=== PATIENT | female | born 1955 | race Caucasian/White ===

== ENCOUNTER 2019-01-28 14:50 | Inpatient (IN) ==
[2019-01-28] MEDS ORDERED: VANCOMYCIN IV PER PHARMACY MISC SCH (15:30)
[2019-01-28] MEDS ORDERED: LEVAQUIN 500 MG/D5W 500 MG/100 ML IVPB IV SCH (16:00)
--- NOTE | 2019-01-28 16:08 | EKG Report ---
Test Performed on : 01/28/2019 3:47:53 PM Test Reason : CELLULITIS Blood Pressure : / mmHG Vent. Rate : 084 BPM Atrial Rate : 084 BPM P-R Int : 190 ms QRS Dur : 106 ms QT Int : 358 ms P-R-T Axes : 067 009 052 degrees QTc Int : 423 ms Normal sinus rhythm. Normal ECG When compared with ECG of 24-OCT-2016 08:33, No significant change was found Confirmed by Kenny Cole MD ([id number]) on 01/28/2019 8:56:42 PM
[2019-01-28 16:16] LABS: HEMATOCRIT 41.4 % (37.0-47.0); HEMOGLOBIN 13.6 g/dL (12.0-16.0); MCH 28.5 PG (27-31); MCHC 32.9 g/dL (33-37); MCV 86.8 FL (81-99); MPV 8.3 FL (7.4-10.4); RBC 4.77 XMIL (4.2-5.4); RDW 13.8 % (11.5-14.5); WBC 6.28 X1000 (4.8-10.8)
[2019-01-28 16:47] LABS: ALB/GLOB RATIO 0.7; ALBUMIN 3.1 g/dL (3.5-5.0); CALCIUM 9.1 mg/dL (8.8-10.2); CREATININE 1.6 mg/dL (0.5-0.9); POTASSIUM 4.9 mmol/L (3.5-5.1); TOTAL BILIRUBIN 0.24 mg/dL (0.20-1.00); TOTAL PROTEIN 7.3 g/dL (6.3-8.3)
[2019-01-28] MEDS: KEFZOL 2 GM/D5W 2 GM/50 ML IVPB IV SCH ×2 (16:59→23:31)
[2019-01-28] MEDS: D5 1/2 NS + KCL 20 MEQ 1,000 ML IV SCH (16:59)
--- NOTE | 2019-01-28 17:57 | INFECTIOUS DISEASE CONSULT REP ---
DATE: 01/28/2019 CONCLUSION: The patient has a 3 year history of a large sacral wound, which is infected. This occurred because the patient had an experimental radiation treatment of colon cancer. A culture taken from the sacral wound on January 22 of this year grew Klebsiella. RECOMMENDATIONS: I have taken a culture from the wound. I was able to insert the swab all the way to the handle that I was holding. Therefore, the wound is very deep and that is being sent for culture. DISCUSSION: The patient had experimental radiation therapy years ago to treat her colon cancer. She developed a sacral wound which has been present for the past 3 years. The drainage has increased recently and she has also had a fever with it in the range of 100 to 101. A culture taken from the wound grew Klebsiella as mentioned above. There is no other laboratory result back yet. PAST MEDICAL HISTORY/REVIEW OF SYSTEMS: Eyes and ears: Her hearing and vision is good. Neck: No stiffness. Respiratory: No cough or shortness of breath. Cardiac: No chest pain or palpitations. GI: No nausea or vomiting. The patient does have a colostomy. : The patient has a urostomy that both ureters empty into. Bones, joints, muscles: No swollen joints or muscle aches. Endocrine: Patient does not have diabetes or thyroid disease. Neurologic: The patient does not have seizures. She has weakness in both legs and can barely walk if at all. 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 She has had a tubal ligation and hysterectomy. PREVIOUS HOSPITALIZATIONS AND OPERATIONS: She has had labor and deliveries, tubal ligation, hysterectomy and surgery for a right hip fracture which included putting metal in. The patient also has had breast reduction. MEDICAL DISEASES: Positive for rectal cancer treated with radiation therapy. The patient also has chronic anemia. INFECTIOUS DISEASE HISTORY: Positive for urinary tract infection, pneumonia, and sacral wound infection. FAMILY HISTORY: Positive for diabetes mellitus, hypertension, stroke and cancer. SOCIAL HISTORY[place] . She has cats for pets. She is disabled. She is allergic to penicillin and Demerol. However, she has had Keflex in the past and has tolerated it well. She does not smoke cigarettes, drink alcoholic beverages or abuse drugs. HOME MEDICATIONS: Include Xanax, Keflex, hydrocodone and minerals and vitamins. PHYSICAL EXAMINATION: Vital Signs: Temperature is 98.1 degrees, pulse 90, respirations 18, blood pressure is 112/65. The patient is 5 feet 7 inches tall, weighs 190 pounds. General: This is an obese, middle-aged female. She is in no acute distress. Head/eyes/ears/nose/throat: She can hear my spoken words and see near objects. Neck: No meningismus. Lungs: Clear to auscultation. Cardiovascular: Regular heart rate. Abdomen: Soft and nontender. Colostomy and urostomy tubes are present. Pelvic: In the sacral area there is a large wound. It is very erythematous and it has got a seropurulent drainage coming out from it. As I mentioned earlier, when I stuck the swab in to get a culture it went all the way to the handle of the swab. Therefore, the wound is very deep. Neurologic: The patient has weak legs. She can move her arms okay. Her memory as regarding her medical history is intact. Integument: No rash is noted. Thank you for the consult. cc: MD Allan Jo MD
--- NOTE | 2019-01-28 18:02 | Diag Imaging Result Doc PS360 ---
EXAM: CHEST-PORTABLE INDICATION: CELLULITIS TECHNIQUE: One view COMPARISON: 12/23/2016 FINDINGS: The lungs are grossly clear. There is no discrete pleural fluid collection or pneumothorax. The cardiomediastinal silhouette and central vasculature are grossly unremarkable. IMPRESSION: No evidence of acute pathology by plain radiograph. Electronically signed by Aron Henderson 01/28/2019 5:59 PM
[2019-01-28] MEDS: MORPHINE IV PRN ×3 (18:49→23:30)
[2019-01-28 18:50] LABS: URINE SOURCE CLEAN CATCH
[2019-01-28 18:54] LABS: BILIRUBIN URINE NEGATIVE (NEGATIVE); BLOOD URINE TRACE (NEGATIVE); COLOR STRAW; GLUCOSE URINE NEGATIVE (NEGATIVE); KETONE URINE NEGATIVE (NEGATIVE); LEUKOCYTES URINE LARGE (NEGATIVE); NITRITE URINE NEGATIVE (NEGATIVE); PROTEIN URINE 30 mg/dL (NEGATIVE); SP GRAVITY URINE 1.011; TURBIDITY URINE HAZY (CLEAR); UR EPITHELIAL CELLS <10 /HPF (<10); URINE BACTERIA 1+ /HPF; URINE RBC <10 /HPF (<10); URINE WBC TNTC /HPF (<10); UROBILINOGEN URINE NORMAL (NORMAL)
[2019-01-29] MEDS: MORPHINE IV PRN ×9 (04:06→22:26)
[2019-01-29] MEDS: KEFZOL 2 GM/D5W 2 GM/50 ML IVPB IV SCH ×3 (04:24→17:24)
--- NOTE | 2019-01-29 09:32 | Diag Imaging Result Doc PS360 ---
CT ABDOMEN/PELVIS W/O CONTRAST - 01/29/2019 INDICATION: r/o abscess COMPARISON: 10/23/2017 FINDINGS: The patient's posterior sacral wound was catheterized previously and water-soluble contrast was infused. This demonstrates a sinus tract to the former location of the rectum and exiting out the inferior perineum at the location of the anus. At the posterior subcutaneous tissue at the region of the actual sacral wound, there is a small cavity measuring about 5 x 1.5 cm. This is mainly filled with air but also somewhat with the infused contrast. There is a left lower quadrant colostomy and a right lower quadrant urostomy. These appear to be patent and without complication. There is subcutaneous edema in both inferior buttocks and posterior upper thighs. No drainable fluid collections here. There is also some skin thickening suggesting cellulitis. The sacrum itself is diffusely abnormally sclerotic with erosion inferiorly. This is stable from prior. There is also a stable right femoral neck stabilization bernardino. IMPRESSION: 1. The posterior sacral wound connects with a posterior subcutaneous tissue pocket, and also a sinus tract emptying out of the perineum in the former location of the rectum and anus. 2. Cellulitis of the buttocks and posterior upper thighs. 3. Other findings are stable from prior. This exam was performed using automated exposure control, adjustment of mA or kV according to patient size, and/or use of iterative reconstruction technique Electronically signed by Scott Kingsley 01/29/2019 9:29 AM
--- NOTE | 2019-01-29 09:55 | Diag Imaging Result Doc PS360 ---
FLUROSCOPY ONLY IN DEPT. - 01/29/2019 INDICATION: cellulitis of the perineum TECHNIQUE: Fistulogram of posterior sacral wound. 40 cc of Omnipaque was administered. Total fluoroscopy time was 50 seconds. 13 images were obtained. COMPARISON: CT from 10/23/2017 and today FINDINGS: There was a small pocket in the posterior sacral subcutaneous tissue. There is extensive contrast flow down through the region of the former rectum and out from the peritoneum in the former region of the anus. IMPRESSION: Fistula from the posterior sacral tissue pocket through the pelvic tissue and out the peritoneum. Electronically signed by Scott Kingsley 01/29/2019 9:52 AM
--- NOTE | 2019-01-29 14:07 | INFECTIOUS DISEASE PROGRESS NO ---
DATE: 01/29/2019 PRESENT ILLNESS: The patient has cellulitis of the buttocks and thighs. She also has a sacral wound which connects with subcutaneous tissue pocket and a sinus tract to the perineum. A culture taken from the wound a few days ago grew Klebsiella. MEDICATIONS: Currently the patient is on Ancef. PHYSICAL EXAMINATION: Vital Signs: Temperature is 100.6 degrees, pulse 94, respirations 20, blood pressure 119/42. General: This is a somewhat ill-appearing, middle-aged female. She is in no acute distress. Head, eyes, ears, nose, and throat: She can hear my spoken words and see near objects. She does not have any white coating on her tongue. Neck: No meningismus. Lungs: Clear to auscultation. Cardiovascular: Heart rate is regular. Abdomen: The patient has a colostomy and urostomy present. Both are functional. Pelvic Exam: The patient has an erythematous, large wound in the sacral area and perineum. There is a brown and yellow discharge which is profuse. Neurologic: The patient is awake. She can move her arms but she is weak in her legs. LAB AND X-RAY: CT scan showed cellulitis of the buttocks and thighs, large sacral wound which connected with subcutaneous tissue pocket and a sinus tract to the perineum. The patient's creatinine is 1.6. GFR is 33. Liver function studies are normal. Urinalysis showed white cells and bacteria. A culture from the patient's wound is growing a gram negative bernardino. ASSESSMENT AND PLAN: The patient has a large sacral and perineal wound with cellulitis of the buttocks and thighs. This all occurred because the patient participated in a study of using radiation to treat colorectal cancer years ago. My plan is to continue cefazolin but to decrease the dose because of the patient's renal insufficiency. Patient's comorbidity was that she had a rectal cancer that was treated with radiation therapy years ago. The patient also has chronic anemia. cc: MD Allan Jo MD MTDD
[2019-01-29] MEDS: D5 1/2 NS + KCL 20 MEQ 1,000 ML IV SCH (15:21)
[2019-01-30] MEDS: KEFZOL 2 GM/D5W 2 GM/50 ML IVPB IV SCH ×2 (00:40→08:45)
[2019-01-30] MEDS: MORPHINE IV PRN ×9 (04:34→23:08)
[2019-01-30] MEDS: LMX 5 CREAM TOP PRN ×2 (07:30→16:36)
--- NOTE | 2019-01-30 11:15 | INFECTIOUS DISEASE PROGRESS NO ---
DATE: 01/30/2019 PRESENT ILLNESS: The patient has cellulitis of the buttocks and thighs. She also has a very large deep sacral wound. A culture from the wound is growing a gram-negative bernardino. Previously, the patient grew Klebsiella from the wound. MEDICATIONS: The patient is receiving Ancef. PHYSICAL EXAMINATION: Vital Signs: Temperature is 99 degrees, pulse 75, respirations 18, blood pressure 100/51. General: This is an ill-appearing, middle-aged female. She is in no acute distress. HEENT: She can hear my spoken words and see near objects. She does not have any white patches in her mouth. Neck: She does not have any pain in her neck when she moves her neck or moves her head. Lungs: Clear to auscultation. Cardiovascular: Regular heart rate. Abdomen: Soft and nontender. The patient has two ostomies in place, one is a colostomy and the other is a urostomy. Both are functioning well. Pelvic: The patient has a large sacral and perineal wound. A new type of topical treatment was started by the wound nurse, Annabelle Gutierrez, and amazingly, almost all of the erythema in the patient's wound is gone, and there is a dramatic decrease in any drainage coming from the wound as well. Neurologic: The patient is alert. She can move her extremities, although she is weak in her legs. There is no tremor. LABORATORY DATA: The wound is growing gram-negative bernardino as mentioned above. Urine culture is negative. There is no other new lab for today. ASSESSMENT AND PLAN: The patient has a large sacral and perineal wound with cellulitis of the buttock and thighs. As mentioned above, the wound looks much better today. I think a lot of that is due to the new topical therapy that the wound nurse, Annabelle Gutierrez, started on the patient. As regarding the patient's gram-negative bernardino culture from the wound, I plan on continuing Ancef pending the identification and susceptibility testing of the gram-negative bernardino. COMORBIDITY: The patient had a rectal cancer and she was years ago treated with an experimental radiation therapy. Unfortunately, the side effects from the radiation have caused this very large wound infection. The cancer, however, has not come back. The patient also has chronic anemia. cc: MD Allan Jo MD MTDD
--- NOTE | 2019-01-30 14:03 | INFECTIOUS DISEASE PROGRESS NO ---
DATE: 01/30/2019 SUBJECTIVE: The patient's culture from her wound came back today. It is growing Enterobacter. It is resistant to cefazolin which the patient is currently receiving. PLAN: I have stopped cefazolin and started the patient on cefepime, to which the organism is susceptible. cc: MD Allan Jo MD MTDD
[2019-01-30] MEDS: MAXIPIME 2 GM in NS 100 ML IV SCH (14:15)
[2019-01-30] MEDS: D5 1/2 NS + KCL 20 MEQ 1,000 ML IV SCH ×2 (16:44→16:48)
[2019-01-31] MEDS: MAXIPIME 2 GM in NS 100 ML IV SCH ×3 (01:15→19:43)
[2019-01-31] MEDS: MORPHINE IV PRN ×7 (01:16→21:55)
[2019-01-31] MEDS ORDERED: NORCO-10 PO ONE (10:10)
--- NOTE | 2019-01-31 11:49 | INFECTIOUS DISEASE PROGRESS NO ---
DATE: 01/31/2019 PRESENT ILLNESS: The patient has cellulitis of the buttocks and thighs. She also has a very large deep sacral wound from which Enterobacter was isolated. Finally, the patient has a Pseudomonas urinary tract infection. MEDICATIONS: The patient is on cefepime. PHYSICAL EXAMINATION: Vital Signs: Temperature is 98.7 degrees, pulse 78, respirations 16, blood pressure 96/60. Generally: This is an ill-appearing middle-age female. She is in no acute distress. Head, eyes, ears, nose, and throat: She can hear my spoken words and see near objects. She does not have any white coating of her tongue. Neck: She does not seem to have any pain in her neck when she moves her neck or her head. Lungs: Clear to auscultation. Cardiovascular: Heart rate is regular. Abdomen: The patient has a colostomy and a urostomy in place and they are both functioning well. Pelvic: The patient has a large sacral and perineal wound. The erythema has drastically been reduced and there is a decrease in the drainage coming from the wound also. Neurologic: The patient is alert. She can move her extremities although she is weak in her legs. LABORATORY AND X-RAY: There is no new radiographic study today. Urine analysis showed white cells and bacteria, and the urine culture grew Pseudomonas. ASSESSMENT AND PLAN: The patient has a large sacral and perineal wound and cellulitis of the buttock and thighs. She also has a urinary tract infection. My plan is to continue cefepime, but increase the dose to 2 g IV every 8 hours. I discussed with the patient about hyperbaric oxygen and she indicated to me that she would like to see if that could be arranged. When the patient is discharged from the hospital, I will set up an appointment for her with the hyperbaric oxygen office at [place] where the patient will be evaluated to see if hyperbaric oxygen would be of benefit to her. The patient agrees with having a PICC. COMORBIDITY: The patient, unfortunately, had rectal cancer and she was in an experimental study which used radiation therapy to treat the cancer. The patient has had a lot of side effects from the radiation which have occurred over many years. The cancer has not come back. The patient also has chronic anemia. cc: MD Allan Jo MD MTDD
[2019-01-31] MEDS: D5 1/2 NS + KCL 20 MEQ 1,000 ML IV SCH ×2 (13:36→18:00)
[2019-01-31] MEDS: NORCO-10 PO PRN ×2 (14:41→20:55)
[2019-01-31] MEDS: COLACE PO SCH ×2 (19:43→21:41)
[2019-02-01] MEDS: MORPHINE IV PRN ×5 (00:06→21:05)
[2019-02-01] MEDS: MAXIPIME 2 GM in NS 100 ML IV SCH ×3 (03:42→16:10)
[2019-02-01 06:45] LABS: BASO# 0.01 X1000 (0.0-0.2); BASO% 0.2 % (0.0-0.8); EOS# 0.07 X1000 (0.0-0.7); EOS% 1.1 % (0.0-10.0); HEMATOCRIT 36.6 % (37.0-47.0); HEMOGLOBIN 11.8 g/dL (12.0-16.0); LYMPH# 0.56 X1000 (1.2-3.4); LYMPH% 8.5 % (20.5-51.1); MCHC 32.2 g/dL (33-37); MCV 89.9 FL (81-99); MONO# 0.78 X1000 (0.11-0.59); MONO% 11.8 % (1.7-9.3); MPV 8.3 FL (7.4-10.4); NEUT# 5.18 X1000 (1.4-6.5); NEUT% 78.4 % (42.2-75.2); PLT 237 X1000 (130-400); RBC 4.07 XMIL (4.2-5.4); RDW 13.7 % (11.5-14.5)
[2019-02-01 06:58] LABS: INR 1.1; PROTIME 15.1 Seconds (11.0-16.0)
[2019-02-01 07:04] LABS: CALCIUM 8.6 mg/dL (8.8-10.2); CREATININE 1.4 mg/dL (0.5-0.9); POTASSIUM 4.7 mmol/L (3.5-5.1)
[2019-02-01] MEDS: NORCO-10 PO PRN ×4 (07:24→21:10)
--- NOTE | 2019-02-01 09:46 | Diag Imaging Result Doc PS360 ---
EXAM: SMALL BOWEL SERIES ONLY 02/01/2019 HISTORY: R/O fistula TECHNIQUE: Small bowel series, seven images COMMENT: There is contrast leaking from the fistula in the posterior pelvis almost immediately after ingesting contrast. This is seen on the sheet under the patient on the immediate and 15 minute image. This was removed and appears to contain contrast. The 30 minute image demonstrates some early leakage of contrast, presumably from the distal jejunum as it passes anterior to the sacral promontory. Additional imaging is to be performed with CT. IMPRESSION: Enterocutaneous fistula. Electronically signed by Tylor Agudelo 02/01/2019 9:44 AM
--- NOTE | 2019-02-01 10:42 | Diag Imaging Result Doc PS360 ---
EXAM: CT ABDOMEN/PELVIS W/O CONTRAST 02/01/2019 HISTORY: POST XRAY EXAM PER DR. ROJAS TECHNIQUE: This exam was performed using automated exposure control, adjustment of mA or kV according to patient size, and/or use of iterative reconstruction technique. COMMENT: There is clearly contrast passing from the distal jejunum and the posterior portion of the pelvis just below the level of the sacrum into the fistulous tract extending to the skin posteriorly. This was also demonstrated on fluoroscopy. This connection was not clearly demonstrated on the previous study of 01/29/2019. IMPRESSION: Enterocutaneous fistula as described. The findings were discussed with Allan Crocker MD at 02/01/2019 10:39 AM. Electronically signed by Tylor Agudelo 02/01/2019 10:39 AM
[2019-02-01] MEDS ORDERED: MAXIPIME 2 GM in NS 100 ML IV SCH (12:00)
[2019-02-01] MEDS ORDERED: FLEET ENEMA ONE (14:53)
[2019-02-01] MEDS: COLACE PO SCH ×3 (14:58→21:05)
[2019-02-01] MEDS: D5 1/2 NS + KCL 20 MEQ 1,000 ML IV SCH (16:09)
[2019-02-02] MEDS: NORCO-10 PO PRN ×4 (04:37→21:17)
[2019-02-02] MEDS: MAXIPIME 2 GM in NS 100 ML IV SCH ×2 (04:37→15:49)
[2019-02-02] MEDS ORDERED: ATIVAN PO ONE (06:42)
[2019-02-02 07:02] LABS: BASO# 0.01 X1000 (0.0-0.2); BASO% 0.1 % (0.0-0.8); EOS# 0.06 X1000 (0.0-0.7); EOS% 0.8 % (0.0-10.0); HEMATOCRIT 38.4 % (37.0-47.0); HEMOGLOBIN 12.5 g/dL (12.0-16.0); IMM GRAN# 0.02 X1000 (0.0-0.04); IMM GRAN% 0.3 % (0.0-0.5); LYMPH# 0.45 X1000 (1.2-3.4); LYMPH% 6.1 % (20.5-51.1); MCH 28.4 PG (27-31); MCHC 32.6 g/dL (33-37); MCV 87.3 FL (81-99); MONO# 0.63 X1000 (0.11-0.59); MONO% 8.6 % (1.7-9.3); MPV 8.3 FL (7.4-10.4); NEUT# 6.16 X1000 (1.4-6.5); NEUT% 84.1 % (42.2-75.2); PLT 257 X1000 (130-400); RDW 13.6 % (11.5-14.5); WBC 7.33 X1000 (4.8-10.8)
[2019-02-02 07:24] LABS: CALCIUM 8.6 mg/dL (8.8-10.2); CREATININE 1.5 mg/dL (0.5-0.9); POTASSIUM 4.5 mmol/L (3.5-5.1)
[2019-02-02] MEDS: MORPHINE IV PRN ×3 (07:36→12:18)
[2019-02-02] MEDS: COLACE PO SCH ×2 (09:01→20:03)
[2019-02-02] MEDS: LMX 5 CREAM TOP PRN ×2 (10:45→18:56)
[2019-02-02] MEDS: D5 1/2 NS + KCL 20 MEQ 1,000 ML IV SCH (15:46)
[2019-02-02] MEDS: ZOFRAN IV PRN (21:17)
[2019-02-03] MEDS: NORCO-10 PO PRN ×6 (01:28→21:34)
[2019-02-03] MEDS: MAXIPIME 2 GM in NS 100 ML IV SCH ×2 (03:07→15:48)
[2019-02-03] MEDS: ZOFRAN IV PRN (05:02)
[2019-02-03] MEDS: PHENERGAN IV PRN ×5 (05:06→21:34)
[2019-02-03] MEDS: SODIUM CHLORIDE 0.9% INJ PRN ×3 (09:09→17:14)
[2019-02-03] MEDS: COLACE PO SCH ×2 (09:12→21:38)
[2019-02-03] MEDS: D5 1/2 NS + KCL 20 MEQ 1,000 ML IV SCH (15:51)
[2019-02-04] MEDS: NORCO-10 PO PRN ×6 (02:29→20:48)
[2019-02-04] MEDS: PHENERGAN IV PRN ×2 (02:29→05:47)
[2019-02-04] MEDS: MAXIPIME 2 GM in NS 100 ML IV SCH ×2 (04:53→17:01)
[2019-02-04] MEDS: COLACE PO SCH ×2 (09:25→20:50)
--- NOTE | 2019-02-04 10:22 | DISCHARGE SUMMARY ---
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 PROCEDURES PERFORMED: Fistulogram as well as upper GI and fluoro studies revealing a jejunal enterocutaneous fistula. HISTORY/HOSPITAL COURSE: The patient is a now 64-year-old, white female with a long complicated history leading back to a rectal carcinoma diagnosis in the late and 1999 era. She had radiation and abdominoperineal resection. 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 The necrosis of the bladder led to a radical cystectomy and ileal conduit. She has a permanent colostomy on the left and an ileal conduit on the right. 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 I inherited her from the [employer] oncologist in 2002 and had been taking care of her ever since. She has had problems with nonhealing wounds in the perineum since that time. They would nearly heal and then [place] back in. In the interim she has gained a fair amount of weight. She is able to transfer herself from her wheelchair to bed but is not ambulatory and has gained weight since that time as well. Otherwise workups for recurrent tumor have been negative, mammography, colonoscopy, etc. have all been okay. She developed a draining sinus in the sacral area that appeared to be sort of a pilonidal cyst that was excised 2 years ago that has never healed and over the last 2 to 3 weeks prior to the admission on 01/28 the output from his draining sinus has increased many fold. She was subsequently admitted on 01/28. A fistulogram failed to reveal any evidence of enterocutaneous fistula but follow up upper GI and small-bowel follow-through with Gastrografin did reveal a jejunal enterocutaneous fistula with drainage out through the perineum. This segment of small bowel has likely been radiated as well. It did not improve during her hospitalization. With the enzymes in the small bowel drainage she has had some inflammation and excoriation in her perineum that is that is non healing at this point, as well. I have spoken with Dr. Elaine twice about the patient and he has agreed to take her in transfer to [facility]. He will take the patient in transfer today, probably initiate some TPN and consider an operation that is relatively high-risk secondary to the multiple previous operations and the radiation to the bowel. Operative risk is high. The patient is aware of this and she wishes to proceed with the transfer. In the last several days prior to transfer the patient's oral intake has decreased markedly. She has had nausea and some minimal bilious vomiting but no feculent vomiting. She will be transferred today by ambulance to the [facility] service. cc: Allan Crocker MD
[2019-02-04] MEDS: D5 1/2 NS + KCL 20 MEQ 1,000 ML IV SCH (17:02)
[2019-02-05] MEDS: NORCO-10 PO PRN ×4 (00:42→12:56)
[2019-02-05] MEDS: MAXIPIME 2 GM in NS 100 ML IV SCH (04:39)
[2019-02-05 11:46] VITALS: BP 109/55
[2019-02-05] MEDS: COLACE PO SCH (12:30)
== END 2019-02-05 13:00 | disposition short-term general hospital (02) | DRG 603 ==
LOC: DIRADM → OBSVTOIN 14:50 → 4N 15:01
PROVIDERS: ADMIT Surgery; ATTEND Surgery
CPT/HCPCS: 71010; 71045; 74176; 74250; 76000; 80048; 80053; 81001; 82948; 85025; 85027; 85610; 87070; 87077; 87088; 87186; 93005; 93010; A9270; J0690; J0692; J2270; J2405; J2550; J3480; Q9966; Q9967; XXXXX

== ENCOUNTER 2019-02-11 16:37 | Inpatient (IN) ==
[2019-02-11] MEDS ORDERED: NS 1,000 ML IV PRN (17:52)
--- NOTE | 2019-02-11 18:35 | EKG Report ---
Test Performed on : 02/11/2019 5:54:26 PM Test Reason : Stroke like symptoms Blood Pressure : / mmHG Vent. Rate : 073 BPM Atrial Rate : 073 BPM P-R Int : 176 ms QRS Dur : 094 ms QT Int : 392 ms P-R-T Axes : 070 013 057 degrees QTc Int : 431 ms Normal sinus rhythm. with sinus arrhythmia. Possible Left atrial enlargement Borderline ECG When compared with ECG of 28-JAN-2019 15:47, No significant change was found Unconfirmed Result
[2019-02-11] MEDS ORDERED: ATIVAN IV ONE (18:39)
--- NOTE | 2019-02-11 18:46 | Diag Imaging Result Doc PS360 ---
CT HEAD W/O CONTRAST - 02/11/2019 INDICATION: stroke like symptoms COMPARISON: None FINDINGS: The ventricles and sulci are normal in size and contour. No intracranial mass or hemorrhage. The skull is intact. The sinuses mastoids and middle ears are clear. IMPRESSION: Negative exam. This exam was performed using automated exposure control, adjustment of mA or kV according to patient size, and/or use of iterative reconstruction technique Electronically signed by Scott Kingsley 02/11/2019 6:43 PM
--- NOTE | 2019-02-11 18:55 | Diag Imaging Result Doc PS360 ---
CHEST-PORTABLE - 02/11/2019 INDICATION: stroke like symptoms COMPARISON: 01/28/2019 FINDINGS: There is a right central line in good position with the tip at the lower SVC. The lungs are clear. Heart size is normal. No pneumothorax or pleural effusion. IMPRESSION: Negative exam. Electronically signed by Scott Kingsley 02/11/2019 6:53 PM
[2019-02-11 19:03] LABS: URINE SOURCE CATH
[2019-02-11 19:06] LABS: BILIRUBIN URINE NEGATIVE (NEGATIVE); BLOOD URINE SMALL (NEGATIVE); COLOR ORANGE; GLUCOSE URINE NEGATIVE (NEGATIVE); KETONE URINE NEGATIVE (NEGATIVE); LEUKOCYTES URINE LARGE (NEGATIVE); NITRITE URINE NEGATIVE (NEGATIVE); PH URINE 6.5; PROTEIN URINE 70 mg/dL (NEGATIVE); SP GRAVITY URINE 1.014; TURBIDITY URINE TURBID (CLEAR); UROBILINOGEN URINE NORMAL (NORMAL)
[2019-02-11 19:10] LABS: UR EPITHELIAL CELLS <10 /HPF (<10); URINE BACTERIA 3+ /HPF; URINE RBC <10 /HPF (<10); URINE WBC TNTC /HPF (<10)
[2019-02-11 19:15] LABS: URINE CASTS NONE SEEN; URINE CRYSTALS NONE SEEN; URINE YEAST PRESENT
[2019-02-11 19:16] LABS: URINE SMALL ROUND CELLS NONE SEEN
[2019-02-11 19:34] LABS: UR AMPHETAMINES QUAL NONE DETECTED (NONE DETECT); UR BARBITUATES QUAL NONE DETECTED (NONE DETECT); UR BENZODIAZEPIN QUAL NONE DETECTED (NONE DETECT); UR CANNABINOIDS QUAL NONE DETECTED (NONE DETECT); UR COCAINE QUAL NONE DETECTED (NONE DETECT); UR METHADONE QUAL NONE DETECTED (NONE DETECT); UR OPIATES QUAL NONE DETECTED (NONE DETECT); UR OXYCODONE QUAL NONE DETECTED (NONE DETECT); UR PCP QUAL NONE DETECTED (NONE DETECT)
[2019-02-11 20:09] LABS: BASO# 0.01 X1000 (0.0-0.2); BASO% 0.1 % (0.0-0.8); EOS# 0.07 X1000 (0.0-0.7); HEMATOCRIT 37.4 % (37.0-47.0); HEMOGLOBIN 12.1 g/dL (12.0-16.0); LYMPH# 0.79 X1000 (1.2-3.4); LYMPH% 10.8 % (20.5-51.1); MCH 28.7 PG (27-31); MCHC 32.4 g/dL (33-37); MCV 88.6 FL (81-99); MONO% 8.2 % (1.7-9.3); MPV 9.7 FL (7.4-10.4); NEUT# 5.86 X1000 (1.4-6.5); NEUT% 79.9 % (42.2-75.2); PLT 198 X1000 (130-400); RBC 4.22 XMIL (4.2-5.4); RDW 14.5 % (11.5-14.5); WBC 7.33 X1000 (4.8-10.8)
[2019-02-11] MEDS ORDERED: NS 1,000 ML IV ONE (20:13)
[2019-02-11 20:22] LABS: INR 1.1; PROTIME 15.1 Seconds (11.0-16.0)
[2019-02-11 20:29] LABS: PTT 41.5 Seconds (22.3-41.8)
[2019-02-11 21:16] LABS: ALB/GLOB RATIO 1.2; ALBUMIN 3.3 g/dL (3.5-5.0); CALCIUM 8.5 mg/dL (8.8-10.2); CREATININE 1.4 mg/dL (0.5-0.9); POTASSIUM 4.4 mmol/L (3.5-5.1); TOTAL BILIRUBIN 0.34 mg/dL (0.20-1.00); TOTAL PROTEIN 6.1 g/dL (6.3-8.3)
[2019-02-11] MEDS ORDERED: POTASSIUM CHLORIDE 20 MEQ, MAGNESIUM SULFATE 2 GM, THIAMINE 100 MG, FOLIC ACID 1 MG, M.... IV SCH ×6 (22:56)
[2019-02-12] MEDS: MAXIPIME 0.5 GM in NS 50 ML IV SCH ×4 (00:30→23:30)
[2019-02-12] MEDS ORDERED: D5 1/2 NS 1,000 ML IV SCH ×3 (00:45→14:35)
--- NOTE | 2019-02-12 01:06 | PROVIDER DOCUMENTATION ---
This chart was entered by Rupal Jung Scribe, acting as scribe for Misty Schafer MD. HPI-Neurological Disorder - General Chief Complaint: Altered Mental Status Stated Complaint: ams Time Seen by Provider: 02/11/19 17:26 Source: EMS Allergies/Adverse Reactions: Patient Allergies Allergy/AdvReac Type Severity Reaction Status Date / Time meperidine HCl * Allergy RASH Verified 02/11/19 17:37 [From Demerol] Penicillins Allergy RASH Verified 02/11/19 17:37 adhesive tape AdvReac RASH Verified 02/11/19 17:37 Home Medications: Home Medication List Medication Instructions Recorded Confirmed Last Taken Type Alprazolam [Xanax] 0.5 mg PO BID PRN 01/28/19 01/28/19 Unknown History Aspirin [Aspirin EC] 81 mg PO DAILY 01/28/19 01/28/19 Unknown History Hydrocodone/Acetaminophen [[place] 1 ea PO Q4-6H PRN PRN 01/28/19 02/11/19 Unknown History 10-325 Tablet] Mv-Mn/Folic Acid/Vit K/[id number] 1 tab PO DAILY 01/28/19 02/11/19 Unknown History [Alive Once Daily Women 50 Plus] Cefepime HCl 2 g IV TID 02/11/19 02/11/19 Unknown History - History of Present Illness-Neuro Nature of Presenting Problem: 64 y/o female presents to ED with confusion and expressive aphasia onset this morning upon wake up @6 AM. Pt has hx jejunal enterocutaneous fistula and has been NPO/on tpn at home for the past week in preparation for surgery. Pt is alert and oriented x 2. Severity: reports: moderate Onset/Duration: reports: this morning Timing: reports: still present Context: reports: other (confused; expressive aphasia) Character of Altered Mental Status: reports: confused Any recent trauma/injury?: reports: none Character of Deficits: reports: impaired speech (expressive aphasia) New weakness or altered sensation location:: reports: none Cognitive Baseline: alert but confused Gait Baseline: walks without assistance Associated Symptoms: reports: confusion, other (expressive aphasia) Similar Symptoms Previously?: No Recently seen or treated by another doctor?: No Review of Systems - Adult - REVIEW OF SYSTEMS - ADULT Constitutional: reports: other (confusion). denies: chills, fever Eyes: reports: no symptoms reported Ears, Nose, Mouth & Throat: reports: no symptoms reported Cardiovascular: denies: chest pain, palpitations Respiratory: denies: cough, shortness of breath Gastrointestinal: denies: abdominal pain, diarrhea, nausea, vomiting Genitourinary: reports: no symptoms reported Musculoskeletal: denies: back pain, joint pain Integumentary: reports: no symptoms reported Neurological: reports: other (confusion; expressive aphasia). denies: dizziness/vertigo, seizure Psychiatric: reports: no symptoms reported Endocrine: reports: no symptoms reported Hematologic/Lymphatic: reports: no symptoms reported Allergic/Immunologic: reports: no symptoms reported All Other Systems: Reviewed and Negative Past History - Adult - PAST MEDICAL HISTORY-ADULT Review of Records: reports: Old Records Reviewed, Nursing Assessment Review, Medications Reviewed Major Childhood Illnesses: reports: denies history Gastrointestinal: reports: cancer (colon) Genitourinary: reports: other (bladder removed) - PRIOR SURGERIES/PROCEDURES Surgical/Procedure History: reports: bowel surgery (colon resection; colostomy), breast (reduction), other (cystectomy; urostomy) - IMMUNIZATION STATUS Childhood Immunizations: See Nurse Assessment Flu Vaccine: See Nurse Assessment - FAMILY HISTORY Family History: reviewed, not pertinent - SOCIAL HISTORY Smoking: non-smoker Substance Use: none/never Alcohol Use Frequency: never Living Situation: family Physical Exam- Neurological - Physical Exam-Neuro Initial Vital Signs Reviewed: Yes General Appearance: alert, mild distress Eye Exam: bilateral eye: normal inspection, PERRL, EOMI HENMT: normocephalic/atraumatic, moist mucous membranes, normal ENT inspection Head Injury: no evidence of injury Neck: non-tender, full range of motion Respiratory: chest non-tender, lungs clear, normal breath sounds Cardiovascular: normal peripheral pulses, regular rate, rhythm Abdominal Exam: normal bowel sounds, non tender, soft Extremity: normal range of motion, non-tender, normal gait truer pinion and wheel Exam: normal hearing, PERRL, abnormal speech (expressive aphasia) Motor/Sensory: no motor deficit, no sensory deficit, no pronator drift Neurologic: truer pinion and wheel II-XII nml as tested, no motor/sensory deficits, other (cannot count backwards from 20) Integumentary: normal color, warm/dry Psych/Mental Status: normal thought content, normal thought process, other (oriented x 2). negative: oriented x 3 - Glascow Coma Scale Best Eye Response: (4) open spontaneously Best Verbal Response: (5) oriented Best Motor Response: (6) obeys commands Progress - PLAN OF CARE/RESULTS Progress/Plan/Lab Results: Vital Signs - 8 hr 02/11/19 19:48 02/11/19 20:03 02/11/19 21:02 Temperature 98.9 F Pulse Rate 65 71 71 Respiratory Rate 17 17 16 Blood Pressure 121/54 136/86 150/67 O2 Sat by Pulse Oximetry 99 98 97 Laboratory Results - last 24 hr 02/11/19 02/11/19 02/11/19 18:34 18:51 18:59 WBC RBC Hgb Hct MCV MCH MCHC RDW Std Deviation Plt Count MPV Immature Gran % (Auto) Neut % (Auto) Lymph % (Auto) Stanley % (Auto) Eos % (Auto) Baso % (Auto) Immature Gran # (Auto) Neut # (Auto) Lymph # (Auto) Stanley # (Auto) Eos # (Auto) Baso # (Auto) PT INR PTT (Act[place] FS) Sodium Potassium Chloride Carbon Dioxide Anion Gap BUN Creatinine Estimated GFR/1.73 m2 BUN/Creatinine Ratio Glucose POC Glucose 102 Calculated Osmolality Calcium Total Bilirubin AST ALT Alkaline Phosphatase Troponin T Total Protein Albumin Globulin Albumin/Globulin Ratio Urine Source CATH Urine Color ORANGE Urine Turbidity TURBID Urine pH 6.5 Ur Specific [place] 1.014 Urine Protein 70 A Ur Glucose (Stick) NEGATIVE Ur Ketones (Stick) NEGATIVE Urine Blood SMALL A Urine Nitrite NEGATIVE Urine Bilirubin NEGATIVE Urobilinogen Dipstick NORMAL Urine Leukocytes LARGE A Urine WBC (Auto) TNTC A Urine RBC (Auto) <10 U Epithel Cells (Auto) <10 Urine Bacteria (Auto) 3+ Urine Crystals NONE SEEN Small Round Cells NONE SEEN Urine Casts NONE SEEN Urine Yeast-like Cells PRESENT Urine Opiates Screen NONE DETECTED Ur Oxycodone Screen NONE DETECTED Ur Methadone, Qual NONE DETECTED Ur Barbiturates Screen NONE DETECTED Ur Phencyclidine Scrn NONE DETECTED Ur Amphetamines Screen NONE DETECTED U Benzodiazepines Scrn NONE DETECTED Urine Cocaine Screen NONE DETECTED U Cannabinoids Screen NONE DETECTED 02/11/19 02/11/19 02/11/19 19:43 19:43 19:43 WBC 7.33 RBC 4.22 Hgb 12.1 Hct 37.4 MCV 88.6 MCH 28.7 MCHC 32.4 L RDW Std Deviation 14.5 Plt Count 198 MPV 9.7 Immature Gran % (Auto) 0.0 Neut % (Auto) 79.9 H Lymph % (Auto) 10.8 L Stanley % (Auto) 8.2 Eos % (Auto) 1.0 Baso % (Auto) 0.1 Immature Gran # (Auto) 0.00 Neut # (Auto) 5.86 Lymph # (Auto) 0.79 L Stanley # (Auto) 0.60 H Eos # (Auto) 0.07 Baso # (Auto) 0.01 PT 15.1 INR 1.10 PTT (Actin FS) 41.5 Sodium 148 H Potassium 4.4 Chloride 115 H Carbon Dioxide 20 L Anion Gap 13 BUN 41 H Creatinine 1.4 H Estimated GFR/1.73 m2 38 BUN/Creatinine Ratio 29 Glucose 107 H POC Glucose Calculated Osmolality 305 Calcium 8.5 L Total Bilirubin 0.34 AST 16 ALT 9 L Alkaline Phosphatase 95 Troponin T Total Protein 6.1 L Albumin 3.3 L Globulin 2.8 Albumin/Globulin Ratio 1.2 Urine Source Urine Color Urine Turbidity Urine pH Ur Specific [place] Urine Protein Ur Glucose (Stick) Ur Ketones (Stick) Urine Blood Urine Nitrite Urine Bilirubin Urobilinogen Dipstick Urine Leukocytes Urine WBC (Auto) Urine RBC (Auto) U Epithel Cells (Auto) Urine Bacteria (Auto) Urine Crystals Small Round Cells Urine Casts Urine Yeast-like Cells Urine Opiates Screen Ur Oxycodone Screen Ur Methadone, Qual Ur Barbiturates Screen Ur Phencyclidine Scrn Ur Amphetamines Screen U Benzodiazepines Scrn Urine Cocaine Screen U Cannabinoids Screen 02/11/19 20:17 WBC RBC Hgb Hct MCV MCH MCHC RDW Std Deviation Plt Count MPV Immature Gran % (Auto) Neut % (Auto) Lymph % (Auto) Stanley % (Auto) Eos % (Auto) Baso % (Auto) Immature Gran # (Auto) Neut # (Auto) Lymph # (Auto) Stanley # (Auto) Eos # (Auto) Baso # (Auto) PT INR PTT (Actin FS) Sodium Potassium Chloride Carbon Dioxide Anion Gap BUN Creatinine Estimated GFR/1.73 m2 BUN/Creatinine Ratio Glucose POC Glucose Calculated Osmolality Calcium Total Bilirubin AST ALT Alkaline Phosphatase Troponin T < 0.010 Total Protein Albumin Globulin Albumin/Globulin Ratio Urine Source Urine Color Urine Turbidity Urine pH Ur Specific [place] Urine Protein Ur Glucose (Stick) Ur Ketones (Stick) Urine Blood Urine Nitrite Urine Bilirubin Urobilinogen Dipstick Urine Leukocytes Urine WBC (Auto) Urine RBC (Auto) U Epithel Cells (Auto) Urine Bacteria (Auto) Urine Crystals Small Round Cells Urine Casts Urine Yeast-like Cells Urine Opiates Screen Ur Oxycodone Screen Ur Methadone, Qual Ur Barbiturates Screen Ur Phencyclidine Scrn Ur Amphetamines Screen U Benzodiazepines Scrn Urine Cocaine Screen U Cannabinoids Screen Orders Category Date [facility] Routine AdmDCTranf 02/11/19 22:56 Active Activity - Strict Bedrest Q1D Care 02/11/19 22:56 Active Apply Mechanical Device [QM] ORDERED Care 02/11/19 22:56 Active Aspiration Precautions DIRECTED Care 02/11/19 22:56 Active Cardiac Monitoring DIRECTED Care 02/11/19 17:52 Completed Elevate Head of Bed DIRECTED Care 02/11/19 22:56 Active Finger Stick Blood Sugar (ED) DIRECTED Care 02/11/19 17:52 Completed IV Insertion ORDERED Care 02/11/19 22:56 Completed Intake and Output-Strict ORDERED Care 02/11/19 22:56 Active Misc. NRSG Communication Order DIRECTED Care 02/11/19 17:52 Completed Neurological Check ORDERED Care 02/11/19 22:56 Active Nursing- MD Consult Request ROUTINE Care 02/11/19 22:56 Active Oxygen Therapy- ED Nursing DIRECTED Care 02/11/19 17:52 Completed Saline Loc NOW Care 02/11/19 17:52 Active Vital Signs Order Q 4-HR ASSESS Care 02/11/19 22:56 Active Z-Document. for Tele Applied ORDERED Care 02/11/19 22:56 Completed Physician/Provider Consults Routine Cons 02/11/19 22:56 Ordered Social Service Consult Routine Cons 02/11/19 22:56 Active NPO Diet 02/11/19 Lunch Active CHEST-PORTABLE [RAD] Stat Exams 02/11/19 17:[address] HEAD W/O CONTRAST [CT] Stat Exams 02/11/19 17:52 Completed MRI BRAIN W/WO CONTRAST [MRI] Routine Exams 02/11/19 22:56 Ordered CBC WITH ELECTRONIC DIFF [HEME] Stat Lab 02/11/19 19:43 Completed COMPREHENSIVE METABOLIC PANEL [CHEM] Stat Lab 02/11/19 19:43 Completed LIPID PROFILE W/DIR LDL [LIPIDS] Routine Lab 02/12/19 06:00 Ordered PROTIME WITH INR [COAG] Stat Lab 02/11/19 19:43 Completed PTT [COAG] Stat Lab 02/11/19 19:43 Completed TROPONIN T Stat Lab 02/11/19 20:17 Completed URINALYSIS W/POSS RFLX CULT [URINALYSIS] Stat Lab 02/11/19 18:51 Completed URINE CULTURE [RM] Routine Lab 02/11/19 19:58 Received URINE DRUG SCREEN Stat Lab 02/11/19 18:59 Completed URINE MANUAL MICROSCOPIC [URINALYSIS] Stat Lab 02/11/19 18:51 Completed 0.9% Sodium Chloride Inj [Ns] 1,000 ml Med 02/11/19 17:52 Discontinued IV 1,000 mls/hr 0.9% Sodium Chloride Inj [Ns] 1,000 ml Med 02/11/19 20:13 Discontinued IV 999 mls/hr Aspirin Med 02/12/19 09:00 Active 325 mg PO DAILY CefEPIME [Maxipime] 0.5 gm Med 02/11/19 22:56 Active 0.9% Sodium Chloride Inj [Ns] 50 ml IV Q12H Lorazepam [Ativan] Med 02/11/19 18:39 Discontinued 0.5 mg IV NOW ONE Telemetry [OM.EQ] Routine Oth 02/11/19 22:56 Active EKG [EKG] Stat Ther 02/11/19 17:52 Draft Physical Therapy Eval/Treatment [OM.PT] Routine Ther 02/11/19 22:56 Active Speech Evaluation [OM.SPT] Routine Ther 02/11/19 22:56 Active Transfer/Admit Order [TRANSFER] Routine Transfer 02/11/19 20:59 Completed expressive aphasia likely encephalopathy from UTI and dehydration vs. less likely stroke symptoms. will admit according to Neurology recommendations. Result Diagrams: 02/11/19 19:43 02/11/19 19:43 - REASSESSMENT Reassessment #1 Time Reassessed: 18:11 Status: unchanged Reassessment #2 Time Reassessed: 19:20 Status: improving (expressive aphasia resolved.) - EKG 1 Time of EKG reading by physician:: 17:55 EKG Read and Signed by:: Sarmed A. Al-Crespo EKG Interpretation (*Must complete 3 of following elements*): Normal (Borderline) Rate: 73 Rhythm: NSR with sinus arrhythmia [place]: normal QRS: other (possible L atrial enlargement) CA Interval: normal ST Wave: normal - XRAY 1 XRAY Study: Chest Impression: See EMR Report ([facility] - [address], [address], [place] [address] [place] [address] [facility], [place] [address] Department of Imaging Patient: YANCY ARCHULETA Date: 02/11/19#: [id number] : 1955DM Status: [employer]#: [id number] Age/Sex: 64/FRoom/Bed: Loc: ED Ordering Physician: Misty Minor MD Family Physician: Ayan Mooney MD Reason for Procedure: stroke like symptoms ___ Signed CHEST-PORTABLE - 02/11/2019 INDICATION: stroke like symptoms COMPARISON: 01/28/2019 FINDINGS: There is a right central line in good position with the tip at the lower SVC. The lungs are clear. Heart size is normal. No pneumothorax or pleural effusion. IMPRESSION: Negative exam. Electronically signed by Scott Kingsley 02/11/2019 6:53 PM 02/11/191852 Interpreting Physician: Scott Kingsley MD Dictated Date/Time: 02/11/191851 cc: Misty Schafer MD; Ayan Mooney MD) - CT/MRI 1 CT Study: Head Impression: See EMR Report ([facility] - [address], [address], [place] [address] [place] [address] [facility], [place] [address] Department of Imaging Patient: YANCY ARCHULETA Date: 02/11/19#: [id number] : 1955DM Status: REG [facility]#: [id number] Age/Sex: 64/FRoom/Bed: Loc: ED Ordering Physician: Sa serge Schafer MD Family Physician: Ayan Mooney MD Reason for Procedure: stroke like symptoms ___ Signed CT HEAD W/O CONTRAST - 02/11/2019 INDICATION: stroke like symptoms COMPARISON: None FINDINGS: The ventricles and sulci are normal in size and contour. No intracranial mass or hemorrhage. The skull is intact. The sinuses mastoids and middle ears are clear. IMPRESSION: Negative exam. This exam was performed using automated exposure control, adjustment of mA or kV according to patient size, and/or use of iterative reconstruction technique Electronically signed by Scott Kingsley 02/11/2019 6:43 PM 02/11/191842 Interpreting Physician: Scott Kingsley MD Dictated Date/Time: 02/11/191841 cc: Misty Schafer MD; Ayan Mooney MD) - CONSULTS/PCP/HOSPITALIST Notification #1 *Consult/PCP/Hospitalist*: Dr. Gunn, Time Discussed: 19:00 Reason/Comments: encephalopathy vs. CVA Consult Disposition: other (Recommends MRA of head and neck tomorrow. No acute intervention needed. Admit to hospitalist at [facility]) #2 Consult: Dr. Orr Time Discussed: 19:56 Reason/Comments: encephalopathy vs. CVA Consult Disposition: Admit Departure - Departure Date of Disposition Decision: 02/11/19 Time of Disposition Decision: 19:57 DIAGNOSIS: Expressive aphasia, TIA (transient ischemic attack) UTI (urinary tract infection) Qualifiers: Urinary tract infection type: acute cystitis Hematuria presence: without hematuria Qualified Code(s): N30.00 - Acute cystitis without hematuria Disposition: ADMITTED INPATIENT 09 Certified Medical Emergency: Emergent Condition: Stable - Critical Care Note This patient required my direct & personal management of CC.: No Attestation - Physician/ HANG Attestation Patient care was provided by Advanced Practice Provider:: No The physician spent face to face time with patient:: Yes Advanced Practice Provider documentation review:: Supervising physician onsite and consulted in the evaluation and care of this patient. The physician did have a face to face encounter with the patient. - NIH Stroke Scale Level of Consciousness: 0-Alert LOC Questions (ask month and age): 0-Answers Both Correctly LOC Commands (ask to open & close eyes;make a fist, let go): 0-Obeys Both Correctly Best Gaze (horizontal eye movement): 0-Normal Visual (use finger movement, counting or visual threat): 0-No Visual Loss Facial Palsy (show teeth or raise eyebrows & close eyes tght: 0-Symmetrical Movement Motor Function-left arm: 0-Normal Motor Function-right arm: 0-Normal Motor Function-left le-Normal Motor Function-right le-Normal Limb Ataxia(gpyuvu-[id number], or heel to whittaker): 0-No Ataxia Sensory(pin prick to face,arms,trunk,legs-compare side/side): 0-No Ataxia Best Language(name item/read sentence.Ex-Down to Earth): 1-Mild to Moderate Aphasia Dysarthria(Pt read words or say words Ex.Mama,Tip-Top,Thanks: 0-Normal Articulation Extinction and Inattention: 0-Normal NIH Total Score: 1 This chart was documented by the indicated scribe, (Rupal Jung, Scribe) and accurately reflects the services I performed and decisions made by me, Misty Schafer MD, as attested by the provider's signature.
--- NOTE | 2019-02-12 06:53 | HISTORY AND PHYSICAL ---
PRIMARY CARE PHYSICIAN: Dr. Mooney. CHIEF COMPLAINT: Difficulty getting her words out. HISTORY OF PRESENTING ILLNESS: A 64-year-old female with a history of rectal cancer with complications and chronic anemia who had presented to the emergency department with a 1-day history of having difficulty getting her words out. Family members thought that she was having a stroke and, subsequently, they brought her to the emergency department. In the ED, she was evaluated and her symptoms seemed to have resolved. However, due to her presenting symptoms, it was thought that she would require admission for further workup. At the time of my examination, she denied any headache, fever, chills, chest pain, shortness of breath, or any weight changes. States that she feels better. PAST MEDICAL HISTORY: Includes rectal cancer and chronic anemia. PAST SURGICAL HISTORY: Colon resection, colostomy, urostomy, hysterectomy. ALLERGIES: Penicillin and Demerol. CURRENT MEDICATIONS: Include Xanax 0.5 mg p.o. b.i.d., aspirin 81 mg p.o. daily, [place] 10/325 one p.o. q.6 hours, and is currently on TPN. SOCIAL HISTORY: No history of smoking. Admits to social alcohol use. Denies any illicit drug use. FAMILY HISTORY: No history of coronary artery disease. REVIEW OF SYSTEMS: Fourteen point review of systems listed as per the HPI. Other systems negative. PHYSICAL EXAMINATION: GENERAL: Cooperative, friendly female. She is resting comfortably now. VITAL SIGNS: Temperature 98.9 degrees, pulse 65, respirations 17, blood pressure 121/54. HEENT: Atraumatic, normocephalic. Extraocular movements intact. PERRLA. NECK: No masses. CHEST: Clear to auscultation. CARDIOVASCULAR: Regular rate and rhythm. ABDOMEN: Soft. Colostomy and urostomy bag noted. EXTREMITIES: There is +1 edema. NEUROLOGIC: She is awake, alert, oriented x3. Strength is 5/5, all extremities. Speech is intact. SKIN: Warm. LABORATORIES AND STUDIES: WBCs 7.33, hemoglobin 12.1, hematocrit 37.4, platelets 198,000. Sodium 148, potassium 4.4, chloride 115, CO2 is 20, BUN is 41, creatinine is 1.4, glucose 107. UA shows large leukocytes and +3 bacteria. ASSESSMENT: A 64-year-old female with a history of rectal cancer and chronic anemia who had presented to the emergency department with a 1-day history of having difficulty getting her words out. She was evaluated in the emergency department and due to suspicion of a possible transient ischemic attack, we will need to rule out cerebrovascular accident. Subsequently, she will require admission for further management. 1. Transient ischemic attack. We will need to rule out cerebrovascular accident. 2. Hypernatremia. 3. Acute kidney injury. 4. Suspected urinary tract infection. PLAN: 1. We will admit patient to the medical floor with telemetry. 2. We will continue with stroke workup. 3. We will consult a neurologist and order an MRI of the brain with and without. 4. We will check a carotid duplex. 5. We will continue with adequate fluids. 6. Monitor her renal function closely. 7. We will start the patient on empiric antibiotics for the UTI. 8. We will use SCDs for DVT prophylaxis. 9. We will continue to follow and reassess, and make further recommendation based on the patient's clinical course. cc: Yair Orr MD
--- NOTE | 2019-02-12 09:20 | Diag Imaging Result Doc PS360 ---
EXAM: MRI BRAIN W/WO CONTRAST 02/11/2019 HISTORY: TIA TECHNIQUE: T1 sagittal and axial, T2, FLAIR, DWI axial, coronal gradient echo, post gadolinium T1 axial and coronal reformation. COMMENT: There are no previous MRI studies. There is an empty sella. There are a few small punctate areas of increased T2-weighted signal intensity particularly in the left frontal white matter. There is no evidence of restricted diffusion. There is no evidence of mass effect, bleed, or abnormal extra-axial fluid collection. There is no evidence of abnormal gadolinium enhancement. IMPRESSION: Minimal microvascular white matter change. No evidence of acute disease. Electronically signed by Tylor Agudelo 02/12/2019 9:18 AM
[2019-02-12] MEDS: ASPIRIN PO SCH (11:26)
[2019-02-12] MEDS ORDERED: ZOFRAN IV PRN (14:31)
--- NOTE | 2019-02-12 15:56 | Diag Imaging Result Doc PS360 ---
EXAM: MRA BRAIN W/O CONTRAST 02/12/2019 HISTORY: TIA. Evaluate for intracranial vascular stenosis TECHNIQUE: 3-D [id number] COMMENT: The P1 segments are somewhat hypoplastic and the majority of the flow in both posterior cerebral arteries appears to come from the posterior communicating arteries. Otherwise there are no major branch occlusions and there is no evidence of aneurysm. IMPRESSION: No acute vascular abnormality. Electronically signed by Tylor Agudelo 02/12/2019 3:54 PM
--- NOTE | 2019-02-12 16:27 | PROGRESS NOTE ---
DATE: 02/12/2019 INTERVAL HISTORY: No acute events. The patient has been feeling alright since presentation. However, according to the patient and her , she often times feels as if she is not able to bring out her words as quickly as she used to before, which has been ongoing since at least yesterday, but she was feeling a little less verbal since Monday, which is 2 days prior to current presentation. The patient also feels that she has an abscess which has been draining on the back and she is no longer experiencing any pain. OBJECTIVE: Vital signs: Temperature 97.9 degrees, pulse 69, respiratory 17. blood pressure 130/59. Saturating 100% pacemaker room air. General: Does not appear in any acute distress. Oral is appears moist. Lungs: Air entry bilaterally equal. No wheeze, rhonchi, crackles. Cardiovascular: S1, S2 normal. Regular. No murmur, rub, or gallop. She has a right-sided chest central line. Abdomen: Soft. She has right lower and left lower quadrant ostomy right,-sided ileal conduit and left-sided what looks like a colostomy. Extremities: She has increased left lower extremity edema as compared to right. She states. She says previously it was imaged and there was no evidence of DVT at [facility] as well. Microbiology no data, though the urine culture had was collected. Neurological: She is alert oriented x3. Cranial nerve examination, her visual acuity is intact on gross examination. She is able to move eyeballs both sites of midlines and above and downward. Does not have facial asymmetry or ptosis. She has intact cough. She is able to raise her shoulders. Her speech appears normal to me. She has intact sensations bilateral face, upper extremity as well as lower extremity. Her strength is 5 in 5 on bilateral upper extremity. She does have slightly decreased power on the right lower extremity where her plantar flexion and dorsiflexion is weaker than on the left. LABORATORY DATA: Suggestive of hypernatremia, hyperchloremia, low bicarbonate, chronic kidney disease stage III. MICROBIOLOGY: No data. ASSESSMENT AND PLAN: 1. Suspected transient ischemic attack. She does not have dysdiadochokinesia or speech abnormality. Currently, though she does have slight weakness of her right dorsiflexion and plantar flexion as compared to left, which has been ongoing for at least a week. MRI of brain is unremarkable. I will get MR angiography of brain, carotid ultrasound and echocardiogram to rule out any transient ischemic attack. She has been taking [employer] for abdominal pain and has been recently started on cefepime, which could complicate the speech abnormality picture. Will appreciate Neurology recommendations. 2. Hypernatremia, hyperchloremia, and chronic kidney disease stage III. She is getting D5 half- normal saline. I am going to stop her intravenous fluids as I get a dietitian on board for TPN/ 3. 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 She has been on intravenous cefepime, which I will continue. She is supposed to go back to [facility] surgeon for consideration of further abdominal surgeries. I will continue her on total parenteral nutrition. Currently, she does not have fever or leukocytosis to suggest any sepsis. DISPOSITION: I am awaiting a TIA workup based. Base on that, I will consider discharging her in the next 24 to 48 hours. Plan of care discussed the patient and at bedside. All of their questions have been answered. Continue monitoring in telemetry unit cc: Trey Kwok MD
[2019-02-12] MEDS: NORCO-10 PO PRN (16:37)
[2019-02-12] MEDS: PEPCID PO SCH (16:37)
[2019-02-12] MEDS ORDERED: D10W 1,000 ML IV SCH (17:30)
[2019-02-12] MEDS ORDERED: HUMULIN R SUBQ SCH (17:30)
--- NOTE | 2019-02-12 18:51 | CONSULTATION ---
DATE OF CONSULTATION: 02/12/2019 Ms. Thompson had apparent difficulty with communication yesterday. History from the patient is a little bit inconsistent. History from attentive at the bedside helped clarify. I have also reviewed the admission notes. She apparently had trouble communicating with speech on waking yesterday. This was more prominent at some times than others. Specifically, noted she seemed better after rest. Speech was not slurred. She did not have trouble understanding what was said to her. She had trouble getting her words together for speech. She wrote a small grocery list and found herself needing to print. Not clear that she did any reading during this time. She does not take much PO but did not notice trouble swallowing pills. There was no facial asymmetry. She felt a little bit weaker in the legs on transfers but did not notice weakness in one leg more than the other. There was a little bit of headache but that was never prominent. She believes headache was mostly at the vertex and she cannot describe that more precisely now. There was no vision disturbance. reports no altered awareness or unconsciousness, but patient reports she was "going in and out" of consciousness at one point. She seems to be able to remember some of the events during the time she reports being unconscious. She presented to the hospital, was evaluated and admitted. She seems back to baseline now. She reports never having identical episode before. She has had occasional headaches, but never associated with language difficulty or other neurologic deficit. There is no history of stroke. She has never had diagnosed seizure. There is no history of recent head injury. Workup here includes initial noncontrast CT and later brain MRI done with and without contrast. There is nothing definitely remarkable. There is very subtle finding on the brain MRI of possible chronic ischemic change in the left hemisphere but no associated restricted diffusion. Lab work showed sodium 148, BUN in the 40s. Urine drug screen was all negative. Home medications included hydrocodone. She reports she believes that she might have been trying to reduce hydrocodone use too rapidly. I believe she may have been taking 10 mg hydrocodone dose every 4 hours and she reduced that to 5 mg every 4 hours and then she did take a 10 mg dose at one point yesterday. She reports taking alprazolam only during her recent [facility] hospitalization. She had been home from the hospital for 2 days and did not have benzodiazepine during those days. She has been afebrile. Past history is very complicated with history of rectal cancer, multiple complications, infectious disease issues. She had started cefepime a few days ago, by her report. There is reported to be chronic weakness in the legs, numbness in the feet and she reports these problems are chronic and attributed to "neuropathy." Chart shows possible prior cauda equina syndrome with paraparesis. This may have been complication of earlier radiation therapy. On exam, she is awake, alert, attentive and appropriate now. Speech is not dysarthric. Language function is intact on careful bedside testing of repeating, naming, comprehension, fluency. I did not test reading or handwriting. She did well with brief calculation. She did well with commands requiring right/left distinction and digit distinction. She named objects and parts of objects correctly. She is completely oriented. She discussed recent news with accurate detail. Head and neck are unremarkable. Visual dickens are full. Extraocular movements are full. Facial motility is symmetric. Facial sensation is intact to pinprick testing. Gag is intact. Tongue is midline. She can hear. Shoulder shrug is equal. Strength is normal in the arms. She did well on [id number] testing bilaterally. She reports good pinprick appreciation symmetrically over the hands. She demonstrated better power in the left leg than the right. Strength grades 2/5 at the right anterior tibialis, 3/5 at the right iliopsoas and 4/5 at the right gastrocnemius. Reflexes are absent at the ankles bilaterally. Plantar response is silent bilaterally. Her responses to pinprick testing over the legs are very inconsistent, generally more consistent with a stocking pattern of sensory loss than a dermatomal pattern. She reports very poor proprioception at the right great toe and proprioception appears intact at the left great toe MTP joint. I did not test her gait or ask her to stand. IMPRESSION: 1. Difficulty with communication yesterday. Superficially, this seems most consistent with expressive dysphasia but I am not certain the history is valid. Transient global amnesia would be another consideration. This might have been a more global encephalopathy with report of language problem beyond what really occurred. Migraine, cerebrovascular ischemic problems, seizure would be considerations. The MRI findings are minimal and may not correlate with her symptoms. 2. Numbness in the feet, more typical of peripheral neuropathy. I believe this is longstanding. 3. Weakness in the legs, currently worse on the right. This may also be longstanding but I am not certain there is not new weakness. Since she seems recovered mentally and language is intact on bedside testing now, I do not have any urgent suggestion. I encouraged her to try to stay well hydrated, to be careful with her medicines, to consider tapering opiate dose more slowly, to be careful with benzodiazepines. I believe she is to have some further imaging with MRA ordered and I will check on that report. We might consider EEG electively, sooner if she has fluctuating level of consciousness or new neurologic deficit. Thanks for asking Neurology to see Ms. Thompson. cc: Mario Martinez III, MD MTDD
[2019-02-12] MEDS: POTASSIUM PHOSPHATE IV SCH ×11 (18:53)
[2019-02-12] MEDS: MAGNESIUM SULFATE IV SCH ×11 (18:53)
[2019-02-12] MEDS: [UNRECOGNIZED DRUG - OTHER] IV SCH ×11 (18:53)
[2019-02-12] MEDS: LIPOSYN 20% 250 ML IV SCH (18:53)
[2019-02-12] MEDS: CALCIUM GLUCONATE IV SCH ×11 (18:53)
[2019-02-12 19:09] LABS: POTASSIUM 4.8 mmol/L (3.5-5.1)
[2019-02-12 19:10] LABS: CALCIUM 8.9 mg/dL (8.8-10.2); CREATININE 1.4 mg/dL (0.5-0.9); PHOSPHORUS 2.7 mg/dL (2.7-4.5)
[2019-02-13] MEDS: NORCO-10 PO PRN ×4 (01:10→23:20)
[2019-02-13 08:05] LABS: CALCIUM 8.7 mg/dL (8.8-10.2); CREATININE 1.2 mg/dL (0.5-0.9); MAGNESIUM 2.1 mg/dL (1.5-2.7); POTASSIUM 3.9 mmol/L (3.5-5.1)
[2019-02-13 08:30] LABS: PREALBUMIN 21.5 mg/dL (20-40)
[2019-02-13] MEDS: MAXIPIME 0.5 GM in NS 50 ML IV SCH ×3 (08:58→23:16)
[2019-02-13] MEDS: PEPCID PO SCH (08:59)
[2019-02-13] MEDS: ASPIRIN PO SCH (08:59)
--- NOTE | 2019-02-13 11:29 | PROGRESS NOTE ---
DATE: 02/13/2019 SUBJECTIVE: Ms. Thompson reports she feels better today. She does not notice any new problems. She believes her right leg is weaker than baseline now and she believes that may have been present for the last week or longer. Today, she reports a sense of need to urinate in recent weeks, a sense which she has not experienced in many years. Brain MRI and MRA were not remarkable. I believe that she may have had cervical scan and I do not have that report. OBJECTIVE: On exam, she is awake, alert, attentive, cheerful, oriented. She is definitely brighter than yesterday. There is no language deficit on brief bedside testing. I did not test her cognitive function further. She has good power symmetrically in the arms. She did well on [id number] testing bilaterally. She has good power grading 5/5 in the left leg at the iliopsoas, anterior tibialis, and gastrocnemius. There is good power in the left toe plantar flexors, foot everters and inverters. On the right, strength is 3/5 at the iliopsoas, 3/5 at the anterior tibialis and 4/5 at the gastrocnemius. She reports diminished pinprick appreciation over both feet in a stocking pattern and there is some inconsistent sensory loss over the right lower leg laterally. Proprioception is good at the left great toe MTP joint and poor at the right great toe MTP joint. Reflexes are absent at the ankles bilaterally. IMPRESSION: 1. Episode prompting admission sounds like transient dysphasia and that has resolved. Negative imaging is reassuring. The episode could be attributed to migraine. There are risk factors for cerebrovascular ischemic problems, but history is not typical of TIA. Nothing to suggest seizure. Still possible that she had a transient global encephalopathy without dysphasia or other specific focal deficit, and that she and only recognized and reported the communication difficulty. 2. Right leg weakness. I discussed with her the history of peripheral neuropathy, leg weakness, prior evaluation. I will check on the cervical spine imaging report. We might need to consider imaging her lower spine. EMG might be helpful later. 3. Reported recent sense of need to urinate. I don't have a definite explanation. I wonder if there might be a change in her baseline cauda equina symptoms. This would not be worrisome except as considered along with apparent new right leg weakness. 4. Clinical evidence of peripheral sensory neuropathy in the legs. Etiology is not certain. I don't know that she received chemotherapy. She does not have diabetes mellitus diagnosed but blood sugars have been consistently moderately elevated here. There is not reported thyroid disease, documented B12 deficiency, history of excessive ethanol use. Paraneoplastic syndrome seems unlikely. Thanks for asking neurology to see Ms. Thompson. cc: MD KARISSA Anthony III
--- NOTE | 2019-02-13 14:11 | PROGRESS NOTE ---
DATE: 02/13/2019 INTERVAL HISTORY: Her MRA of brain did not have any acute abnormality. Echocardiogram and ultrasound of carotids are pending. The patient is feeling fine. She is feeling more fluent today. Denies any new complaints. We discussed about neurology team recommending spinal imaging to evaluate her right lower extremity weakness. VITALS: Temperature 98.5 degrees, pulse 56, respiratory rate 18, blood pressure 120/47, saturating 100% on room air. PHYSICAL EXAMINATION: General: She does not appear in any acute distress. Oral cavity is moist. Lungs: Air entry bilaterally equal. No wheeze, rhonchi, or crackles. Cardiovascular: S1, S2 are normal. Regular. No murmur, rub, or gallop. She has a right-sided chest central line. Abdomen: Soft. She has right and left lower quadrant ostomy. Ileal conduit on the right and colostomy on the left with a brownish output. She has increased left lower extremity edema as compared to the right. She does have wounds over her back which is about 3 x 3 cm, round, clean- appearing fistula at the level of the sacrum. Neurologic: She is alert and oriented x3. Her speech appears fluent. She continues to have persistent mild weakness of right lower extremity as compared to left, affecting ankle and knee joint. LAB DATA: Suggestive of resolved hypernatremia, what appears to be chronic kidney disease stage 3. Urine had mixed natali. IMAGING: Brain MRA had suggested no acute vascular abnormality. ASSESSMENT AND PLAN: 1. Acute episode of dysphasia of uncertain etiology. Brain MRI and MRA did not detect any stenosis or pathology to suggest a transient ischemic attack or a cerebrovascular accident. Ultrasound of carotid and echocardiogram are pending. Continue aspirin. I discussed with her about spacing out Alpine and benzodiazepine frequency for anxiety as it could potentially contribute to it. I discussed with her that those cefepime could contribute to encephalopathy, it usually manifests as confusion. 2. Hypernatremia, hyperchloremia, chronic kidney disease stage 3, improving. Continue total parenteral nutrition. 3. History of cauda equina syndrome in early , status post peripheral neuropathy because of chemoradiation received at that time for her cancer and right lower extremity weakness. MRI imaging has been ordered by neurology team to evaluate if she has any worsening of her cauda equina syndrome considering her current weakness and episode of dysphasia. 4. History of rectal cancer diagnosed in 1989, status post abdominoperineal resection, radiation and chemotherapy complicated by scarring leading to cauda equina syndrome, now status post ileal conduit and colostomy and now development of enterocutaneous fistula in the sacral region. She has been on intravenous cefepime, which I will continue. She is supposed to go back to [facility] surgeon a few weeks later and discuss about further need for massive abdominal surgery. She does not have any leukocytosis to suggests ongoing sepsis. Continue total parenteral nutrition. 5. Disposition. I am awaiting echocardiogram, ultrasound of carotid results, as well as further imaging by neurology team. Based on that, I will consider discharging her in the next 24 hours. I discussed with her that her should check her blood pressure, volume status, and glucose as necessary, and get in touch with her regular doctor if there are signs of any dehydration. cc: Trey Kwok MD
--- NOTE | 2019-02-13 14:13 | Diag Imaging Result Doc PS360 ---
EXAM: MRI LUMBAR SPINE W/CONTRAST INDICATION: New Right Leg Weakness R/O ruptured disc TECHNIQUE: COMPARISON: No prior lumbar spine MRIs available for comparison. FINDINGS: There are extensive postsurgical and posttherapy changes associated with the sacrum. There is metallic susceptibility artifact related to surgical clips anterior to the left sacral ala. There are a few small typical for hemangiomas involving the lumbar spine and there is also a lesion in the L2 vertebral body with internal stippling but little fat saturation suggesting an atypical lipid poor hemangioma. The conus medullaris appears normal. Segmental analysis of the lumbar spine reveal mild disc desiccation at L3-4. There is very mild right neuroforaminal narrowing at L4-5-1 small disc bulge and facet hypertrophy. There is no evidence of foraminal nerve root impingement. There is no evidence of significant central canal or neuroforaminal stenosis at any of the other lumbar levels. IMPRESSION: 1.Extensive postsurgical and post treatment changes involving the sacrum. 2.Very mild degenerative change at the lower lumbar spine as described causing no high-grade stenosis. Electronically signed by Aron Henderson 02/13/2019 2:11 PM
[2019-02-13] MEDS: MAGNESIUM SULFATE IV SCH ×11 (19:21)
[2019-02-13] MEDS: [UNRECOGNIZED DRUG - OTHER] IV SCH ×11 (19:21)
[2019-02-13] MEDS: CALCIUM GLUCONATE IV SCH ×11 (19:21)
[2019-02-13] MEDS: LIPOSYN 20% 250 ML IV SCH (19:21)
[2019-02-13] MEDS: POTASSIUM PHOSPHATE IV SCH ×11 (19:21)
--- NOTE | 2019-02-13 22:43 | ECHO REPORT ---
ORDER DATE: 02/12/2019 MEASUREMENTS: Septal thickness 0.8, left ventricular internal diameter diastole 4.8, left ventricular post wall thickness 0.9, left ventricular internal diameter in systole 3.3, aortic root 3.8, left atrium 2.9. SUMMARY: 1. Technically difficult study due to limited acoustic window quality. 2. Mild sclerosis of trileaflet aortic valve, primarily involves non-coronary cusp. Aortic valve opening is normal. Peak gradient across aortic valve is less than 10 mmHg. There is trace aortic regurgitation. Mitral, tricuspid, and pulmonic valves are without evidence of structural abnormality with trace mitral regurgitation, mild tricuspid regurgitation, and mild pulmonic insufficiency. Estimated systolic PA pressure by Doppler is 25 mmHg. The aortic root is normal in size. 3. Normal left ventricular dimensions demonstrated. Estimated left ventricular ejection fraction appears to be approximately 60%. No regional wall motion abnormalities are evident. Left atrium, right atrium, right ventricle are normal in size with normal right ventricular systolic function. 4. No pericardial effusion. 5. Appearance of inferior vena cava suggests normal central venous pressure. CONCLUSIONS: 1. Technically difficult study. 2. Mild aortic valve sclerosis without stenosis with trace aortic regurgitation. 3. Mild tricuspid regurgitation with normal systolic PA pressure by Doppler. 4. Estimated left ejection fraction approximately 60% without wall motion abnormality evident. cc: MD Trey Garcia MD
[2019-02-14] MEDS: NORCO-10 PO PRN ×2 (06:34→14:43)
[2019-02-14 07:02] LABS: CREATININE 1.5 mg/dL (0.5-0.9); MAGNESIUM 2.2 mg/dL (1.5-2.7); PHOSPHORUS 2.7 mg/dL (2.7-4.5); POTASSIUM 4.2 mmol/L (3.5-5.1)
[2019-02-14] MEDS: PEPCID PO SCH (09:49)
[2019-02-14] MEDS: ASPIRIN PO SCH (09:49)
[2019-02-14] MEDS: MAXIPIME 0.5 GM in NS 50 ML IV SCH ×2 (09:49→16:04)
--- NOTE | 2019-02-14 12:03 | PROGRESS NOTE ---
DATE: 02/14/2019 Ms. Thompson reports significant improvement in right leg power today. Her lumbar MRI was remarkably unremarkable. She continues to have an urge to urinate which she reports is new. She has not had any further problems with communication or altered awareness. As discussed with patient and with Dr. Kwok, I do not have any urgent suggestion. I will be glad to see her as an outpatient. I encouraged her to stay well hydrated with her TPN, to be careful with activities, to try to stay well rested. If she has new leg weakness or other neuromuscular problem, I will be glad to see her for that. If she has further episodes of trouble with language function, communication or alertness, we can evaluate as an outpatient. Thanks for asking neurology to see Ms. Thompson. cc: Mario Martinez III, MD MTDD
--- NOTE | 2019-02-14 14:55 | DISCHARGE SUMMARY ---
ADMISSION DATE: 02/11/2019 DISCHARGE DATE: DISCHARGE DISPOSITION: Home. DISCHARGE CONDITION: She is alert, oriented x3. Her speech is normal. Social work team is setting up contacting the home agency through which she is receiving her TPN. DISCHARGE DIAGNOSIS: 1. Dysphasia acute episode of uncertain etiology possibly because of use of Dixon, though it was not detected on urinalysis. 2. Hypernatremia, hyperchloremia, likely because of volume depletion. 3. Chronic kidney disease stage 3. OTHER DIAGNOSIS: 1. History of rectal cancer diagnosed in 1989 requiring abdominoperineal resection, radiation, and chemotherapy with complications of former leading to need for colostomy, cystectomy, and ileal conduit formation. 2. History of infected cyst on the sacral region with nonhealing wound and eventual development of enterocutaneous fistula pending surgical evaluation at [facility]. 3. On total parenteral nutrition for more than 4 weeks now. 4. Cauda equina syndrome. CONSULTATION DURING HOSPITAL ADMISSION: Neurology, Mario Martinez III, MD. DISCHARGE MEDICATIONS: Multivitamin 1 tablet daily, aspirin 81 mg daily, cefepime 2 g IV t.i.d. which is her home medication which was started by surgeon doctor at [facility], Dixon 10 1 tablet every 6 hours as needed for pain, citalopram 20 mg at nighttime, 30 tablets have been prescribed for anxiety. VITALS AT THE TIME OF DISCHARGE: Temperature 98.5, pulse 81, respiratory rate 16, blood pressure 133/50, saturating 100% on room air. PHYSICAL EXAMINATION: General: She does not appear in any acute distress. No pallor, cyanosis, clubbing, or icterus. HEENT: Oral cavity is moist. Lungs: Air entry bilateral equal. No wheezing, rhonchi, or crackles. Heart: S1, S2 normal. No murmur, rub, or gallop. Abdomen: Soft. She has scars of previous abdominal surgeries. She has right lower quadrant ileal conduit and left lower quadrant colostomy. Extremities: She has bilateral lower extremity edema more pronounced on the left than on the right. She also has about 3 x 3 cm clean-appearing wound likely her enterocutaneous fistula, which was not draining on my examination. Neurologic: She is alert, oriented x3. Her speech appears fluent. Her power is 5/5 bilateral upper extremities, 4/5 on right lower extremity, knee flexion, extension, and ankle flexion, extension, power is 5/5 on left lower extremity. Her sensations are intact bilaterally. Her lower power in right lower extremity has been an ongoing problem since her peripheral neuropathy. LABS AT THE TIME OF DISCHARGE AND ADMISSION: Hemoglobin 12.1, WBC 7.3, platelet 198. Her sodium was 148 on admission, which has decreased to 145 at the time of discharge. Chloride was 115, which had decreased to 111. Her BUN is 31, creatinine 1.5, and GFR of 35. Her blood sugar is 112. MICROBIOLOGY: No data. IMAGING DURING HOSPITAL ADMISSION: Chest x-ray on admission did not have acute cardiopulmonary process. Head CT performed for stroke-like symptoms was negative. Brain MRI had minimal microvascular white matter changes without any evidence of acute disease. Echocardiogram had ejection fraction of 60% without wall motion abnormality or intracardiac thrombus. Brain MRA did not have any acute vascular pathology. Ultrasound carotid formal result is not back, however, on phone I was informed the bilateral carotid arteries have 0-39% stenosis. Lumbar spine MRI performed for her right leg weakness had extensive postsurgical and posttreatment changes involving the sacrum. There was very mild degenerative change at the lower lumbar spine causing no high-grade stenosis. EKG on admission had normal sinus rhythm with sinus arrhythmia. HOSPITAL COURSE SUMMARY: Ms. Thompson is a 64-year-old lady with past medical history of rectal cancer requiring abdominoperineal resection in and chemoradiation, which had eventually caused cauda equina syndrome which eventually required colostomy and ileostomy, and she also had a chronically nonhealing sacral ulcer since last few years, which had later on developed into enterocutaneous fistula, came in with symptoms of acute dysphasia. Apparently, the patient was in the hospital early January when she was admitted under Surgery service for draining enterocutaneous fistula. At that time, she was started on intravenous antibiotics and total parenteral nutrition was transferred to [facility] for surgical evaluation. [facility] had evaluated the patient and eventually discharged her on TPN and pain medication and they wanted her fistula to get better on antibiotics until deciding further Surgery recommendation. The patient was discharged 3 days prior to current admission to home from [facility]. However, on the day of admission, she had developed acute onset speech abnormality where she was not able to speak out words properly. Apparently, she was not feeling well a day prior as well. When her saw her, the patient was alert however she was not able to speak something and so she was immediately brought to the emergency room. In the emergency room, the patient was noticed to be normal. There was no stuttering or speech abnormality noted, however, the patient kept on complaining that she was not feeling normal so she was admitted for suspected stroke-like symptoms. Her stroke workup including MRI, MRA, ultrasound carotids, echocardiogram, was negative for any acute stroke, and her speech abnormality had resolved during hospital admission. MRI lumbar spine was also performed since the patient has weakness of the right lower extremity especially dorsiflexion and plantar flexion of ankle as compared to the left. The patient had conflicting history data where she had mentioned that she has had that problem since before, however, it could have gotten worse recently over the last few weeks, but the MRI did not detect any spinal cord stenosis, though previous history did have history of cauda equina syndrome. At the time of discharge, the patient was hemodynamically stable. Her speech was normal and she appeared to be at baseline. signal worker team is working on reestablishing her TPN care at home. She will be discharged on TPN. Plan of care was discussed with the patient. More than 30 minutes were spent discharging this patient. cc: Trey Kwok MD
[2019-02-14 16:02] VITALS: BP 123/58
--- NOTE | 2019-02-15 17:53 | Carotid Study ---
DATE: 02/12/2019 PROCEDURE: Bilateral carotid duplex. REFERRING PHYSICIAN: Dr. Kwok. INTERPRETING PHYSICIAN: Dr. Abernathy. TECH: [place]. INDICATIONS: TIA. OBSERVED DATA RIGHT LEFT Brachial Blood Pressure Carotid Pulse Bruits: Carotid/Sub DIAGRAM OF ULTRASOUND IMAGING R L RIGHT INT EXT INT EXT LEFT Sae (cm/s) Sae (cm/s) Subclavian Subclavian CCA Proximal CCA Proximal CCA Distal CCA Distal Bulb Bulb ICA Proximal ICA Proximal ICA Mid ICA Mid ICA Distal ICA Distal ECA ECA Vertebral Vertebral ICA/CCA Ratio ICA/CCA Ratio % Stenosis % Stenosis PHYSICIAN INTERPRETATION: The bilateral carotid systems were visualized. In the right carotid artery system there is elevation of peak systolic velocities at the mid and distal portions that would technically correlate to the 40% to 50% lesion here. However, I do not identify any significant plaque or atherosclerotic changes. In the left, there is no flow limiting lesion noted. Vertebrals arteries are antegrade bilaterally. SUMMARY: Mild degree of stenosis which technically falls into the more moderate 40% to 59% lesion range on the right but no evidence of hemodynamically significant lesion or mild degree of stenosis on the left. cc: MD Trey Mcintosh MD
== END 2019-02-14 17:06 | disposition home health service (06) | DRG 92 ==
LOC: SUPCPDRO → ED 16:37 → SUATTDRO 22:20 → 3N 22:20
PROVIDERS: ATTEND Internal Medicine
CPT/HCPCS: 70450; 70544; 70553; 71010; 71045; 72149; 80048; 80053; 80061; 80069; 80101; 80301; 80307; 80324; 80345; 80346; 80353; 80358; 80361; 80365; 81001; 82465; 82948; 83721; 83735; 83992; 84100; 84134; 84450; 84478; 84484; 85025; 85610; 85730; 87088; 93005; 93306; 93880; 97162; 97530; A9270; A9579; G0431; G0434; G0479; G0480; J0610; J0692; J2060; J2405; J3475; J7030; XXXXX

== ENCOUNTER 2019-02-17 10:46 | Inpatient (IN) ==
--- NOTE | 2019-02-17 11:12 | EKG Report ---
Test Performed on : 02/17/2019 10:55:29 AM Test Reason : AMS Blood Pressure : / mmHG Vent. Rate : 063 BPM Atrial Rate : 063 BPM P-R Int : 168 ms QRS Dur : 096 ms QT Int : 400 ms P-R-T Axes : 049 -03 051 degrees QTc Int : 409 ms Normal sinus rhythm. Normal ECG When compared with ECG of 11-FEB-2019 17:54, (Unconfirmed) No significant change was found Unconfirmed Result
[2019-02-17 11:26] LABS: ALLEN TEST YES; BLOOD TYPE ARTERIAL; HCO3-(ACT) 27.2 mmoll (20.0-26.0); METHB 1.3 % (0.0-1.5); O2(CT) 16.6 mL/dL (15.0-23.0); O2HB 96.2 % (95.0-99.0); PCO2(98.6) 30 mmHg (35-45); PO2(98.6) 97 mmHg (60-100); SAMPLE BLOOD; SAO2 99.7 % (95.0-100.0); THB 12.2 g/dL (11.5-17.4); pH(98.6) 7.53 (7.35-7.45)
[2019-02-17 11:27] LABS: MODALITY ROOM AIR
[2019-02-17 11:33] LABS: BASO# 0.01 X1000 (0.0-0.2); BASO% 0.1 % (0.0-0.8); EOS% 1.4 % (0.0-10.0); HEMATOCRIT 38.8 % (37.0-47.0); HEMOGLOBIN 12.5 g/dL (12.0-16.0); LYMPH# 0.75 X1000 (1.2-3.4); LYMPH% 10.3 % (20.5-51.1); MCH 28.8 PG (27-31); MCHC 32.2 g/dL (33-37); MCV 89.4 FL (81-99); MONO# 0.62 X1000 (0.11-0.59); MONO% 8.5 % (1.7-9.3); MPV 10.5 FL (7.4-10.4); NEUT% 79.7 % (42.2-75.2); PLT 171 X1000 (130-400); RBC 4.34 XMIL (4.2-5.4); RDW 14.2 % (11.5-14.5); WBC 7.28 X1000 (4.8-10.8)
[2019-02-17 11:36] LABS: URINE SOURCE CATH
[2019-02-17 11:38] LABS: INR 1.05; PROTIME 14.5 Seconds (11.0-16.0)
[2019-02-17 11:44] LABS: BILIRUBIN URINE NEGATIVE (NEGATIVE); BLOOD URINE TRACE (NEGATIVE); COLOR YELLOW; GLUCOSE URINE NEGATIVE (NEGATIVE); KETONE URINE NEGATIVE (NEGATIVE); LEUKOCYTES URINE MODERATE (NEGATIVE); NITRITE URINE NEGATIVE (NEGATIVE); PH URINE 8.5; PROTEIN URINE 50 mg/dL (NEGATIVE); SP GRAVITY URINE 1.012; TURBIDITY URINE CLEAR (CLEAR); UROBILINOGEN URINE NORMAL (NORMAL)
[2019-02-17 11:45] LABS: UR EPITHELIAL CELLS <10 /HPF (<10); URINE BACTERIA NEGATIVE /HPF; URINE RBC <10 /HPF (<10)
[2019-02-17 12:06] LABS: ALB/GLOB RATIO 1.3; ALBUMIN 3.5 g/dL (3.5-5.0); CALCIUM 8.9 mg/dL (8.8-10.2); CREATININE 1.3 mg/dL (0.5-0.9); MAGNESIUM 2.3 mg/dL (1.5-2.7); POTASSIUM 4.6 mmol/L (3.5-5.1); TOTAL BILIRUBIN 0.25 mg/dL (0.20-1.00); TOTAL PROTEIN 6.1 g/dL (6.3-8.3)
[2019-02-17] MEDS ORDERED: LEVAQUIN 750 MG/D5W 750 MG/150 ML IVPB IV ONE (12:11)
--- NOTE | 2019-02-17 12:32 | Diag Imaging Result Doc PS360 ---
CT HEAD W/O CONTRAST - 02/17/2019 INDICATION: AMS COMPARISON: 02/11/2019 FINDINGS: The ventricles and sulci are normal in size and contour. No intracranial mass or hemorrhage. The skull is intact. The sinuses mastoids and middle ears are clear. IMPRESSION: Negative exam. This exam was performed using automated exposure control, adjustment of mA or kV according to patient size, and/or use of iterative reconstruction technique Electronically signed by Scott Kingsley 02/17/2019 12:29 PM
--- NOTE | 2019-02-17 12:35 | Diag Imaging Result Doc PS360 ---
CHEST-PORTABLE - 02/17/2019 INDICATION: AMS COMPARISON: 02/11/2019 FINDINGS: Stable right central line. The lungs are clear. Heart size is normal. No pneumothorax or pleural effusion. IMPRESSION: Negative exam. Electronically signed by Scott Kingsley 02/17/2019 12:32 PM
[2019-02-17] MEDS ORDERED: NS 500 ML IV ONE (12:39)
[2019-02-17] MEDS ORDERED: NS 1,000 ML IV ONE (12:40)
--- NOTE | 2019-02-17 12:41 | PROVIDER DOCUMENTATION ---
This chart was entered by Rupal Jung Scribe, acting as scribe for Ace Waller MD. HPI-General Adult - General Stated Complaint: AMS Time Seen by Provider: 02/17/19 10:47 Source: patient, family, EMS, old records Allergies/Adverse Reactions: Patient Allergies Allergy/AdvReac Type Severity Reaction Status Date / Time meperidine HCl * Allergy RASH Verified 02/17/19 11:13 [From Demerol] Penicillins Allergy RASH Verified 02/17/19 11:13 adhesive tape AdvReac RASH Verified 02/17/19 11:13 Home Medications: Home Medication List Medication Instructions Recorded Confirmed Last Taken Type Hydrocodone/Acetaminophen [[place] 1 ea PO Q4-6H PRN PRN 01/28/19 02/17/19 02/16/19 20:00 History 10-325 Tablet] Cefepime HCl 2 g IV TID 02/11/19 02/17/19 02/17/19 06:00 History - History of Present Illness -Gen Adult Nature of Presenting Problems: 64 y/o female presents to ED with increased AMS onset 3 days ago. of pt is at bedside and reports she was discharged from [facility] 02/08/19 after being admitted for a "hole in her intestine," decubitus ulcers, and an abscess. Pt was admitted to [facility] on 02/11/19 for similar symptoms and just discharged home 3 days ago. Pt is currently receiving tpn in preparation for a surgery. Pt complains of dizziness. states she just wants to sleep all the time and is convinced this has something to do with the tpn and her antibiotics. Pt is alert and oriented x 1. Location of Pain/Injury: reports: none Pain Radiation: reports: no radiation Quality of Pain: reports: none Severity: reports: mild Onset/Duration: reports: 3 days ago Timing: reports: still present, getting worse Context/Activities at Onset: reports: none Modifying Factors: improves with: nothing Associated Symptoms: reports: dizziness, other (AMS; confusion) Similar Symptoms Previously?: Yes Recently seen or treated by another doctor?: Yes Review of Systems - Adult - REVIEW OF SYSTEMS - ADULT Constitutional: reports: other (AMS; confusion). denies: chills, fever Eyes: reports: no symptoms reported Ears, Nose, Mouth & Throat: reports: no symptoms reported Cardiovascular: denies: chest pain, palpitations Respiratory: denies: cough, shortness of breath Gastrointestinal: denies: abdominal pain, diarrhea, nausea, vomiting Genitourinary: reports: no symptoms reported Musculoskeletal: denies: back pain, joint pain Integumentary: reports: no symptoms reported Neurological: reports: dizziness/vertigo, other (AMS; confusion). denies: seizure Psychiatric: reports: no symptoms reported Endocrine: reports: no symptoms reported Hematologic/Lymphatic: reports: no symptoms reported Allergic/Immunologic: reports: no symptoms reported All Other Systems: Reviewed and Negative Past History - Adult - PAST MEDICAL HISTORY-ADULT Review of Records: reports: Old Records Reviewed, Nursing Assessment Review, Medications Reviewed Major Childhood Illnesses: reports: denies history Gastrointestinal: reports: cancer (colon) Genitourinary: reports: other (bladder removed) - PRIOR SURGERIES/PROCEDURES Surgical/Procedure History: reports: hysterectomy, breast (reduction), other (colostomy; urostomy) - IMMUNIZATION STATUS Childhood Immunizations: See Nurse Assessment Flu Vaccine: See Nurse Assessment - FAMILY HISTORY Family History: reviewed, not pertinent - SOCIAL HISTORY Smoking: non-smoker Substance Use: none/never Alcohol Use Frequency: never Living Situation: family Physical Exam-General - PHYSICAL EXAM-ADULT Initial Vital Signs Reviewed: Yes - CONSTITUTIONAL General Appearance: appears well, alert, no apparent distress, other (oriented x 1; confused; follows commands) - EYES Eyes: PERRL/EOMI, pink conjunctivae - HEAD, EARS, NOSE, MOUTH & THROAT HENMT: normocephalic/atraumatic, moist mucous membranes, normal ENT inspection - NECK Neck: non-tender, full range of motion - RESPIRATORY Respiratory: chest non-tender, lungs clear, normal breath sounds, other (central line placed in R upper anterior chest) - CARDIOVASCULAR Cardiovascular: normal peripheral pulses, regular rate, rhythm - GASTROINTESTINAL (ABDOMEN) Abdominal Exam: normal bowel sounds, non tender, soft, other (ostomy and urostomy bags in place) - MUSCULOSKELETAL Back Exam: normal inspection, no CVA tenderness, no vertebral tenderness Extremity: normal range of motion, non-tender - SKIN Integumentary: normal color, warm/dry, other (central line placed in R upper an terior chest; ostomy and urostomy bags placed; stage 1 decubitus ulcer to sacral region) - NEUROLOGIC Neurologic: motor weakness (pt states she cannot move LLE), other (oriented x 1; confused; follows commands) - PSYCHIATRIC Psych/Mental Status: normal mood/affect, other (oriented x 1; confused; follows commands). negative: oriented x 3 Progress - PLAN OF CARE/RESULTS Progress/Plan/Lab Results: Orders Category Date Time Status Cardiac Monitoring DIRECTED Care 02/17/19 10:59 Ordered Finger Stick Blood Sugar (ED) DIRECTED Care 02/17/19 10:59 Ordered Oxygen Therapy- ED Nursing DIRECTED Care 02/17/19 10:59 Ordered Saline Loc NOW Care 02/17/19 10:59 Ordered CHEST-PORTABLE [RAD] Stat Exams 02/17/19 10:[address] HEAD W/O CONTRAST [CT] Stat Exams 02/17/19 11:00 Ordered ABG [RESP] Stat Lab 02/17/19 10:59 Ordered CBC WITH ELECTRONIC DIFF [HEME] Stat Lab 02/17/19 10:59 Uncollected CK PROFILE [SP CHEM] Stat Lab 02/17/19 10:59 Uncollected COMPREHENSIVE METABOLIC PANEL [CHEM] Stat Lab 02/17/19 10:59 Uncollected LACTATE, PLASMA [CHEM] Stat Lab 02/17/19 10:59 Uncollected PROTIME WITH INR [COAG] Stat Lab 02/17/19 10:59 Uncollected PTT [COAG] Stat Lab 02/17/19 10:59 Uncollected TROPONIN T Stat Lab 02/17/19 10:59 Uncollected URINALYSIS [URINALYSIS] Stat Lab 02/17/19 10:59 Uncollected Altered Mental Status Stat Oth 02/17/19 10:58 Ordered EKG [EKG] Stat Ther 02/17/19 10:59 Ordered Vital Signs - 24 hr 02/17/19 11:01 Temperature 98.0 F Pulse Rate 61 Respiratory Rate 17 Blood Pressure 149/71 O2 Sat by Pulse Oximetry 100 Laboratory Tests 02/17/19 02/17/19 02/17/19 11:15 11:15 11:15 WBC 7.28 RBC 4.34 Hgb 12.5 Hct 38.8 MCV 89.4 MCH 28.8 MCHC 32.2 L RDW Std Deviation 14.2 Plt Count 171 MPV 10.5 H Immature Gran % (Auto) 0.0 Neut % (Auto) 79.7 H Lymph % (Auto) 10.3 L [place] % (Auto) 8.5 Eos % (Auto) 1.4 Baso % (Auto) 0.1 Immature Gran # (Auto) 0.00 Neut # (Auto) 5.80 Lymph # (Auto) 0.75 L [place] # (Auto) 0.62 H Eos # (Auto) 0.10 Baso # (Auto) 0.01 PT 14.5 INR 1.05 PTT (Actin FS) 38.0 Specimen Type Sample Site pH pCO2 pO2 HCO3 Base Excess Oxyhemoglobin ABG O2 Sat (Calculated) ABG O2 Saturation ABG Carboxyhemoglobin ABG Methemoglobin Kerwin Test A-a O2 Difference Total Hemoglobin Lactate Blood Gas Modality FiO2 % Sodium 143 Potassium 4.6 Chloride 106 Carbon Dioxide 26 Anion Gap 11 BUN 41 H Creatinine 1.3 H Estimated GFR/1.73 m2 41 BUN/Creatinine Ratio 32 Glucose 127 H POC Glucose Calculated Osmolality 297 Calcium 8.9 Magnesium 2.3 Total Bilirubin 0.25 AST 16 ALT 15 Alkaline Phosphatase 101 Creatine Kinase 10 L Troponin T Total Protein 6.1 L Albumin 3.5 Globulin 2.6 Albumin/Globulin Ratio 1.3 Plasma Lactate Urine Source Urine Color Urine Turbidity Urine pH Ur Specific [place] Urine Protein Ur Glucose (Stick) Ur Ketones (Stick) Urine Blood Urine Nitrite Urine Bilirubin Urobilinogen Dipstick Urine Leukocytes Urine WBC (Auto) Urine RBC (Auto) U Epithel Cells (Auto) Urine Bacteria (Auto) 02/17/19 02/17/19 02/17/19 11:15 11:17 11:25 WBC RBC Hgb Hct MCV MCH MCHC RDW Std Deviation Plt Count MPV Immature Gran % (Auto) Neut % (Auto) Lymph % (Auto) [place] % (Auto) Eos % (Auto) Baso % (Auto) Immature Gran # (Auto) Neut # (Auto) Lymph # (Auto) [place] # (Auto) Eos # (Auto) Baso # (Auto) PT INR PTT (Actin FS) Specimen Type ARTERIAL Sample Site L RADIAL pH 7.53 H pCO2 30 L pO2 97 HCO3 27.2 H Base Excess 3.0 Oxyhemoglobin 96.2 ABG O2 Sat (Calculated) 16.6 ABG O2 Saturation 99.7 ABG Carboxyhemoglobin 2.20 ABG Methemoglobin 1.3 [place] Test YES A-a O2 Difference 15.0 Total Hemoglobin 12.2 Lactate 1.30 Blood Gas Modality ROOM AIR FiO2 % 21.0 Sodium Potassium Chloride Carbon Dioxide Anion Gap BUN Creatinine Estimated GFR/1.73 m2 BUN/Creatinine Ratio Glucose POC Glucose Calculated Osmolality Calcium Magnesium Total Bilirubin AST ALT Alkaline Phosphatase Creatine Kinase Troponin T < 0.010 Total Protein Albumin Globulin Albumin/Globulin Ratio Plasma Lactate Urine Source CATH Urine Color YELLOW Urine Turbidity CLEAR Urine pH 8.5 Ur Specific [place] 1.012 Urine Protein 50 A Ur Glucose (Stick) NEGATIVE Ur Ketones (Stick) NEGATIVE Urine Blood TRACE A Urine Nitrite NEGATIVE Urine Bilirubin NEGATIVE Urobilinogen Dipstick NORMAL Urine Leukocytes MODERATE A Urine WBC (Auto) 10-20 A Urine RBC (Auto) <10 U Epithel Cells (Auto) <10 Urine Bacteria (Auto) NEGATIVE 02/17/19 02/17/19 11:25 11:26 WBC RBC Hgb Hct MCV MCH MCHC RDW Std Deviation Plt Count MPV Immature Gran % (Auto) Neut % (Auto) Lymph % (Auto) [place] % (Auto) Eos % (Auto) Baso % (Auto) Immature Gran # (Auto) Neut # (Auto) Lymph # (Auto) [place] # (Auto) Eos # (Auto) Baso # (Auto) PT INR PTT (Actin FS) Specimen Type Sample Site pH pCO2 pO2 HCO3 Base Excess Oxyhemoglobin ABG O2 Sat (Calculated) ABG O2 Saturation ABG Carboxyhemoglobin ABG Methemoglobin [place] Test A-a O2 Difference Total Hemoglobin Lactate Blood Gas Modality FiO2 % Sodium Potassium Chloride Carbon Dioxide Anion Gap BUN Creatinine Estimated GFR/1.73 m2 BUN/Creatinine Ratio Glucose POC Glucose 145 H Calculated Osmolality Calcium Magnesium Total Bilirubin AST ALT Alkaline Phosphatase Creatine Kinase Troponin T Total Protein Albumin Globulin Albumin/Globulin Ratio Plasma Lactate 1.4 Urine Source Urine Color Urine Turbidity Urine pH Ur Specific [place] Urine Protein Ur Glucose (Stick) Ur Ketones (Stick) Urine Blood Urine Nitrite Urine Bilirubin Urobilinogen Dipstick Urine Leukocytes Urine WBC (Auto) Urine RBC (Auto) U Epithel Cells (Auto) Urine Bacteria (Auto) Result Diagrams: 02/17/19 11:15 02/17/19 11:15 - EKG 1 Time of EKG reading by physician:: 10:55 EKG Read and Signed by:: Ace Waller EKG Interpretation (*Must complete 3 of following elements*): Normal Rate: 63 Rhythm: NSR [place]: normal QRS: normal VT Interval: normal ST Wave: normal - XRAY 1 XRAY Study: Chest Impression: See EMR Report ([facility] - [address], [address], [place] [address] [place] [id number] Department of Imaging Patient: YANCY ARCHULETA Date: 02/17/19MR#: [id number] : 1955DM Status: REG ERAcct#: [id number] Age/Sex: 64/FRoom/Bed: Loc: ED Ordering Physician: Ace Waller MD Family Physician: Ayan Mooney MD Reason for Procedure: AMS ____ Signed CHEST-PORTABLE - 02/17/2019 INDICATION: AMS COMPARISON: 02/11/2019 FINDINGS: Stable right central line. The lungs are clear. Heart size is normal. No pneumothorax or pleural effusion. IMPRESSION: Negative exam. Electronically signed by Scott Kingsley 02/17/2019 12:32 PM 02/17/19 1232 Interpreting Physician: Scott Kingsley MD Dictated Date/Time: 02/17/19 1232 cc: Ace Waller MD; Ayan Mooney MD) - CT/MRI 1 CT Study: Head Impression: See EMR Report ([facility] - [address], [address], [place] [address] [address] Department of Imaging Patient: YANCY ARCHULETA Date: 02/17/19MR#: [id number] : 1955DM Status: REG ERAcct#: [id number] Age/Sex: 64/FRoom/Bed: Loc: ED Ordering Physician: Ace Waller MD Family Physician: Ayan Mooney MD Reason for Procedure: AMS ____ Signed CT HEAD W/O CONTRAST - 02/17/2019 INDICATION: AMS COMPARISON: 02/11/2019 FINDINGS: The ventricles and sulci are normal in size and contour. No intracranial mass or hemorrhage. The skull is intact. The sinuses mastoids and middle ears are clear. IMPRESSION: Negative exam. This exam was performed using automated exposure control, adjustment of mA or kV according to patient size, and/or use of iterative reconstruction technique Electronically signed by Scott Kingsley 02/17/2019 12:29 PM 02/17/19 1229 Interpreting Physician: Scott Kingsley MD Dictated Date/Time: 02/17/19 1228 cc: Ace Waller MD; Ayan Mooney MD) - CONSULTS/PCP/HOSPITALIST Notification #1 *Consult/PCP/Hospitalist*: GEN De León for Dr. Fuller Time Discussed: 12:35 Reason/Comments: AMS; UTI Consult Disposition: Admit Departure - Departure Date of Disposition Decision: 02/17/19 Time of Disposition Decision: 12:36 DIAGNOSIS: Altered mental status Qualifiers: Altered mental status type: unspecified Qualified Code(s): R41.82 - Altered mental status, unspecified UTI (urinary tract infection) Qualifiers: Urinary tract infection type: site unspecified Hematuria presence: with hematuria Qualified Code(s): N39.0 - Urinary tract infection, site not specified; R31.9 - Hematuria, unspecified Disposition: ADMITTED INPATIENT 09 Certified Medical Emergency: Emergent Condition: Stable Referrals and Follow-Ups: Ayan Mooney MD [Primary Care Provider] - - Critical Care Note This patient required my direct & personal management of CC.: No Attestation - Physician/ HANG Attestation Patient care was provided by Advanced Practice Provider:: No The physician spent face to face time with patient:: Yes Advanced Practice Provider documentation review:: Supervising physician onsite and consulted in the evaluation and care of this patient. The physician did have a face to face encounter with the patient. This chart was documented by the indicated scribe, (Rupal Jung Scribe) and accurately reflects the services I performed and decisions made by me, Ace Waller MD, as attested by the provider's signature.
[2019-02-17] MEDS ORDERED: TYLENOL PO PRN (12:56)
--- NOTE | 2019-02-17 14:48 | HISTORY AND PHYSICAL ---
I am dictating this H and P for Dr. Fuller. PRIMARY CARE PHYSICIAN: Dr. Mooney. CHIEF COMPLAINT: Altered mental status. HISTORY OF PRESENT ILLNESS: Ms. Thompson is a 64-year-old female with a history of rectal cancer with complications and chronic anemia. She presents to the emergency department today with a 1- day history of having altered mental status. is at the bedside. He states that she was discharged from [facility] on 02/14/2019. This was on . The patient is on home TPN. Her TPN was started on by [facility] and [employer]. The patient then was given an order for cefepime to continue at home. On Monday morning, the states he woke up and gave her her first dose of cefepime IV. A little bit after she received her dose, the patient was very tired. She seemed to be a little fuzzy headed, he said. The patient, that afternoon, decided to go and take a nap. The patient continued to sleep. This morning, she woke up, she continued to be very lethargic. Patient had altered mental status. She did receive her dose this morning of cefepime, and she seemed to get worse after she got her dose. The patient also takes Groton at home. Her last dose of Groton 10 was at 8 p.m. last night. The patient is lying in the ER stretcher. She is able to answer some questions appropriately. However, she is not able to tell me her date of , she is not able to tell me what year it is, she does not know what day it is. The patient is able to give me some of her history; however, it is not all complete. The patient's speech is clear. The patient states she is cold at this time. She has a right chest wall cuevas CVL that was put in by [facility] 4 weeks back for her home TPN. This line has two ports on it. The patient has a dose of Levaquin infusing through one of the ports at this time. The patient does have a urostomy and a colostomy. Both bags are intact. states that she has had very adequate urine output, and the patient states that she has been having bowel movements that are adequate. No blood is noted in either one of these. There is a sacral wound noted. This is from an apparent infected cyst that became nonhealing, and eventually turned into an enterocutaneous fistula. She was seen by [facility] for this. They are pending surgery. In the ER, white blood cell count is unremarkable at 7.28. PH is 7.53, CO2 is 30, O2 is 97%, and bicarb is 27.2. This is on room air. Her BUN was 41 and creatinine was 1.3. Her plasma lactate was 1.4. Urinalysis does show positive protein, a trace amount of blood, a moderate amount of leukocytes, and positive for white blood cells. Head CT was negative in the ER, and chest x-ray was negative in the ER. The patient is not complaining of any pain at this time. She is not in any distress at this time, although she is quite altered mentally. PAST MEDICAL HISTORY: Rectal cancer, chronic anemia, cauda equina syndrome, infected cyst in the sacral region that was nonhealing and eventually developed an enterocutaneous fistula, chronic kidney disease stage 3. The patient is on home TPN for 4 weeks now. PAST SURGICAL HISTORY: Colon resection, colostomy and urostomy, and hysterectomy. ALLERGIES: Penicillin, Demerol, and adhesive tape. CURRENT MEDICATIONS: Cefepime 2 grams IV 3 times a day, Groton 10/325 one tablet p.o. every 4 to 6 hours p.r.n., home TPN per infusion company. SOCIAL HISTORY: The patient lives at home with her here in [place]. She is quite active at home. She is wheelchair bound, but she is able to completely take care of herself. Her states she does all the driving and the housework. She denies any smoking history. Admits to some social alcohol use. However, she has not been able to do this because she is not able to take in very much since she developed her fistula. Denies any illicit drug use. FAMILY HISTORY: No known history of coronary artery disease. LABORATORY AND DIAGNOSTIC DATA: White blood cell count 7.28, red blood cell count 4.34, hemoglobin 12.5, hematocrit 38.8, platelet count 171,000. PT is 14.5, INR is 1.05, PTT is 38. PH is 7.53, CO2 is 30, PO2 is 97, bicarb is 27.2, oxyhemoglobin is 96.2, lactate is 1.30. This is all on room air. Sodium is 143, potassium is 4.6, chloride is 106, carbon dioxide is 26, BUN is 41, creatinine is 1.3, estimated GFR is 41, glucose is 127, calcium is 8.9. AST is 16, ALT is 15, total bilirubin is 0.25, alkaline phosphatase is 101. Creatine kinase is 10. Troponin is less than 0.01. Albumin is 3.5. Urinalysis shows positive protein at 50. Urine blood shows trace. Urine leukocytes is a moderate amount. Urine white blood cell count is [address] is a negative exam. Chest x-ray is a negative exam. EKG shows normal sinus rhythm at a rate of 63 beats per minute. REVIEW OF SYSTEMS: A 14-point review of systems has been obtained, and are negative except what is stated above in the HPI. PHYSICAL EXAMINATION: VITAL SIGNS: Temperature 98.0, pulse rate is 61, respiratory rate is 17, blood pressure is 149/71, pulse oximetry is 100% on room air. Weight 184 pounds, height 5 feet 7 inches. GENERAL: This is a 64-year-old, female. She is lying in the ER stretcher. She appears to be in no acute distress at the present time. She is well nourished and well developed. HEENT: Atraumatic, normocephalic. Pupils are equal, round, reactive to light. Mucous membranes are dry. NECK: Supple with no lymphadenopathy. Trachea is midline. No JVD or thyromegaly. CARDIOVASCULAR: Regular rate and rhythm. No murmurs, gallops, or rubs appreciated. RESPIRATIONS: Lung sounds are clear. Equal chest excursion. Respirations are nonlabored, with no accessory muscle usage. GASTROINTESTINAL: Abdomen is soft, nontender, and nondistended. Bowel sounds are present in all 4 quadrants. There is a urostomy noted to the right lower quadrant, and a colostomy noted to the left quadrant. GENITOURINARY: There is a urostomy noted to the right lower quadrant. Urine output appears to be clear in the bag. Both urostomy and colostomy stomas appear to be pink and viable. NEUROLOGIC: The patient is awake and alert. She is able to follow commands. However, the patient does not seem oriented to place or time or situation. She does not know her birthday. She does not know the year. She could tell me she was at the hospital, but did not really know what for. She seemed a little hard to answer questions, but was able to answer a few questions. The patient was stating that she was cold, and did seem very lethargic and withdrawn. MUSCULOSKELETAL: Full distal strength noted. No abnormalities or deformities noted. EXTREMITIES: No clubbing or cyanosis. DP and PT pulses are present and palpable. There is a small amount of edema around the ankle region. Only trace amount. SKIN: Warm, dry. There is a wound noted to the sacral area. This is opened. Around the right wound, the skin is a little macerated. This appears to be a very deep wound. The patient was seen by [facility] for this wound. ASSESSMENT AND PLAN: 1. Urinary tract infection. We will admit this patient to the medical floor. The patient was started on Levaquin in the emergency room intravenously. We will continue this dose of Levaquin every 24 hours. 2. Dehydration. I have started this patient on intravenous fluids at 150 mL an hour. The patient was given a bolus of 500 of normal saline in the emergency room. 3. Altered mental status. This is likely due to dehydration and her urinary tract infection. We will continue hydration and antibiotics, and see if this improves. The patient was just here 3 days ago, and MRI was obtained, and Dr. Martinez was consulted. Everything came back negative, and the patient was ruled out for a cerebrovascular accident. 4. Chronic kidney disease stage 3. Creatinine is 1.3. When I look back all her other creatinine levels, this is about where she is most of the time, so this is a chronic condition for her. We will monitor her renal function closely. 5. History of rectal cancer in 1989. She had resection, radiation and chemotherapy, which led to her having to have a colostomy and cystectomy and ileal conduit formation. We have ordered wound nurse to come in and take care of her colostomy and her ileostomy. 6. History of infected cyst on the sacral region, which was nonhealing, and eventual development of enterocutaneous fistula. The patient is seeing [facility] for this for possible surgery. We will have the wound nurse see this and order wound care. 7. Nutritional deficits requiring total parenteral nutrition for more than 4 weeks. We will continue the patient's home total parenteral nutrition. I have consulted dietitian to start her on some total parenteral nutrition. 8. Deep venous thrombosis prophylaxis. I have started this patient on Lovenox 30 mg subcutaneously every 24 hours, and started her on sequential compression devices. This should prevent any deep venous thrombosis. 9. Gastrointestinal prophylaxis. I have started her on omeprazole 40 mg by mouth daily. This patient is going to be admitted to the medical floor. I have placed her on telemetry. I have consulted dietitian for her total parenteral nutrition management. I have started her on intravenous fluids, started her on intravenous antibiotics. The wound nurse is being consulted for her ostomy and for her sacral wound. We will repeat labs in the morning. Dictated by GEN Boo for Ester Fuller MD cc: MD Ayan Johnson MD I performed a face to face encounter on the patient. I reviewed all labs and imaging on the patient. I agree with the H&P as dictated. presented to the ER with a chief complaint of multiple draining wounds in the perineal and vaginal region. She also has a nonhealing sacral decubitus ulceration. On exam, she is alert but confused. Will admit the patient and culture all draining wounds and start broad antibiotics. Will consult Dr.Leroy Mitchell for assistance with antibiotic choice. Will also consult the neurologist and wound care. KARISSA
[2019-02-17] MEDS ORDERED: ROCEPHIN 1 GM in NS 50 ML IV SCH (15:15)
[2019-02-17] MEDS: NS 1,000 ML IV SCH (15:16)
[2019-02-17 15:37] LABS: ACETAMINOPHEN < 1.2 ug/mL (10-30); SALICYLATES < 3.00 mg/dL (3-10)
[2019-02-17] MEDS ORDERED: MERREM 500 MG in NS 50 ML IV SCH (15:45)
[2019-02-17] MEDS: LOVENOX SUBQ SCH (17:16)
[2019-02-17] MEDS: MERREM 500 MG in NS 50 ML IV SCH ×2 (17:18→23:08)
[2019-02-18] MEDS ORDERED: D50W SYRINGE IV ONE ×2 (01:19→06:37)
[2019-02-18] MEDS: NS 1,000 ML IV SCH (06:10)
[2019-02-18] MEDS: PRILOSEC PO SCH (06:11)
[2019-02-18 06:38] LABS: BASO# 0.01 X1000 (0.0-0.2); BASO% 0.2 % (0.0-0.8); EOS# 0.06 X1000 (0.0-0.7); HEMATOCRIT 35.9 % (37.0-47.0); HEMOGLOBIN 11.4 g/dL (12.0-16.0); LYMPH# 0.56 X1000 (1.2-3.4); LYMPH% 9.2 % (20.5-51.1); MCH 28.9 PG (27-31); MCHC 31.8 g/dL (33-37); MCV 90.9 FL (81-99); MONO# 0.62 X1000 (0.11-0.59); MONO% 10.2 % (1.7-9.3); MPV 10.4 FL (7.4-10.4); NEUT# 4.81 X1000 (1.4-6.5); NEUT% 79.4 % (42.2-75.2); PLT 162 X1000 (130-400); RBC 3.95 XMIL (4.2-5.4); RDW 14.1 % (11.5-14.5); WBC 6.06 X1000 (4.8-10.8)
[2019-02-18 07:03] LABS: ALB/GLOB RATIO 0.9; ALBUMIN 2.8 g/dL (3.5-5.0); CALCIUM 8.5 mg/dL (8.8-10.2); CREATININE 1.2 mg/dL (0.5-0.9); MAGNESIUM 1.7 mg/dL (1.5-2.7); POTASSIUM 3.9 mmol/L (3.5-5.1); TOTAL BILIRUBIN 0.36 mg/dL (0.20-1.00); TOTAL PROTEIN 5.8 g/dL (6.3-8.3)
[2019-02-18] MEDS: D5W 1,000 ML IV SCH (10:57)
[2019-02-18] MEDS ORDERED: MERREM 1 GM in NS 50 ML IV ONE (11:24)
[2019-02-18] MEDS ORDERED: NS 50 ML ONE (11:38)
[2019-02-18] MEDS ORDERED: LEVAQUIN 750 MG/D5W 750 MG/150 ML IVPB IV SCH (13:00)
[2019-02-18 13:22] LABS: CALCIUM 8.5 mg/dL (8.8-10.2); CREATININE 1.1 mg/dL (0.5-0.9); MAGNESIUM 1.6 mg/dL (1.5-2.7); PHOSPHORUS 1.9 mg/dL (2.7-4.5); POTASSIUM 4.3 mmol/L (3.5-5.1)
[2019-02-18] MEDS ORDERED: SODIUM PHOSPHATE 30 MMOL in NS 250 ML IV ONE (13:23)
[2019-02-18] MEDS ORDERED: MAGNESIUM SULFATE 2 GM/S.W.I. 2 GM/50 ML IVPB IV ONE (13:23)
[2019-02-18 13:59] LABS: PREALBUMIN 19.9 mg/dL (20-40)
[2019-02-18] MEDS: LOVENOX SUBQ SCH (14:14)
[2019-02-18] MEDS: MAGNESIUM SULFATE IV SCH ×11 (14:14)
[2019-02-18] MEDS: LIPOSYN 20% 250 ML IV SCH (14:14)
[2019-02-18] MEDS: POTASSIUM PHOSPHATE IV SCH ×11 (14:14)
[2019-02-18] MEDS: CALCIUM GLUCONATE IV SCH ×11 (14:14)
[2019-02-18] MEDS: [UNRECOGNIZED DRUG - OTHER] IV SCH ×11 (14:14)
--- NOTE | 2019-02-18 14:20 | Diag Imaging Result Doc PS360 ---
EXAM: CHEST-1 VIEW 02/18/2019 HISTORY: TPN PROTOCOL TECHNIQUE: AP upright portable at 1409 COMMENT: There is a right internal jugular central venous catheter with its tip just above the right atrium. The heart size and pulmonary vascularity are within normal limits. The lungs are clear. IMPRESSION: No evidence of acute disease. Electronically signed by Tylor Agudelo 02/18/2019 2:18 PM
--- NOTE | 2019-02-18 14:33 | Diag Imaging Result Doc PS360 ---
EXAM: CT ABD/PELVIS W/ORAL CONT ONLY INDICATION: pelvic infection TECHNIQUE: This exam was performed using automated exposure control, adjustment of mA or kV according to patient size, and/or use of iterative reconstruction technique. COMPARISON: 02/01/2019 FINDINGS: There is minimal subsegmental atelectasis at the lung bases. The liver, spleen, pancreas, gallbladder, and adrenal glands are essentially unremarkable. There is stable renal contour irregularity suggesting persistent lobulations or renal cortical scarring. The renal collecting systems and ureters are slightly more prominent than the previous study. This may be due to transient differences in renal output. There is a urostomy on the right that appears to be patent. There has been a prior cystectomy and hysterectomy. There is a patent colostomy on the left. The distal colon and rectum has been resected. There is no evidence of bowel obstruction. The fistulous tract that extends from the distal jejunum to the skin surface posteriorly inferior to the sacrum is again identified. The tract contains gas and, very near the skin surface. It is unclear if it actually breaches the skin surface on the current study. No new pelvic fluid collections are identified or abdominal fluid collections are appreciated. IMPRESSION: 1.The enterocutaneous fistula seen on the previous study is again identified. It is unclear if it extends completely to the skin surface on the current study, however. 2.Slightly prominent renal collecting systems and ureters bilaterally as compared to the previous study that may simply be due to differences in urine output. Please correlate clinically. 3.Essentially stable CT of the abdomen and pelvis, otherwise. Electronically signed by Aron Henderson 02/18/2019 2:31 PM
--- NOTE | 2019-02-18 14:55 | CONSULTATION ---
DATE OF CONSULTATION: 02/18/2019 CONCLUSION: The patient is admitted to the hospital with an altered mental status, the exact etiology of which is uncertain to me. She does have infection in her pelvic area which could be contributing to confusion. She is on meropenem which can affect the central nervous system. However, the patient's altered mental status started before she was started on meropenem. RECOMMENDATIONS: I agree with treating the patient with meropenem. I have increased the dose to 1 g IV every 8 hours. I have ordered a CT scan of the abdomen and pelvis with p.o. contrast but no IV contrast. DISCUSSION: The patient is unable to give me a history. She is confused. She was recently in the hospital here because of an infection in the pelvic area which has all been brought on by the fact, which is all been brought on by the fact that the patient years ago had radiation to the pelvis for rectal cancer and following that she has developed pelvic infections. She has a urostomy and a colostomy. She was recently in the hospital at [facility] and then sent to [facility]. I do not have any of the records there. It does say in the patient's history and physical admission to [facility] that [facility] is planning to do surgery on the patient. LABORATORY DATA: The patient's CBC shows a white count of 6060, hemoglobin 11.4, and platelet count 162,000. Creatinine is 1.2, GFR is 45. Liver function studies are normal. Urinalysis showed white cells but no bacteria. There are numerous cultures taken from the pelvic area. On the gram stain, gram-positive cocci and gram-negative rods were seen. Cultures are still pending. PHYSICAL EXAMINATION: Vital Signs: Temperature is 98.5 degrees, pulse 87 respirations 16 1, a blood pressure is 132/52. General: This is an ill-appearing, middle-aged female. She is in no acute distress. Head/eyes/ears/nose/throat: She can hear my spoken words and see near objects. There is no drainage from the nose or ears. She does not have any white patches on her tongue. Neck: No meningismus. Lungs: Clear to auscultation. Cardiovascular: Regular heart rate. Abdomen: The patient has a urostomy and a colostomy in place. They are both functional. PELVIC: In the perineum and in the area and in the sacral area is marked erythema and a wound which only seemed to be approximately the 2 to 3 cm in depth.Neurologic: The patient is awake. She did not know where she was. She did not know what the year was. The patient does not have any tremor. She can move her arms. She can move her legs, but she is much weaker moving her legs. INTEGUMENTARY: There was no rash. Extremities: On the posterior aspect of the left thigh, there was a superficial wound. It was erythematous. It was not draining and it did not have any odor. Thank you for the consult. cc: Pardeep Mitchell MD
--- NOTE | 2019-02-18 16:18 | PROGRESS NOTE ---
DATE: 02/18/2019 SUBJECTIVE: The patient is resting in bed. She appears to be confused. She is not able to answer any questions or give very much information. OBJECTIVE: Vital Signs: Temperature 98.7 degrees, blood pressure 131/56, heart rate 60, respirations 18, and O2 saturation 99% on room air. General: This is a chronically ill-appearing elderly female lying in bed in no acute distress. Heart: S1, S2 normal. Regular rate and rhythm. Lungs: Clear to auscultation bilaterally. Abdomen: Positive bowel sounds. Soft, nontender, and nondistended. Extremities: No edema. No cyanosis. Neurologic: The patient is oriented to self only. She is able to move all 4 extremities. LABORATORY: White blood cell count 6, hemoglobin 11, hematocrit 35, and platelets 162,000. Sodium 145, potassium 4.3, chloride 114, CO2 21, BUN 25, creatinine 1.1, glucose 98, and phosphorus 1.9. ASSESSMENT AND PLAN: 1. Global encephalopathy. The head CT was unremarkable. We will consult with the neurologist for assistance. 2. Hypernatremia. Improved. Continue on D5W. 3. Enterocutaneous fistula. Aware. The CT of the abdomen and pelvis does not show any changes. 4. Anal and vaginal wound infections. Dr. Mitchell has been consulted, and the patient is on meropenem at this time. We will follow up on the wound culture results. 5. Rectal cancer. Aware. 6. Nonhealing sacral decubitus ulceration with infection. Wound care has been consulted. and antibiotics are infusing. 7. Chronic kidney disease. Stable. 8. Severe protein calorie malnutrition. The patient will be restarted on TPN. 9. Deep vein thrombosis prophylaxis. Continue on Lovenox. cc: Ester Fuller MD [facility]
--- NOTE | 2019-02-18 16:52 | CONSULTATION ---
DATE OF CONSULTATION: 02/18/2019 Ms. Thompson was discharged from the hospital several days ago. She returned a few days ago. History from patient and attentive and from review of hospital records is that she first seemed very sleepy following cefepime dose. That persisted. Later, she seemed confused. She definitely had trouble finding her words. This became very frustrating to her. In retrospect, presentation was very similar to 7 days ago when she was admitted with word finding problems. She is more alert today but still having some trouble finding her words and communicating and still easily frustrated by that difficulty. There was never complete unresponsiveness or unconsciousness. She did not complain of headache. Other than cefepime, there has not been any recent medication change. She has been reducing hydrocodone use. She has not had recent benzodiazepine dose. She has been afebrile. WBC count 7000. Sodium was 143 and later 149. BUN was initially 41, later 29. Blood sugars have ranged 80s to 140s. Noncontrast CT of the head was unremarkable. She had extensive neurologic workup last week and I reviewed those findings today. PHYSICAL EXAMINATION: On exam now, Ms. Thompson is awake, alert, attentive. She answered questions appropriately. Speech is not dysarthric. Language function is intact on bedside testing. She had some trouble finding words including names for the president and governor, name of the county and state capital. She became more and more frustrated with this and eventually we could not continue with language or cognitive testing. IMPRESSION: Concern for cefepime related encephalopathy. I do not find evidence of increased intracranial pressure, focal [facility] [employer] [employer] lesion or new neurologic problem. There is no evidence of central nervous system infection. I do not have any urgent suggestion from Neurology standpoint. I hope she will continue to improve spontaneously. If she does not follow that course, we can consider further workup including EEG and repeat brain MRI. Thanks for asking Neurology to see Ms. Thompson again. cc: MD KARISSA Anthony III
[2019-02-18] MEDS: MERREM 1 GM in NS 50 ML IV SCH (20:44)
[2019-02-19] MEDS: MERREM 1 GM in NS 50 ML IV SCH ×3 (05:00→22:28)
[2019-02-19 05:44] LABS: BASO# 0.01 X1000 (0.0-0.2); BASO% 0.2 % (0.0-0.8); EOS# 0.09 X1000 (0.0-0.7); HEMATOCRIT 33.2 % (37.0-47.0); HEMOGLOBIN 10.7 g/dL (12.0-16.0); LYMPH# 0.91 X1000 (1.2-3.4); LYMPH% 20.3 % (20.5-51.1); MCH 28.8 PG (27-31); MCHC 32.2 g/dL (33-37); MCV 89.5 FL (81-99); MONO% 13.4 % (1.7-9.3); MPV 10.8 FL (7.4-10.4); NEUT# 2.88 X1000 (1.4-6.5); NEUT% 64.1 % (42.2-75.2); PLT 136 X1000 (130-400); RBC 3.71 XMIL (4.2-5.4); WBC 4.49 X1000 (4.8-10.8)
[2019-02-19] MEDS: PRILOSEC PO SCH (06:05)
[2019-02-19 06:13] LABS: MAGNESIUM 1.9 mg/dL (1.5-2.7); PHOSPHORUS 3.2 mg/dL (2.7-4.5)
[2019-02-19 06:15] LABS: CALCIUM 7.9 mg/dL (8.8-10.2); CREATININE 1.1 mg/dL (0.5-0.9)
[2019-02-19] MEDS: D5W 1,000 ML IV SCH (06:52)
[2019-02-19] MEDS ORDERED: BLISTEX MEDICATED BERRY LIP BALM TOP PRN (08:47)
[2019-02-19] MEDS: NORCO-7.5 PO PRN ×3 (09:51→22:28)
[2019-02-19] MEDS: LOVENOX SUBQ SCH (12:42)
--- NOTE | 2019-02-19 13:46 | PROGRESS NOTE ---
DATE: 02/19/2019 SUBJECTIVE: The patient is more awake and alert. She is able to form her words in some sentences clearly today. She is also in better spirits. OBJECTIVE: Vital Signs: Temperature 98.7 degrees, blood pressure 133/56, heart rate 65, respirations 18, O2 saturation is 100% on room air. General: This is a chronically ill-appearing elderly female lying in bed in no acute distress. Heart: S1, S2 normal. Lungs: Clear to auscultation bilaterally. Abdomen: Positive bowel sounds. Soft, nontender, nondistended. Extremities: No edema, no cyanosis. Neuro: The patient is alert and oriented x3. LABS: White blood cell count 4.4, hemoglobin 10, hematocrit 33, platelets 136,000. Sodium 143, potassium 4, chloride 111, CO2 23, BUN 25, creatinine 1.1, glucose 128, magnesium 1.9, phosphorus 3.2. ASSESSMENT AND PLAN: 1. Global encephalopathy. Resolved. This was likely medication induced. 2. Enterocutaneous fistula. Aware. 3. Sacral wound. Continue with wound care and antibiotic therapy. The cultures are currently pending. 4. Anal and vaginal wound infections. The cultures are growing multiple organisms. Continue on antibiotic therapy. 5. Chronic kidney disease. Stable. 6. Severe protein calorie malnutrition. Continue on TPN. The dietitian is following. 7. Deep vein thrombosis prophylaxis. Continue on Lovenox. cc: Ester Fuller MD MTDD
[2019-02-19] MEDS: LIPOSYN 20% 250 ML IV SCH (14:12)
[2019-02-19] MEDS: MAGNESIUM SULFATE IV SCH ×11 (14:12)
[2019-02-19] MEDS: CALCIUM GLUCONATE IV SCH ×11 (14:12)
[2019-02-19] MEDS: POTASSIUM PHOSPHATE IV SCH ×11 (14:12)
[2019-02-19] MEDS: [UNRECOGNIZED DRUG - OTHER] IV SCH ×11 (14:12)
--- NOTE | 2019-02-19 14:52 | INFECTIOUS DISEASE PROGRESS NO ---
DATE: 02/19/2019 PRESENT ILLNESS: Ms Thompson was admitted for an altered mental status which we believe was caused by cefepime administration at home. There is a noted pelvic infection as well as a sacral decubitus ulcer and enterocutaneous fistula. The drainage to her sacral ulcer has grown a gram- positive coccus. There is a vaginal culture that has shown yeast, gram-negative rods and gram- positive cocci, and other tissue drainage also with gram-positive cocci and yeast. At this point, her altered mental status seems to have resolved. MEDICATIONS: She is receiving meropenem 1 g IV every 8 hours. PHYSICAL EXAMINATION: Vital Signs: Temperature is 98.7 degrees, pulse rate 65, respiratory rate 18, blood pressure 133/56. O2 saturation is 100% on room air. General: This is a chronically ill-appearing, middle-aged female. She is lying in the bed, currently in no acute distress. HEENT: Atraumatic, normocephalic. Oral mucous membranes are pink and moist. Conjunctivae are pink. Neck: Supple. Trachea is midline. Cardiovascular: Heart rate and rhythm are regular. Normal sinus rhythm on the monitor. Respiratory: Lung sounds are clear to auscultation bilaterally. No work of breathing is noted. Abdomen: Soft with urostomy and colostomy bags in place. Bowel sounds are active. Back: Sacral wound has some depth with noted drainage on the pad below her, which is a yellow-green color. Neurologic: She is awake, alert, oriented, and appropriate. Able to move all her extremities independently in the bed. LABORATORY AND X-RAY: Today her white count is 4.49, hemoglobin 10.7, platelet count 136,000. Creatinine is 1.1. GFR 50. Cultures show a vaginal swab with gram-positive cocci, gram-negative rods and yeast. There is tissue drainage with no anaerobic culture activity on the preliminary report and yeast with gram-positive cocci on the preliminary report. Drainage noted from her sacral wound shows gram-positive cocci on the preliminary report. There is also an anal culture which is pending and a urine culture which is pending. Blood cultures have shown no growth after 48 hours. No imaging reports today. ASSESSMENT AND PLAN: Ms Thompson is being treated for a pelvic infection and a sacral decubitus infection as well as possible growth to the enterocutaneous fistula. At this point, she is receiving meropenem and doing well without any altered mental status. We have to assume that the cefepime which she was receiving at home was what was causing the altered mental status, and that has been put in the computer as an adverse reaction under her list of allergies. Among her organisms thus far, there is yeast as well as gram-negative rods and gram-positive cocci. We will leave the meropenem as ordered and add micafungin 100 mg IV daily for the yeast and await the results of the final cultures. Also, I have called the micro lab and asked if the yeast can be identified. These plans have been discussed with and recommended by Dr. Mitchell. COMORBIDITIES: Include rectal cancer with radiation damage, chronic anemia, cauda equina syndrome, chronic kidney disease and protein calorie malnutrition with TPN requirements. Dictated by GEN Bergeron for Pardeep Mitchell MD cc: Pardeep Mitchell MD MTD
[2019-02-19] MEDS: MYCAMINE 100 MG in NS 100 ML IV SCH (15:23)
--- NOTE | 2019-02-19 15:25 | PROGRESS NOTE ---
DATE: 02/19/2019 SUBJECTIVE: Ms. Thompson and agree today she is back to baseline mentally. OBJECTIVE: She is completely oriented. She recalled some of our discussion yesterday. There is no word-finding problem or other language disturbance on brief bedside testing. She has much improved power proximally in the right leg. Strength still rates 3+/5 at the right anterior tibialis. I do not have any further suggestion for management of her encephalopathy. That seems to be resolved. Regarding the right leg weakness which seemed new when evaluated in the hospital last week, if that continues to improve, I think we can follow clinically without further workup. If she has a persistent deficit in the right leg, we can consider workup with EMG, and she has appointment to see me to consider that as an outpatient. Thanks for asking Neurology to see Ms. Thompson. cc: MD DILSHAD Anthony IIID
[2019-02-19] MEDS ORDERED: XANAX PO PRN (17:19)
[2019-02-19] MEDS: CELEXA PO SCH (22:28)
[2019-02-20] MEDS: ZOFRAN IV PRN ×3 (03:44→22:06)
[2019-02-20] MEDS: NORCO-7.5 PO PRN ×4 (04:35→23:11)
[2019-02-20] MEDS: MERREM 1 GM in NS 50 ML IV SCH (04:39)
[2019-02-20] MEDS ORDERED: NS 0 ML ONE (04:42)
[2019-02-20 06:18] LABS: HEMATOCRIT 36.6 % (37.0-47.0); HEMOGLOBIN 11.6 g/dL (12.0-16.0); MCHC 31.7 g/dL (33-37); MCV 91.5 FL (81-99); MPV 10.6 FL (7.4-10.4); RDW 14.1 % (11.5-14.5); WBC 4.44 X1000 (4.8-10.8)
[2019-02-20 06:38] LABS: CALCIUM 8.7 mg/dL (8.8-10.2); CREATININE 1.1 mg/dL (0.5-0.9); POTASSIUM 4.1 mmol/L (3.5-5.1)
[2019-02-20] MEDS: PRILOSEC PO SCH (06:40)
[2019-02-20 07:07] LABS: MAGNESIUM 1.9 mg/dL (1.5-2.7); PHOSPHORUS 2.6 mg/dL (2.7-4.5)
[2019-02-20] MEDS: CUBICIN 500 MG in NS 100 ML IV SCH (11:26)
--- NOTE | 2019-02-20 12:37 | INFECTIOUS DISEASE PROGRESS NO ---
DATE: 02/20/2019 PRESENT ILLNESS: Ms. Thompson is being treated for multiple sites of varying organisms, most of which have yet to be identified. At this point, there are gram-positive cocci noted to the vagina, back drainage, tissue drainage, anus, and urine cultures. There is also yeast to the tissue drainage and vaginal drainage, as well as gram-negative rods to the vagina. After speaking with the micro lab, it appears that at least some of the gram-positive cocci are vancomycin- resistant enterococci. MEDICATIONS: She is receiving meropenem 1 g IV every 8 hours and micafungin 100 mg IV daily. PHYSICAL EXAMINATION: Vital Signs: Temperature is 98.5 degrees, pulse rate 64, respiratory rate 18, blood pressure 156/62, O2 saturation is 100% on room air. General: This is a chronically ill- appearing, middle-aged female. She is lying in the bed, currently mildly anxious. HEENT: Atraumatic, normocephalic. Oral mucous membranes are pink and moist. Conjunctivae are pink. Neck: Supple. Trachea is midline. Respiratory: Lung sounds are bilaterally clear to auscultation. No work of breathing is noted. Cardiovascular: Heart rate and rhythm are regular. Normal sinus rhythm on the monitor. Abdomen: Soft and round, with bowel sounds noted. There is a urostomy and colostomy, both with pink stomas. Integumentary: She has a sacral wound which has a fistula, with some depth and bloody drainage noted from the pad that was just recently changed. There is also one fistula around the anal area, and one near the reconstructed vagina. Neurologic: She is awake, alert, oriented, and able to move around in the bed independently. LABORATORY AND X-RAY: Today, her white count is 4.44, hemoglobin 11.6, platelet count 147,000. Creatinine is 1.1. GFR 50. As noted above, she has multiple cultures which have grown gram- positive cocci, gram-negative rods, and yeast. No imaging reports today. ASSESSMENT AND PLAN: Ms. Thompson is being treated for multiple infections in the pelvic region. She has a sacral decubitus with enterocutaneous fistula, and two other fistulas noted to be near the anus and reconstructed vagina. She also has a urinary tract infection. There are yeast as well as gram-positive cocci and gram-negative rods. We will continue the micafungin. The micro lab has given us new information today, indicating that at least one organism is a vancomycin-resistant enterococcus. We will discontinue meropenem and start Daptomycin 500mg IV daily, and also start Aztreonam 2gm IV every 8 hours for gram-negative bernardino coverage, while we await the final culture results. These plans have been discussed with and recommended by Dr. Mitchell. COMORBIDITIES: For Ms. Thompson include rectal cancer with radiation damage, chronic anemia, cauda equinus syndrome, chronic kidney disease, and protein calorie malnutrition requiring TPN. Dictated by GEN Bergeron for Pardeep Mitchell MD cc: Pardeep Mitchell MD [facility] SYSTEMStanley
[2019-02-20] MEDS: LIPOSYN 20% 250 ML IV SCH (13:28)
[2019-02-20] MEDS: MYCAMINE 100 MG in NS 100 ML IV SCH (13:28)
[2019-02-20] MEDS: LOVENOX SUBQ SCH (13:29)
[2019-02-20] MEDS: POTASSIUM PHOSPHATE IV SCH ×22 (14:08→17:22)
[2019-02-20] MEDS: [UNRECOGNIZED DRUG - OTHER] IV SCH ×22 (14:08→17:22)
[2019-02-20] MEDS: CALCIUM GLUCONATE IV SCH ×22 (14:08→17:22)
[2019-02-20] MEDS: MAGNESIUM SULFATE IV SCH ×22 (14:08→17:22)
[2019-02-20] MEDS: AZACTAM 2 GM in NS 100 ML IV SCH ×4 (14:13→20:38)
--- NOTE | 2019-02-20 18:06 | PROGRESS NOTE ---
DATE: 02/20/2019 SUBJECTIVE: The patient is resting comfortably in bed. She states that she feels a lot better today. OBJECTIVE: Vital Signs: Temperature 98.9 degrees, blood pressure 130/60, heart rate 54, respirations 16, O2 saturation is 99% on room air. General: This is a chronically ill-appearing, elderly female lying in bed, in no acute distress. Heart: S1, S2 normal. Bradycardic. Lungs: Clear to auscultation bilaterally. Abdomen: Positive bowel sounds. Soft. There is an ostomy in place. Extremities: No edema. No cyanosis. Neurologic: The patient is alert and oriented x4. LABS: White blood cell count 4, hemoglobin 11, hematocrit 36, platelets 147,000. Sodium 136, potassium 4.1, chloride 102, CO2 26, BUN 25, creatinine 1.1, glucose 108. ASSESSMENT AND PLAN: 1. Infected sacral decubitus ulceration. The wound culture is growing gram- positive cocci. Continue on meropenem. 2. Enterocutaneous fistula. Aware. 3. Anal and vaginal wound infections. The wound culture is growing gram- positive cocci and gram-negative rods. Continue with broad-spectrum antibiotics. 4. Anxiety disorder. Continue on Celexa. 5. Chronic kidney disease. Stable. 6. Rectal cancer. Aware. 7. Deep vein thrombosis prophylaxis. Continue on Lovenox. cc: Ester Fuller MD MTDD
[2019-02-20] MEDS: CELEXA PO SCH (20:39)
[2019-02-21] MEDS: PRILOSEC PO SCH ×2 (05:05→06:01)
[2019-02-21] MEDS: NORCO-7.5 PO PRN (05:05)
[2019-02-21] MEDS: AZACTAM 2 GM in NS 100 ML IV SCH ×3 (05:05→13:18)
[2019-02-21 06:21] LABS: BASO# 0.01 X1000 (0.0-0.2); BASO% 0.2 % (0.0-0.8); EOS# 0.23 X1000 (0.0-0.7); EOS% 4.9 % (0.0-10.0); HEMATOCRIT 35.2 % (37.0-47.0); HEMOGLOBIN 11.1 g/dL (12.0-16.0); LYMPH# 0.79 X1000 (1.2-3.4); LYMPH% 16.7 % (20.5-51.1); MCH 28.9 PG (27-31); MCHC 31.5 g/dL (33-37); MCV 91.7 FL (81-99); MONO# 0.59 X1000 (0.11-0.59); MONO% 12.4 % (1.7-9.3); MPV 10.8 FL (7.4-10.4); NEUT# 3.12 X1000 (1.4-6.5); NEUT% 65.8 % (42.2-75.2); PLT 153 X1000 (130-400); RBC 3.84 XMIL (4.2-5.4); RDW 14.2 % (11.5-14.5); WBC 4.74 X1000 (4.8-10.8)
[2019-02-21 06:31] LABS: MAGNESIUM 1.9 mg/dL (1.5-2.7); PHOSPHORUS 2.7 mg/dL (2.7-4.5)
[2019-02-21 06:38] LABS: CALCIUM 8.5 mg/dL (8.8-10.2); POTASSIUM 4.5 mmol/L (3.5-5.1)
[2019-02-21] MEDS: CUBICIN 500 MG in NS 100 ML IV SCH (09:51)
[2019-02-21] MEDS: NORCO-10 PO PRN ×3 (11:06→22:48)
[2019-02-21] MEDS: MYCAMINE 100 MG in NS 100 ML IV SCH (13:18)
[2019-02-21] MEDS: LOVENOX SUBQ SCH (13:18)
[2019-02-21] MEDS: LIPOSYN 20% 250 ML IV SCH (13:19)
--- NOTE | 2019-02-21 16:44 | INFECTIOUS DISEASE PROGRESS NO ---
DATE: 02/21/2019 PRESENT ILLNESS: Ms. Thompson is being treated for multiple sites of infection to vaginal, anal and sacral fistulas as well as a urinary tract infection. She has grown a vancomycin- resistant Enterococcus to all of these sites. There is also a Staphylococcus haemolyticus to the anal fistula and a Citrobacter freundii to the vaginal fistula as well as yeast. MEDICATIONS: She is receiving daptomycin 500 mg IV daily, Micafungin 100 mg IV daily, and aztreonam 2 g IV every 8 hours. PHYSICAL EXAMINATION: Vital signs: Temperature is 98.5, pulse rate 59, respiratory rate 18, blood pressure 139/65, O2 saturation is 100% on room air. General: This is a chronically ill-appearing middle-aged female. She is lying in bed currently in no acute distress. HEENT: Atraumatic, normocephalic. Oral mucous membranes are pink and moist. Conjunctivae are pink. Neck: Supple. Trachea is midline. Cardiovascular: Heart rate and rhythm are slow and regular. Sinus bradycardia on the monitor. Respiratory: Lung sounds are clear to auscultation bilaterally. No work of breathing is noted. Abdomen: Soft and round with bowel sounds active. She has a urostomy and a colostomy; both are viable with pink stomas. Integumentary: There are sacral, anal, and vaginal fistulas. She has a central line to the chest wall with the site free of edema, erythema, or drainage. Neurologic: She is awake, alert, oriented, and able to move around in the bed independently. LABORATORY AND X-RAY: Today, her white count is 4.74, hemoglobin 11.1, platelet count 153,000. Creatinine is 1, GFR 56. As mentioned previously, she has grown various organisms in her fistulas and urine, those include vancomycin-resistant Enterococcus, Citrobacter freundii, Staphylococcus haemolyticus, and a yeast which has yet to be identified. No imaging reports today. ASSESSMENT AND PLAN: Ms. Thompson has multiple sites of infection from fistulas as well as a urinary tract infection. She is receiving daptomycin for the vancomycin- resistant Enterococcus and Staphylococcus haemolyticus, which we will continue. I have talked to her about the possibility of aches and pains with daptomycin and that she should report any generalized aches and pains more than her usual amount. She is also receiving aztreonam for the Citrobacter, which will stop at this time. I have talked to her about starting Levaquin 500 mg by mouth once daily. She states that she does not need Celexa, which has just been started recently, and does not need the Zofran either, so those will be discontinued since they can interfere with Levaquin administration. I have talked to her about the possibility of seizures, confusion, and/or tendon rupture as well as rash and diarrhea with the administration of Levaquin and she agrees with use of that medication. We will also continue Micafungin for the yeast, which has yet to be identified. These plans have been discussed with and recommended by Dr. Mitchell. COMORBIDITIES: for Ms. Thompson include rectal cancer with radiation damage, cauda equina syndrome, chronic kidney disease, and protein-calorie malnutrition requiring TPN administration. Dictated by GEN Bergeron for Pardeep Mitchell MD cc: Pardeep Mitchell MD MTDD
[2019-02-21] MEDS ORDERED: MAGNESIUM SULFATE IV SCH ×11 (17:00)
[2019-02-21] MEDS ORDERED: POTASSIUM PHOSPHATE IV SCH ×11 (17:00)
[2019-02-21] MEDS ORDERED: CALCIUM GLUCONATE IV SCH ×11 (17:00)
[2019-02-21] MEDS ORDERED: [UNRECOGNIZED DRUG - OTHER] IV SCH ×11 (17:00)
--- NOTE | 2019-02-21 18:53 | PROGRESS NOTE ---
DATE: 02/21/2019 SUBJECTIVE: The patient is resting comfortably in bed. No acute events noted overnight. OBJECTIVE: Vital Signs: Temperature 98.3 degrees, blood pressure 123/52, heart rate 66, respirations 16, O2 saturation is 100% on room air. General: This is a chronically ill-appearing female, lying in bed in no acute distress. Heart: S1, S2 normal. Regular rate and rhythm. Lungs: Clear to auscultation bilaterally. Abdomen: Positive bowel sounds. Soft, nontender, nondistended. Extremities: No edema, no cyanosis. Neurologic: The patient is alert and oriented x4. LABORATORY: Hemoglobin 11, hematocrit 35, platelets 153,000. Sodium 141, potassium 4.5, chloride 108, CO2 of 26, BUN 27, creatinine 1, glucose 112. ASSESSMENT AND PLAN: 1. Sacral decubitus infection secondary to vancomycin-resistant enterococci. Continue with the current antibiotic regimen. 2. Anal and vaginal wound infection. Continue on the current antibiotic regimen. 3. Enterocutaneous fistula. Aware. 4. Anxiety disorder. The patient has decided to stop taking Celexa. We will monitor her closely. 5. Chronic kidney disease. Stable. 6. Rectal cancer. Aware. 7. Deep vein thrombosis prophylaxis. Continue on Lovenox. cc: Ester Fuller MD
[2019-02-21] MEDS: LEVAQUIN PO SCH (23:01)
[2019-02-22] MEDS: NORCO-10 PO PRN ×5 (03:03→22:47)
[2019-02-22] MEDS: PRILOSEC PO SCH (06:25)
[2019-02-22 07:08] LABS: AGAP 8; BUN 32 mg/dL (8-22); CHLORIDE 105 mmol/L (98-107); COSMO 290; CREATININE 0.9 mg/dL (0.5-0.9); ESTIMATED GFR > 60; GLUCOSE 97 mg/dL (70-104); PHOSPHORUS 2.8 mg/dL (2.7-4.5); POTASSIUM 5.1 mmol/L (3.5-5.1); SODIUM 142 mmol/L (136-145); TCO2 29 mmol/L (25-35)
--- NOTE | 2019-02-22 10:35 | INFECTIOUS DISEASE PROGRESS NO ---
DATE: 02/22/2019 PRESENT ILLNESS: The patient has 3 separate areas where she is infected. She has a sacral fistula and a perineal fistula and a site in the vagina where she has infection. The patient's organisms that have been isolated include Staph, Enterococcus, Citrobacter, and Elle. MEDICATIONS: The patient now is receiving daptomycin, Levaquin and micafungin. This is day 2 of treatment with the medications. I am not going to give the patient fluconazole instead of micafungin because the fluconazole can interact with the Levaquin the patient already is on, and cause an increase in the QT interval which could lead to arrhythmias. PHYSICAL EXAMINATION: Vital Signs: Temperature is 97.9 degrees, pulse 56, respirations 18, blood pressure 134/61. General: This is a chronically ill-appearing, middle-aged female. She is in no acute distress and she does look better today than she did in the past 2 days. Head/eyes/ears/nose/throat: She can hear my spoken words and see near objects. She does not have any white coating on her tongue. Neck: She does not have pain with movement of it. Lungs: Clear to auscultation. Cardiovascular: Heart rate is regular. Abdomen: Soft and nontender. Pelvic exam: The patient has a sacral wound and 1 lower on the perineum and 1 area in the vagina. Overall, there is less drainage and there is less erythema. LAB AND X-RAY: The patient's CBC shows a white count of 4740, hemoglobin 11.1, and platelet count 153,000. Creatinine is 0.9. GFR is greater than 60. There is no new radiographic study. From the patient's wounds the following organisms have been isolated: Staph, Enterococcus, Citrobacter, and Elle albicans. ASSESSMENT AND PLAN: The patient has the infections as mentioned above. My plan is to continue the daptomycin, Levaquin and micafungin. This is day 2 of treatment with those 3 antimicrobial agents. COMORBIDITIES: The patient's main one is that she had radiation to clear her rectal cancer, and unfortunately tissue has broken down and a lot of infections have occurred in the perineal area and vaginal area. cc: Pardeep Mitchell MD
[2019-02-22] MEDS: CUBICIN 500 MG in NS 100 ML IV SCH (10:39)
[2019-02-22] MEDS: MYCAMINE 100 MG in NS 100 ML IV SCH (14:24)
[2019-02-22] MEDS: LIPOSYN 20% 250 ML IV SCH (14:24)
[2019-02-22] MEDS: LOVENOX SUBQ SCH (14:25)
--- NOTE | 2019-02-22 15:50 | PROGRESS NOTE ---
DATE: 02/22/2019 SUBJECTIVE: The patient is resting comfortably in bed. She has no complaints at this time. OBJECTIVE: Vital Signs: Temperature 97.7 degrees, blood pressure 132/60, heart rate 57, respirations 20. O2 saturations 100% on room air. General: This is a chronically ill-appearing elderly female lying in bed in no acute distress. Heart: S1, S2 normal. Regular rate and rhythm. Lungs: Equal air entry bilaterally. Abdomen: Positive bowel sounds. Soft, nontender, nondistended. Extremities: No edema, no cyanosis. Neurologic: The patient is alert and oriented x4. ASSESSMENT AND PLAN: 1. Polymicrobial sacral decubitus fistula infection. Continue with the current antibiotic and antifungal regimen as directed by Dr. Mitchell. 2. Perineal fistula infection. Continue on the current treatment regimen as directed by Dr. Mitchell. 3. Vaginal infection. Continue on the current antibiotic regimen. 4. Chronic kidney disease. Stable. 5. Rectal cancer. Aware. 6. Nutrition. Continue on TPN. 7. Deep vein thrombosis prophylaxis. Continue on Lovenox. cc: Ester Fuller MD MTDD
[2019-02-22] MEDS: [UNRECOGNIZED DRUG - OTHER] IV SCH ×11 (20:04)
[2019-02-22] MEDS: MAGNESIUM SULFATE IV SCH ×11 (20:04)
[2019-02-22] MEDS: CALCIUM GLUCONATE IV SCH ×11 (20:04)
[2019-02-22] MEDS: POTASSIUM PHOSPHATE IV SCH ×11 (20:04)
[2019-02-22] MEDS: LEVAQUIN PO SCH (21:15)
[2019-02-23] MEDS: NORCO-10 PO PRN ×5 (03:20→22:16)
[2019-02-23] MEDS: PRILOSEC PO SCH (06:25)
[2019-02-23 06:28] LABS: CALCIUM 8.6 mg/dL (8.8-10.2); CREATININE 1.1 mg/dL (0.5-0.9); PHOSPHORUS 3.2 mg/dL (2.7-4.5); POTASSIUM 4.7 mmol/L (3.5-5.1); PREALBUMIN 24.9 mg/dL (20-40)
[2019-02-23] MEDS: CUBICIN 500 MG in NS 100 ML IV SCH (10:46)
--- NOTE | 2019-02-23 12:46 | PROGRESS NOTE ---
DATE: 02/23/2019 SUBJECTIVE: The patient is resting comfortably in bed. She has no complaints at this time. OBJECTIVE: Vital Signs: Temperature 98.3 degrees, blood pressure 142/52, heart rate 59, respirations 20, O2 saturation is 100% on room air. General: This is a chronically ill-appearing elderly female lying in bed in no acute distress. Heart: S1, S2. Normal. Regular rate and rhythm. Lungs: Clear to auscultation bilaterally. No wheezing. No rales. Abdomen: Positive bowel sounds. Soft, nontender, nondistended. Extremities: No edema, no cyanosis. Neurologic: The patient is alert and oriented x3. LABS: Reviewed. ASSESSMENT AND PLAN: 1. Polymicrobial sacral decubitus fistula infection. Continue with the current antibiotic regimen. 2. Perineal fistula and vaginal infection. Continue on the current antibiotic and antifungal regimen as directed by Dr. Mitchell. 3. History of rectal cancer with radiation therapy. Aware. 4. Chronic kidney disease. Stable. 5. Nutrition. Continue on TPN. 6. Deep vein thrombosis prophylaxis. Continue on Lovenox. cc: Ester Fuller MD
[2019-02-23 13:28] LABS: CALCIUM 8.9 mg/dL (8.8-10.2); CREATININE 1.1 mg/dL (0.5-0.9); MAGNESIUM 2.1 mg/dL (1.5-2.7); PHOSPHORUS 3.2 mg/dL (2.7-4.5); POTASSIUM 4.5 mmol/L (3.5-5.1); PREALBUMIN 26.3 mg/dL (20-40)
[2019-02-23] MEDS: LIPOSYN 20% 250 ML IV SCH (13:32)
[2019-02-23] MEDS: MYCAMINE 100 MG in NS 100 ML IV SCH (13:32)
[2019-02-23] MEDS: LOVENOX SUBQ SCH (13:33)
[2019-02-23] MEDS: [UNRECOGNIZED DRUG - OTHER] IV SCH ×11 (20:20)
[2019-02-23] MEDS: POTASSIUM PHOSPHATE IV SCH ×11 (20:20)
[2019-02-23] MEDS: CALCIUM GLUCONATE IV SCH ×11 (20:20)
[2019-02-23] MEDS: MAGNESIUM SULFATE IV SCH ×11 (20:20)
[2019-02-23] MEDS: LEVAQUIN PO SCH (20:21)
[2019-02-24] MEDS: NORCO-10 PO PRN ×5 (02:11→23:46)
[2019-02-24] MEDS: PRILOSEC PO SCH (06:26)
[2019-02-24] MEDS ORDERED: MYCOSTATIN POWDER TOP SCH (09:00)
--- NOTE | 2019-02-24 10:12 | INFECTIOUS DISEASE PROGRESS NO ---
DATE: 02/24/2019 PRESENT ILLNESS: The patient has 3 fistulous areas where she has been draining and infected. One is in the sacral area, and others in the perineal area, and the final ones in the vaginal area. There are GI fistulas in these areas. The patient's organisms that have been isolated from these wounds include Staph, Enterococcus, Citrobacter, and Elle. MEDICATIONS: The patient now is receiving daptomycin IV, Levaquin p.o., and micafungin IV. This is day 4 of treatment with these agents. PHYSICAL EXAMINATION: Vital Signs: Temperature is 98.8 degrees, pulse 60, respirations 16, blood pressure 120/60. General: This is a somewhat ill-appearing, middle-aged female. She is in no acute distress. HEENT: She can hear my spoken words and see near objects. She talks in a coherent fashion. She does not have any white coating of her tongue. Neck: No meningismus. Lungs: Clear to auscultation. Cardiovascular: Regular heart rate. Abdomen and Pelvic: The patient's sacral wound is now draining, and there is no surrounding erythema. A perineal wound is not draining either, and the erythema is much less. I did not see any vaginal drainage either. Neurologic: The patient is alert. She can move her extremities. There is no tremor. She talks in a coherent fashion. IMAGING AND LABORATORY DATA: There is no lab or x-ray for today. Tomorrow, I have ordered a CBC, a CMP, and a CK. ASSESSMENT AND PLAN: The patient has the above-mentioned infections. My plan is to continue the current antibiotics for approximately 22 days more. I have put in a consult for Social Work to consult Gino for the patient's daptomycin and micafungin. I have written a prescription for oral Levaquin, and I have requested the patient to come to my office in 22 days. On 03/14/2019, the patient has an appointment with Dr. Elaine, who is the surgeon at that will be operating on the patient. This is day 4 of treatment with the medications that I mentioned above. The patient also will be getting total parenteral nutrition for the next 3 weeks or so, and this was ordered by Dr. Elaine, who is going to be operating on the patient in order to put her gastrointestinal tract at rest, and hopefully some of the gastrointestinal fistulae might close on their own. COMORBIDITIES: The main one is that the patient had radiation to treat her rectal cancer, and unfortunately there has been tissue breakdown, and infections have occurred because of perineal, sacral, and vaginal fistulae have developed with the GI tract. The patient will be not taking any nutrition by mouth, and during the next 3 weeks, she will be on hyperalimentation. The patient's surgeon, Dr. Elaine, wants to put her GI tract at rest, and the patient will be getting her nutrition through TPN. cc: Pardeep Mitchell MD
[2019-02-24] MEDS: CUBICIN 500 MG in NS 100 ML IV SCH (10:55)
[2019-02-24 13:57] LABS: CALCIUM 8.9 mg/dL (8.8-10.2); CREATININE 1.1 mg/dL (0.5-0.9); PHOSPHORUS 3.1 mg/dL (2.7-4.5); POTASSIUM 4.5 mmol/L (3.5-5.1); PREALBUMIN 26.7 mg/dL (20-40)
[2019-02-24] MEDS: LIPOSYN 20% 250 ML IV SCH (14:43)
[2019-02-24] MEDS: MYCAMINE 100 MG in NS 100 ML IV SCH (14:44)
[2019-02-24] MEDS: LOVENOX SUBQ SCH (14:46)
--- NOTE | 2019-02-24 16:31 | PROGRESS NOTE ---
DATE: 02/24/2019 SUBJECTIVE: The patient is resting comfortably in bed. She has no complaints. OBJECTIVE: Vital Signs: Temperature 98.5 degrees, blood pressure 133/51, heart rate 54, respirations 15, O2 saturation is 100% on room air. General: The patient is resting in bed comfortably with no acute distress. Heart: S1, S2 normal. Regular rate and rhythm. Lungs: Clear to auscultation bilaterally. Abdomen: Positive bowel sounds. Soft, nontender, nondistended. Extremities: No edema, no cyanosis. Neurologic: The patient is alert and oriented x4. Labs: Reviewed. ASSESSMENT AND PLAN: 1. Polymicrobial sacral decubitus fistula infection. Dr. Mitchell has made arrangements for the patient to be discharged home with intravenous antibiotics. social services counselor has been consulted. 2. Perineal fistula and vaginal infection. Continue with the current antibiotic and antifungal regimen. 3. History of rectal cancer with radiation therapy. Aware. 4. Chronic kidney disease. Stable. 5. Nutrition. The patient will continue on total parenteral nutrition as outpatient. 6. Deep vein thrombosis prophylaxis. Continue on Lovenox. 7. Disposition. The patient will be discharged home tomorrow. cc: Ester Fuller MD
[2019-02-24] MEDS: LEVAQUIN PO SCH (22:13)
[2019-02-24] MEDS: POTASSIUM PHOSPHATE IV SCH ×11 (23:00)
[2019-02-24] MEDS: MAGNESIUM SULFATE IV SCH ×11 (23:00)
[2019-02-24] MEDS: [UNRECOGNIZED DRUG - OTHER] IV SCH ×11 (23:00)
[2019-02-24] MEDS: CALCIUM GLUCONATE IV SCH ×11 (23:00)
[2019-02-25] MEDS: NORCO-10 PO PRN ×3 (03:16→11:26)
[2019-02-25] MEDS: PRILOSEC PO SCH (06:20)
[2019-02-25 06:35] LABS: BASO# 0.01 X1000 (0.0-0.2); BASO% 0.2 % (0.0-0.8); EOS# 0.11 X1000 (0.0-0.7); EOS% 2.4 % (0.0-10.0); HEMATOCRIT 36.4 % (37.0-47.0); HEMOGLOBIN 11.7 g/dL (12.0-16.0); LYMPH# 0.83 X1000 (1.2-3.4); MCHC 32.1 g/dL (33-37); MCV 90.1 FL (81-99); MONO# 0.59 X1000 (0.11-0.59); MONO% 12.8 % (1.7-9.3); MPV 11.2 FL (7.4-10.4); NEUT# 3.07 X1000 (1.4-6.5); NEUT% 66.6 % (42.2-75.2); PLT 154 X1000 (130-400); RBC 4.04 XMIL (4.2-5.4); RDW 13.8 % (11.5-14.5); WBC 4.61 X1000 (4.8-10.8)
[2019-02-25 06:48] LABS: ALB/GLOB RATIO 0.9; ALBUMIN 2.8 g/dL (3.5-5.0); CALCIUM 8.7 mg/dL (8.8-10.2); POTASSIUM 4.8 mmol/L (3.5-5.1); TOTAL BILIRUBIN 0.23 mg/dL (0.20-1.00); TOTAL PROTEIN 5.8 g/dL (6.3-8.3)
[2019-02-25] MEDS: CUBICIN 500 MG in NS 100 ML IV SCH (11:22)
[2019-02-25 11:51] VITALS: BP 124/56
[2019-02-25] MEDS: MYCAMINE 100 MG in NS 100 ML IV SCH (13:12)
--- NOTE | 2019-02-25 21:05 | DISCHARGE SUMMARY ---
ADMISSION DATE: 02/17/2019 DISCHARGE DATE: 02/25/2019 The plan for Ms. Thompson is to be discharged today. We wanted her to have [facility] at home, but because of the cost, she opted for coming to [facility] infusion daily. She will have 3 more weeks of daptomycin 500 mg IV and micafungin 100 mg IV daily. She also has a prescription for Levaquin, which she will need to continue by mouth at home. We will follow up with her in the office in 3 weeks. I have written out orders for her IV medications as well as blood work to be drawn every Monday, which will include CBC with differential, creatinine and creatine kinase. She has a central line in place, and I have ordered for that to be cared for and flushed per protocol. These plans have been discussed with and recommended by Dr. Mitchell. Dictated by GEN Bergeron for Pardeep Mitchell MD cc: Pardeep Mitchell MD MTDStanely
== END 2019-02-25 14:54 | disposition home health service (06) | DRG 699 ==
LOC: SUPCPDRO → ED 10:46 → 4N 13:21
PROVIDERS: ATTEND Internal Medicine
CPT/HCPCS: 70450; 71010; 71045; 74176; 80048; 80053; 80196; 80307; 80324; 80329; 81001; 82003; 82140; 82465; 82550; 82805; 82948; 83605; 83735; 84100; 84134; 84450; 84478; 84484; 85025; 85027; 85610; 85730; 87040; 87070; 87075; 87077; 87088; 87186; 93005; 94761; 96365; 99285; A9270; G0480; G6038; G6039; J0610; J0878; J1650; J1956; J2185; J2248; J2405; J3475; J7030; J7040; J7050; J7070; S0073; XXXXX

== ENCOUNTER 2019-07-02 13:48 | Inpatient (IN) ==
[2019-07-02] MEDS ORDERED: D5 1/2 NS 1,000 ML IV SCH (16:00)
[2019-07-02] MEDS ORDERED: LEVAQUIN 500 MG/D5W 500 MG/100 ML IVPB IV SCH (16:15)
[2019-07-02 16:30] LABS: HEMATOCRIT 39.4 % (37.0-47.0); MCH 27.8 PG (27-31); MCV 84.4 FL (81-99); MPV 9.3 FL (7.4-10.4); RBC 4.67 XMIL (4.2-5.4); RDW 14.9 % (11.5-14.5); WBC 18.13 X1000 (4.8-10.8)
[2019-07-02] MEDS ORDERED: TYLENOL PO PRN (16:44)
[2019-07-02 16:55] LABS: ALB/GLOB RATIO 0.8; ALBUMIN 3.2 g/dL (3.5-5.0); CALCIUM 10.9 mg/dL (8.8-10.2); CREATININE 3.5 mg/dL (0.5-0.9); POTASSIUM 4.5 mmol/L (3.5-5.1); TOTAL BILIRUBIN 0.33 mg/dL (0.20-1.00); TOTAL PROTEIN 7.4 g/dL (6.3-8.3)
--- NOTE | 2019-07-02 17:04 | Diag Imaging Result Doc PS360 ---
EXAM: US RENAL 2 (RETROPER) COMPLETE 07/02/2019 HISTORY: renal ultrasound kidney TECHNIQUE: Renal ultrasound COMMENT: There is no evidence of hydronephrosis. The right kidney is 9.2 x 3.1 x 3.6 cm the left is 9.3 x 4.6 x 4.6 cm. Both kidneys are somewhat atrophic in appearance. The cortices are somewhat hyperechoic. There are no masses or stones demonstrated. IMPRESSION: No evidence of obstructive uropathy. Electronically signed by Tylor Agudelo 07/02/2019 5:02 PM
[2019-07-02] MEDS: NORCO-10 PO PRN (22:04)
[2019-07-03] MEDS: NS 1,000 ML IV SCH ×3 (00:42→08:08)
[2019-07-03 02:19] LABS: URINE SOURCE CATH
[2019-07-03 02:34] LABS: BILIRUBIN URINE NEGATIVE (NEGATIVE); BLOOD URINE SMALL (NEGATIVE); COLOR ORANGE; GLUCOSE URINE NEGATIVE (NEGATIVE); KETONE URINE NEGATIVE (NEGATIVE); LEUKOCYTES URINE LARGE (NEGATIVE); NITRITE URINE NEGATIVE (NEGATIVE); PH URINE 6.5; PROTEIN URINE 100 mg/dL (NEGATIVE); SP GRAVITY URINE 1.016; TURBIDITY URINE TURBID (CLEAR); UROBILINOGEN URINE NORMAL (NORMAL)
[2019-07-03] MEDS ORDERED: BLISTEX MEDICATED BERRY LIP BALM TOP ONE (02:38)
[2019-07-03 02:41] LABS: UR EPITHELIAL CELLS <10 /HPF (<10); URINE BACTERIA 4+ /HPF; URINE RBC <10 /HPF (<10); URINE WBC TNTC /HPF (<10)
[2019-07-03 02:44] LABS: URINE CASTS NONE SEEN; URINE YEAST NONE SEEN
[2019-07-03 02:45] LABS: URINE CRYSTALS NONE SEEN; URINE SMALL ROUND CELLS NONE SEEN
[2019-07-03 05:36] LABS: BASO# 0.02 X1000 (0.0-0.2); BASO% 0.1 % (0.0-0.8); EOS# 0.22 X1000 (0.0-0.7); EOS% 1.2 % (0.0-10.0); HEMATOCRIT 34.2 % (37.0-47.0); IMM GRAN# 0.17 X1000 (0.0-0.04); IMM GRAN% 0.9 % (0.0-0.5); LYMPH# 0.71 X1000 (1.2-3.4); LYMPH% 3.9 % (20.5-51.1); MCHC 32.2 g/dL (33-37); MCV 83.8 FL (81-99); MONO# 0.92 X1000 (0.11-0.59); MONO% 5.1 % (1.7-9.3); MPV 9.2 FL (7.4-10.4); NEUT# 16.05 X1000 (1.4-6.5); NEUT% 88.8 % (42.2-75.2); PLT 218 X1000 (130-400); RBC 4.08 XMIL (4.2-5.4); RDW 14.6 % (11.5-14.5); WBC 18.09 X1000 (4.8-10.8)
[2019-07-03 06:07] LABS: ALB/GLOB RATIO 0.7; ALBUMIN 2.6 g/dL (3.5-5.0); CALCIUM 9.8 mg/dL (8.8-10.2); CREATININE 3.3 mg/dL (0.5-0.9); MAGNESIUM 2.2 mg/dL (1.5-2.7); POTASSIUM 4.8 mmol/L (3.5-5.1); TOTAL BILIRUBIN 0.32 mg/dL (0.20-1.00); TOTAL PROTEIN 6.4 g/dL (6.3-8.3)
[2019-07-03 06:37] LABS: SEGS 94 % (42-75)
--- NOTE | 2019-07-03 06:43 | CONSULTATION ---
DATE OF CONSULTATION: 07/02/2019 PRIMARY CARE PHYSICIAN: Dr. Mooney. GENERAL SURGEON: Dr. Allan Crocker MD CHIEF COMPLAINT: Abnormal labs. HISTORY OF PRESENT ILLNESS: This is a 64-year-old female who presents to [facility] as a direct admit from her general surgeon's office. She had some labs drawn yesterday by her home health nurse that was sent to her doctor at [facility]. They came back abnormal so they recommended she see her general surgeon here to address those issues so she was admitted, and we were consulted for medical management of this patient. Her white blood cell count was 18.13. Sodium 125, BUN of 81 with a creatinine of 3.5. She states that she has been off her TPN for approximately a month, and since that time has had a decreased appetite with nausea and vomiting so she has been admitted for further evaluation and treatment. PAST MEDICAL HISTORY: Rectal cancer, partial paraplegia, and perineal nonhealing wound. PAST SURGICAL HISTORY: Cystectomy, hysterectomy, ileostomy, colostomy and a urostomy. FAMILY HISTORY: Reviewed and noncontributory. SOCIAL HISTORY: She currently lives with family. Denies any tobacco, alcohol or illicit drug use. ALLERGIES: To meperidine, penicillin, cefepime, and adhesive tape. HOME MEDICATIONS: We will need to obtain a current list, reconcile review, and restart as appropriate. We will place an order for nursing to update and confirm home medications. LABORATORY DATA: White blood cell count of 18.13, hemoglobin 13, hematocrit 39.4, and platelets 248,000. Sodium 125, potassium 4.5, chloride 91, CO2 of 15, BUN of 81, creatinine 3.5, and glucose 120. Carcinoembryonic ABG with 1.6. Renal ultrasound showed no evidence of obstructive uropathy. REVIEW OF SYSTEMS: She denied any fever, chills, blurred vision, dizziness, chest pain, coughing, and shortness of breath. She has had decreased appetite, nausea, vomiting, and excoriation to her nonhealing perineal wound. Denies any chest pain, coughing, or shortness of breath. PHYSICAL EXAMINATION: Vital Signs: On arrival, she had temperature of 97.5 degrees, pulse 134, and blood pressure was 87/51. She was saturating 100% on 2 L via nasal cannula. General: This is a 64-year-old female who is lying in the bed and answers questions appropriately. HEENT: Normocephalic, atraumatic. Normal ENT inspection. Oropharynx and nares are clear. Eyes: Pupils are equal, round, reactive to light and accommodation. Extraocular movements are intact. Neck: Normal on inspection. Normal range of motion. Lungs: Clear to auscultation bilaterally with equal lung expansion and chest wall movement. Heart: Regular rate and rhythm. No murmurs, rubs, or gallops. Abdomen: There is some extensive excoriation with some nonhealing perineal wound from her ileostomy, urostomy and colostomy. She has a bag in place for each one of those at this time, and are functioning properly at this time. Musculoskeletal: She has 5/5 strength to bilateral upper extremities. Neurological: The cranial nerves 2-12 appear grossly intact. ASSESSMENT: 1. Leukocytosis. 2. Hyponatremia. 3. Acute kidney injury. 4. Hypotension. 5. Sepsis. 6. Nonhealing perineum wound and abdominal wound. PLAN: She was admitted to the medical unit, and placed on telemetry. A GI soft diet. We have consulted Infectious Disease and Wound Care. We are obtaining a wound culture of her abdomen. Blood cultures x2 are pending. Place on Levaquin 500 mg IV every 24 and normal saline at 125 mL an hour, Zofran 4 mg IV q.4-6 hours p.r.n., Tylenol 650 p.o. q.6 hours p.r.n. Recheck a CBC, CMP, magnesium in the morning. We will check a urinalysis with possible culture. Further orders after seen by the attending and oracle consultant. We thank you for the opportunity to follow this patient during her hospitalization. Dictated by GEN Berry for Jamie Richey MD cc: GEN Berry MD I have seen and examined Ms Thompson today. She is a direct admit from Dr Crocker. she is hypotension due to combination of sepsis and dehydration complicated with SRINATH. She is s/p ileostomy/urostomy/colostomy. Midline lower abdomen wound looks slightly purulent erythema changes of the surrounding skin. I agree with the above HPI and the plan has been reviewed and discussed with the HYDROGENATION OPERATOR. KARISSA
[2019-07-03] MEDS: NORCO-10 PO PRN ×3 (07:14→18:47)
[2019-07-03] MEDS: ZOFRAN IV PRN ×3 (08:09→22:49)
--- NOTE | 2019-07-03 09:36 | Diag Imaging Result Doc PS360 ---
EXAM: CHEST-2 VIEWS HISTORY: sepsis TECHNIQUE: Two views COMPARISON: 02/18/2019 FINDINGS: The lungs are hyperexpanded with an increased AP diameter to the chest. The pulmonary vessels are small. No cardiomegaly. No infiltrates. No pleural effusions. No change in the right jugular portacatheter. No pneumothorax. IMPRESSION: 1.No pneumonia 2.Emphysema Electronically signed by Ace Carrion 07/03/2019 9:34 AM
[2019-07-03] MEDS: AZACTAM 1 GM in NS 50 ML IV SCH ×2 (12:42→22:49)
[2019-07-03] MEDS: ZYVOX 600 MG/D5W 600 MG/300 ML IVPB IV SCH ×2 (13:07→23:52)
[2019-07-03] MEDS: MORPHINE IV PRN ×2 (16:27→22:49)
[2019-07-03] MEDS: SODIUM BICARBONATE 8.4% 150 MEQ in D5W 1,000 ML IV SCH (18:16)
--- NOTE | 2019-07-03 21:12 | INFECTIOUS DISEASE CONSULT REP ---
DATE: 07/03/2019 CONCLUSION: The patient has recently been at [facility] and was operated on to have removal of her colon. She has an infection of the wound through which the colectomy was performed. The patient also has an infected sacral decubitus ulcer and she also has a urinary tract infection. RECOMMENDATIONS: I discontinued Levaquin and placed the patient on Zyvox and aztreonam. The patient has adverse reactions to penicillin and cefepime, manifested by an altered mental status, and in the past she has had infection with enterococcus quite a bit. PRESENT ILLNESS: The patient, approximately a month ago, had a colectomy at [facility]. Her wound has become progressively infected. She was sent home on TPN, but she stopped taking it. She developed leukocytosis and anorexia associated with vomiting. The patient's CBC shows a white count of 18,090, hemoglobin 11, platelet count 218,000. Creatinine is 3.3. GFR is 14. Liver function studies are normal. Urinalysis showed white cells and bacteria. A culture labeled peritoneal fluid is growing gram-negative rods. Blood and urine cultures are pending. Chest x- ray shows no infiltrates. Renal ultrasound shows no obstruction. PAST MEDICAL HISTORY/REVIEW OF SYSTEMS: Eyes and ears: Her vision and hearing are still good. Neck: No stiffness. Respiratory: She is not coughing or short of breath at rest. Cardiac: No chest pain or palpitations. GI: See Present Illness. : The patient has a urostomy and both ureters empty into it. Bones, joints, muscles: No swollen joints or muscle aching. Endocrine: Patient does not have diabetes or thyroid disease. Neurologic: The patient does not have seizures, but she did tell me that when she takes penicillin or cefepime, she has an altered mental status. SOLAR ENERGY TECHNICIAN HISTORY: She is a 2, para 2, AB 0. She has had a tubal ligation and hysterectomy. Patient has had a reconstructed vagina. PREVIOUS HOSPITALIZATION AND OPERATIONS: The patient has had labor and deliveries, tubal ligation, a hysterectomy, surgery for a right hip fracture which included putting metal in it, reconstructed vagina. The patient has had breast reduction. She had radiation therapy for colon cancer and unfortunately this led to a lot of abdominal problems. As mentioned above, she has had a colon resection. She has an ileostomy in place. She also has a urostomy and at [facility] she had a Kim catheter placed on the right side of the chest. The patient also has a colostomy as well as an ileostomy and a urostomy. She patient also has a deep sacral wound. MEDICAL DISEASES: Positive for rectal cancer, treated with radiation therapy. She also has chronic anemia. INFECTIOUS DISEASE HISTORY: Positive for urinary tract infections, pneumonias, sacral wound infection, and vaginal and abdominal wound infections. FAMILY HISTORY: Positive for diabetes mellitus, hypertension, stroke, and cancer. SOCIAL HISTORY[place] . She has cats for pets. She is disabled. ALLERGIES: She is allergic to penicillin, Demerol, and cefepime. With penicillin and cefepime, she has an altered mental status. I should mention the patient in the past has had Keflex and she has tolerated that well. SOCIAL HISTORY: She does not smoke cigarettes, drink alcoholic beverages, or abuse drugs. PHYSICAL EXAMINATION: Vital Signs: Temperature is 97.3 degrees, pulse 94, respirations 19, blood pressure is 122/56. Patient weighs 168 pounds. General: This is an ill-appearing, middle-aged female. She is in no acute distress. Head, eyes, ears, nose, throat: She can hear my spoken words and see near objects. She does not have any white patches on her tongue. Neck: No meningismus. Thorax: The patient has a right-sided Kim catheter in place. The site is not erythematous or purulent. Lungs: Clear to auscultation. Cardiovascular: Regular heart rate. Abdomen: The patient has, in the right lower abdomen, a colostomy, and in the lower part of the abdomen and pelvis, there is a wound where she had her colectomy. The wound is erythematous and purulent. The patient has an ileostomy. She also has a urostomy in place. Back: The patient has a deep sacral wound. No purulence is present. There is no odor to it. It has beefy red tissue in it, but I did not see any pus in it. Neurologic: Patient is alert. She can move her arms. She can barely move her legs. She is very weak with her legs. Thank you for the consult. cc: MD Jamie Jo MD
--- NOTE | 2019-07-04 00:05 | PROGRESS NOTE ---
DATE: 07/03/2019 SUBJECTIVE: Today Ms. Thompson refers to be doing a lot better. She has already been seen earlier on by Infectious Disease and Wound Care. OBJECTIVE: Vital Signs: Blood pressure is 98/47, pulse of 90, respirations 18, temperature is 97.6 degrees. General: Ms. Thompson is a 64-year-old female. She is in bed no distress . HEENT: Mucosa is pink and moist. Anicteric. Acyanotic. Neck: Supple. Chest: Good air entry bilateral, there was no crepitations, no rhonchi. Cardiovascular: Regular rate and rhythm. There is no murmurs, no rubs, no gallops. There is a Kim catheter on the right anterior chest wall. Abdomen: Soft, nontender. There is an ileostomy on the right upper abdomen. There is a urostomy on the right lower abdomen. There is a colostomy on the left lower abdomen. There is a midline open wound in the lower abdomen, the base looks clean with adequate epithelial tissue and granulation tissue, minimum purulence. Spinal: There is a coccyx wound with possible sulcus and brown drainage. The periwound is intact. This was documented by Wound Care. At the time of my evaluation this was covered. Neurologic: The patient is awake, alert and oriented. LABORATORY DATA: WBC is 18.08, hemoglobin is 11.0, platelet count of 218,000. Chemistry is also reviewed, sodium is 123, potassium is 4.8, chloride is 92, bicarbonate is 16, BUN is 79, creatinine is 3.3. The peritoneal fluid shows gram-negative rods. One of the blood cultures is gram-positive cocci, we are still waiting on the ID and sensitivity. CURRENT MEDICATIONS: Have all been reviewed. He is on he is on aztreonam and Zyvox. ASSESSMENT AND PLAN: 1. Hypotension secondary to hypovolemia with possible superimposed sepsis. The patient is currently on IV broad-spectrum antibiotics and on fluid resuscitation. 2. Acute kidney injury presumably due to volume depletion. Creatinine seems to be improving. BUN is improving. 3. Nongap metabolic acidosis. We will switch the fluids to contain bicarbonate. 4. Gram-negative bernardino abdominal wound infection. The patient is on aztreonam. She is very allergic to penicillins and to cephalosporins. She is on aztreonam, will be pending the ID and sensitivity. 5. Gram-positive cocci in blood, 1/2, presumably a contaminant. We will however wait on the ID and sensitivity. 6. Clinical volume depletion. We will continue with the IV fluid resuscitation. 7. Multiple abdominal and gynecological surgeries. 8. Status post ileostomy/urostomy/colostomy. Wound care is on board. 9. Decubitus pressure ulcers. We will continue with wound care recommendations. 10. Failure to thrive. Dietitian has been consulted. Supplements have been started. 11. Previous history of colorectal cancer status post radiation, which led to multiple adverse complications in the colon and the tract. cc: Jamie Richey MD
[2019-07-04] MEDS: NORCO-10 PO PRN ×3 (01:46→16:50)
[2019-07-04 05:22] LABS: BASO# 0.01 X1000 (0.0-0.2); BASO% 0.1 % (0.0-0.8); EOS# 0.17 X1000 (0.0-0.7); EOS% 1.5 % (0.0-10.0); HEMATOCRIT 28.6 % (37.0-47.0); HEMOGLOBIN 9.3 g/dL (12.0-16.0); IMM GRAN% 0.9 % (0.0-0.5); LYMPH# 0.51 X1000 (1.2-3.4); LYMPH% 4.5 % (20.5-51.1); MCH 27.1 PG (27-31); MCHC 32.5 g/dL (33-37); MCV 83.4 FL (81-99); MONO# 0.92 X1000 (0.11-0.59); MPV 8.3 FL (7.4-10.4); NEUT# 9.75 X1000 (1.4-6.5); PLT 164 X1000 (130-400); RBC 3.43 XMIL (4.2-5.4); RDW 14.5 % (11.5-14.5); WBC 11.46 X1000 (4.8-10.8)
[2019-07-04 05:45] LABS: ALB/GLOB RATIO 0.7; ALBUMIN 2.3 g/dL (3.5-5.0); CALCIUM 8.8 mg/dL (8.8-10.2); CREATININE 2.4 mg/dL (0.5-0.9); MAGNESIUM 1.9 mg/dL (1.5-2.7); POTASSIUM 3.6 mmol/L (3.5-5.1); TOTAL BILIRUBIN 0.2 mg/dL (0.20-1.00); TOTAL PROTEIN 5.5 g/dL (6.3-8.3)
[2019-07-04] MEDS: MORPHINE IV PRN ×2 (05:47→13:37)
[2019-07-04] MEDS: SODIUM BICARBONATE 8.4% 150 MEQ in D5W 1,000 ML IV SCH ×2 (05:47→17:21)
[2019-07-04] MEDS: ZOFRAN IV PRN ×2 (05:47→23:25)
[2019-07-04] MEDS ORDERED: CUBICIN 500 MG in NS 100 ML IV SCH (08:00)
[2019-07-04] MEDS: MYCOSTATIN SUSP PO SCH ×4 (08:07→22:05)
[2019-07-04] MEDS: AZACTAM 1 GM in NS 50 ML IV SCH ×2 (10:53→22:01)
--- NOTE | 2019-07-04 14:22 | INFECTIOUS DISEASE PROGRESS NO ---
DATE: 07/04/2019 PRESENT ILLNESS: The patient is being treated for the following infections: Bacteremia due to gram-positive cocci, an infected abdominal wound with gram-negative rods, a decubitus ulcer in the back area; a gram-positive coccus is growing from this wound. The urine culture is pending. The patient is complaining of pain on her tongue and it is erythematous with some white patches on it. I think this could be due to oral candidiasis. MEDICATIONS: The patient currently is receiving Zyvox and aztreonam. PHYSICAL EXAMINATION: Vital Signs: Temperature is 97.4 degrees, pulse is 75, respirations 14, blood pressure 99/42. The patient weighs 168 pounds. General: This is an ill- appearing, middle- aged female. She is in no acute distress. Head/eyes/ears/nose/throat: She can hear my spoken words and see near objects. She does have some erythema of the tongue and also a few white patches on her tongue. Neck: No stiffness or pain with movement. Lungs: Clear to auscultation. Cardiovascular: Heart rate is regular. Thorax: Patient has a Kim catheter on the right side. The site is not erythematous or swollen. Abdomen: The patient has a midline lower abdominal incision which looks less erythematous and is having less purulent drainage than it did yesterday. She has a urostomy in the lower right part of the abdomen, an ileal ostomy on the upper right side of the abdomen, and she has a colostomy on the left side of the abdomen. Neurologic: The patient is alert. She can move her arms. She can move her legs somewhat, but they are very weak. Neurologic: The patient is alert. As mentioned above, she can move her arms, but she is very weak when it comes to moving her legs. She is coherent. LAB AND X-RAY: The patient's CBC shows a white count of 11,460, hemoglobin 9.3, platelet count 164,000. Creatinine is 2.4. GFR is 20. Liver function studies are normal. The sacral culture is growing gram-positive coccus. One out of two blood cultures is growing a gram-positive coccus. Urine cultures pending. Peritoneal fluid which I think is referring to the patient's abdominal wound infection is growing a gram-negative bernardino. ASSESSMENT AND PLAN: As regarding the patient's bacteremia I have switched the patient from Zyvox to daptomycin. The dose of daptomycin has been modified because of the patient's end-stage renal disease. As regarding the patient's wound infection which is listed as peritoneal fluid, the patient is on aztreonam. As regarding the patient's presumed oral candidiasis, we are going to order nystatin swish and swallow. COMORBIDITIES: The patient years ago unfortunately underwent radiation therapy for her colon cancer. The patient also has chronic anemia and malnutrition. cc: MD Jamie Jo MD [email or web address]
[2019-07-04] MEDS ORDERED: NS 1,000 ML IV ONE ×2 (15:46→15:48)
[2019-07-04] MEDS: DAKIN'S 0.25% SOLN TOP SCH ×2 (17:21→17:23)
--- NOTE | 2019-07-04 20:14 | PROGRESS NOTE ---
DATE: 07/04/2019 SUBJECTIVE: This morning Ms. Thompson refers to be feeling a whole lot better. Feels stronger. Denies any new complaints. OBJECTIVE: Vital signs: Blood pressure is 103/49, pulse of 85, respiration is 18, temperature 97.4 degrees. General: Ms. Thompson is a 64-year-old female. She is in bed, not in any distress. HEENT: Mucosa is pink, slightly dry. Anicteric. Acyanotic. Neck: Supple. Chest: Good air entry bilateral. There are no crepitations, no rhonchi. There is a Kim catheter in the right anterior chest wall. Abdomen: Soft. There is an ileostomy on the right upper abdomen. There is an urostomy on the right lower abdomen. There is a colostomy on the left side of the abdomen. There is a midline abdominal wound in the lower abdomen with clean base. There is a lot of erythematous changes around the lower abdomen. There is a wound at the coccygeal level at the back, which is draining some purulent discharge. The base looks, for the most part, clean. BASEBALL INSPECTOR: The patient is awake, alert, and oriented. LABORATORY DATA: WBC is down to 11.46, hemoglobin is 9.3, platelet count of 164,000. Chemistry is also reviewed. Sodium is 138 to 128. Potassium is 3.6. Bicarb is down to 2.4. So far, the peritoneal fluid from the abdomen is showing an E coli. The blood is 48 hours negative. Only 1 was coag-negative Staph which we think is a contaminant. The urine from the urostomy showing a gram-negative bernardino. The wound culture from the back is also showing gram-negative bernardino. ASSESSMENT: 1. Hypotension on presentation secondary to hypovolemia with sepsis. The patient is doing a lot better. Blood pressure has normalized with adequate fluid resuscitation and antibiotic therapy. 2. Acute kidney injury secondary to volume depletion. Creatinine is improving. 3. Non-gap metabolic acidosis. Improved with fluids. 4. Escherichia coli abdominal wound infection. Antimicrobial has been switched to aztreonam. 5. Gram-negative bernardino in urine and on the back wound. We will continue with the aztreonam until we have the ID and sensitivity. 6. Clinical volume depletion. Continued to be improving clinically. 7. Multiple abdominal and gynecological surgeries noted. 8. Status post ileostomy/urostomy/colostomy. Wound care is on board. 9. Decubitus pressure ulcer at the coccygeal level. Noted. 10. Failure to thrive. A dietitian is on board. The patient is on supplemental supplements. 11. History of colorectal cancer status post radiation. This led to multiple adverse complication to the colon and the genitourinary tract. PLAN: In general, I think Ms. Thompson is doing a lot better. Today is day 2 of hospitalization. Blood pressures have normalized. We think she was septic and extremely dehydrated on admission. Her hydration status is improving and she is on ideal antimicrobial coverage. She is being followed up by Infectious Disease as well as surgery. Ms. Thompson was a consult to the hospitalist services. Wound Care is also on board. Thank you for the opportunity to help take care of Ms. Thompson. cc: Jamie Richey MD
[2019-07-04] MEDS ORDERED: NS 500 ML IV ONE (23:07)
[2019-07-05] MEDS: NORCO-10 PO PRN ×4 (00:38→21:20)
[2019-07-05] MEDS: DAKIN'S 0.25% SOLN TOP SCH ×5 (01:00→21:56)
[2019-07-05] MEDS: SODIUM BICARBONATE 8.4% 150 MEQ in D5W 1,000 ML IV SCH ×2 (04:02→11:13)
[2019-07-05 06:16] LABS: BASO# 0.01 X1000 (0.0-0.2); BASO% 0.2 % (0.0-0.8); EOS# 0.08 X1000 (0.0-0.7); EOS% 1.3 % (0.0-10.0); HEMATOCRIT 25.4 % (37.0-47.0); HEMOGLOBIN 8.2 g/dL (12.0-16.0); IMM GRAN# 0.07 X1000 (0.0-0.04); IMM GRAN% 1.2 % (0.0-0.5); LYMPH# 0.66 X1000 (1.2-3.4); MCH 27.2 PG (27-31); MCHC 32.3 g/dL (33-37); MCV 84.4 FL (81-99); MONO# 0.48 X1000 (0.11-0.59); MPV 8.9 FL (7.4-10.4); NEUT# 4.69 X1000 (1.4-6.5); NEUT% 78.3 % (42.2-75.2); PLT 151 X1000 (130-400); RBC 3.01 XMIL (4.2-5.4); RDW 14.4 % (11.5-14.5); WBC 5.99 X1000 (4.8-10.8)
[2019-07-05 06:45] LABS: ALB/GLOB RATIO 0.8; ALBUMIN 1.9 g/dL (3.5-5.0); CREATININE 1.8 mg/dL (0.5-0.9); MAGNESIUM 1.5 mg/dL (1.5-2.7); POTASSIUM 2.6 mmol/L (3.5-5.1); TOTAL BILIRUBIN 0.24 mg/dL (0.20-1.00); TOTAL PROTEIN 4.4 g/dL (6.3-8.3)
[2019-07-05] MEDS: MYCOSTATIN SUSP PO SCH ×4 (10:03→21:21)
[2019-07-05] MEDS ORDERED: POTASSIUM CHLORIDE 60 MEQ in NS 500 ML IV ONE (10:41)
[2019-07-05] MEDS: AZACTAM 1 GM in NS 50 ML IV SCH (11:13)
[2019-07-05] MEDS ORDERED: NS 500 ML IV ONE (15:37)
--- NOTE | 2019-07-05 16:16 | INFECTIOUS DISEASE PROGRESS NO ---
DATE: 07/05/2019 PRESENT ILLNESS: The patient is being treated for the following infections. She has an infected abdominal incision where she had her colon removed and it is growing a gram-negative bernardino. The patient has a decubitus ulcer in the back area and it is growing a gram-negative bernardino also. The urine culture is also growing a gram-negative bernardino. The patient has 1 of 2 blood cultures growing out a coagulase-negative Staph. This is a contaminant and does not require treatment. The patient also has oral candidiasis. MEDICATIONS: I plan to continue aztreonam for the gram-negative infections and I have discontinued daptomycin because the 1/2 positive blood cultures for a coag-negative staph is a contaminant and does not require treatment. PHYSICAL EXAMINATION: Vital Signs: Temperature is 98 degrees, pulse 86, respirations 18, blood pressure 87/38. General: This is an ill-appearing middle-aged female. She is in no acute distress. Head/eyes/ears/nose/throat: She can hear my spoken words and see near objects. The white patches on her tongue have almost completely cleared. Neck: No pain with movement. Lungs: Clear to auscultation. Cardiovascular: Heart rate is regular. Thorax: The patient has a Kim catheter in the right upper chest. The site is not swollen or purulent. Abdomen and pelvis: The patient's midline incision where she had her colectomy looks less erythematous and also it does not have any purulence or necrotic tissue. The patient has also on the abdomen a urostomy in the right lower part of the abdomen, an ileal ostomy on the upper right part of the abdominal wall and a colostomy on the left side of the abdomen. Neurologic: The patient is alert. She can move her arms well. She has weakness in both legs. There is no tremor. Back: The patient's sacral decubitus ulcer is still large and deep but there is no purulent fluid coming from the wound and there is no gangrenous tissue either that I could see. LAB AND X-RAY STUDIES: There is no x-ray for today. The patient's CBC was ordered but is not back yet. There is no BMP present. The urinalysis showed white cells and bacteria. The sacral buttock wound and the urine are both growing gram-negative rods. One out of two blood cultures is growing a coagulase-negative Staph which as mentioned above is a contaminant. ASSESSMENT AND PLAN: The patient has peritoneal fluid which I think is the fluid coming from the patient's incision where she had surgery to remove her colon. It is growing a gram-negative bernardino and the sacral wound and urine are also growing gram-negative rods. I am going to continue the patient's nystatin swish and swallow for the patient's oral candidiasis. As mentioned above, the coagulase-negative staph in 1/2 blood cultures is a contaminant and does not require treatment. COMORBIDITIES: The patient unfortunately years ago underwent intense radiation therapy for colon cancer. The patient also has chronic anemia and malnutrition. cc: MD Christopher Jo MD
--- NOTE | 2019-07-05 19:41 | PROGRESS NOTE ---
DATE: 07/05/2019 SUBJECTIVE: The patient reports feeling better, much more stronger. Denies any fever or chills. OBJECTIVE: Vital signs: Temperature 98.1 degrees, heart rate 95, respiratory rate 15, blood pressure 113/47, O2 saturation 100% on 2 L nasal cannula. On examination, this is a chronically ill-appearing 64-year-old female, lying in bed in no acute distress.Cardiovascular: S1, S2 heard. No murmurs, gallops or rubs. Regular rate and rhythm. Respiratory: Clear bilaterally to auscultation. No work of breathing or using accessory muscles. There is a Kim catheter in the right anterior chest wall. Abdomen: Soft. There is an ileostomy in the right upper abdomen. There is also urostomy in the right lower abdomen, colostomy in the left side of the abdomen as well. There is a midline abdominal wound in the lower abdomen with clean base. Neurological: The patient is alert and oriented x3. Moves all 4 extremities. LABORATORY DATA: White cell count 5.99, hemoglobin 8.2, hematocrit 25.4, platelets 151,000. Potassium 2.6, creatinine 1.8. ASSESSMENT AND PLAN: 1. Hypotension on presentation secondary to hypovolemia and sepsis. Clinically this patient is doing fine. Blood pressure is above 100 all the time. We will continue with current antibiotic management in this case, aztreonam and daptomycin. Dr. Mitchell from Infectious Disease is following this patient as well. We will follow recommendations. 2. Acute kidney injury secondary to volume depletion. Creatinine continues to improve. Yesterday it was 2.4, today is 1.8. We will continue to monitor BMP. 3. Escherichia coli abdominal wound infection. We will continue with aztreonam. Infectious Disease following this patient. 4. Gram-negative rods in the urine and on the back wound. I will continue with aztreonam as we mentioned before. 5. Multiple abdominal and gynecological surgeries noted. 6. Status post ileostomy, urostomy, colostomy. Wound Care is following this patient. 7. Decubitus pressure ulcers on the coccygeal level noted. 8. Failure to thrive. Nutrition is following this patient. We will follow recommendations. 9. History of colorectal cancer, status post radiation. Aware. 10. Disposition: We will continue to monitor this patient closely. We will continue with current management. cc: Christopher Basilio MD
[2019-07-06] MEDS: AZACTAM 1 GM in NS 50 ML IV SCH ×3 (00:22→23:18)
[2019-07-06] MEDS: SODIUM BICARBONATE 8.4% 150 MEQ in D5W 1,000 ML IV SCH ×2 (01:09→10:36)
[2019-07-06] MEDS: NORCO-10 PO PRN (06:05)
[2019-07-06 07:37] LABS: BASO# 0.01 X1000 (0.0-0.2); BASO% 0.2 % (0.0-0.8); EOS# 0.08 X1000 (0.0-0.7); EOS% 1.4 % (0.0-10.0); HEMOGLOBIN 10.7 g/dL (12.0-16.0); IMM GRAN# 0.04 X1000 (0.0-0.04); IMM GRAN% 0.7 % (0.0-0.5); LYMPH# 0.74 X1000 (1.2-3.4); LYMPH% 13.1 % (20.5-51.1); MCH 27.1 PG (27-31); MCHC 31.5 g/dL (33-37); MCV 86.1 FL (81-99); MONO# 0.56 X1000 (0.11-0.59); MONO% 9.9 % (1.7-9.3); MPV 8.9 FL (7.4-10.4); NEUT# 4.21 X1000 (1.4-6.5); NEUT% 74.7 % (42.2-75.2); PLT 148 X1000 (130-400); RBC 3.95 XMIL (4.2-5.4); RDW 15.2 % (11.5-14.5); WBC 5.64 X1000 (4.8-10.8)
[2019-07-06 08:00] LABS: ALB/GLOB RATIO 0.6; ALBUMIN 1.8 g/dL (3.5-5.0); CALCIUM 7.9 mg/dL (8.8-10.2); CREATININE 1.4 mg/dL (0.5-0.9); MAGNESIUM 1.4 mg/dL (1.5-2.7); POTASSIUM 3.3 mmol/L (3.5-5.1); TOTAL BILIRUBIN 0.42 mg/dL (0.20-1.00); TOTAL PROTEIN 4.7 g/dL (6.3-8.3)
[2019-07-06] MEDS: MYCOSTATIN SUSP PO SCH ×4 (09:40→22:01)
[2019-07-06] MEDS: DAKIN'S 0.25% SOLN TOP SCH ×4 (10:36→22:02)
[2019-07-06] MEDS ORDERED: POTASSIUM CHLORIDE 60 MEQ in NS 500 ML IV ONE (11:20)
[2019-07-06] MEDS ORDERED: MAGNESIUM SULFATE 2 GM/S.W.I. 2 GM/50 ML IVPB IV ONE (11:23)
[2019-07-06] MEDS ORDERED: DILAUDID IV ONE (11:34)
[2019-07-06] MEDS: ZOFRAN IV PRN (16:16)
[2019-07-06] MEDS: MORPHINE IV PRN ×2 (16:16→23:19)
--- NOTE | 2019-07-06 23:27 | PROGRESS NOTE ---
DATE: 07/06/2019 SUBJECTIVE: Patient reports severe back pain this morning. Other than that, she is feeling okay. OBJECTIVE: Vital Signs: Temperature 98.2 degrees, heart rate 75, respiratory rate 16, blood pressure 109/47, O2 saturation 100% on 2 L nasal cannula. General: This is a chronically ill- appearing, 64-year-old female lying in bed, in no acute distress. Cardiovascular: S1, S2 heard. No murmurs, gallops, or rubs. Regular rate and rhythm. Respiratory: Clear bilaterally to auscultation. No work of breathing or using accessory muscles. There is a Kim catheter in the right anterior chest wall. Abdomen: Soft. There is an ileostomy in the right upper abdomen. There is a urostomy in the right lower abdomen. Colostomy in the left side of the abdomen as well. There is a midline abdominal wound in the lower abdomen with clean base. Neurological: Patient is alert and oriented x3. Moves 4 extremities. LABORATORY DATA: Creatinine is 1.4. Today the potassium is 3.3. ASSESSMENT AND PLAN: 1. Hypotension on presentation secondary to hypovolemia and sepsis. Clinically, patient is maintaining her blood pressure between 90 and 100. At this point, we will continue with daptomycin and aztreonam. Dr. Mitchell, infectious disease, following this patient. We will follow recommendations. 2. Acute kidney injury. Creatinine continues to improve. Yesterday, it was 1.8, today it is 1.4. We will continue to check BMP daily. 3. Escherichia coli abdominal wound infection. We will continue with aztreonam Dr. Mitchell with infectious disease is following this patient. 4. Negative rods in the urine and in the back wound. We will continue with aztreonam until the final sensitivity is back. 5. Multiple abdominal and gynecological surgeries, noted. 6. Status post ileostomy, urostomy, colostomy. Wound care is following this patient. 7. Decubitus pressure ulcer in the coccygeal area, noted. 8. Failure to thrive. Dietitian is following this patient. We will follow recommendation. 9. History of colorectal cancer status post radiation, aware. 10. Disposition: We will continue to monitor this patient closely. cc: Christopher Basilio MD
[2019-07-07] MEDS: SODIUM BICARBONATE 8.4% 150 MEQ in D5W 1,000 ML IV SCH ×3 (00:44→09:39)
[2019-07-07] MEDS: MORPHINE IV PRN (05:46)
[2019-07-07 05:57] LABS: BASO# 0.01 X1000 (0.0-0.2); BASO% 0.2 % (0.0-0.8); EOS# 0.08 X1000 (0.0-0.7); EOS% 1.3 % (0.0-10.0); HEMATOCRIT 35.3 % (37.0-47.0); HEMOGLOBIN 10.9 g/dL (12.0-16.0); IMM GRAN# 0.02 X1000 (0.0-0.04); IMM GRAN% 0.3 % (0.0-0.5); LYMPH# 1.05 X1000 (1.2-3.4); MCH 26.8 PG (27-31); MCHC 30.9 g/dL (33-37); MCV 86.7 FL (81-99); MONO# 0.57 X1000 (0.11-0.59); MONO% 9.3 % (1.7-9.3); NEUT# 4.43 X1000 (1.4-6.5); NEUT% 71.9 % (42.2-75.2); PLT 155 X1000 (130-400); RBC 4.07 XMIL (4.2-5.4); RDW 15.4 % (11.5-14.5); WBC 6.16 X1000 (4.8-10.8)
[2019-07-07 07:04] LABS: ALB/GLOB RATIO 0.7; CREATININE 1.3 mg/dL (0.5-0.9); MAGNESIUM 1.7 mg/dL (1.5-2.7); POTASSIUM 3.6 mmol/L (3.5-5.1); TOTAL BILIRUBIN 0.28 mg/dL (0.20-1.00); TOTAL PROTEIN 4.8 g/dL (6.3-8.3)
[2019-07-07] MEDS: MYCOSTATIN SUSP PO SCH ×4 (08:56→21:16)
[2019-07-07] MEDS: NORCO-10 PO PRN ×3 (09:07→21:36)
[2019-07-07] MEDS: AZACTAM 1 GM in NS 50 ML IV SCH ×2 (10:57→18:51)
[2019-07-07] MEDS: DAKIN'S 0.25% SOLN TOP SCH ×4 (10:58→21:17)
--- NOTE | 2019-07-07 13:31 | INFECTIOUS DISEASE PROGRESS NO ---
DATE: 07/07/2019 PRESENT ILLNESS: The patient has the following infections: Infected abdominal incision, infected decubitus ulcer in the sacral area, and urinary tract infection. All of the infections are growing the same organism, namely Escherichia coli. The patient has 1 of 2 blood cultures growing a coagulase-negative Staph. This is a contaminant. The patient also has oral candidiasis. MEDICATIONS: I am going to continue aztreonam for the patient's infections as mentioned above, and also as mentioned above, the coagulase-negative Staph in 1 of 2 blood cultures is a contaminant and does not require treatment. The patient is on nystatin swish and swallow for her oral candidiasis. PHYSICAL EXAMINATION: Vital Signs: Temperature is 97.3 degrees, pulse 80, respirations 14, blood pressure 122/87. General: This is an ill-appearing, middle-aged female. She is in no acute distress. HEENT: She can hear my spoken words and see near objects. The patient does not have any white coating on her tongue. Neck: No stiffness. Lungs: Clear to auscultation. Cardiovascular: Regular heart rate. Thorax: The patient has a Kim catheter in the right upper chest. The site is not erythematous or purulent. Abdomen and Pelvis: The patient has a midline incision where she had her colectomy. It looks less erythematous than it did when she came in, and there is not any purulence or necrotic tissue that I saw today. The patient does have a urostomy in the lower part of the abdomen, an ileostomy in the upper right part of the abdomen, and a colostomy on the left side of the abdomen. Neurologic: The patient is alert. She moves her arms well, but she is very weak in her legs. Back: The patient has a sacral decubitus ulcer. There is no purulence or necrotic tissue seen. LABORATORY DATA: The patient's CBC shows a white count of 6160, hemoglobin 10.9, platelet count 155,000. Creatinine is 1.3. GFR is 41. ASSESSMENT AND PLAN: As mentioned above, the buttock culture, the urine culture, and the abdominal incision, which is labeled peritoneal fluid culture, are all growing Escherichia coli. The patient also does have oral candidiasis. I plan to continue aztreonam for the gram-negative bernardino infections mentioned above. I have increased the dose of aztreonam because the patient's kidney function has gotten better. Also, I plan to continue nystatin for the patient's oral candidiasis. COMORBIDITIES: The patient unfortunately had intense radiation therapy for colon cancer, and this has caused her to have a lot of problems and requiring multiple surgeries also. The patient also has chronic anemia and malnutrition. cc: MD Christopher Jo MD
[2019-07-07] MEDS ORDERED: SODIUM PHOSPHATE 35 MMOL in NS 250 ML IV ONE (14:37)
--- NOTE | 2019-07-07 15:38 | PROGRESS NOTE ---
DATE: 07/07/2019 SUBJECTIVE: Patient reports feeling better. No back pain. No fever or chills. OBJECTIVE: Vital Signs: Temperature 97.3 degrees, heart rate 80, respiratory 14, blood pressure 122/87, O2 saturation 100% on 2 L nasal cannula. General examination: This is a chronically ill- appearing, 64-year-old female lying in bed, in no acute distress. Cardiovascular: S1, S2 heard. No murmurs, gallops, or rubs. Regular rate and rhythm. Respiratory: Clear bilaterally to auscultation. No work of breathing or using accessory muscles. Abdomen: Soft. There is an ileostomy in the right upper abdomen. There is a urostomy in the right lower abdomen. Colostomy in the left side of the abdomen as well. There is a midline abdominal wound in the lower abdomen with a clean base. Neurological: Patient is alert and oriented x3. Moves 4 extremities. LABORATORY DATA: Reviewed. ASSESSMENT AND PLAN: 1. Hypotension on presentation secondary to hypovolemia and sepsis. Clinically this patient continues to improve. Her blood pressure is above 100. Patient is currently receiving antibiotics as per Dr. Mitchell's recommendation. We will continue to monitor. 2. Acute kidney injury. Almost resolved. Creatinine is 1.3 today. 3. Escherichia coli abdominal wound infection. We will continue with aztreonam as per Dr. Mitchell's recommendation. 4. Urinary tract infection. We will continue with aztreonam. 5. Multiple abdominal and gynecological surgeries, noted. 6. Status post ileostomy, urostomy, and colostomy. Wound Care following this patient. 7. Decubitus pressure ulcer in the coccygeal area, noted. 8. Failure to thrive. Dietitian continues to follow this patient. 9. History of colorectal cancer, status post radiation. Aware. 10. Disposition. I think this patient is getting better. I think we may need to do aztreonam for the period time that Dr. Mitchell recommends. We will see what we can do for this patient tomorrow. cc: Christopher Basilio MD
[2019-07-07] MEDS: NEUTRA-PHOS PO SCH ×2 (18:47→21:16)
[2019-07-08] MEDS: AZACTAM 1 GM in NS 50 ML IV SCH ×3 (02:26→17:06)
[2019-07-08] MEDS: SODIUM BICARBONATE 8.4% 150 MEQ in D5W 1,000 ML IV SCH ×4 (04:30→14:49)
[2019-07-08 06:15] LABS: BASO# 0.01 X1000 (0.0-0.2); BASO% 0.2 % (0.0-0.8); EOS% 1.6 % (0.0-10.0); HEMATOCRIT 34.7 % (37.0-47.0); HEMOGLOBIN 10.8 g/dL (12.0-16.0); IMM GRAN# 0.03 X1000 (0.0-0.04); IMM GRAN% 0.5 % (0.0-0.5); LYMPH# 0.94 X1000 (1.2-3.4); LYMPH% 14.9 % (20.5-51.1); MCH 27.2 PG (27-31); MCHC 31.1 g/dL (33-37); MCV 87.4 FL (81-99); MONO# 0.61 X1000 (0.11-0.59); MONO% 9.7 % (1.7-9.3); MPV 8.9 FL (7.4-10.4); NEUT# 4.61 X1000 (1.4-6.5); NEUT% 73.1 % (42.2-75.2); PLT 149 X1000 (130-400); RBC 3.97 XMIL (4.2-5.4); RDW 15.2 % (11.5-14.5)
[2019-07-08] MEDS: NORCO-10 PO PRN ×3 (06:34→18:51)
--- NOTE | 2019-07-08 06:43 | INFECTIOUS DISEASE PROGRESS NO ---
DATE: 07/08/2019 PRESENT ILLNESS: The patient is being treated for the following infections: 1. Infected abdominal incision. 2. Infected sacral decubitus ulcer. 3. Urinary tract infection. All of the infections are caused by E. Coli. 4. The patient also has oral candidiasis. MEDICATIONS: The patient is on aztreonam which I plan to continue. Patient also has nystatin swish and swallow for her candidiasis. PHYSICAL EXAMINATION: Vital Signs: Temperature is 98.3 degrees, pulse 85, respirations 17, and blood pressure is 113/55. General: This is an ill-appearing middle-aged female. She is in no acute distress. Head/eyes/ears/nose/throat: She can hear my spoken words, and see near objects. I did not see any white coating of her tongue. Neck: No pain with movement. Lungs: Clear to auscultation. Thorax: The patient has a Kim catheter on the right side. The site is not erythematous or swollen. Cardiovascular: Heart rate is regular. Abdomen and Pelvis: The patient's lower midline incision where she had a colectomy is about the same. It has got a pink color of the tissue with some areas a little bit red. There is a seropurulent drainage coming from the wound. The patient has a urostomy in the lower part of the right abdomen, an ileostomy from the right upper part of the abdomen, and a colostomy on the left side of the abdomen. Neurologic: Patient is alert. She can move her arms well but she is weak in her legs. Skin: The patient's sacral decubitus ulcer has a lot of sanguinopurulent drainage this morning, but no necrotic tissue and no odor to the wound. LABORATORY AND DIAGNOSTIC: There is no new lab or x-ray at this time. ASSESSMENT AND PLAN: I plan to continue aztreonam for the patient's abdominal incision, decubitus ulcer and her urinary tract infection. Also, I plan to continue the nystatin swish and swallow for the oral candidiasis. COMORBIDITIES: The patient had intense radiation years ago for colon cancer, and this has been the cause of a lot of her pelvic problems. The patient also has chronic anemia and malnutrition. The patient also is extremely weak in her legs. cc: MD Christopher Jo MD
[2019-07-08 07:09] LABS: ALB/GLOB RATIO 0.5; ALBUMIN 1.6 g/dL (3.5-5.0); CALCIUM 7.2 mg/dL (8.8-10.2); CREATININE 1.1 mg/dL (0.5-0.9); MAGNESIUM 1.3 mg/dL (1.5-2.7); POTASSIUM 3.4 mmol/L (3.5-5.1); TOTAL BILIRUBIN 0.25 mg/dL (0.20-1.00); TOTAL PROTEIN 4.9 g/dL (6.3-8.3)
[2019-07-08] MEDS: ZOFRAN IV PRN (10:44)
[2019-07-08] MEDS: MYCOSTATIN SUSP PO SCH ×4 (10:45→20:15)
[2019-07-08] MEDS: NEUTRA-PHOS PO SCH ×4 (10:51→20:15)
[2019-07-08] MEDS ORDERED: SODIUM CHLORIDE 0.9% INJ PRN (11:58)
[2019-07-08] MEDS: DAKIN'S 0.25% SOLN TOP SCH ×4 (12:05→20:15)
[2019-07-08] MEDS: PHENERGAN IV PRN (12:07)
[2019-07-08] MEDS ORDERED: MAGNESIUM SULFATE 2 GM/S.W.I. 2 GM/50 ML IVPB IV ONE (14:52)
--- NOTE | 2019-07-08 15:18 | PROGRESS NOTE ---
DATE: 07/08/2019 SUBJECTIVE: The patient reports feeling fine. Denies nausea and vomiting, abdominal pain, or back pain. OBJECTIVE: Vital Signs: Temperature 98.1 degrees, heart rate 100, respiratory rate 16, blood pressure 115/70, O2 saturation 100% on room air. General Examination: This is a chronically ill- appearing, 64-year-old, female lying in bed, in no acute distress. Cardiovascular Examination: S1 and S2 heard. No murmurs, gallops, or rubs. Regular rate and rhythm. Respiratory Examination: Clear bilaterally to auscultation. No work of breathing or using accessory muscles. There is a Kim catheter in the right anterior chest wall with no erythema around it. Abdomen: Soft. There is an ileostomy in the right upper abdomen. There is a urostomy in the right lower abdomen. There is a colostomy on the left side of the abdomen. There is a midline abdominal wound in the lower abdomen with a clean base. There are a lot of erythematous changes around the lower abdomen. Neurological Examination: The patient is alert and oriented x3. Moves 4 extremities. Laboratory Data: White cell count 6.3, hemoglobin 10.8, hematocrit 34.7, platelets 159,000. Normal BMP with creatinine 1.1, potassium 3.4. ASSESSMENT AND PLAN: 1. Hypotension on presentation secondary to hypovolemia with sepsis. Now, this patient is doing much better after a few days. The blood pressure continues to be within normal limits. We will continue with intravenous fluids and antibiotics. 2. Acute kidney injury, almost resolved. Creatinine is 1.0 today. 3. Escherichia coli abdominal wall infection and urinary tract infection. We will continue with aztreonam. Doses have been adjusted. He is almost normal renal function. 4. Clinical volume depletion. We will continue to provide intravenous fluids. 5. Multiple abdominal and gynecological surgeries noted. 6. Status post ileostomy, urostomy, and colostomy. Wound care is on board. 7. Decubitus pressure ulcer in the coccygeal area noted. 8. Failure to thrive. Nutrition is following this patient. 9. History of colorectal cancer, status post radiation. His primary doctor, Dr. Crocker, has ordered one CT of the abdomen with contrast but because the patient has already ate, that exam has been arranged for tomorrow. cc: Christopher Basilio MD
[2019-07-09] MEDS: NORCO-10 PO PRN ×3 (00:52→15:13)
[2019-07-09] MEDS: SODIUM BICARBONATE 8.4% 150 MEQ in D5W 1,000 ML IV SCH ×3 (00:55→20:22)
[2019-07-09] MEDS: AZACTAM 1 GM in NS 50 ML IV SCH ×3 (02:12→18:45)
[2019-07-09 05:33] LABS: EOS% 1.7 % (0.0-10.0); HEMOGLOBIN 10.7 g/dL (12.0-16.0); IMM GRAN# 0.02 X1000 (0.0-0.04); IMM GRAN% 0.3 % (0.0-0.5); LYMPH# 1.27 X1000 (1.2-3.4); LYMPH% 21.3 % (20.5-51.1); MCH 26.9 PG (27-31); MCHC 30.6 g/dL (33-37); MCV 87.9 FL (81-99); MONO# 0.58 X1000 (0.11-0.59); MONO% 9.7 % (1.7-9.3); MPV 8.4 FL (7.4-10.4); PLT 148 X1000 (130-400); RBC 3.98 XMIL (4.2-5.4); RDW 15.1 % (11.5-14.5); WBC 5.97 X1000 (4.8-10.8)
[2019-07-09 06:02] LABS: ALB/GLOB RATIO 0.6; ALBUMIN 1.7 g/dL (3.5-5.0); CALCIUM 7.4 mg/dL (8.8-10.2); CREATININE 1.3 mg/dL (0.5-0.9); MAGNESIUM 1.5 mg/dL (1.5-2.7); PHOSPHORUS 3.2 mg/dL (2.7-4.5); POTASSIUM 3.7 mmol/L (3.5-5.1); TOTAL BILIRUBIN 0.27 mg/dL (0.20-1.00); TOTAL PROTEIN 4.7 g/dL (6.3-8.3)
[2019-07-09] MEDS: ZOFRAN IV PRN (06:59)
[2019-07-09] MEDS: MYCOSTATIN SUSP PO SCH ×4 (09:13→21:31)
[2019-07-09] MEDS: NEUTRA-PHOS PO SCH ×4 (09:13→21:31)
--- NOTE | 2019-07-09 09:46 | Diag Imaging Result Doc PS360 ---
EXAM: CT ABD/PELVIS W/ORAL CONT ONLY INDICATION: Pelvic abscess TECHNIQUE: This exam was performed using automated exposure control, adjustment of mA or kV according to patient size, and/or use of iterative reconstruction technique. COMPARISON: 02/18/2019 FINDINGS: There is trace pleural fluid at the left lung base and there is bibasilar mild atelectasis. There are a few basilar calcifications posteriorly on the right and left that may be pleural-based that appear to have developed during the interval. The gallbladder, liver, spleen, pancreas, and adrenal glands are grossly unremarkable. Both kidneys exhibit a lobulated contour that is stable suggesting persistent lobulations. There has been a prior cystectomy with ileal conduit. There is slight prominence of the renal collecting systems and ureters that is probably chronic. It is actually not as prominent as the previous study. The neobladder is nondistended. There has been a prior colectomy and there is now an ileostomy at the right lower quadrant. There is also an ostomy in the left lower quadrant. The ileostomy appears to be patent. There are a few mildly prominent loops of small bowel in the left abdomen containing air likely representing mild ileus. There is nothing that would necessarily indicate obstruction. 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 Underlying the skin surface in the region of the fistula, there is a collection of fluid and gas measuring 2.4 x 10.2 cm axially on image 139 of series 3. This is also seen on the previous study and appears to be contiguous with the fistulous tract. There is subcutaneous gas abdomen just superior to the umbilicus. This may be the port site it There has been recent laparoscopy. Please correlate clinically. There is stable sacral and pelvic sclerosis related to prior radiotherapy. IMPRESSION: 1.Extensive postsurgical changes as described with subcutaneous gas in the umbilical region that could be the site of a Port-A-Cath there has been recent laparoscopy. Please correlate clinically. 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 3.Trace left pleural effusion and basilar atelectasis. 4.Other incidental/nonacute findings detailed above. Electronically signed by Aron Henderson 07/09/2019 9:44 AM
--- NOTE | 2019-07-09 13:20 | INFECTIOUS DISEASE PROGRESS NO ---
DATE: 07/09/2019 PRESENT ILLNESS: The patient has the following infections, 1) infected abdominal incision where she had a colectomy, 2) infected sacral decubitus ulcer, 3) urinary tract infection. All 3 of the above-mentioned infections are caused by E. Coli. The patient also has oral candidiasis. MEDICATIONS: The patient is on aztreonam; this is the 7th day of treatment with that antibiotic. The patient also is on nystatin swish and swallow for her candidiasis. PHYSICAL EXAMINATION: Vital Signs: Temperature 98.1 degrees, pulse 78, respirations 15, and blood pressure is 167/48. General: This is an ill-appearing middle-aged female. She says she is feeling better. HEENT: She can hear my spoken words and see near objects. I do not see any white coating on her tongue now. Neck: No meningismus. Lungs: Clear to auscultation. Thorax: Patient has a Kim catheter on the right side. The site is not erythematous or tender. Cardiovascular: Heart rate is regular. Abdomen and Pelvis: The patient's lower abdominal incision through which she had a colon resection. It is not as erythematous as it was when she came in, and it does not have as much drainage as when she came in. The patient has a urostomy in the lower part of the right abdomen, an ileostomy in the right upper part of the abdomen, and colostomy on the left side of the abdomen. Neurologic: The patient is alert. She can move her arms, but her legs are weak. Back: The patient's sacral decubitus ulcer still has quite a bit of sanguinous purulent drainage. However, there was no necrotic tissue present, and the wound did not have an odor. LABORATORY AND X-RAY: The patient's CBC shows a white count of 5970, hemoglobin 10.7, and platelet count 148,000. The patient's creatinine is 1.3. The GFR is 41. The liver function studies are normal. The patient is scheduled for a CT scan of the abdomen today. ASSESSMENT AND PLAN: The patient has infected abdominal wound as well as a urinary tract infection and infected sacral wound. I plan to continue with aztreonam for this. The patient's E. coli is susceptible to Septra but because of her renal insufficiency Septra cannot be used. Also, I plan to continue with nystatin for the patient's oral candidiasis. As mentioned above, the patient is scheduled to have a CT scan today. I think the patient can go home. I have put in a consult for [facility] to supply the patient's aztreonam at home. I plan to treat for 2 weeks at home, and then the patient will have an appointment in my office in 2 weeks, and we will have to see if the patient requires more antibiotic or we can stop. COMORBIDITIES: The patient had intense radiation therapy years ago for colon cancer. Since that time, she has had multiple complications. She also has chronic anemia and malnutrition, and also she has weakness in both legs. cc: MD Willis Jo MD MTDD
[2019-07-09] MEDS: PHENERGAN IV PRN (13:27)
--- NOTE | 2019-07-09 13:32 | PROGRESS NOTE ---
DATE: 07/09/2019 SUBJECTIVE: This patient stated that she is feeling better. No nausea, no vomiting. Some abdominal discomfort. OBJECTIVE: Vital Signs: Temperature 98.2 degrees, pulse 78, respiratory rate 14, blood pressure 110/64, oxygen saturation 99% on room air. HEENT: Head normocephalic. No trauma. PERRLA. Neck: Supple. No JVD. No masses. Central trachea. Chest: Clear to auscultation. No wheezing. No rales. Abdomen: Soft. She does have multiple abdominal wounds. She has a right ileostomy and also a right urostomy. She has a left colostomy in the left lower abdominal area. All of them are working. There is a midline abdominal wound with a clean base. She has a lot of erythematous changes around the lower abdomen. Neurological Examination: This patient is awake. She is alert. She is oriented x3. She has chronic problems moving her lower extremities and actually, she is able to move her lower extremity a little bit, maybe 1/5 but the right lower extremity, she cannot move it too much. Lower extremity edema around 1 to 2+. Laboratory: WBC 5.9, hemoglobin 10.7, hematocrit 35, platelets 148,000. Sodium 138, potassium 3.7, chloride 97, bicarbonate 31, BUN 13, creatinine 1.3, glucose 92, calcium 7.4, phosphorus 3.2, magnesium 1.5. AST 13, ALT 7, alkaline phosphatase 87, albumin 1.7. ASSESSMENT AND PLAN: 1. Hypotension on presentation secondary to hypovolemia with sepsis. She is doing much better. Blood pressure has been stable. Continue with intravenous fluids and antibiotics. 2. Acute kidney injury, resolved. This is her baseline. 3. Escherichia coli abdominal wall infection and urinary tract infection. Continue with aspirin and per infectious disease department. 4. Dehydration upon admission, resolved. 5. Multiple abdominal and gynecological surgeries, noted. She has an ileostomy, urostomy, and colostomy in place. Wound care on board. 6. Decubitus pressure ulcer in the coccygeal area, noted. It is currently covered. I did not remove the dressing. 7. Failure to thrive. Nutrition is following this patient. 8. History of colorectal cancer, status post radiation. Primary doctor is Dr. Crocker. Pending CT scan of the abdomen results at this moment. cc: Willis Ledezma MD
[2019-07-09] MEDS: DAKIN'S 0.25% SOLN TOP SCH ×4 (18:05→21:33)
[2019-07-10] MEDS: AZACTAM 1 GM in NS 50 ML IV SCH ×2 (02:58→10:38)
[2019-07-10] MEDS: NORCO-10 PO PRN ×2 (03:15→11:54)
[2019-07-10] MEDS: SODIUM BICARBONATE 8.4% 150 MEQ in D5W 1,000 ML IV SCH (05:31)
[2019-07-10 05:37] LABS: HEMATOCRIT 34.3 % (37.0-47.0); HEMOGLOBIN 10.8 g/dL (12.0-16.0); MCH 27.7 PG (27-31); MCHC 31.5 g/dL (33-37); MCV 87.9 FL (81-99); MPV 9.1 FL (7.4-10.4); RBC 3.9 XMIL (4.2-5.4); RDW 14.9 % (11.5-14.5); WBC 5.7 X1000 (4.8-10.8)
[2019-07-10 06:17] LABS: ALB/GLOB RATIO 0.6; ALBUMIN 1.9 g/dL (3.5-5.0); CALCIUM 7.6 mg/dL (8.8-10.2); CREATININE 1.1 mg/dL (0.5-0.9); MAGNESIUM 1.3 mg/dL (1.5-2.7); PHOSPHORUS 3.2 mg/dL (2.7-4.5); POTASSIUM 3.6 mmol/L (3.5-5.1); TOTAL BILIRUBIN 0.34 mg/dL (0.20-1.00)
[2019-07-10] MEDS: MYCOSTATIN SUSP PO SCH ×3 (10:38→14:16)
[2019-07-10] MEDS: NEUTRA-PHOS PO SCH ×2 (10:41→14:16)
[2019-07-10] MEDS: ZOFRAN IV PRN (11:08)
[2019-07-10] MEDS: DAKIN'S 0.25% SOLN TOP SCH ×2 (11:32→14:17)
[2019-07-10 11:50] VITALS: BP 127/61
--- NOTE | 2019-07-10 13:14 | INFECTIOUS DISEASE PROGRESS NO ---
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 The patient also has oral candidiasis. MEDICATIONS: This is the eighth day of treatment with aztreonam, and the patient also is on nystatin swish and swallow for candidiasis. PHYSICAL EXAMINATION: Vital Signs: Temperature is 98.1 degrees, pulse 79, respirations 16, blood pressure 110/59. General: This is an ill-appearing, middle-aged female. She is in no acute distress. HEENT: She does not have any white coating on her tongue. She can hear my spoken words and see near objects. Neck: No pain with movement. Lungs: Clear to auscultation. Thorax: The patient has a Kim catheter on the right side. The site is not swollen or tender. Cardiovascular: Heart rate is regular. Abdomen and Pelvis: The patient's lower part of the abdomen and involving part of the pelvis has an incision where the patient's colectomy was performed. The incision still is somewhat erythematous and still drains some, but it is a lot better than when she came in. The patient has a urostomy in the lower part of the right abdomen, and an ileostomy in the right upper part of the abdomen, and a colostomy on the left side of the abdomen. Neurologic: The patient is alert. She can she can move her arms well, but her legs are weak. Back: The patient's sacral decubitus ulcer still is draining, and it probably will continue because there is an enterocutaneous fistula. IMAGING: CT scan of the abdomen and pelvis showed an enterocutaneous fistula, which is causing the sacral, what we called decubitus ulcer, but actually it is an enterocutaneous fistula. IMPRESSION AND PLAN: The patient also has oral candidiasis. My plan is to continue aztreonam for another 2 weeks to complete a 3-week treatment course. Hopefully, this will be enough to close off the fistula. COMORBIDITIES: The patient had intense radiation years ago for colon cancer, and since that time, she has had multiple complications and multiple surgical procedures. She also has chronic anemia, and she is malnourished. Finally, she has weakness in her legs, which occurred because of radiation damage to the spine. cc: MD Willis Jo MD
--- NOTE | 2019-07-10 16:04 | PROGRESS NOTE ---
DATE: 07/10/2019 SUBJECTIVE: The patient is feeling better. No nausea, no vomiting. 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 Surgery Department on board. OBJECTIVE: Vital Signs: Temperature 98.5 degrees, pulse 96, respiratory rate 16, blood pressure 127/61, oxygen saturation 97% on room air. HEENT: Head normocephalic, no trauma. PERRLA. Neck: Supple. No JVD. No masses. Central trachea. Chest: Clear to auscultation. Abdomen: Soft. Multiple abdominal wounds. Right ileostomy and also right urostomy, left colostomy in the left lower area; all of them working properly. There is a midline abdominal wound that is with a clean base. Just a lot of erythematous changes around the lower abdomen. Neurological examination: The patient is awake. She is oriented x3. She has chronic problem moving her lower extremities, and actually she is able to move her left lower extremity a little bit better compared with the right lower extremity. She does have some edema as well. LABORATORY: WBC 5.7, hemoglobin 10.8, hematocrit 34.3, platelets 155. Sodium 137, potassium 3.6, chloride 97 bicarbonate 31. BUN 13, creatinine 1.1, glucose 96, calcium 7.6, magnesium 1.3, albumin 1.9. ASSESSMENT AND PLAN: 1. Hypotension on presentation secondary to hypovolemia with sepsis, resolved. 2. Acute kidney injury on chronic kidney disease. This is her baseline. 3. Escherichia coli abdominal wall infection and urinary tract infection. Continue with aztreonam per Infectious Disease Department. 4. Dehydration upon admission, resolved. 5. Multiple abdominal and gynecological surgeries, noted. 6. Decubitus pressure ulcer in the coccygeal area. Aware. It is currently covered. 7. Failure to thrive. Nutrition is following this patient. 8. History of colorectal cancer status post radiation. 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 cc: Willis Ledezma MD
--- NOTE | 2019-07-16 10:05 | DISCHARGE SUMMARY ---
ADMISSION DATE: 07/02/2019 DISCHARGE DATE: 07/10/2019 DIAGNOSES: 1. Possible sepsis. 2. Dehydration. 3. Malnutrition. PROCEDURE PERFORMED: CT scans. CONSULTATIONS: To hospitalist, as well as Dr. Pardeep Mitchell. HISTORY AND HOSPITAL COURSE: The patient is a 64-year-old white female, known to me for many years, with a history of rectal carcinoma in the , treated with radiation, chemotherapy, and an abdominoperineal resection. Subsequent to the radiation therapy, she developed a partial cauda equina syndrome, as well as necrosis of the bladder requiring cystectomy with ileal conduits on the right side with a colostomy on the left. 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 She was referred the [facility]. TPN was initiated without resolution of the fistula, and she subsequently was at [facility] for nearly 2 months, requiring surgery with a reoperation secondary to anastomotic breakdown. She has an ileostomy now in the right upper quadrant. The ureterostomy in the right lower quadrant and the colostomy in the left lower quadrant. She continues to drain from her sacrum, has a nonhealing sacral wound, as well as an open abdominal incision that has been treated with a wound VAC. She had been referred, was allowed home a month ago. TPN was stopped and she was eating. However, the patient has stopped eating recently and is not taking much fluid. Her creatinine on admission was 3.5. Her white count was elevated. Her blood count was low, and her albumin and prealbumin were low. IV fluids were initiated with resolution of the azotemia with her creatinine going from 3.5 down to 1. She did require some blood transfusions, I believe 2 were given. Multiple rounds of antibiotics were given by Dr. Mitchell. She has an indwelling [place] catheter that only 1 blood culture was positive for Staphylococcus epidermidis which was felt to be contaminant. Her temperature resolved, white count resolved with IV antibiotics, and she was able to eat better prior to discharge with more output from her ileostomy and colostomy. She is subsequently allowed home on 07/10/2019 on IV antibiotics for another 2 to [address] Mitchell as ordered. She will be seen in the office on a p.r.n. basis. cc: Allan C. MD Willis Crocker MD
== END 2019-07-10 16:14 | disposition home health service (06) | DRG 862 ==
LOC: DIRADM 13:48 → EDIPHOLD 15:24 → 1N 15:31
PROVIDERS: ADMIT Internal Medicine; ATTEND Surgery

== ENCOUNTER 2019-08-18 19:49 | Inpatient (IN) ==
--- NOTE | 2019-08-18 20:29 | EKG Report ---
Test Performed on : 08/18/2019 8:12:49 PM Test Reason : weakness Blood Pressure : / mmHG Vent. Rate : 122 BPM Atrial Rate : 122 BPM P-R Int : 170 ms QRS Dur : 094 ms QT Int : 308 ms P-R-T Axes : 083 117 078 degrees QTc Int : 438 ms Sinus tachycardia. Possible Left atrial enlargement Right axis deviation Pulmonary disease pattern Abnormal ECG When compared with ECG of 17-FEB-2019 10:55, Vent. rate has increased BY 59 BPM QRS axis shifted right Unconfirmed Result
--- NOTE | 2019-08-18 20:41 | Diag Imaging Result Doc PS360 ---
EXAM: CHEST-PORTABLE 08/18/2019 HISTORY: weakness TECHNIQUE: Erect AP portable at 2030 COMMENT: There is no evidence of acute cardiac or pulmonary disease. Compared to 07/03/2019, there has been no significant change. IMPRESSION: Stable chest. Electronically signed by Tylor Agudelo 08/18/2019 8:39 PM
[2019-08-18] MEDS ORDERED: 1/2 NS + KCL 20 MEQ 1,000 ML IV ONE (20:42)
[2019-08-18 21:12] LABS: BASO# 0.02 X1000 (0.0-0.2); BASO% 0.1 % (0.0-0.8); EOS# 0.44 X1000 (0.0-0.7); EOS% 2.8 % (0.0-10.0); HEMATOCRIT 46.2 % (37.0-47.0); HEMOGLOBIN 14.9 g/dL (12.0-16.0); IMM GRAN# 0.04 X1000 (0.0-0.04); IMM GRAN% 0.3 % (0.0-0.5); LYMPH# 0.68 X1000 (1.2-3.4); LYMPH% 4.4 % (20.5-51.1); MCH 26.6 PG (27-31); MCHC 32.3 g/dL (33-37); MCV 82.4 FL (81-99); MONO# 0.52 X1000 (0.11-0.59); MONO% 3.3 % (1.7-9.3); NEUT# 13.93 X1000 (1.4-6.5); NEUT% 89.1 % (42.2-75.2); PLT 157 X1000 (130-400); RBC 5.61 XMIL (4.2-5.4); RDW 14.6 % (11.5-14.5); WBC 15.63 X1000 (4.8-10.8)
[2019-08-18 21:27] LABS: URINE SOURCE CLEAN CATCH
[2019-08-18] MEDS ORDERED: SODIUM CHLORIDE 0.9% INJ ONE (21:31)
[2019-08-18 21:32] LABS: BILIRUBIN URINE NEGATIVE (NEGATIVE); GLUCOSE URINE NEGATIVE (NEGATIVE); KETONE URINE NEGATIVE (NEGATIVE); NITRITE URINE NEGATIVE (NEGATIVE); TURBIDITY URINE TURBID (CLEAR); UROBILINOGEN URINE NORMAL (NORMAL)
[2019-08-18 21:34] LABS: ALB/GLOB RATIO 0.8; ALBUMIN 3.1 g/dL (3.5-5.0); CALCIUM 10.1 mg/dL (8.8-10.2); CREATININE 1.8 mg/dL (0.5-0.9); POTASSIUM 3.8 mmol/L (3.5-5.1); TOTAL BILIRUBIN 0.43 mg/dL (0.20-1.00); TOTAL PROTEIN 7.1 g/dL (6.3-8.3)
[2019-08-18 21:38] LABS: BLOOD URINE TRACE (NEGATIVE); COLOR ORANGE; LEUKOCYTES URINE LARGE (NEGATIVE); PH URINE 5.5; PROTEIN URINE 30 mg/dL (NEGATIVE); SP GRAVITY URINE 1.011
[2019-08-18 21:46] LABS: UR EPITHELIAL CELLS >10 /HPF (<10); URINE BACTERIA 3+ /HPF; URINE RBC TNTC /HPF (<10); URINE WBC TNTC /HPF (<10)
[2019-08-18 21:49] LABS: URINE CASTS GRANULAR PRESENT
[2019-08-18] MEDS: DILAUDID IV SCH (21:49)
[2019-08-18] MEDS: PHENERGAN IV PRN (21:49)
[2019-08-19 00:41] LABS: INR 1.08; PROTIME 14.2 Seconds (11.0-16.0)
[2019-08-19 00:42] LABS: PTT 40.9 Seconds (22.3-41.8)
[2019-08-19] MEDS: SODIUM CHLORIDE 0.9% INJ SCH ×6 (02:22→22:01)
[2019-08-19] MEDS: PHENERGAN IV PRN ×5 (02:22→22:01)
[2019-08-19] MEDS: DILAUDID IV SCH ×3 (02:24→11:15)
[2019-08-19] MEDS: 1/2 NS + KCL 20 MEQ 1,000 ML IV SCH ×2 (11:15→22:17)
[2019-08-19] MEDS ORDERED: TRANSDERM-SCOP TD ONE (12:07)
[2019-08-19] MEDS ORDERED: MERREM 1 GM in NS 50 ML IV SCH (13:00)
[2019-08-19] MEDS ORDERED: LOPRESSOR IV ONE (14:05)
[2019-08-19 14:14] LABS: BASO# 0.02 X1000 (0.0-0.2); BASO% 0.1 % (0.0-0.8); EOS# 0.01 X1000 (0.0-0.7); EOS% 0.1 % (0.0-10.0); HEMATOCRIT 45.3 % (37.0-47.0); HEMOGLOBIN 14.3 g/dL (12.0-16.0); IMM GRAN# 0.04 X1000 (0.0-0.04); IMM GRAN% 0.2 % (0.0-0.5); LYMPH# 1.53 X1000 (1.2-3.4); LYMPH% 8.2 % (20.5-51.1); MCH 26.6 PG (27-31); MCHC 31.6 g/dL (33-37); MCV 84.4 FL (81-99); MONO# 0.98 X1000 (0.11-0.59); MONO% 5.3 % (1.7-9.3); MPV 11.1 FL (7.4-10.4); NEUT# 16.03 X1000 (1.4-6.5); NEUT% 86.1 % (42.2-75.2); PLT 208 X1000 (130-400); RBC 5.37 XMIL (4.2-5.4); RDW 14.5 % (11.5-14.5); WBC 18.61 X1000 (4.8-10.8)
--- NOTE | 2019-08-19 14:14 | CONSULTATION ---
DATE OF CONSULTATION: 08/19/2019 CONSULTING PHYSICIAN: Dr. Allan Crocker. REASON FOR CONSULTATION: Nausea, vomiting, dehydration. HISTORY OF PRESENT ILLNESS: This is a 64-year-old female who presented to [facility] from her general surgeon's office for persistent nausea and vomiting. The patient states that she feels this is from minocycline. She has taken this in the past and had severe nausea and vomiting. When she started this prescription, she states that she forgot about how it affected her but after taking this, she did state that once symptoms started, she remembered what it did in the past and called and checked in with Dr. Crocker. Of note, she had a prescription for 10 days. She started it on the 07 of August and completed it on the 17 of August. She denies any black or bloody vomitus, any chest pain, palpitations, any fevers or chills. She does complain of persistent thirst. At the time of my exam, she is constantly drinking fluids. PAST MEDICAL HISTORY: 1. Rectal cancer. 2. 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 3. 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 4. Recent Escherichia coli UTI. PAST SURGICAL HISTORY: 1. Cholecystectomy with neobladder. 2. Hysterectomy. 3. Colostomy. 4. Colon resection with colostomy. 5. Ileostomy. FAMILY HISTORY: Positive for diabetes mellitus, hypertension, stroke, and cancer. SOCIAL HISTORY: She is . She is disabled. She denies alcohol, tobacco, or illicit drug use. ALLERGIES: Meperidine which causes a rash, penicillin causes a rash, cefepime causes altered mental status, and minocycline causes nausea and vomiting. HOME MEDICATIONS: 1. [place] 10 q.4-6 hours p.r.n. 2. Minocycline 100 mg p.o. b.i.d. This was completed on 08/17/2019. 3. Zofran 4 mg ODT q.4 hours p.r.n.. REVIEW OF SYSTEMS: Review of systems is discussed with patient with pertinent positives stated in the HPI. She denied any syncope or dizziness, any chest pain or palpitations, any shortness of breath, cough, fever, chills, any black or bloody vomitus or stools, any hematuria. PHYSICAL EXAMINATION: General: This is a 64-year-old female who is lying on the bed, in no distress. Vital Signs: Blood pressure is 139/72, with a heart rate of 80, respirations are 20, temperature is 98.7 degrees, with O2 saturations 98-100% on 2 L nasal cannula. Eyes: Pupils equal, round, react to light. EOMs are intact. Sclerae are anicteric. HEENT: Head is normocephalic, atraumatic. Mucous membranes are moist. Neck: Supple, with trachea midline. Cardiovascular: Regular rate and rhythm. S1 and S2 are appreciated. Pulmonary: Breath sounds are clear with no increased work of breathing noted. Chest rises and falls symmetric with respiration. Gastrointestinal: Abdomen is soft, nontender, nondistended, with bowel sounds in all 4 quadrants. Ileostomy is noted with stoma pink. Urostomy, neobladder is noted. Neurologic: She is alert and oriented x3. LABORATORY DATA: WBC is 15.6, with hemoglobin 14.9, hematocrit 46.2, and platelets of 157,000. Sodium 137, potassium 3.8, BUN 51, creatinine 1.8, glucose of 163. Lactate is 2. Urinalysis reveals large amount of leukocytes with cey-[id number]-pb-count white blood cells and red blood cells, greater than 10 epithelial cells, and 3+ bacteria. Blood cultures and urine cultures are pending. Chest x-ray reveals a stable chest. No evidence of acute cardiac or pulmonary disease. ASSESSMENT AND PLAN: 1. Nausea and vomiting. The patient states this is from taking minocycline. This has happened in the past. She did complete the prescription 2 days on the . We will, of course, give no further minocycline. We will continue with intravenous hydration, giving Phenergan as needed for nausea. We will add a scopolamine patch. During the time that I was examining the patient, she was constantly drinking fluids. I did encourage her strongly to stop drinking and eating while she is so nauseated, just go to ice chips. 2. Leukocytosis. Blood cultures and urine culture are pending. Merrem and Zyvox, and further antibiotics will be culture driven. 3. Acute kidney injury in the setting of chronic kidney disease. renal dose medications. Continue hydration and trend her labs. 4. Urine culture with gram-negative rods. 5. Urinary tract infection. The patient has a neobladder. She does have gram negative rods in her urine culture at present, which is consistent with a neobladder. Antibiotics as stated above. 6. History of rectal cancer. Aware. 7. 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 Aware. 8. 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 Wound care. 9. We will repeat a CBC, CMP, and a magnesium stat. BMP and CBC have been ordered for in the morning. Thank you for allowing us to participate in this patient's care. I have discussed plan with Dr. Brown. Further treatments pending hospital course. Dictated by GEN Avalos for Willis Ledezma MD cc: GEN Avalos MD Hugh C. Nabers, MD [facility]
[2019-08-19] MEDS ORDERED: NS 500 ML IV ONE ×2 (14:16→15:20)
[2019-08-19 14:18] LABS: ALB/GLOB RATIO 0.8; ALBUMIN 3.1 g/dL (3.5-5.0); CALCIUM 9.8 mg/dL (8.8-10.2); CREATININE 1.8 mg/dL (0.5-0.9); MAGNESIUM 2.3 mg/dL (1.5-2.7); POTASSIUM 4.6 mmol/L (3.5-5.1); TOTAL BILIRUBIN 0.4 mg/dL (0.20-1.00); TOTAL PROTEIN 6.9 g/dL (6.3-8.3)
--- NOTE | 2019-08-19 14:24 | EKG Report ---
Test Performed on : 08/19/2019 2:13:05 PM Test Reason : tachycardia Blood Pressure : / mmHG Vent. Rate : 176 BPM Atrial Rate : 178 BPM P-R Int : 000 ms QRS Dur : 148 ms QT Int : 272 ms P-R-T Axes : 000 073 067 degrees QTc Int : 465 ms Critical Test Result: High HR , Arrhythmia Wide QRS tachycardia. Nonspecific intraventricular block Abnormal ECG When compared with ECG of 18-AUG-2019 20:12, (Unconfirmed) Wide QRS tachycardia. has replaced Sinus rhythm. Confirmed by Geoff SALEH, Barry Oro ([id number]) on 08/22/2019 2:32:05 PM
[2019-08-19 14:43] LABS: LARGE PLATELETS OCCASIONAL; LYMPHS 6 % (21-51); MONO 1 % (1-9); SEGS 90 % (42-75)
--- NOTE | 2019-08-19 15:45 | INFECTIOUS DISEASE PROGRESS NO ---
DATE: 08/19/2019 PRESENT ILLNESS: Ms. Thompson has had an infected abdominal incision from a previous colectomy, as well as an infected sacral decubitus ulcer with an enterocutaneous fistula. We have previously been treating her for E coli in her urine and buttock wound. At this time she has been readmitted for nausea and vomiting, and currently has an elevated heart rate, at a rate of 170 on the monitor. She has a gram-negative bernardino growing in her urine culture. MEDICATIONS: She has been started on Zyvox 600 mg IV every 12 hours and meropenem 1 g IV every 8 hours. PHYSICAL EXAMINATION: Vital Signs: Temperature is 98.2 degrees, pulse rate 173, respiratory rate 20, blood pressure 107/60, O2 saturation is 100% on 2 L nasal cannula. General: This is a chronically ill-appearing, middle-aged female. She is lying in bed, with nausea, and is dry heaving at this time. HEENT: Atraumatic, normocephalic. Oral mucous membranes are pink and dry. Conjunctivae are pink. Neck: Supple. Trachea is midline. Cardiovascular: Heart rate is fast and appears to be SVT on the monitor. Respiratory: Lung sounds are clear to auscultation, somewhat diminished in the bases. Abdomen: The patient is nauseated and dry heaving with some brown fluid noted in the bedside container from previous emesis. She has a colostomy, ileostomy, and urostomy. Neurologic: She is awake, alert, oriented, and able to move around in the bed with assistance due to lower extremity weakness. Integumentary: There is a moist, erythematous wound to her mid-abdomen with bloody drainage on the dressing, and a nonhealing sacral ulcer as well as enterocutaneous fistulae which were not visualized at this time due to the patient's current distress. The central line to her right chest site is without edema, erythema or drainage. LABORATORY AND X-RAY: No blood work today, but last night on admission her white count is 15.63, hemoglobin 14.9, platelet count 157,000. Creatinine 1.8, GFR 28. Total bilirubin 0.43, AST 47, ALT 36, alkaline phosphatase 207, creatine kinase 9. Her urinalysis showed urine bacteria of 3+ with too numerous to count WBCs. So far, there is a gram-negative bernardino that is growing in her urine. Blood, sacral wound and abdominal wounds have been cultured and are pending. Chest x-ray done yesterday shows no evidence of acute cardiac or pulmonary disease, and EKG shows sinus tach on the unconfirmed report. ASSESSMENT AND PLAN: Ms. Thompson is being treated with broad-spectrum coverage for wounds to her sacrum and abdomen and the gram-negative bernardino in the urine. Blood and other cultures are pending. We agree with the use of Zyvox as ordered, as well as meropenem, but will change the dosage of meropenem to 2 g IV every 12 hours. These plans have been discussed with and recommended by Dr. Mitchell. COMORBIDITIES: Comorbidities for Ms. Thompson include radiation for rectal cancer with multiple, subsequent complications and surgical procedures, chronic anemia, and chronic difficulties with malnutrition and dehydration. Dictated by GEN Bergeron for Pardeep Mitchell MD cc: MD Allan Jo MD MTDD
[2019-08-19] MEDS: MERREM 2 GM in NS 100 ML IV SCH (16:20)
[2019-08-19] MEDS: PROTONIX IV SCH (17:00)
[2019-08-19] MEDS: LOPRESSOR IV PRN (17:01)
[2019-08-19] MEDS: ZYVOX 600 MG/D5W 600 MG/300 ML IVPB IV SCH (17:01)
[2019-08-19] MEDS: DILAUDID IV PRN ×2 (17:32→20:20)
--- NOTE | 2019-08-19 18:45 | CONSULTATION ---
DATE OF CONSULTATION: 08/19/2019 IMPRESSION: 1. Narrow complex tachycardia probably sinus tachycardia given previous ECG and clinical situation with patient appearing to manifest severe intravascular volume depletion. 2. Prerenal azotemia likely due to severe intravascular volume depletion. 3. Persistent nausea and vomiting for about 5 days now with resultant intravascular volume depletion. 4. Rectal cancer treated with radiation therapy in the past. 5. 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 6. 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 7. Recent Escherichia coli urinary tract infection. RECOMMENDATIONS: 1. Bolus IV fluids and monitor clinical response. 2. Metoprolol IV as needed for excessive tachycardia. 3. Once heart rate improved, repeat echocardiography. 4. If persistent narrow complex tachycardia persists may consider IV adenosine on trial basis in the event this might possibly be supraventricular tachycardia that developed in setting of intravascular volume depletion sinus tachycardia. HISTORY: This 64-year-old, unfortunate female with past history of rectal cancer, partial paraplegia secondary to spinal radiation damage, enterocutaneous fistula, inferior to the sacrum and recent urinary tract infection was admitted with persistent nausea and vomiting for the past 5 days. She was recently started on minocycline. Five days ago, she started having nausea and vomiting that has persisted since then. She has colostomy and relates that she always has loose stools, if not diarrhea. She has had some difficulty keeping fluids down. When she came in, she was in sinus tachycardia with stable blood pressure. However despite maintenance IV fluids initiated on admission, she has had progressive tachycardia to the 170 beat per minute range. She is aware of her tachycardia, given her palpitations. There has been no chest pain or shortness of breath. PAST MEDICAL HISTORY: 1. Rectal cancer. 2. 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 3. 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 4. Recent E coli urinary tract infection. PAST SURGICAL HISTORY: Cholecystectomy, hysterectomy, colon resection with colostomy and ileostomy. ALLERGIES: She is allergic or intolerant to Demerol, penicillin, cefepime, adhesive tape and minocycline. MEDICATIONS PRIOR TO ADMISSION: As listed. SOCIAL HISTORY: She is and is disabled. She does not use alcohol nor smoke cigarettes. FAMILY HISTORY: Positive for diabetes and hypertension as well as stroke and cancer. REVIEW OF SYSTEMS: Pulmonary: Negative. Gastrointestinal: Noteworthy for nausea and vomiting as well as loose stools if not vasile diarrhea. There has been no melena or bright red blood per rectum. Constitutional: Negative. Remainder of review of systems negative/noncontributory with 14 total systems reviewed. PHYSICAL EXAMINATION: General: This is an older, middle-aged female and in no distress. Vital signs: Blood pressure 107/60, heart rate 170 and regular. Oxygen saturation 100% on nasal cannula oxygen at 2 L/minute. HEENT: Extraocular movements intact. Mucous membranes are dry. Neck: Supple without jugular venous distention. Neck veins appear flat. There are no carotid bruits. Chest: Clear to auscultation. Cardiac Exam: Reveals a regular tachycardia without appreciable murmur or gallop. Abdomen: Soft bowel sounds audible. Extremities: Without edema. LABORATORY DATA: Includes a white blood cell count 18.61 hematocrit 45.3, hemoglobin 14.3, platelet count 208,000. Sodium 131, potassium 4.6, chloride 97, carbon dioxide 23, BUN 60, creatinine 1.8, glucose 116. EKG demonstrates sinus tachycardia, possible left atrial enlargement. Right axis right axis deviation, and possible pulmonary disease pattern. Repeat ECG demonstrates narrow complex tachycardia with nonspecific interventricular conduction delay. cc: MD Allan Garcia MD
--- NOTE | 2019-08-19 19:30 | CONSULTATION ---
ADDENDUM: SUBJECTIVE: This patient is lying comfortably in bed. She has been having nausea and vomiting, but it looks like it has been better after getting some nausea medication and pain medication. It looks like she had an episode of supraventricular tachycardia that already resolved with treatment as well. Cardiology Department on board. At this moment, her heart rate is in the 80s. The patient was actually admitted due to nausea and vomiting, which apparently has been going on for a couple days, Dr. Crocker sent this patient to the hospital because of that, and apparently she has been taking minocycline which is causing these kind of problems, but we will continue with IV fluids. We will continue with antibiotics. PAST MEDICAL AND SURGICAL HISTORY: She has a large medical history related to sepsis, acute kidney injury on chronic kidney disease on previous admission, E coli, abdominal wall infection and urinary tract infection, multiple abdominal and gynecological surgeries, decubitus pressure ulcers in the coccygeal area, failure to thrive and history of colorectal cancer status post radiation. So, it looks like she is a complex patient with multiple comorbidities. She is not able to ambulate, I believe. PLAN: At this moment, she has been admitted not only for nausea, vomiting, but leukocytosis, acute kidney injury on chronic kidney disease. Her urine culture showed gram-negative rods, but this patient has a neobladder. She is basically having some paraplegia. The Infectious Disease Department has evaluated this patient and adjusted her medications. We will continue to monitor on the medical floor. Her vital signs are stable at this moment. I agree with the rest of the nurse practitioner's assessment and plan. cc: MD Allan Ceja MD
[2019-08-20] MEDS: 1/2 NS + KCL 20 MEQ 1,000 ML IV SCH ×4 (00:06→20:35)
[2019-08-20] MEDS: DILAUDID IV PRN ×3 (03:27→20:34)
[2019-08-20] MEDS: PHENERGAN IV PRN ×4 (03:27→14:36)
[2019-08-20] MEDS: MERREM 2 GM in NS 100 ML IV SCH ×2 (03:31→15:11)
[2019-08-20] MEDS: SODIUM CHLORIDE 0.9% INJ SCH ×2 (06:15→14:36)
[2019-08-20] MEDS: ZYVOX 600 MG/D5W 600 MG/300 ML IVPB IV SCH (06:15)
[2019-08-20 07:00] LABS: HEMATOCRIT 39.4 % (37.0-47.0); HEMOGLOBIN 12.4 g/dL (12.0-16.0); MCH 27.1 PG (27-31); MCHC 31.5 g/dL (33-37); MCV 86.2 FL (81-99); MPV 12.4 FL (7.4-10.4); RBC 4.57 XMIL (4.2-5.4); RDW 14.5 % (11.5-14.5); WBC 17.02 X1000 (4.8-10.8)
[2019-08-20 07:45] LABS: CREATININE 1.4 mg/dL (0.5-0.9); PHOSPHORUS 2.7 mg/dL (2.7-4.5); POTASSIUM 4.5 mmol/L (3.5-5.1)
--- NOTE | 2019-08-20 07:49 | EKG Report ---
Test Performed on : 08/20/2019 07:32:34 AM Test Reason : tachycardia Blood Pressure : / mmHG Vent. Rate : 092 BPM Atrial Rate : 092 BPM P-R Int : 176 ms QRS Dur : 102 ms QT Int : 380 ms P-R-T Axes : 067 -02 074 degrees QTc Int : 469 ms Normal sinus rhythm. Normal ECG When compared with ECG of 19-AUG-2019 14:13, (Unconfirmed) Sinus rhythm. has replaced Wide QRS tachycardia. Vent. rate has decreased BY 84 BPM Confirmed by Geoff SALEH, Barry Oro ([id number]) on 08/22/2019 2:32:45 PM
--- NOTE | 2019-08-20 13:02 | PROGRESS NOTE ---
DATE: 08/20/2019 SUBJECTIVE: When I evaluated this patient, this patient was having nausea and vomiting. I instructed the nurse to give her continuously every 4 hours, the Phenergan to see if she does better. Probably this patient will need nutrition with TPN. Surgery on board. OBJECTIVE: Vital Signs: Temperature 97.7 degrees, pulse 95, respiratory rate 14, blood pressure 124/54, oxygen saturation 100% on 2 L of nasal cannula. HEENT: Head normocephalic. No trauma. PERRLA. Neck: Supple. No JVD. No masses. Central trachea. Chest: Clear to auscultation. No wheezing. No rales. Abdomen: Soft. Generalized discomfort to palpation. She has multiple abdominal wounds, right ileostomy and also right urostomy, left colostomy in the left lower area, midline abdominal wound that is clean. Neurological: Awake, alert. She is oriented. LABORATORY DATA: WBC 17, hemoglobin 12.4, hematocrit 39.4, platelets 138,000. Sodium 134, potassium 4.5, chloride 104, bicarbonate 20, BUN 51, creatinine 1.4, glucose 76, calcium 8. Phosphorus 2.7, magnesium 2. ASSESSMENT AND PLAN: 1. Intractable nausea and vomiting for about 5 to 6 days, resulting in dehydration. Continue with intravenous fluids. She is still having nausea and vomiting. We will be more aggressive with the treatment, including scheduled Phenergan. This has been instructed to the nurse. 2. Narrow complex tachycardia, probably sinus tachycardia given previous electrocardiogram and clinical situation. Cardiology Department already evaluated this patient. She is back to her normal state. 3. Acute on chronic kidney disease. This is getting better. 4. Rectal cancer, treated with radiation therapy in the past. Aware. 5. 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 6. 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 Aware. 7. Recent Escherichia coli urinary tract infection. 8. Abdominal wall infection. 9. Urinary tract infection. We will continue with broad-spectrum antibiotics per Infectious Disease Department. We will continue to monitor this patient closely. cc: MD Allan Ceja MD
[2019-08-20] MEDS ORDERED: NS 500 ML IV ONE (18:16)
--- NOTE | 2019-08-20 18:51 | CARDIOLOGY PROGRESS NOTE ---
DATE: 08/20/2019 SUBJECTIVE: Patient continues today with nausea and vomiting. She is feeling perhaps a little bit better. Her tachycardia resolved yesterday afternoon after a dose of IV metoprolol. She had also been hydrated, but her tendency for tachycardia persisted. Review of telemetry strips shows abrupt termination of tachycardia consistent with supraventricular tachyarrhythmia, either SVT or atrial flutter. She continues in sinus rhythm since then. OBJECTIVE: Blood pressure 122/73, heart rate 96 and regular, with ECG monitor showing sinus rhythm. Oxygen saturation 100% on nasal cannula oxygen. There is no significant jugular venous distention.Chest: Clear to auscultation. Cardiac: Regular rate and rhythm without appreciable murmur or gallop. There is no evidence of edema. LABORATORY DATA: Includes a white blood cell count of [*, hematocrit 39.4, hemoglobin 12.4, platelet count 138,000. Sodium 134, potassium 4.5, chloride 104, carbon dioxide 20, BUN 51, creatinine 1.4, glucose 76. IMPRESSION: 1. Episode of supraventricular tachycardia likely provoked by severe intravascular volume depletion. Patient continues in sinus rhythm. 2. Prerenal azotemia likely due to severe intravascular volume depletion. This appears to be improving. 3. Persistent nausea and vomiting for the last six days. 4. Rectal cancer treated with radiation therapy in the past. 5. 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 6. 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 7. Recent Escherichia coli urinary tract infection. RECOMMENDATIONS: 1. Give bolus of IV fluids and continue maintenance IV fluids. 2. Continue metoprolol on as-needed basis. cc: MD Allan Garcia MD MTDD
--- NOTE | 2019-08-20 19:14 | INFECTIOUS DISEASE PROGRESS NO ---
DATE: 08/20/2019 PRESENT ILLNESS: The patient is admitted to the hospital with an infected abdominal wound. The patient also has a urinary tract infection. Both sites are growing gram-negative rods. MEDICATIONS: The patient is on a combination of Zyvox and meropenem. This is day number 1 of both agents. PHYSICAL EXAMINATION: Vital Signs: Temperature is 97.7 degrees, pulse 95, respirations 14, blood pressure is 124/54. General: This is an ill-appearing, middle-aged female. She looks ill and tired and she is also nauseated. Head/eyes/ears/nose/throat: She can hear my spoken words and see near objects. She does not have any white coating on her tongue. Neck: No pain with movement of the neck. Lungs: Clear to auscultation. Cardiovascular: Heart rate is regular and rapid. Abdomen: Soft, but it is tender. On the right side of the abdomen, there is an ileostomy which is leaking a black fluid. Also, there is a urostomy. On the left side of the abdomen, there is a colostomy, and in the surgical site there is a yellow fluid that is draining. Neurologic: The patient is awake, but she is nauseated and is vomiting. She can move her arms easily. LAB AND X-RAY: There is no new radiographic study. As mentioned above, the cultures from her abdomen and urine are growing gram-negative rods. The creatinine is 1.4. GFR is 38. Blood cultures are pending. CBC shows a white count of 17,020, hemoglobin 12.4, and platelet count 138,000. ASSESSMENT AND PLAN: Patient has gram-negative bernardino infection of her abdominal wound and also urinary tract. My plan is to continue with meropenem and discontinue Zyvox. COMORBIDITIES: The patient unfortunately years ago had radiation for rectal cancer, and has developed many subsequent complications and surgical procedures. She also has chronic anemia and malnutrition and dehydration. cc: MD Allan Jo MD
[2019-08-20] MEDS: PROTONIX IV SCH (19:55)
[2019-08-21] MEDS: DILAUDID IV PRN ×3 (00:51→17:34)
[2019-08-21] MEDS: PHENERGAN IV PRN ×4 (00:51→23:56)
[2019-08-21] MEDS: MERREM 2 GM in NS 100 ML IV SCH ×2 (03:31→15:51)
[2019-08-21] MEDS: 1/2 NS + KCL 20 MEQ 1,000 ML IV SCH ×2 (03:32→07:55)
[2019-08-21] MEDS: LOPRESSOR IV PRN (07:23)
[2019-08-21 08:52] LABS: ALB/GLOB RATIO 0.8; ALBUMIN 2.3 g/dL (3.5-5.0); CALCIUM 8.1 mg/dL (8.8-10.2); CREATININE 1.2 mg/dL (0.5-0.9); POTASSIUM 4.6 mmol/L (3.5-5.1); TOTAL BILIRUBIN 0.22 mg/dL (0.20-1.00); TOTAL PROTEIN 5.1 g/dL (6.3-8.3)
[2019-08-21 08:53] LABS: BASO# 0.01 X1000 (0.0-0.2); BASO% 0.1 % (0.0-0.8); EOS# 0.04 X1000 (0.0-0.7); EOS% 0.6 % (0.0-10.0); HEMATOCRIT 36.5 % (37.0-47.0); HEMOGLOBIN 11.3 g/dL (12.0-16.0); IMM GRAN# 0.03 X1000 (0.0-0.04); IMM GRAN% 0.4 % (0.0-0.5); LYMPH% 5.9 % (20.5-51.1); MCV 87.3 FL (81-99); MONO# 0.35 X1000 (0.11-0.59); MONO% 5.1 % (1.7-9.3); MPV 10.7 FL (7.4-10.4); NEUT# 5.97 X1000 (1.4-6.5); NEUT% 87.9 % (42.2-75.2); PLT 99 X1000 (130-400); RBC 4.18 XMIL (4.2-5.4); RDW 14.3 % (11.5-14.5)
[2019-08-21 09:05] LABS: BANDS 4 % (0-1); LYMPHS 6 % (21-51); SEGS 88 % (42-75)
[2019-08-21] MEDS ORDERED: D50W SYRINGE IV ONE (09:50)
[2019-08-21] MEDS: D5 1/2 NS + KCL 20 MEQ 1,000 ML IV SCH ×2 (10:35→18:08)
--- NOTE | 2019-08-21 12:44 | PROGRESS NOTE ---
DATE: 08/21/2019 SUBJECTIVE: The patient seems to be more stable today compared with yesterday. She is not having too much nausea today, but she has been having hypoglycemia. I will switch the half NS to D-5 half NS so she can have some glucose. She is having asymptomatic hypoglycemia, though. OBJECTIVE: Vital Signs: Temperature 98.2 degrees, pulse 69, respiratory rate 18, blood pressure 95/60, oxygen saturation 100% on room air. HEENT: Head normocephalic, no trauma. PERRLA. Neck: Supple. No JVD. No masses. Central trachea. Chest: Clear to auscultation. No wheezing. No rales. Abdomen: Soft. Generalized tenderness to palpation. She has multiple abdominal wounds, right ileostomy, and also right urostomy, left colostomy, midline scar wound that looks clean. Neurological: Awake, she is alert. She is oriented. LABORATORY: WBC 6, hemoglobin 11.3, hematocrit 36.5, platelets 99,000. Sodium 133, potassium 4.6, chloride 105, bicarbonate 18, BUN 30, creatinine 1.2, glucose 40, calcium 8.1. AST 31, ALT 20, alkaline phosphatase 133, albumin 2.3. ASSESSMENT AND PLAN: 1. Intractable nausea and vomiting for about 5 to 6 day days, resulting in dehydration. She seems to be more hydrated. Today she is feeling better. We will continue with same management. 2. Narrow complex tachycardia, probably sinus tachycardia given her clinical situation and electrocardiogram, Cardiology on board. 3. Acute on chronic kidney disease, this is getting better. 4. Rectal cancer treated with radiation therapy in the past, aware. 5. 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 6. 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 7. Recent Escherichia coli urinary tract infection. We will continue to monitor. 8. Abdominal wall infection, aware. 9. Urinary tract infection, aware. 10. Hypoglycemia. I will switch the half normal saline to D-5 half normal saline and continue to monitor. cc: MD Allan Ceja MD
[2019-08-21] MEDS: SODIUM CHLORIDE 0.9% INJ SCH ×2 (13:06→23:32)
--- NOTE | 2019-08-21 13:41 | ECHO REPORT ---
ORDER DATE: 08/20/2019 MEASUREMENTS: 1. Septal thickness 1.0. 2. Left ventricular internal diameter in diastole 3.3. 3. Posterior wall thickness 1.0. 4. Left ventricular internal diameter in systole 2.3. 5. Aortic root 3.4. 6. Left atrium 2.8. SUMMARY: 1. Technically difficult study due to limited acoustic window quality. 2. Aortic valve was without evidence of structural abnormality and opens adequately on 2- dimensional images. Peak gradient across the aortic valve is less than 10 mmHg. There is trace aortic regurgitation. Mitral and tricuspid valves are without evidence of structural abnormality while pulmonic valve is not well demonstrated. There is trace tricuspid regurgitation. Aortic root is normal in size. 3. Normal left ventricular dimensions demonstrated. Estimated left ejection fraction appears to be at least 60%. No regional wall motion abnormality is evident. Doppler suggests grade 1 left ventricular diastolic dysfunction. Left atrium, right atrium, and right ventricle are normal in size with normal right ventricular systolic function. 4. No pericardial effusion. 5. Appearance of inferior vena cava suggests normal central venous pressure. cc: MD Cammy Garcia PA Hugh C. Nabers, MD
--- NOTE | 2019-08-21 15:49 | INFECTIOUS DISEASE PROGRESS NO ---
DATE: 08/21/2019 The patient has an infected abdominal wound and a urinary tract infection. MEDICATIONS: The patient was on Zyvox and meropenem and now she is only on meropenem as a single agent. PHYSICAL EXAMINATION: Vital Signs: Temperature is 98.5 degrees, pulse 79, respirations 18, blood pressure 109/52. General: This is an ill-appearing, middle-aged female. She is in no acute distress, however. HEENT: She does not have any drainage from her nose or ears. She does not have any white patches on her tongue. Her oral mucosa is moist. Neck: No meningismus. Thorax: The patient has a right-sided Kim catheter. The site is not erythematous or tender. Lungs: Clear to auscultation. Cardiovascular: Regular heart rate. Abdomen: Soft and not tender. On the right side, she has an ileostomy and a urostomy. On the left side, she has a colostomy and in the middle and lower part of her incision, there is a draining fistula. Pelvic Exam: In the patient's back in the sacral area, there is a large deep wound present. There was not any pus or odor coming from the wound. ASSESSMENT AND PLAN: Patient has wound infection as well as urinary tract infection. LAB AND X-RAY: The patient's CBC shows a white blood cell count of 6.8, a hemoglobin of 11.3, and a platelet count of 99,000. Creatinine is 1.2, GFR is 45. Alkaline phosphatase is 133. The patient's wound is growing a gram-positive coccus and gram-negative bernardino. The abdominal incision is growing Acinetobacter and a gram-positive coccus. Urine is growing Acinetobacter. ASSESSMENT AND PLAN: The patient has an abdominal wound infection and urinary tract infection. I am going to continue with meropenem and start the patient on Septra. Some side effects of Septra including rash, diarrhea, renal toxicity, and avoiding sunlight explained to the patient, who agrees with treatment. COMORBIDITIES: The patient years ago had radiation for her rectal cancer and this has been complicated by multiple surgical procedures and infections in the pelvic area. cc: MD Allan Jo MD
[2019-08-21] MEDS: MYCELEX TROCHE PO SCH ×2 (18:08→23:36)
[2019-08-21] MEDS: PROTONIX IV SCH (23:32)
[2019-08-21] MEDS: SEPTRA DS PO SCH (23:33)
[2019-08-22] MEDS: D5 1/2 NS + KCL 20 MEQ 1,000 ML IV SCH ×3 (02:05→19:25)
[2019-08-22] MEDS: MERREM 2 GM in NS 100 ML IV SCH ×2 (03:19→14:07)
[2019-08-22 07:06] LABS: BASO# 0.01 X1000 (0.0-0.2); BASO% 0.2 % (0.0-0.8); EOS# 0.18 X1000 (0.0-0.7); EOS% 3.2 % (0.0-10.0); HEMATOCRIT 35.4 % (37.0-47.0); HEMOGLOBIN 11.1 g/dL (12.0-16.0); IMM GRAN# 0.02 X1000 (0.0-0.04); IMM GRAN% 0.4 % (0.0-0.5); LYMPH# 0.66 X1000 (1.2-3.4); LYMPH% 11.8 % (20.5-51.1); MCH 26.9 PG (27-31); MCHC 31.4 g/dL (33-37); MCV 85.7 FL (81-99); MONO# 0.64 X1000 (0.11-0.59); MONO% 11.5 % (1.7-9.3); MPV 10.9 FL (7.4-10.4); NEUT# 4.06 X1000 (1.4-6.5); NEUT% 72.9 % (42.2-75.2); PLT 99 X1000 (130-400); RBC 4.13 XMIL (4.2-5.4); RDW 14.2 % (11.5-14.5); WBC 5.57 X1000 (4.8-10.8)
[2019-08-22] MEDS: PHENERGAN IV PRN (07:26)
[2019-08-22 08:18] LABS: ALB/GLOB RATIO 0.9; ALBUMIN 2.2 g/dL (3.5-5.0); CALCIUM 7.9 mg/dL (8.8-10.2); MAGNESIUM 1.7 mg/dL (1.5-2.7); POTASSIUM 4.5 mmol/L (3.5-5.1); TOTAL BILIRUBIN 0.2 mg/dL (0.20-1.00); TOTAL PROTEIN 4.7 g/dL (6.3-8.3)
[2019-08-22 08:37] LABS: PHOSPHORUS 0.9 mg/dL (2.7-4.5)
[2019-08-22] MEDS: SEPTRA DS PO SCH ×2 (08:53→21:54)
[2019-08-22] MEDS: MYCELEX TROCHE PO SCH ×5 (08:53→21:54)
[2019-08-22] MEDS ORDERED: SODIUM PHOSPHATE 30 MMOL in NS 250 ML IV ONE (09:59)
--- NOTE | 2019-08-22 12:02 | Diag Imaging Result Doc PS360 ---
EXAM: CT ABDOMEN/PELVIS W/O CONTRAST HISTORY: nausea and vomiting TECHNIQUE: CT abdomen and pelvis without oral or intravenous contrast COMPARISON: 07/09/2019 FINDINGS: Trace pleural fluid versus pleural thickening. This is less prominent on the left. No calcified gallstones or adjacent inflammation. No focal hepatic normality identified on this noncontrasted exam. No splenomegaly. No inflammation about the pancreas. Normal adrenal glands. There is scarring to the kidneys. No renal stones. No hydronephrosis. Moderate atherosclerosis. No aortic aneurysm. Minimal air in the subcutaneous fat above the umbilicus. This has decreased. No the bowel loops are not dilated. Partial colectomy. Extensive postsurgical changes lower mid pelvis/perineum. Interval decrease in the fluid and air posterior and inferior to the right sacrum. Anterior lower abdominal/upper pelvic ostomies. The urinary bladder is not distended. Severe atherosclerosis. Areas of sclerosis and lucency in the sacrum and iliac bone similar to the prior exam. IMPRESSION: Overall interval improvement. This exam was performed using automated exposure control, adjustment of mA or kV according to patient size, and/or use of iterative reconstruction technique. Electronically signed by Ace Carrion 08/22/2019 12:00 PM
[2019-08-22] MEDS: DILAUDID IV PRN ×2 (12:12→21:55)
--- NOTE | 2019-08-22 18:51 | PROGRESS NOTE ---
DATE: 08/22/2019 SUBJECTIVE: Patient is resting comfortably in bed. She is not having nausea or vomiting today. She is tolerating her liquid diet. CT scan looks better compared with the previous 1. OBJECTIVE: Vital Signs: Temperature 98.6 degrees, pulse 81, respiratory rate 17, blood pressure 113/54, oxygen saturation 99 on room air. HEENT: Head normocephalic. No trauma. PERRLA. Neck: Supple. No JVD. No masses. Central trachea. Chest: Clear to auscultation. No wheezing. No rales. Abdomen: Soft. Generalized tenderness to palpation. She has multiple abdominal wounds. She has a right ileostomy, also right urostomy and left colostomy. Midline scar wound that is covered with a new dressing. Neurologic: She is awake, alert, and oriented. LABORATORY: WBC 5.5, hemoglobin 11.1, hematocrit 35.4, platelet 99,000. Sodium 133, potassium 4.5, chloride 106, bicarbonate 23, BUN 16, creatinine 1, glucose 81, calcium 7.9, phosphorus 0.9, magnesium 1.7. AST 30, ALT 15, alkaline phosphatase 128, albumin 2.2. ASSESSMENT AND PLAN: 1. Intractable nausea and vomiting for about 5 to 7 days, resulting in dehydration. She seems to be more hydrated. She is feeling better. No nausea or vomiting today. 2. Narrow complex tachycardia, probably sinus tachycardia given her clinical situation. Cardiology on board. 3. Acute on chronic kidney disease. This is much better. 4. Rectal cancer, treated with radiation therapy in the past. Aware. 5. 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 Aware. 6. 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 Aware. 7. Recent Escherichia coli urinary tract infection. Continue with the same management. It looks like she has a new urinary tract infection. 8. Abdominal wall infection. Aware. 9. Hypoglycemia, resolved. 10. Hypophosphatemia. I will replace it. cc: MD Allan Ceja MD
[2019-08-22] MEDS: PROTONIX IV SCH (21:54)
[2019-08-23] MEDS: D5 1/2 NS + KCL 20 MEQ 1,000 ML IV SCH ×3 (02:42→20:36)
[2019-08-23] MEDS: MERREM 2 GM in NS 100 ML IV SCH ×3 (02:42→20:36)
[2019-08-23 07:04] LABS: AGAP 6; ALB/GLOB RATIO 0.8; ALBUMIN 2.1 g/dL (3.5-5.0); ALKALINE PHOSPHATASE 125 U/L (32-104); BUN 10 mg/dL (8-22); CALCIUM 7.7 mg/dL (8.8-10.2); CHLORIDE 109 mmol/L (98-107); COSMO 271; ESTIMATED GFR 56; GLUCOSE 91 mg/dL (70-104); GOT 30 U/L (10-30); GPT 12 U/L (10-36); MAGNESIUM 1.5 mg/dL (1.5-2.7); POTASSIUM 4.3 mmol/L (3.5-5.1); SODIUM 136 mmol/L (136-145); TCO2 21 mmol/L (25-35); TOTAL BILIRUBIN < 0.15 mg/dL (0.20-1.00); TOTAL PROTEIN 4.9 g/dL (6.3-8.3)
[2019-08-23] MEDS: PHENERGAN IV PRN ×2 (08:54→17:16)
[2019-08-23] MEDS: SODIUM CHLORIDE 0.9% INJ SCH ×4 (08:54→20:37)
[2019-08-23] MEDS: SEPTRA DS PO SCH (08:56)
[2019-08-23] MEDS: MYCELEX TROCHE PO SCH ×5 (08:56→20:36)
[2019-08-23] MEDS: DILAUDID IV PRN (11:11)
[2019-08-23] MEDS: SEPTRA IV SCH (13:23)
[2019-08-23] MEDS: D5W IV SCH (13:23)
--- NOTE | 2019-08-23 17:41 | PROGRESS NOTE ---
DATE: 08/23/2019 SUBJECTIVE: The patient is resting comfortably in bed. She has been having nausea today again, I will continue to monitor. CT scan looks better compared with the previous one. Vital signs are stable. OBJECTIVE: Vital Signs: Temperature 98.2 degrees, pulse 82, respiratory rate 16, blood pressure 121/65. Oxygen saturation 100% on room air. HEENT: Head normocephalic. No trauma. PERRLA. Neck: Supple. No JVD. No masses. Central trachea. Chest: Clear to auscultation. No wheezing. No rales. Abdomen: Soft, generalized tenderness to palpation. He has multiple abdominal wounds. She has a right ileostomy, also right urostomy and left colostomy, midline scar wound that is covered, but it looks fine. Neurological: She is awake. She is oriented. LABORATORY: Sodium 136, potassium 4.3, chloride 109, bicarbonate 21, BUN 10, creatinine 1, glucose 91, calcium 7.7, magnesium 1.5, albumin 2.1. ASSESSMENT AND PLAN: 1. Intractable nausea and vomiting that has been happening for more than 1 week, resulting in dehydration, acute kidney injury. The dehydration and acute kidney injury are better. She is still complaining of some nausea and vomiting. Continue with the same management. I will continue following the recommendations of Surgery department. 2. Narrow complex tachycardia, probably sinus tachycardia given her clinical situation. Cardiology on board. 3. Acute on chronic kidney disease, this is much better. 4. Rectal cancer, treated with radiation therapy in the past. Aware. 5. Lower extremity weakness, probably partial paraplegia secondary to spinal radiation. Aware. 6. 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 7. Recent Escherichia coli urinary tract infection and she has been treated for a new urinary tract infection at this moment as well. 8. Abdominal wall infection. Aware. 9. Hypoglycemia resolved. 10. Hypophosphatemia. Today the phosphorus is still low but better compared with yesterday. I will monitor for now, her magnesium level is more than 9 low so I will replace both the phosphorus and magnesium. cc: MD Allan Ceja MD
--- NOTE | 2019-08-23 19:51 | INFECTIOUS DISEASE PROGRESS NO ---
DATE: 08/23/2019 PRESENT ILLNESS: Ms. Thompson is being treated for an infected abdominal wound, sacral wound, and a urinary tract infection. She has grown Acinetobacter baumannii in all 3 of these sites as well as a Micrococcus species to the sacral wound and a Staphylococcus hemolyticus to the abdomen. MEDICATIONS: She has been receiving meropenem 2 grams IV every 12 hours as well as Septra DS 1 pill every 12 hours by mouth. PHYSICAL EXAMINATION: Vital Signs: Temperature is 98.2, pulse rate 82, respiratory rate 16, blood pressure 121/65, O2 saturation 100% on room air. General: This is a chronically-ill- appearing, middle-aged female. She is lying in bed, currently in no acute distress. HEENT: Atraumatic, normocephalic. Oral mucous membranes are pink and moist. Conjunctivae are pink. Neck: Supple. Trachea is midline. Cardiovascular: Heart rate is regular. S1, S2 noted. Respiratory: Lung sounds are bilaterally clear to auscultation. No work of breathing is noted. Abdomen: Soft and tender with ileostomy, urostomy and colostomy noted. There was also an area of mid-abdominal erythema with a draining wound that has some mild bloody/green drainage. The erythema seems to have decreased mildly. Integumentary: Skin is warm and dry. There is a sacral wound with an enterocutaneous fistula. The wound has a beefy red bed with a small amount of bloody drainage noted. The edges are clean. She has a central line in place to the right chest. The site is without edema, erythema, or drainage. Neurologic: She is awake, alert, oriented, and able to move around in the bed, with significant weakness to the lower extremities. LABORATORY AND X-RAY: No CBC today; however, yesterday her white blood cell count was 5.57, hemoglobin 11.1, platelet count 99,000. Today her creatinine is 1 with a GFR of 56. Total bilirubin is less than 0.15. AST 30, ALT 12, alkaline phosphatase 125. Her sacral and abdominal wounds as well as her urine culture have all grown Acinetobacter with a Micrococcus species to the sacral wound and Staphylococcus hemolyticus to the abdominal wound as well. No imaging reports today; however, yesterday her CT of the abdomen and pelvis did show overall improvement. ASSESSMENT AND PLAN: Ms. Thompson is being treated for abdominal and sacral wound infections as well as a urinary tract infection. The main bacteria for all of these is Acinetobacter which shows susceptibility to Septra; however, the patient is unable to take much by mouth, and is having trouble swallowing the pill. She is still complaining of nausea and vomiting. We will go ahead and discontinue the oral Septra and start her on Septra IV every 12 hours. We will also continue the meropenem; however her renal function has improved, so we will increase that to 2 grams every 8 hours. These plans have been discussed with and recommended by Dr. Mitchell. COMORBIDITIES: Include radiation for rectal cancer with subsequent, multiple procedures and infections. She also has issues with chronic anemia, malnutrition and dehydration. Dictated by GEN Bergeron for Pardeep Mitchell MD cc: MD Allan Jo MD MTDD
[2019-08-23] MEDS: PROTONIX IV SCH (20:36)
[2019-08-24] MEDS: DILAUDID IV PRN ×3 (00:16→15:14)
[2019-08-24] MEDS: D5W IV SCH ×2 (00:33→13:05)
[2019-08-24] MEDS: SEPTRA IV SCH ×2 (00:33→13:05)
[2019-08-24] MEDS: D5 1/2 NS + KCL 20 MEQ 1,000 ML IV SCH ×3 (07:30→20:05)
[2019-08-24] MEDS: SODIUM CHLORIDE 0.9% INJ SCH ×3 (07:34→20:06)
[2019-08-24] MEDS: PHENERGAN IV PRN ×3 (07:34→20:18)
[2019-08-24 07:35] LABS: BASO# 0.01 X1000 (0.0-0.2); BASO% 0.2 % (0.0-0.8); EOS% 3.2 % (0.0-10.0); HEMATOCRIT 36.4 % (37.0-47.0); HEMOGLOBIN 11.5 g/dL (12.0-16.0); IMM GRAN# 0.04 X1000 (0.0-0.04); IMM GRAN% 0.6 % (0.0-0.5); LYMPH# 0.67 X1000 (1.2-3.4); LYMPH% 10.7 % (20.5-51.1); MCH 26.9 PG (27-31); MCHC 31.6 g/dL (33-37); MONO# 0.62 X1000 (0.11-0.59); MONO% 9.9 % (1.7-9.3); NEUT% 75.4 % (42.2-75.2); PLT 132 X1000 (130-400); RBC 4.28 XMIL (4.2-5.4); RDW 14.6 % (11.5-14.5); WBC 6.24 X1000 (4.8-10.8)
[2019-08-24 08:15] LABS: ALB/GLOB RATIO 0.9; ALBUMIN 2.3 g/dL (3.5-5.0); MAGNESIUM 1.5 mg/dL (1.5-2.7); PHOSPHORUS 1.4 mg/dL (2.7-4.5); POTASSIUM 4.3 mmol/L (3.5-5.1); TOTAL BILIRUBIN 0.18 mg/dL (0.20-1.00)
[2019-08-24] MEDS ORDERED: SODIUM PHOSPHATE 21 MMOL in NS 250 ML IV ONE (09:30)
[2019-08-24] MEDS: MYCELEX TROCHE PO SCH ×5 (10:21→20:06)
--- NOTE | 2019-08-24 11:39 | PROGRESS NOTE ---
DATE: 08/24/2019 SUBJECTIVE: Patient is resting comfortably in bed. She is still complaining of nausea, some mild vomiting. CT scan looks better compared with the previous one. Vital signs are stable. Continue with same management. OBJECTIVE: Vital Signs: Temperature 98 degrees, pulse 97, respiratory rate 20, blood pressure 116/64, oxygen saturation 99 on room air. HEENT: Head normocephalic, no trauma. PERRLA. Neck: Supple. No JVD. No masses. Central trachea. Chest: Clear to auscultation. No wheezing. No rales. Abdomen: Soft. Generalized tenderness to palpation. She has multiple abdominal wounds. She has a right ileostomy and also right urostomy and left colostomy. Midline scar wound that is covered, but looks fine. Neurological: This patient is awake, she is oriented. Back: She has a back ulcer. LABORATORY DATA: WBC 6.2, hemoglobin 11.5, hematocrit 36.4. Pending CMP and electrolytes. ASSESSMENT AND PLAN: 1. Intractable nausea and vomiting that has been happening for more than 1 week resulting in dehydration and acute kidney injury. This seems to be better. She is still continues with nausea though. Continue with same management. 2. Narrow complex tachycardia, resolved. 3. Acute kidney injury. This is better. 4. Rectal cancer treated with radiation in the past. Aware. 5. Lower extremity weakness, probably some paraplegia secondary to spinal radiation. Aware. 6. Recent Escherichia coli urinary tract infection and she is being treated for a new urinary tract infection at this moment as well. 7. Abdominal wall infection. Aware. 8. Hypoglycemia, resolved. 9. Hypophosphatemia. Pending lab work today. cc: MD Allan Ceja MD MTDD
[2019-08-24] MEDS: MERREM 2 GM in NS 100 ML IV SCH ×2 (12:24→20:05)
[2019-08-24] MEDS: PROTONIX IV SCH (20:06)
--- NOTE | 2019-08-24 20:45 | PROGRESS NOTE ---
DATE: 08/24/2019 SUBJECTIVE: Patient continues with nausea and some difficulty tolerating oral intake. She is asymptomatic from a cardiovascular standpoint. OBJECTIVE: Vital Signs: Blood pressure 125/56, heart rate 88, oxygen saturation 100% on room air. There is no significant jugular venous distention. Chest is clear to auscultation. Cardiac: Reveals a regular rate and rhythm without appreciable murmur or gallop. There is no evidence of edema. LABORATORY DATA: Includes a white blood cell count of 6.24, hematocrit 36.4, hemoglobin 11.5, platelet count 132,000, sodium 133, potassium 4.3, chloride 103, carbon dioxide 22, BUN 6, creatinine 1.0. Glucose 80, albumin 2.3. IMPRESSION: 1. Episode of supraventricular tachycardia likely provoked by severe intravascular volume depletion. She relates that this has happened in the past during acute illnesses of similar nature but has not happened spontaneously. She continues in sinus rhythm. 2. Recent significant intravascular volume depletion. He improved with intravenous hydration. 3. Persistent nausea and vomiting. 4. Rectal cancer treated with radiation therapy in the past. 5. Partial paraplegia related to spinal radiation damage. 6. 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 7. Recent E. coli urinary tract infection. RECOMMENDATIONS: 1. Given that her SVT episodes seemed to have only occurred during significant acute noncardiac illness, diuretic therapy with metoprolol or verapamil does not appear to be warranted. 2. Suggest utilizing IV metoprolol on an as-needed basis should this be an issue in the future. 3. I will see her again on an as-needed basis. cc: MD Allan Garcia MD
[2019-08-25] MEDS: D5W IV SCH ×2 (00:08→15:24)
[2019-08-25] MEDS: SEPTRA IV SCH ×2 (00:08→15:24)
[2019-08-25] MEDS: PHENERGAN IV PRN ×5 (00:33→16:54)
[2019-08-25] MEDS: MERREM 2 GM in NS 100 ML IV SCH ×3 (03:52→22:19)
[2019-08-25 07:19] LABS: ALB/GLOB RATIO 0.8; ALBUMIN 2.1 g/dL (3.5-5.0); CALCIUM 7.9 mg/dL (8.8-10.2); MAGNESIUM 1.4 mg/dL (1.5-2.7); POTASSIUM 4.3 mmol/L (3.5-5.1); TOTAL BILIRUBIN 0.15 mg/dL (0.20-1.00); TOTAL PROTEIN 4.8 g/dL (6.3-8.3)
[2019-08-25] MEDS: DILAUDID IV PRN ×2 (08:22→16:53)
[2019-08-25] MEDS: SODIUM CHLORIDE 0.9% INJ SCH ×3 (08:22→22:20)
[2019-08-25] MEDS: MYCELEX TROCHE PO SCH ×3 (08:28→15:24)
[2019-08-25] MEDS ORDERED: MAGNESIUM SULFATE 2 GM/S.W.I. 2 GM/50 ML IVPB IV ONE (10:30)
[2019-08-25] MEDS ORDERED: SODIUM PHOSPHATE 21 MMOL in NS 250 ML IV ONE (11:00)
[2019-08-25] MEDS: D5 1/2 NS + KCL 20 MEQ 1,000 ML IV SCH (12:46)
[2019-08-25] MEDS: LOTRIMIN 1% CREAM TOP SCH ×2 (12:54→22:20)
--- NOTE | 2019-08-25 14:15 | PROGRESS NOTE ---
DATE: 08/25/2019 SUBJECTIVE: The patient is resting comfortably in bed. She is still complaining of some nausea, but better compared with yesterday. She will go for an upper endoscopy tomorrow, n.p.o. after midnight. OBJECTIVE: Vital Signs: Temperature 98.6 degrees, pulse 93, respiratory rate 16, blood pressure 98/72, oxygen saturation 100% on room air. HEENT: Head normocephalic. No trauma. PERRLA. Neck: Supple. No JVD. No masses. Central trachea. Chest: Clear to auscultation. No wheezing. No rales. Abdomen: Soft. Generalized tenderness to palpation. She has multiple abdominal wounds. She has a right ileostomy and also a right urostomy and left colostomy. Midline scar wound that is covered, but looks fine. Neurological: The patient is awake. She is oriented. Skin: She has a VAC in the ulcer, which is chronic. LABORATORY DATA: Sodium 134, potassium 4.3, chloride 105, bicarbonate 20, BUN 5, creatinine 1, glucose 88, calcium 7.9. Phosphorus 2, magnesium 1.4. ASSESSMENT AND PLAN: 1. Intractable nausea and vomiting. This patient is still complaining of some nausea. She came in dehydrated and with acute on chronic kidney disease, which are better. We still continue with the same management. Hopefully tomorrow, she will have an endoscopic exam done. 2. Narrow complex tachycardia, resolved. 3. Acute kidney injury, better. 4. Rectal cancer, treated with radiation in the past. Aware. 5. Lower extremity weakness, probably some paraplegia secondary to spinal radiation. Aware. 6. Recent Escherichia coli urinary tract infection, and she is being treated for a new urinary tract infection at this moment as well. 7. Abdominal wall infection. Aware. 8. Hypoglycemia, resolved. 9. Hypophosphatemia. I will replace it. 10. Hypomagnesemia. I will replace it. cc: MD Allan Ceja MD
[2019-08-25] MEDS: MYCOSTATIN SUSP PO SCH ×2 (16:52→22:25)
[2019-08-25] MEDS: PROTONIX IV SCH (22:20)
[2019-08-26] MEDS: SEPTRA IV SCH ×3 (00:46→16:26)
[2019-08-26] MEDS: D5W IV SCH ×3 (00:46→16:26)
[2019-08-26] MEDS: MERREM 2 GM in NS 100 ML IV SCH ×3 (04:28→13:27)
[2019-08-26] MEDS: D5 1/2 NS + KCL 20 MEQ 1,000 ML IV SCH ×4 (04:28→16:15)
[2019-08-26] MEDS: PHENERGAN IV PRN ×3 (04:32→20:46)
[2019-08-26] MEDS: DILAUDID IV PRN ×2 (04:43→20:46)
[2019-08-26 07:25] LABS: CALCIUM 7.9 mg/dL (8.8-10.2); MAGNESIUM 1.8 mg/dL (1.5-2.7); PHOSPHORUS 2.1 mg/dL (2.7-4.5)
[2019-08-26] MEDS ORDERED: XYLOCAINE-MPF 2% ONE (07:51)
[2019-08-26] MEDS ORDERED: DIPRIVAN 1% ONE (07:51)
[2019-08-26] MEDS ORDERED: ZOFRAN ONE (08:23)
--- NOTE | 2019-08-26 09:16 | OPERATIVE NOTE ---
PROCEDURE DATE: 08/26/2019 PREOPERATIVE DIAGNOSES: 1. Intractable nausea, vomiting. 2. History of multiple operations, resulting from a rectal carcinoma. PROCEDURE: Esophagogastroduodenoscopy. POSTOPERATIVE DIAGNOSES: 1. Moderate to severe gastritis. 2. A large amount of residual bile in the stomach. 3. Helicobacter pylori biopsy was obtained. PROCEDURE IN DETAIL: The patient was brought to the GI lab after satisfactory IV sedation with propofol and anesthesia standby. Flexible gastroscope was introduced transorally without difficulty. Esophagus was somewhat patulous with bile in the esophagus. The stomach revealed several 100 mL of bile with moderate to severe gastritis. The pylorus was widely patent. Duodenum appeared normal with no ulcerations. An H pylori biopsy was obtained in the distal antrum. Retroflexion revealed no ulceration at the lesser curve and a moderate-sized hiatal hernia. The scope was removed. Patient tolerated the procedure well. Will continue with her present regimen of medication. cc: Allan Crocker MD
[2019-08-26] MEDS: MYCOSTATIN SUSP PO SCH ×3 (09:17→19:59)
[2019-08-26] MEDS: LOTRIMIN 1% CREAM TOP SCH (09:18)
[2019-08-26] MEDS: SODIUM CHLORIDE 0.9% INJ SCH ×3 (13:14→20:47)
--- NOTE | 2019-08-26 14:20 | PROGRESS NOTE ---
DATE: 08/26/2019 SUBJECTIVE: The patient is resting comfortably in bed. She had an EGD done today that showed moderate to severe gastritis, a large amount of residual bile in the stomach, and some biopsies were obtained. OBJECTIVE: Vital Signs: Temperature 98.5 degrees, pulse 91, respiratory rate 19, blood pressure 119/57, oxygen saturation 99 on room air. HEENT: Head normocephalic. No trauma. PERRLA. Neck: Supple. No JVD. No masses. Central trachea. Chest: Clear to auscultation. No wheezing. No rales. Abdomen: Soft. Generalized tenderness to palpation. She has multiple abdominal wounds. She has a right ileostomy and also a right urostomy and left colostomy. Midline scar that is covered but looks fine. Neurological Examination: The patient is awake. She is oriented. Skin: She has a wound/ulcer on her back, which is chronic. Laboratory: Sodium 134, potassium 4, chloride 106, bicarbonate 19, BUN 5, creatinine 1, glucose 77, calcium 7.9, phosphorus 2.1, magnesium 1.8. ASSESSMENT AND PLAN: 1. Intractable nausea and vomiting. The patient seems to be feeling a little bit better today. I do believe, because of the severe gastritis and bile in her stomach, probably this patient will benefit from total parenteral nutrition for a little bit until the stomach is better, but I will wait for the recommendations of surgery department. 2. Narrow complex tachycardia, resolved. 3. Acute kidney injury, better. 4. Rectal cancer, treated with radiation in the past. Aware. 5. 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 Aware. 6. Recent Escherichia coli urinary tract infection and she has been treated for a new urinary tract infection at this moment by infectious disease department. 7. Abdominal wall infection. Aware. 8. Hypoglycemia, resolved. 9. Electrolyte imbalance. We will continue to replace. cc: Willis Ledezma MD
[2019-08-26] MEDS ORDERED: TPN ELECTROLYTES IV SCH ×7 (14:30)
[2019-08-26] MEDS ORDERED: POTASSIUM PHOSPHATE IV SCH ×7 (14:30)
[2019-08-26] MEDS ORDERED: MAGNESIUM SULFATE IV SCH ×7 (14:30)
[2019-08-26] MEDS ORDERED: [UNRECOGNIZED DRUG - OTHER] IV SCH ×7 (14:30)
[2019-08-26] MEDS: LIPOSYN 20% 250 ML IV SCH (16:07)
--- NOTE | 2019-08-26 18:41 | INFECTIOUS DISEASE PROGRESS NO ---
DATE: 08/26/2019 PRESENT ILLNESS: Ms. Thompson has an infected abdominal wound, sacral wound, and a urinary tract infection. She is being treated for an Acinetobacter that has grown in all 3 of these sites as well as a micrococcus species to her sacral wound and a Staphylococcus hemolyticus to the abdomen. The patient also as an oral Candidiasis. MEDICATIONS: She is on day 7 of meropenem 2 g IV every 8 hours and day 3 of IV Septra every 12 hours. PHYSICAL EXAMINATION: Vital Signs: Temperature is 98.5 degrees, pulse rate 91, respiratory rate 19, blood pressure 118/57, O2 saturation is 99% on room air. General: This is a chronically ill- appearing, middle-aged female. She is lying in bed, currently in no acute distress. HEENT: Atraumatic, normocephalic. Oral mucous membranes are erythematous and sore. Conjunctivae are pink. Neck: Supple. Trachea is midline. Cardiovascular: Heart rate and rhythm are regular. Normal sinus rhythm with occasional PVCs on the monitor. Respiratory: Lung sounds are bilaterally clear to auscultation. No work of breathing is noted. Abdomen: Soft and tender with an ileostomy, urostomy and colostomy in place. There is a dressing over the abdominal wound which was not removed at this time. It is clean and dry. There is a sacral wound which has a beefy, red wound bed and clean edges. There is no foul odor or purulent drainage. Integumentary: Skin is warm and dry. There is a central line to the right chest with an occlusive dressing. No obvious edema. Some mild erythema noted to the sutures. Neurologic: She is awake, alert, oriented, and able to move around in the bed with significant lower extremity weakness. LABORATORY AND X-RAY: No CBC today. However, on the her white count was 6.24, hemoglobin 11.5, platelet count 132,000. Today her creatinine is 1 with a GFR of 56. No imaging reports today. However, she did have an EGD which showed moderate to severe gastritis, and a large amount of residual bile in the stomach. ASSESSMENT AND PLAN: Ms. Thompson is being treated for bacteria in her urine as well as the abdominal and sacral wounds. In general, she is not feeling well and plans are to start her on TPN, which she is looking forward to. She is being treated for oral Candidiasis with a nystatin swish and swallow which we will continue. She is also receiving Septra IV as well as meropenem, which we will also continue. These plans have been discussed with and recommended by Dr. Mitchell. COMORBIDITIES: Rectal cancer with radiation and subsequent infections and multiple surgeries. There are also chronic issues with anemia, malnutrition and dehydration. Dictated by GEN Bergeron for Pardeep Mitchell MD cc: MD Willis Jo MD [facility]ENTERStanley
[2019-08-26] MEDS: PROTONIX IV SCH (20:46)
[2019-08-27] MEDS: DILAUDID IV PRN ×2 (00:54→08:36)
[2019-08-27] MEDS: PHENERGAN IV PRN ×2 (00:54→08:37)
[2019-08-27] MEDS: LOTRIMIN 1% CREAM TOP SCH ×3 (00:55→20:49)
[2019-08-27] MEDS: MYCOSTATIN SUSP PO SCH ×5 (00:55→20:48)
[2019-08-27] MEDS: MERREM 2 GM in NS 100 ML IV SCH ×2 (00:59→08:38)
[2019-08-27] MEDS: SODIUM CHLORIDE 0.9% INJ SCH ×3 (01:00→20:48)
[2019-08-27] MEDS: SEPTRA IV SCH ×3 (03:00→16:19)
[2019-08-27] MEDS: D5W IV SCH ×3 (03:00→16:19)
[2019-08-27 06:21] LABS: BASO# 0.01 X1000 (0.0-0.2); BASO% 0.1 % (0.0-0.8); EOS# 0.23 X1000 (0.0-0.7); EOS% 3.1 % (0.0-10.0); HEMATOCRIT 36.1 % (37.0-47.0); HEMOGLOBIN 11.3 g/dL (12.0-16.0); LYMPH# 1.12 X1000 (1.2-3.4); LYMPH% 15.1 % (20.5-51.1); MCH 26.5 PG (27-31); MCHC 31.3 g/dL (33-37); MCV 84.7 FL (81-99); MONO# 0.76 X1000 (0.11-0.59); MONO% 10.2 % (1.7-9.3); MPV 9.7 FL (7.4-10.4); NEUT# 5.32 X1000 (1.4-6.5); NEUT% 71.5 % (42.2-75.2); PLT 183 X1000 (130-400); RBC 4.26 XMIL (4.2-5.4); RDW 14.7 % (11.5-14.5); WBC 7.44 X1000 (4.8-10.8)
[2019-08-27 06:54] LABS: CALCIUM 8.1 mg/dL (8.8-10.2); CREATININE 1.1 mg/dL (0.5-0.9); MAGNESIUM 1.9 mg/dL (1.5-2.7); PHOSPHORUS 2.6 mg/dL (2.7-4.5); POTASSIUM 4.8 mmol/L (3.5-5.1); PREALBUMIN 10.6 mg/dL (20-40)
[2019-08-27] MEDS: D5 1/2 NS + KCL 20 MEQ 1,000 ML IV SCH ×2 (08:35→14:56)
[2019-08-27] MEDS ORDERED: D10W 1,000 ML IV SCH (11:30)
--- NOTE | 2019-08-27 13:03 | PROGRESS NOTE ---
DATE: 08/27/2019 SUBJECTIVE: The patient reports feeling fine. She is not feeling nauseated. TPN has been started on her today. OBJECTIVE: Vital Signs: Temperature 98.5 degrees, heart rate 117, respiratory rate 20, blood pressure 108/60, O2 saturation 100% on room air. General: This is a chronically ill-appearing, 64-year-old female lying in bed, in no acute distress. Cardiovascular: S1, S2 heard. No murmurs, gallops, or rubs. Regular rate and rhythm. Respiratory: Clear bilaterally to auscultation. No work of breathing or using accessory muscles. Abdomen: Soft. Diffuse tenderness to palpation. The patient has multiple abdominal wounds with a right ileostomy, also right urostomy, left colostomy as well. There is a midline scar that is covered by dressing. There are no signs of peritoneal irritation. Bowel sounds present. Neurological: Patient is patient is alert, oriented x3. Moves 4 extremities. LABORATORY DATA: White cell count 7.44, with hemoglobin 11.3, hematocrit 36.1. Platelets 183,000. Sodium 135, creatinine 1.1. Phosphorus 2.6. Prealbumin 10.6. ASSESSMENT AND PLAN: 1. Intractable nausea and vomiting. Patient underwent EGD yesterday by Dr. Crocker on they removed 100 mL of bile. She has been started on TPN. We found gastritis. At this point, we will continue with TPN. Patient clinically feeling better. 2. Abdominal and sacral wounds. Wound culture and urine culture isolated Acinetobacter. Patient is on Septra and meropenem IV as per Dr. Mitchell' recommendation. We will continue with the same management. 3. Acute kidney injury. Resolved. 4. Rectal cancer. Treated with radiation therapy in the past. Aware. 5. 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 Aware. 6. Electrolyte imbalance. Phosphorus is low today but potassium is back to normal. We will replenish those. 7. Disposition. We will continue to monitor this patient closely. We will follow recommendations from Dr. Crocker. cc: Christopher Basilio MD
[2019-08-27] MEDS: LIPOSYN 20% 250 ML IV SCH (15:25)
[2019-08-27] MEDS: [UNRECOGNIZED DRUG - OTHER] IV SCH ×8 (16:03)
[2019-08-27] MEDS: POTASSIUM PHOSPHATE IV SCH ×8 (16:03)
[2019-08-27] MEDS: TPN ELECTROLYTES IV SCH ×8 (16:03)
[2019-08-27] MEDS: MAGNESIUM SULFATE IV SCH ×8 (16:03)
--- NOTE | 2019-08-27 16:37 | INFECTIOUS DISEASE PROGRESS NO ---
DATE: 08/27/2019 PRESENT ILLNESS: The patient has an infected abdominal wound and sacral wound and a urinary tract infection. All of these infections are growing Acinetobacter and the patient in addition has a micrococcus species in her sacral wound and a Staph hemolyticus in her abdomen. The patient also has oral candidiasis. MEDICATIONS: This is day 8 of meropenem and day 4 of IV Septra. PHYSICAL EXAMINATION: Vital Signs: Temperature is 99.7 degrees, pulse 122, respirations 23, blood pressure 116/52. General: This is a chronically ill-appearing middle-aged female. She is lying in bed and is in no acute distress. Head/eyes/ears/nose/throat: She can hear my spoken words and see near objects. She does not have any white patches in her mouth. Neck: No pain with movement. Chest: The patient has a tunneled Kim catheter in place on the right side. The site is not erythematous or tender. Lungs: Clear to auscultation. Cardiovascular: Heart rate is regular. Abdomen: Soft and not tender to light palpation. She has an ileostomy, a urostomy and a colostomy. The colostomy is draining little if anything, whereas the ileostomy and urostomy are. The patient does have an abdominal incision which is partially open and draining but gradually getting better. Neurologic: The patient is awake. She is not nauseated anymore. She is she can move her extremities although she is very weak in her legs. LAB AND X-RAY: CBC shows a white count of 7440, hemoglobin 11.3 platelet count 183,000 creatinine is 1.1 GFR is 50. Alkaline phosphatase is 137. ASSESSMENT AND PLAN: The patient is being treated for abdominal wound infections and urinary tract infection. All of the organisms are susceptible to Septra. For the micrococcus there is no susceptibility testing. The patient also has oral candidiasis for which she takes nystatin swish and swallow. As for the patient's abdominal wound and urinary tract infection, I plan to continue IV Septra and discontinue meropenem. COMORBIDITIES: Rectal cancer which was treated with radiation and resulted in multiple surgeries and infections and wounds. The patient also has anemia, malnutrition, and when she came in, she had dehydration. cc: MD Christopher Jo MD
[2019-08-27] MEDS: PROTONIX IV SCH (20:48)
[2019-08-28] MEDS: SEPTRA IV SCH ×2 (03:30→16:58)
[2019-08-28] MEDS: D5W IV SCH ×2 (03:30→16:58)
[2019-08-28 07:15] LABS: ALB/GLOB RATIO 0.6; ALBUMIN 1.8 g/dL (3.5-5.0); CALCIUM 7.5 mg/dL (8.8-10.2); CREATININE 1.2 mg/dL (0.5-0.9); DIRECT BILIRUBIN 0.1 mg/dL (0.00-0.20); MAGNESIUM 2.2 mg/dL (1.5-2.7); PHOSPHORUS 2.3 mg/dL (2.7-4.5); POTASSIUM 4.2 mmol/L (3.5-5.1); TOTAL BILIRUBIN 0.16 mg/dL (0.20-1.00); TOTAL PROTEIN 4.6 g/dL (6.3-8.3)
[2019-08-28] MEDS ORDERED: SODIUM PHOSPHATE 35 MMOL in NS 250 ML IV ONE (08:17)
[2019-08-28] MEDS: DILAUDID IV PRN ×3 (09:57→22:23)
[2019-08-28] MEDS: LOTRIMIN 1% CREAM TOP SCH ×2 (09:58→22:24)
[2019-08-28] MEDS: MYCOSTATIN SUSP PO SCH ×4 (09:58→22:24)
--- NOTE | 2019-08-28 10:08 | PROGRESS NOTE ---
DATE: 08/28/2019 SUBJECTIVE: Patient reports feeling fine. Not nauseated. No fever or chills. OBJECTIVE: Vital Signs: Temperature 98.1 degrees, heart rate 101, respiratory rate 16, blood pressure 103/48, O2 saturation 100% on room air. General Examination: This is a chronically ill- appearing, 64-year-old, female lying in bed, in no acute distress. Cardiovascular Examination: S1 and S2 heard. No murmurs, gallops, or rubs. Regular rate and rhythm. Respiratory Examination: Clear bilaterally to auscultation. No work of breathing or using accessory muscles. Abdomen: Soft, with diffuse tenderness to palpation. The patient has multiple abdominal wounds with right ileostomy and also a right urostomy and left colostomy as well. Midline scar noted that is covered by a dressing. There are no signs of peritoneal irritation. Bowel sounds present. Neurological Examination: The patient is alert and oriented x3. Moves 4 extremities. Laboratory Data: BMP shows creatinine 1.2, with sodium 131, phosphorus 2.3, magnesium 2.2. ASSESSMENT AND PLAN: 1. Intractable nausea and vomiting. The patient reports feeling fine. Day before yesterday, by esophagogastroduodenoscopy, we removed approximately 100 mL of bile. She currently is on total parenteral nutrition. She was found to have gastritis. She is on Protonix and also we will Carafate to her current treatment. 2. Abdominal and sacral wounds. Wound culture and urine culture isolated Acinetobacter. As per Dr. Mitchell from infectious disease, we will continue with Septra. Meropenem has been stopped. We will continue following recommendations from him. 3. Acute kidney injury. Creatinine is mildly elevated. We will continue to monitor. 4. 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 Aware. 5. Electrolyte imbalance. Phosphorus continues to be low. We will replenish that today. Potassium continues to be normal. 6. Disposition. We will continue to monitor this patient closely. Follow recommendations from Dr. Crocker. Currently, this patient is on total parenteral nutrition. We will see for how long he prefers to keep this patient on this. cc: Christopher Basilio MD
[2019-08-28] MEDS: CARAFATE LIQUID PO SCH ×2 (14:12→20:19)
--- NOTE | 2019-08-28 14:35 | INFECTIOUS DISEASE PROGRESS NO ---
DATE: 08/28/2019 PRESENT ILLNESS: Ms Thompson has infected sacral and abdominal wounds as well as a urinary tract infection. These sites are all growing Acinetobacter, and there is an micrococcus species to the sacral wound and a Staphylococcus hemolyticus to the abdominal wound. She also has an oral candidiasis as well as a fungal rash to the groin. MEDICATIONS: Today is day 5 of treatment with IV Septra every 12 hours. She is also receiving nystatin swish and swallow. There is also an order for clotrimazole cream twice daily. PHYSICAL EXAMINATION: Vital Signs: Temperature is 97.6 degrees, pulse rate 93, respiratory rate 16, blood pressure 100/55, O2 saturation 100% on room air. General: This is a chronically ill- appearing, middle-aged female. She is lying in the bed, tearful and frustrated due to slow improvement of her disease process and multiple difficulties with her ostomy bags. HEENT: Atraumatic, normocephalic. Oral mucous membranes are erythematous and moist. Conjunctivae are pink. Neck: Supple. Trachea is midline. Cardiovascular: Heart rate and rhythm are regular. Normal sinus rhythm on the monitor. Respiratory: Lung sounds are bilaterally clear to auscultation. No work of breathing is noted. Abdomen: Soft and mildly tender to palpation. Bowel sounds are active. There is an ileostomy, urostomy and colostomy. She also has an abdominal incision with a dressing in place which is not removed at this time. There are several areas of erythema to the abdomen, and her groin areas are also erythematous. Integumentary: There is a Kim catheter to the right chest. That site is without edema, erythema, or drainage. Neurologic: She is awake, alert, and oriented. Her lower extremities are extremely weak. LABORATORY AND X-RAY: No CBC today, however, her creatinine is 1.2., GFR 45. Total bilirubin is 0.16, direct bilirubin 0.10, AST 31, ALT 10, alkaline phosphatase 148. No imaging reports today. ASSESSMENT AND PLAN: Ms. Thompson is being treated for abdominal and sacral wounds, and a urinary tract infection. She is receiving IV Septra which we will continue. She continues to have erythema and soreness to her tongue as well as erythema to the groin areas bilaterally despite her use of nystatin and clotrimazole cream. We will order micafungin 100 mg IV daily to help with the oral candidiasis and fungal dermatitis. Today she is very frustrated because she is unable to eat, and at this point, the wound care nurse is trying to work out a system where her ostomy bags will not continue to leak and cause contamination to her abdominal wound. I talked to her about the possibility of going home in a couple of days and she feels that she is not ready due to the fact that she has not had any physical therapy and has gotten weaker since she has been admitted this time. Also, she is concerned that she will not have assistance with her ostomy care. After she left the hospital last time, her IV antibiotics were expensive when given at home. We will go ahead and ask [employer], which is her current infusion company, to restrepo out the IV Septra and micafungin to see if these might be cheaper than her previous medications. If these are too expensive, it may be that she can tolerate the Bactrim suspension and take oral fluconazole, if she is able to eat, and the nausea and vomiting are not an issue. These plans have been discussed with and recommended by Dr. Mitchell. COMORBIDITIES: Include rectal cancer treated with radiation with subsequent multiple infections, wounds and surgeries, and protein-calorie malnutrition. Dictated by GEN Bergeron for Pardeep Mitchell MD cc: MD Christopher Jo MD MTDD
[2019-08-28] MEDS: MYCAMINE 100 MG in NS 100 ML IV SCH (16:40)
[2019-08-28] MEDS: POTASSIUM PHOSPHATE IV SCH ×8 (16:41)
[2019-08-28] MEDS: TPN ELECTROLYTES IV SCH ×8 (16:41)
[2019-08-28] MEDS: MAGNESIUM SULFATE IV SCH ×8 (16:41)
[2019-08-28] MEDS: LIPOSYN 20% 250 ML IV SCH (16:41)
[2019-08-28] MEDS: [UNRECOGNIZED DRUG - OTHER] IV SCH ×8 (16:41)
[2019-08-28] MEDS: D5 1/2 NS + KCL 20 MEQ 1,000 ML IV SCH (19:01)
[2019-08-28] MEDS: PROTONIX IV SCH (20:19)
[2019-08-28] MEDS: SODIUM CHLORIDE 0.9% INJ SCH (20:19)
[2019-08-29] MEDS: CARAFATE LIQUID PO SCH ×4 (03:07→19:48)
[2019-08-29] MEDS: D5W IV SCH ×2 (03:07→16:17)
[2019-08-29] MEDS: SEPTRA IV SCH ×2 (03:07→16:17)
--- NOTE | 2019-08-29 07:07 | PROGRESS NOTE ---
DATE: 08/29/2019 SUBJECTIVE: Patient reports feeling fine. She reports still having problems with the colostomy bag this morning, that was completely soaked. OBJECTIVE: Vital Signs: Temperature 97.7 degrees, heart rate 90, respiratory rate 16, blood pressure 115/47, O2 saturation 100% on room air. General Examination: This is a chronically ill- looking, 64-year-old, female lying in bed, in no acute distress. Cardiovascular Examination: S1 and S2 heard. No murmurs, gallops, or rubs. Regular rate and rhythm. Respiratory Examination: Clear bilaterally to auscultation. No work of breathing or using accessory muscles. Abdomen: Soft. Mild tenderness to palpation. Patient has multiple abdominal wounds with right ileostomy, right urostomy, and left colostomy as well. Midline scar noted, that is covered by a dressing. No signs of peritoneal irritation. Bowel sounds present. Neurological Examination: The patient is alert and oriented x3. Moves 4 extremities. Laboratory Data: Pending at the time of my dictation. ASSESSMENT AND PLAN: 1. Intractable nausea and vomiting. The patient reports feeling fine. Because of high output by colostomy bag, the patient has been placed nothing per oral for a couple of days. We will continue to monitor. Dr. Crocker is also following this patient. 2. Abdominal and sacral wounds. Dr. Mitchell from infectious disease is managing antibiotics. She is currently on Septra for Acinetobacter. Because of oral candidiasis and fungal dermatitis, the patient has been started on micafungin. Infectious disease team is working on trying to set up intravenous antibiotics and antifungals for her. We will continue to monitor. 3. Acute kidney injury. Creatinine continues to be mildly elevated. We will continue to monitor. 4. 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 Aware. Patient reports feeling very weak. We will consult physical therapy and occupational therapy. 5. Electrolyte imbalance. We do not have the results of phosphorus but if that is still low, we will replenish today. 6. Disposition. We will continue to monitor this patient closely. The patient is feeling weak so we may need to keep her over the weekend and on Monday, we can discharge her. cc: Christopher Basilio MD
[2019-08-29 07:49] LABS: AGAP 7; ALB/GLOB RATIO 0.7; ALBUMIN 1.7 g/dL (3.5-5.0); ALKALINE PHOSPHATASE 131 U/L (32-104); BUN 16 mg/dL (8-22); CALCIUM 7.6 mg/dL (8.8-10.2); CHLORIDE 105 mmol/L (98-107); COSMO 266; CREATININE 1.1 mg/dL (0.5-0.9); ESTIMATED GFR 50; GLUCOSE 105 mg/dL (70-104); GOT 37 U/L (10-30); GPT 13 U/L (10-36); MAGNESIUM 2.2 mg/dL (1.5-2.7); PHOSPHORUS 3.6 mg/dL (2.7-4.5); POTASSIUM 3.9 mmol/L (3.5-5.1); SODIUM 132 mmol/L (136-145); TCO2 20 mmol/L (25-35); TOTAL BILIRUBIN < 0.15 mg/dL (0.20-1.00); TOTAL PROTEIN 4.3 g/dL (6.3-8.3)
[2019-08-29] MEDS: MYCOSTATIN SUSP PO SCH ×5 (09:54→22:23)
[2019-08-29] MEDS: LOTRIMIN 1% CREAM TOP SCH ×2 (11:59→22:23)
[2019-08-29] MEDS: MYCAMINE 100 MG in NS 100 ML IV SCH (14:36)
[2019-08-29] MEDS ORDERED: TPN ELECTROLYTES 20 ML, MAGNESIUM SULFATE 5 MEQ, POTASSIUM CHLORIDE 20 MEQ, M.V.I.-12 1... IV SCH ×8 (16:00)
--- NOTE | 2019-08-29 16:06 | INFECTIOUS DISEASE PROGRESS NO ---
DATE: 08/29/2019 PRESENT ILLNESS: The patient has infected sacral and abdominal wounds as well as urinary tract infection. She also appears to have oral candidiasis and a fungal groin rash. MEDICATIONS: Today is day 6 of treatment with IV Septra. The patient also is on micafungin. PHYSICAL EXAMINATION: Vital Signs: Temperature is 98.1 degrees, pulse 95, respirations 16, blood pressure 111/49. General: This is a chronically ill-appearing middle-aged female. She is lying in bed. She said she feels frustrated and depressed. Head/eyes/ears/nose/throat: She can hear my spoken words and see near objects. She does not have any white patches on her tongue. Neck: No pain with movement. Lungs: Clear to auscultation. Cardiovascular: Heart rate is regular. Abdomen: Soft and mildly tender. The patient has an ileostomy, a urostomy and colostomy. She also has an abdominal incision in place. Neurologic: The patient is alert. She can move her extremities. There is no tremor. She is weak. Back: I turned the patient on her side and she has a large sacral decubitus ulcer that is deep and has some devitalized tissue and some purulence. LAB AND X-RAY: There is no CBC for today. The creatinine is 1.1. GFR is 50. Alkaline phosphatase is 131. ASSESSMENT AND PLAN: The plan now is to continue the patient on hyperalimentation and have her not eat anything and hopefully the GI fistula will close off. I also plan on continuing the micafungin for the patient's skin candidiasis. COMORBIDITIES: The patient years ago had radiation to clear her rectal cancer and it resulted in multiple infections and surgical procedures, and the patient also now has protein calorie malnutrition. cc: MD Christopher Jo MD
[2019-08-29] MEDS: DILAUDID IV PRN ×2 (16:17→21:46)
[2019-08-29] MEDS: D5 1/2 NS + KCL 20 MEQ 1,000 ML IV SCH (17:51)
[2019-08-29] MEDS: LIPOSYN 20% 250 ML IV SCH (17:52)
[2019-08-29] MEDS: PROTONIX IV SCH (19:48)
[2019-08-29] MEDS: SODIUM CHLORIDE 0.9% INJ SCH (19:48)
[2019-08-30] MEDS: D5W IV SCH (02:53)
[2019-08-30] MEDS: SEPTRA IV SCH (02:53)
[2019-08-30] MEDS: CARAFATE LIQUID PO SCH ×4 (02:53→20:13)
[2019-08-30 07:11] LABS: BASO# 0.01 X1000 (0.0-0.2); BASO% 0.1 % (0.0-0.8); EOS# 0.57 X1000 (0.0-0.7); HEMATOCRIT 31.9 % (37.0-47.0); IMM GRAN# 0.03 X1000 (0.0-0.04); IMM GRAN% 0.4 % (0.0-0.5); LYMPH# 1.44 X1000 (1.2-3.4); LYMPH% 20.1 % (20.5-51.1); MCH 26.5 PG (27-31); MCHC 31.3 g/dL (33-37); MCV 84.6 FL (81-99); MONO# 0.72 X1000 (0.11-0.59); MONO% 10.1 % (1.7-9.3); NEUT# 4.38 X1000 (1.4-6.5); NEUT% 61.3 % (42.2-75.2); PLT 219 X1000 (130-400); RBC 3.77 XMIL (4.2-5.4); RDW 14.7 % (11.5-14.5); WBC 7.15 X1000 (4.8-10.8)
--- NOTE | 2019-08-30 07:27 | PROGRESS NOTE ---
DATE: 08/30/2019 SUBJECTIVE: Patient reports feeling okay, not feeling any more nausea. No problems with his colostomy bag today. OBJECTIVE: Vital Signs: Temperature 98.0 degrees, heart rate 91, respiratory rate 19, blood pressure 118/46, O2 saturation 100% on room air. General: This is a chronically ill-looking, 64- year-old female lying in bed, in no acute distress. Cardiovascular: S1, S2 heard. No murmurs, gallops, or rubs. Regular rate and rhythm. Respiratory: Clear bilaterally to auscultation. No work of breathing or using accessory muscles. Abdomen: Soft. Mildly tender to palpation. The patient has multiple abdominal wounds with right ileostomy, right urostomy, and left colostomy as well. Mild scar noted covered with dressing. No signs of peritoneal irritation. Bowel sounds present. Neurological: Patient is an alert and oriented x3. Moves 4 extremities. LABORATORY DATA: Pending at time of dictation. ASSESSMENT AND PLAN: 1. Intractable nausea and vomiting. That condition is much better, so because of high output in the colostomy bag, the patient has been placed on NPO. But I think after 2 days, she is feeling much better, so we will start GI soft diet today. Dr. Crocker is also following this patient. 2. Abdominal wound, sacral wound. The patient is currently on Septra for Acinetobacter baumannii. We will see for how long Dr. Mitchell plans to keep this patient on those medications. We will continue to follow recommendations from them. 3. Acute kidney injury. Creatinine from yesterday was 1.1. I think today should be completely back to normal. We will continue to monitor. 4. Paraplegia secondary to spinal rotation, aware. 5. Electrolyte imbalance. We will replenish phosphorus and magnesium as needed. 6. Disposition. We will continue to monitor this patient closely. Most likely will need to keep this patient over the weekend, and on Monday, will see what antibiotics he is going to have at discharge. We will continue with physical therapy and occupational therapy while she is here. cc: Christopher Basilio MD
[2019-08-30 07:48] LABS: AGAP 7; ALB/GLOB RATIO 0.7; ALKALINE PHOSPHATASE 138 U/L (32-104); BUN 17 mg/dL (8-22); CALCIUM 7.9 mg/dL (8.8-10.2); CHLORIDE 106 mmol/L (98-107); COSMO 269; CREATININE 1.2 mg/dL (0.5-0.9); ESTIMATED GFR 45; GLUCOSE 115 mg/dL (70-104); GOT 34 U/L (10-30); GPT 16 U/L (10-36); MAGNESIUM 2.3 mg/dL (1.5-2.7); PHOSPHORUS 2.7 mg/dL (2.7-4.5); POTASSIUM 4.7 mmol/L (3.5-5.1); SODIUM 133 mmol/L (136-145); TCO2 20 mmol/L (25-35); TOTAL BILIRUBIN < 0.15 mg/dL (0.20-1.00)
[2019-08-30] MEDS: DILAUDID IV PRN ×2 (09:34→18:09)
[2019-08-30] MEDS: SODIUM CHLORIDE 0.9% INJ SCH ×2 (09:35→20:13)
[2019-08-30] MEDS: PHENERGAN IV PRN (09:35)
[2019-08-30] MEDS: MYCOSTATIN SUSP PO SCH ×4 (09:35→20:14)
[2019-08-30] MEDS: LOTRIMIN 1% CREAM TOP SCH ×2 (09:42→20:14)
[2019-08-30] MEDS ORDERED: BENZOIN TINCTURE TOP ONE ×2 (10:15→10:30)
[2019-08-30] MEDS ORDERED: SEPTRA LIQUID PO ONE (11:00)
[2019-08-30] MEDS: D5 1/2 NS + KCL 20 MEQ 1,000 ML IV SCH ×2 (13:31→20:13)
[2019-08-30] MEDS: MYCAMINE 100 MG in NS 100 ML IV SCH (14:14)
--- NOTE | 2019-08-30 15:30 | INFECTIOUS DISEASE PROGRESS NO ---
DATE: 08/30/2019 PRESENT ILLNESS: Ms Thompson has infected sacral and abdominal wounds as well as a urinary tract infection. There is also a fungal rash to the groin and under her breasts, as well as an oral candidiasis. MEDICATIONS: Today is day 7 of Septra IV every 12 hours. She is also on day 2 of micafungin 100 mg IV every 24 hours. PHYSICAL EXAM: Vital Signs: Temperature is 98 degrees, pulse rate 96, respiratory rate 16, blood pressure 95/56, O2 saturation is 100% on room air. General: This is a chronically ill-appearing middle-aged female. She is lying in bed currently in no acute distress. HEENT: Atraumatic, normocephalic. Oral mucous membranes are erythematous but less tender. Conjunctivae are pink. Neck: Supple. Trachea is midline. Cardiovascular: Heart rate and rhythm are regular. Normal sinus rhythm on the monitor. Respiratory: Lung sounds are clear to auscultation bilaterally. No work of breathing is noted. Abdomen: Soft and mildly tender. Bowel sounds are active. There is an ileostomy and urostomy in place with some surrounding erythema as well as a midline abdominal incision with a dressing in place. The colostomy has a dressing over it and is nonfunctioning. She also has a sacral wound not visualized at this time. Neurologic: She is awake, alert, oriented and in better spirits today. She is able to move around in the bed independently with weakness noted to her lower extremities. LABORATORY AND X-RAY: Today her white count is 7.15, hemoglobin 10, platelet count 219,000. Creatinine is 1.2. GFR 45. Total bilirubin is less than 0.15, direct bilirubin 0.10, AST 34, ALT 16, alkaline phosphatase 138. No imaging reports today. ASSESSMENT AND PLAN: Ms. Thompson is feeling much better today. She is being treated for infected sacral and abdominal wounds as well as urinary tract infection, oral candidiasis and fungal dermatitis. She has been on intravenous Septra due to her nausea and vomiting and subsequent NPO orders. Today she is eating so we will start her on Septra oral suspension 20 mL twice a day. She had some trouble swallowing the Septra tablets. The erythema to her breasts and groin and abdominal areas has diminished somewhat so we will continue her currently on the IV micafungin while she is in the hospital. Hopefully when she is discharged she will be able to go home on oral Septra for the Acinetobacter that has grown to her wounds and we can send her home on oral fluconazole for the candidiasis and fungal dermatitis. These plans have been discussed with and recommended by Dr. Mitchell. COMORBIDITIES: Include history of radiation for rectal cancer with multiple infections and surgical procedures. She is now requiring total parenteral nutrition. Dictated by GEN Bergeron for Pardeep Mitchell MD cc: MD Christopher Jo MD MTDD
[2019-08-30] MEDS: TPN ELECTROLYTES IV SCH ×8 (16:15)
[2019-08-30] MEDS: LIPOSYN 20% 250 ML IV SCH (16:15)
[2019-08-30] MEDS: MAGNESIUM SULFATE IV SCH ×8 (16:15)
[2019-08-30] MEDS: POTASSIUM CHLORIDE IV SCH ×8 (16:15)
[2019-08-30] MEDS: [UNRECOGNIZED DRUG - OTHER] IV SCH ×8 (16:15)
[2019-08-30] MEDS: PROTONIX IV SCH (20:13)
[2019-08-30] MEDS: SEPTRA LIQUID PO SCH (20:14)
[2019-08-31] MEDS: CARAFATE LIQUID PO SCH ×4 (02:29→20:10)
--- NOTE | 2019-08-31 08:18 | PROGRESS NOTE ---
DATE: 08/31/2019 SUBJECTIVE: Patient reports feeling fine. Eating okay GI soft diet. OBJECTIVE: Vital Signs: Temperature 97.6 degrees, heart rate 106, respiratory 15, blood pressure 132/50, O2 saturation 100% on room air. General Examination: This is a 64-year-old female lying in bed, in no acute distress. Cardiovascular: S1, S2 heard. No murmurs, gallops, or rubs. Regular rate and rhythm. Respiratory: Clear bilaterally to auscultation. No work of breathing or using accessory muscles. Abdomen: Soft, mildly tender to palpation. Patient has multiple abdominal wounds with right ileostomy, right urostomy and left colostomy as well. Mild scar noted covered by dressing. No signs of peritoneal irritation. Bowel sounds present. Neurological: Patient is alert and oriented x3. Moves 4 extremities. LABORATORY DATA: Pending at time of dictation. ASSESSMENT AND PLAN: 1. Intractable nausea and vomiting, that condition is resolved. Patient is eating okay GI soft diet. We will continue with the same management. 2. Abdominal wound, sacral wound. Patient is on Septra solution and micafungin IV. At this point, we will keep this patient over the weekend, and on Monday, will discharge her on oral medications. 3. Acute kidney injury. Creatinine is mildly elevated. We will continue to monitor. 4. 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 Aware. 5. Electrolyte imbalance. We will continue to monitor phosphorus, magnesium and BMP. 6. Disposition. We will continue to monitor this patient closely. cc: Christopher Basilio MD
[2019-08-31 08:21] LABS: AGAP 9; ALB/GLOB RATIO 0.6; ALKALINE PHOSPHATASE 143 U/L (32-104); BUN 21 mg/dL (8-22); CALCIUM 8.1 mg/dL (8.8-10.2); CHLORIDE 108 mmol/L (98-107); COSMO 270; CREATININE 1.2 mg/dL (0.5-0.9); ESTIMATED GFR 45; GLUCOSE 109 mg/dL (70-104); GOT 29 U/L (10-30); GPT 16 U/L (10-36); MAGNESIUM 2.2 mg/dL (1.5-2.7); PHOSPHORUS 1.8 mg/dL (2.7-4.5); POTASSIUM 4.2 mmol/L (3.5-5.1); SODIUM 133 mmol/L (136-145); TCO2 16 mmol/L (25-35); TOTAL BILIRUBIN < 0.15 mg/dL (0.20-1.00); TOTAL PROTEIN 5.1 g/dL (6.3-8.3)
[2019-08-31] MEDS: DILAUDID IV PRN ×2 (09:35→18:56)
[2019-08-31] MEDS: MYCOSTATIN SUSP PO SCH ×4 (09:38→20:10)
[2019-08-31] MEDS: SEPTRA LIQUID PO SCH ×2 (09:38→20:11)
[2019-08-31] MEDS: LOTRIMIN 1% CREAM TOP SCH ×2 (09:39→20:11)
[2019-08-31] MEDS: MYCAMINE 100 MG in NS 100 ML IV SCH (14:47)
[2019-08-31] MEDS: LIPOSYN 20% 500 ML IV SCH (18:54)
[2019-08-31] MEDS: D5 1/2 NS + KCL 20 MEQ 1,000 ML IV SCH (18:54)
[2019-08-31] MEDS: [UNRECOGNIZED DRUG - OTHER] IV SCH ×8 (18:55)
[2019-08-31] MEDS: POTASSIUM CHLORIDE IV SCH ×8 (18:55)
[2019-08-31] MEDS: MAGNESIUM SULFATE IV SCH ×8 (18:55)
[2019-08-31] MEDS: TPN ELECTROLYTES IV SCH ×8 (18:55)
[2019-08-31] MEDS: LIPOSYN 20% 250 ML IV SCH (19:58)
[2019-08-31] MEDS: PROTONIX IV SCH (20:11)
[2019-08-31] MEDS: SODIUM CHLORIDE 0.9% INJ SCH (20:11)
[2019-09-01] MEDS: CARAFATE LIQUID PO SCH ×4 (01:15→20:51)
[2019-09-01 08:23] LABS: AGAP 9; ALB/GLOB RATIO 0.7; ALBUMIN 2.2 g/dL (3.5-5.0); ALKALINE PHOSPHATASE 147 U/L (32-104); BUN 24 mg/dL (8-22); CALCIUM 8.4 mg/dL (8.8-10.2); CHLORIDE 109 mmol/L (98-107); CHOLESTEROL 118 mg/dL (0-200); COSMO 275; CREATININE 1.3 mg/dL (0.5-0.9); ESTIMATED GFR 41; GLUCOSE 110 mg/dL (70-104); GOT 31 U/L (10-30); GPT 19 U/L (10-36); PHOSPHORUS 1.9 mg/dL (2.7-4.5); POTASSIUM 4.5 mmol/L (3.5-5.1); PREALBUMIN 19.4 mg/dL (20-40); SODIUM 135 mmol/L (136-145); TCO2 17 mmol/L (25-35); TOTAL BILIRUBIN < 0.15 mg/dL (0.20-1.00); TOTAL PROTEIN 5.2 g/dL (6.3-8.3); TRIGLYCERIDES 149 mg/dL (35-135)
--- NOTE | 2019-09-01 08:33 | PROGRESS NOTE ---
DATE: 09/01/2019 SUBJECTIVE: Patient reports feeling okay. Patient is eating okay. No nausea or vomiting. She is on a GI soft diet. No other issues noted. OBJECTIVE: Vital Signs: Temperature 98.0 degrees, heart rate 104, respiratory rate 20, blood pressure 114/48, O2 saturation 100% on room air. General Examination: This is a chronically ill- appearing, 64-year-old, female lying in bed, in no acute distress. Cardiovascular Examination: S1 and S2 heard. No murmurs, gallops, or rubs. Regular rate and rhythm. Respiratory Examination; Clear bilaterally to auscultation. No work of breathing or using accessory muscles. Abdomen: Soft. Mildly tender to palpation. The patient has multiple abdominal wounds with right ileostomy, right urostomy, and left colostomy as well. Mild scar noted, covered by dressing. No signs of peritoneal irritation. Bowel sounds present. No organomegaly. Extremities: No clubbing, cyanosis, or edema. Peripheral pulses present in both legs. Neurological Examination: The patient is alert and oriented x3. Moves 4 extremities. Laboratory Data: Pending at the time of my dictation. ASSESSMENT AND PLAN: 1. Intractable nausea and vomiting. That condition is completely resolved. The patient is eating okay, a gastrointestinal soft diet. 2. Abdominal wound/sacral wound. Patient is on Septra solution and micafungin intravenously. Dr. Mitchell from infectious disease is following this patient. We will keep this patient over the weekend here. On Monday, patient will be discharged on oral antibiotics. 3. Acute kidney injury, almost resolved. We will continue to monitor. 4. 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 Aware. 5. Electrolyte imbalance. We will continue to monitor magnesium, phosphorus, and complete BMP. 6. Disposition. We will continue to monitor the patient closely. Physical therapy and occupational therapy following this patient. Most likely, we will discharge this patient tomorrow on oral antibiotics. cc: Christopher Basilio MD
[2019-09-01] MEDS: D5 1/2 NS + KCL 20 MEQ 1,000 ML IV SCH ×2 (09:44→19:09)
[2019-09-01] MEDS: MYCOSTATIN SUSP PO SCH ×4 (09:45→20:52)
[2019-09-01] MEDS: SEPTRA LIQUID PO SCH ×2 (09:47→20:52)
[2019-09-01] MEDS: LOTRIMIN 1% CREAM TOP SCH ×2 (09:48→20:52)
[2019-09-01] MEDS: MYCAMINE 100 MG in NS 100 ML IV SCH (13:31)
--- NOTE | 2019-09-01 15:35 | INFECTIOUS DISEASE PROGRESS NO ---
DATE: 09/01/2019 PRESENT ILLNESS: The patient has infected sacral and abdominal wounds as well as urinary tract infection. She also has a fungal rash in the groin area and under her breasts. She also has oral candidiasis. MEDICATION: The patient currently now is on Septra by mouth as a liquid and micafungin being given intravenously every 24 hours. PHYSICAL EXAMINATION: Vital Signs: Temperature is 98.1 degrees, pulse 102, respirations 20, blood pressure is 117/52. General: This is a clinically ill-appearing, middle-aged female. She is in no acute distress. She told me that she is able to keep food down. Head/eyes/ears/nose/throat: She can hear my spoken words and see near objects. She does not have any white coating of her tongue. Neck: No stiffness. Lungs: Clear to auscultation. Cardiovascular: Regular heart rate. Abdomen: Soft and nontender. The patient has 3 ostomies and an incision. There is some drainage from the incision site, but much less than it was a week ago. Neurologic: The patient is awake. She can move her extremities. She is weak in her legs. LAB AND X-RAY: There is no new radiographic study. The creatinine is 1.3, GFR is 41. CBC shows a white count of 7150, hemoglobin 10, platelet count 219,000. There is no new radiographic study today. ASSESSMENT AND PLAN: Patient has abdominal and sacral wound infections. The plan is to send her home on Septra DS every 12 hours p.o. The patient will cut the Septra tablets in half, they are scored, and also fluconazole 400 mg p.o. daily both, for 2 weeks. A week from her discharge, she will need a CBC and a creatinine drawn. I have requested the patient have an appointment to come to my office in 2 weeks at which time she will be examined and also another CBC and creatinine will be obtained. I have sent the patient's prescriptions for Septra and fluconazole to the patient's choice, namely [facility] in [place], electronically. Some of the side effects of the medications were given the patient including rash, diarrhea, photosensitivity, hepatotoxicity, and renal toxicity. These have been explained to the patient who agrees with treatment COMORBIDITIES: Patient had radiation to the pelvic area for rectal cancer and it has resulted in multiple surgical procedures and infections. The patient will be taking food by mouth at home and also she will be taking total parenteral nutrition at home also. cc: MD Christopher Jo MD
[2019-09-01] MEDS: MAGNESIUM SULFATE IV SCH ×8 (19:10)
[2019-09-01] MEDS: POTASSIUM CHLORIDE IV SCH ×8 (19:10)
[2019-09-01] MEDS: LIPOSYN 20% 500 ML IV SCH (19:10)
[2019-09-01] MEDS: TPN ELECTROLYTES IV SCH ×8 (19:10)
[2019-09-01] MEDS: [UNRECOGNIZED DRUG - OTHER] IV SCH ×8 (19:10)
[2019-09-01] MEDS: PROTONIX IV SCH (20:51)
[2019-09-01] MEDS: SODIUM CHLORIDE 0.9% INJ SCH (20:51)
[2019-09-02] MEDS: DILAUDID IV PRN ×2 (00:51→20:47)
[2019-09-02] MEDS: CARAFATE LIQUID PO SCH ×5 (00:51→20:46)
[2019-09-02] MEDS: D5 1/2 NS + KCL 20 MEQ 1,000 ML IV SCH ×2 (06:56→16:40)
[2019-09-02 07:21] LABS: BASO# 0.03 X1000 (0.0-0.2); BASO% 0.3 % (0.0-0.8); EOS# 0.85 X1000 (0.0-0.7); EOS% 8.8 % (0.0-10.0); HEMATOCRIT 27.9 % (37.0-47.0); HEMOGLOBIN 8.6 g/dL (12.0-16.0); IMM GRAN# 0.08 X1000 (0.0-0.04); IMM GRAN% 0.8 % (0.0-0.5); LYMPH# 1.42 X1000 (1.2-3.4); LYMPH% 14.7 % (20.5-51.1); MCH 26.2 PG (27-31); MCHC 30.8 g/dL (33-37); MCV 85.1 FL (81-99); MONO# 0.74 X1000 (0.11-0.59); MONO% 7.7 % (1.7-9.3); MPV 10.2 FL (7.4-10.4); NEUT# 6.54 X1000 (1.4-6.5); NEUT% 67.7 % (42.2-75.2); PLT 244 X1000 (130-400); RBC 3.28 XMIL (4.2-5.4); WBC 9.66 X1000 (4.8-10.8)
--- NOTE | 2019-09-02 10:10 | PROGRESS NOTE ---
DATE: 09/02/2019 SUBJECTIVE: Patient reports feeling okay, eating okay. No nausea or vomiting. OBJECTIVE: Vital Signs: Temperature 97.8 degrees, heart rate 101, respiratory rate 18, blood pressure 110/41, O2 saturation 95% on room air. General Examination: This is a chronically ill- appearing, 64-year-old, female, lying in bed, in no acute distress. Cardiovascular Examination: S1 and S2 heard. No murmurs, gallops, or rubs. Regular rate and rhythm. Respiratory Examination: Clear bilaterally to auscultation. No work of breathing or using accessory muscles. Abdomen: Soft, nontender to palpation. The patient has multiple abdominal wounds with right ileostomy, right urostomy, and left colostomy as well. Mild scar noted, covered by dressing. No signs of peritoneal irritation. Bowel sounds present. No organomegaly. Extremities: No clubbing, cyanosis, or edema. Peripheral pulses present in both legs. Neurological Examination: The patient is alert and oriented x3. Moves 4 extremities. Laboratory Data: Reviewed. ASSESSMENT AND PLAN: 1. Intractable nausea and vomiting. That condition is completely resolved. Patient is eating okay, a regular diet. 2. Abdominal wound and sacral wound. The patient has been on Septra solution and micafungin intravenously. Dr. Mitchell has seen this patient yesterday and sent antibiotics to her pharmacy for today with fluconazole by mouth and also Septra tablets. 3. Acute kidney injury, resolved. 4. 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 Aware. The patient is definitely moving much better. 5. Electrolyte imbalance. Resolved. 6. Disposition. At this point, patient is going to be discharged by primary team, Dr. Crocker. We appreciate the opportunity to participate in the care of this patient. cc: Christopher Basilio MD
[2019-09-02] MEDS: MYCOSTATIN SUSP PO SCH ×4 (11:27→20:46)
[2019-09-02] MEDS: SEPTRA LIQUID PO SCH ×2 (11:28→20:47)
[2019-09-02] MEDS: POTASSIUM CHLORIDE IV SCH ×8 (16:30)
[2019-09-02] MEDS: MAGNESIUM SULFATE IV SCH ×8 (16:30)
[2019-09-02] MEDS: [UNRECOGNIZED DRUG - OTHER] IV SCH ×8 (16:30)
[2019-09-02] MEDS: TPN ELECTROLYTES IV SCH ×8 (16:30)
[2019-09-02] MEDS: MYCAMINE 100 MG in NS 100 ML IV SCH (16:31)
[2019-09-02] MEDS: LIPOSYN 20% 500 ML IV SCH (16:31)
[2019-09-02 17:08] LABS: AGAP 8; ALB/GLOB RATIO 1.1; ALBUMIN 2.6 g/dL (3.5-5.0); ALKALINE PHOSPHATASE 158 U/L (32-104); BUN 25 mg/dL (8-22); CALCIUM 8.5 mg/dL (8.8-10.2); CHLORIDE 108 mmol/L (98-107); COSMO 273; CREATININE 1.2 mg/dL (0.5-0.9); ESTIMATED GFR 45; GLUCOSE 100 mg/dL (70-104); GOT 37 U/L (10-30); GPT 27 U/L (10-36); MAGNESIUM 2.1 mg/dL (1.5-2.7); PHOSPHORUS 2.5 mg/dL (2.7-4.5); POTASSIUM 4.7 mmol/L (3.5-5.1); SODIUM 134 mmol/L (136-145); TCO2 18 mmol/L (25-35); TOTAL PROTEIN 4.9 g/dL (6.3-8.3)
[2019-09-02 17:15] LABS: TOTAL BILIRUBIN < 0.15 mg/dL (0.20-1.00)
--- NOTE | 2019-09-02 17:22 | DISCHARGE SUMMARY ---
ADMISSION DATE: 08/18/2019 DISCHARGE DATE: 09/02/2019 Fax the Discharge Summary to [phone]. This is the agency that will be handling the TPN, trying to get Medicare approval. cc: MD Christopher Delgado MD Fax To: [phone]
[2019-09-02] MEDS: PROTONIX IV SCH (20:46)
[2019-09-02] MEDS: SODIUM CHLORIDE 0.9% INJ SCH (20:46)
[2019-09-03] MEDS: CARAFATE LIQUID PO SCH ×2 (02:30→08:26)
[2019-09-03] MEDS: D5 1/2 NS + KCL 20 MEQ 1,000 ML IV SCH (05:17)
[2019-09-03 07:16] LABS: ESTIMATED GFR 45
[2019-09-03 07:23] LABS: AGAP 10; ALB/GLOB RATIO 0.8; ALBUMIN 2.4 g/dL (3.5-5.0); ALKALINE PHOSPHATASE 155 U/L (32-104); BUN 29 mg/dL (8-22); CALCIUM 8.7 mg/dL (8.8-10.2); CHLORIDE 108 mmol/L (98-107); COSMO 271; CREATININE 1.2 mg/dL (0.5-0.9); GLUCOSE 115 mg/dL (70-104); GOT 36 U/L (10-30); GPT 28 U/L (10-36); PHOSPHORUS 2.9 mg/dL (2.7-4.5); POTASSIUM 4.3 mmol/L (3.5-5.1); SODIUM 132 mmol/L (136-145); TCO2 14 mmol/L (25-35); TOTAL BILIRUBIN < 0.15 mg/dL (0.20-1.00); TOTAL PROTEIN 5.5 g/dL (6.3-8.3)
[2019-09-03] MEDS: LOTRIMIN 1% CREAM TOP SCH (08:25)
[2019-09-03] MEDS: MYCOSTATIN SUSP PO SCH (08:26)
[2019-09-03] MEDS: SEPTRA LIQUID PO SCH (08:27)
--- NOTE | 2019-09-03 09:07 | DISCHARGE SUMMARY ---
ADMISSION DATE: 08/18/2019 DISCHARGE DATE: DIAGNOSES: 1. Intractable nausea and vomiting. 2. Dehydration. HISTORY OF PRESENT ILLNESS/HOSPITAL COURSE: History of multiple operations dating back to the when she was diagnosed with carcinoma of the rectum. She underwent chemotherapy and radiation and an abdominoperineal resection. 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 She was referred the [facility] and was in the hospital there for approximately 2 months. She required at 1 major operation with resection of the leaking small bowel with subsequent anastomotic breakdown from the enteroenterostomy and a reoperation, with development of an ileostomy. She was seen in the hospital here from 07/02/2019 through 07/10/2019 with an open wound in the in the upper abdomen from her incision, the ileostomy in the right upper quadrant, the ureterostomy in the right lower quadrant, and the colostomy in the left lower quadrant. She was having intractable nausea, as well as a significant dehydration. Her creatinine on that admission was 3.5. She did improve with hydration and IV antibiotics. Dr. Mitchell of the infectious disease service was consulted. Subsequent to improvement in her sepsis, dietary advancements were well tolerated, and she was subsequently allowed home on 07/10/2019. No total parenteral nutrition was required during that hospitalization; however, she did have 2 units of blood and multiple rounds of antibiotics. HOSPITAL COURSE: She was subsequently readmitted here on 08/18/2019, again with intractable nausea and vomiting and dehydration. Her creatinine was less than 2 at that time, and she did not let herself get as far gone as she had been on the previous admission in June. She was admitted, and IV fluids were started. Hospitalist as well as Infectious Disease consults were obtained. Dr. Mitchell once again initiated IV antibiotics that she responded to and is presently on oral antibiotics. However, she has intermittent and intractable abdominal pain, nausea and vomiting. There still appears to be some enterocutaneous fistula with bowel contents in the open midline incision that are cleaned away. There has been some difficulty with her ileostomy and excoriation of her skin between the ileostomy and the ureterostomy that has been followed by the wound nurse. Initially we stopped her oral diet after she was eating some and initiated TPN with the thought that this would help with the fistula. However, this has not really changed much and her diet was resumed. She was occasionally able to tolerate solid food, but not to any substantial degree, and intermittently, once or twice or 3 times a day, she will have projectile vomiting. TPN was subsequently started. The plan is for discharge. She is on oral antibiotics with sips of liquid and with a recommendation for TPN for 4 to 6 weeks in anticipation of hopefully healing this smaller enterocutaneous fistula. It is not likely that she would survive another large operation. She remains debilitated and essentially bed-bound secondary to her paraplegia. Ideally, the TPN will help, and if the fistula resolved, once again we could resume an alimentary diet and stop the TPN in the near future. Discharge is late on 09/02/2019 or early 09/03/2019. cc: MD Jamie Delgado MD
[2019-09-03 11:47] VITALS: BP 112/58
== END 2019-09-03 14:24 | disposition home health service (06) | DRG 872 ==
LOC: SUPCPDRO → EDUNIT# 19:49 → EDBD 19:49 → EDSTATUS 19:49 → ED 19:49 → 4N 21:44 → SUATTDRO 21:44
PROVIDERS: ADMIT Internal Medicine; ATTEND Surgery

== ENCOUNTER 2019-09-16 15:46 | Inpatient (IN) ==
[2019-09-16] MEDS ORDERED: NS 1,000 ML IV ONE (16:50)
[2019-09-16] MEDS ORDERED: ZOFRAN ODT PO ONE (16:50)
--- NOTE | 2019-09-16 17:13 | Diag Imaging Result Doc PS360 ---
EXAM: CHEST-1 VIEW INDICATION: poss sepsis TECHNIQUE: One view COMPARISON: 08/18/2019 FINDINGS: There is a stable right central line. The lungs are grossly clear. There is no discrete pleural fluid collection or pneumothorax. The cardiomediastinal silhouette and central vasculature are grossly unremarkable. IMPRESSION: No evidence of acute pathology by plain radiograph. Electronically signed by Aron Henderson 09/16/2019 5:11 PM
[2019-09-16 18:05] LABS: BASO# 0.01 X1000 (0.0-0.2); BASO% 0.1 % (0.0-0.8); EOS# 0.03 X1000 (0.0-0.7); EOS% 0.3 % (0.0-10.0); HEMATOCRIT 38.2 % (37.0-47.0); HEMOGLOBIN 12.1 g/dL (12.0-16.0); IMM GRAN# 0.03 X1000 (0.0-0.04); IMM GRAN% 0.3 % (0.0-0.5); LYMPH# 0.76 X1000 (1.2-3.4); LYMPH% 7.5 % (20.5-51.1); MCH 27.4 PG (27-31); MCHC 31.7 g/dL (33-37); MCV 86.6 FL (81-99); MONO# 0.66 X1000 (0.11-0.59); MONO% 6.5 % (1.7-9.3); MPV 9.9 FL (7.4-10.4); NEUT% 85.3 % (42.2-75.2); PLT 384 X1000 (130-400); RBC 4.41 XMIL (4.2-5.4); RDW 17.2 % (11.5-14.5); WBC 10.19 X1000 (4.8-10.8)
[2019-09-16 18:10] LABS: INR 0.95; PROTIME 12.8 Seconds (11.0-16.0)
[2019-09-16 18:11] LABS: PTT 40.1 Seconds (22.3-41.8)
[2019-09-16 18:33] LABS: MAGNESIUM 2.3 mg/dL (1.5-2.7)
--- NOTE | 2019-09-16 18:42 | PROVIDER DOCUMENTATION ---
This chart was entered by Shoshana Prather Scribe, acting as scribe for Trever Higgins MD. HPI-General Adult - General Source: patient - History of Present Illness -Gen Adult Nature of Presenting Problems: Patient is a 64 year old female who presents to the ED via EMS with nausea, vomiting, loss of appetite and weakness. Anorexic x 3 days. States symptoms have been present for 3 days. Reports having blood work done today and was informed her potassium was 7. Denies fever. States having multiple abdominal surgeries. Reports she has an ileostomy and urostomy. States last abdominal surgery was April 19, [address] Elaine at [facility]. 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 Location of Pain/Injury: reports: none Quality of Pain: reports: none Severity: reports: mild Onset/Duration: reports: 3 days ago Timing: reports: still present Context/Activities at Onset: reports: light activity Associated Symptoms: reports: loss of appetite, nausea, vomiting, weakness Similar Symptoms Previously?: Yes Recently seen or treated by another doctor?: No <Trever Higgins - Last Filed: 09/16/19 18:39> <Bibi Thompson - Last Filed: 09/16/19 22:30> - General Chief Complaint: Post Op Complaint Stated Complaint: post op complaint Time Seen by Provider: 09/16/19 16:35 Allergies/Adverse Reactions: Patient Allergies Allergy/AdvReac Type Severity Reaction Status Date / Time meperidine HCl * Allergy RASH Verified 09/16/19 20:58 [From Demerol] Penicillins Allergy RASH Verified 09/16/19 20:58 cefepime AdvReac Severe Altered Verified 09/16/19 20:58 mental status adhesive tape AdvReac RASH Verified 09/16/19 20:58 minocycline AdvReac NAUSEA/VOMI Verified 09/16/19 20:58 TING Home Medications: Home Medication List Medication Instructions Recorded Confirmed Last Taken Type Ondansetron Odt [Zofran Odt] 4 mg PO Q4H PRN PRN 07/02/19 09/16/19 Unknown History Sulfamethoxazole/Tmp D.s. [Septra 1 ea PO Q12H #30 tab 09/01/19 09/16/19 Unknown Rx Ds] Hydrocodone/Acetaminophen 1 tab PO Q6H PRN #30 tab 09/02/19 09/16/19 Unknown Rx [Hydrocodone-Acetamin 10-325 mg] Fluconazole 200 mg PO DAILY 09/16/19 09/16/19 Unknown History Review of Systems - Adult - REVIEW OF SYSTEMS - ADULT Constitutional: reports: no symptoms reported. denies: chills, fever Eyes: reports: no symptoms reported Ears, Nose, Mouth & Throat: reports: no symptoms reported Cardiovascular: reports: no symptoms reported Respiratory: reports: no symptoms reported Gastrointestinal: reports: see HPI, nausea, poor appetite, vomiting. denies: abdominal pain Genitourinary: reports: no symptoms reported Musculoskeletal: reports: see HPI, muscle weakness Integumentary: reports: no symptoms reported Neurological: reports: no symptoms reported Psychiatric: reports: no symptoms reported Endocrine: reports: no symptoms reported Hematologic/Lymphatic: reports: no symptoms reported Allergic/Immunologic: reports: no symptoms reported All Other Systems: Reviewed and Negative <Trever Higgins - Last Filed: 09/16/19 18:39> Past History - Adult - PAST MEDICAL HISTORY-ADULT Review of Records: reports: Nursing Assessment Review, Medications Reviewed, Social history reviewed & non-contributory. Major Childhood Illnesses: reports: denies history Cardiovascular: reports: denies history Respiratory: reports: denies history Gastrointestinal: reports: cancer (colon) Obstetrical/Gynecological: reports: denies history Genitourinary: reports: kidney disease, other (bladder removed) Musculoskeletal: reports: denies history Neurological: reports: denies history Psychiatric: reports: denies history Endocrine/Immune: reports: denies history Other Conditions: reports: denies history - PRIOR SURGERIES/PROCEDURES Surgical/Procedure History: reports: hysterectomy, breast (reduction), other (colostomy; urostomy) - IMMUNIZATION STATUS Childhood Immunizations: See Nurse Assessment Flu Vaccine: See Nurse Assessment - FAMILY HISTORY Family History: reviewed, not pertinent - SOCIAL HISTORY Smoking: denies Substance Use: denies Living Situation: family <Trever Higgins - Last Filed: 09/16/19 18:39> Physical Exam-General - PHYSICAL EXAM-ADULT Initial Vital Signs Reviewed: Yes - CONSTITUTIONAL General Appearance: alert, no apparent distress. negative: lethargic - EYES Eyes: PERRL/EOMI - HEAD, EARS, NOSE, MOUTH & THROAT HENMT: normocephalic/atraumatic, moist mucous membranes, other (dry mucous membranes) - NECK Neck: full range of motion, supple - RESPIRATORY Respiratory: chest non-tender, lungs clear, normal breath sounds. negative: wheezing - CARDIOVASCULAR Cardiovascular: regular rate, rhythm. negative: tachycardia, systolic murmur - GASTROINTESTINAL (ABDOMEN) Abdominal Exam: non tender, soft, tenderness, other (lower midline surgical site with erythema and drainage. ileostomy and urostomy present. BS decreased). negative: rigid - MUSCULOSKELETAL Extremity: non-tender, normal inspection. negative: pedal edema - SKIN Integumentary: normal turgor, erythema (midline abdominal surgical site.). 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 negative: aphasia, facial droop - PSYCHIATRIC Psych/Mental Status: normal mood/affect, normal thought content, normal thought process, oriented x 3. negative: paranoid <Trever Higgins - Last Filed: 09/16/19 18:39> Progress - PLAN OF CARE/RESULTS Result Diagrams: 09/16/19 17:20 - XRAY 1 XRAY Study: Chest Impression: See EMR Report ( EXAM: CHEST-1 VIEW INDICATION: poss sepsis TECHNIQUE: One view COMPARISON: 08/18/2019 FINDINGS: There is a stable right central line. The lungs are grossly clear. There is no discrete pleural fluid collection or pneumothorax. The cardiomediastinal silhouette and central vasculature are grossly unremarkable. IMPRESSION: No evidence of acute pathology by plain radiograph. Electronically signed by Aron Henderson 09/16/2019 5:11 PM 09/16/19 1711 Interpreting Physician: Aron Henderson MD Dictated Date/Time: 09/16/19 1709 cc: Trever Higgins MD;) - CHANGE OF SHIFT REPORT (ED Provider) 1 Report Given and Care Transferred to:: Dr Thompson Time of Transfer: 19:00 <Trever Higgins - Last Filed: 09/16/19 18:39> - PLAN OF CARE/RESULTS Progress/Plan/Lab Results: Vital Signs - 8 hr 09/16/19 16:35 09/16/19 20:57 Temperature 98.6 F Pulse Rate 120 H Respiratory Rate 20 Blood Pressure 83/54 O2 Sat by Pulse Oximetry 99 99 Laboratory Results - last 24 hr 09/16/19 09/16/1909/16/20 17:20 17:20 17:20 WBC 10.19 RBC 4.41 Hgb 12.1 Hct 38.2 MCV 86.6 MCH 27.4 MCHC 31.7 L RDW Std Deviation 17.2 H Plt Count 384 MPV 9.9 Immature Gran % (Auto) 0.3 Neut % (Auto) 85.3 H Lymph % (Auto) 7.5 L [place] % (Auto) 6.5 Eos % (Auto) 0.3 Baso % (Auto) 0.1 Immature Gran # (Auto) 0.03 Neut # (Auto) 8.70 H Lymph # (Auto) 0.76 L Austin # (Auto) 0.66 H Eos # (Auto) 0.03 Baso # (Auto) 0.01 PT INR PTT (Actin FS) Sodium 128 L Potassium 6.7 H* Chloride 100 Carbon Dioxide 11 L Anion Gap 17 BUN 54 H Creatinine 3.3 H Estimated GFR/1.73 m2 14 BUN/Creatinine Ratio 16 Glucose 89 Calculated Osmolality 271 Calcium 13.7 H* Magnesium 2.3 Total Bilirubin 0.25 AST 29 ALT 41 H Alkaline Phosphatase 262 H Creatine Kinase 18 L Troponin T High Sens Total Protein 7.4 Albumin 4.0 Globulin 3.4 Albumin/Globulin Ratio 1.2 Plasma Lactate Urine Source Urine Color Urine Turbidity Urine pH Ur Specific [place] Urine Protein Ur Glucose (Stick) Ur Ketones (Stick) Urine Blood Urine Nitrite Urine Bilirubin Urobilinogen Dipstick Urine Leukocytes Urine WBC (Auto) Urine RBC (Auto) U Epithel Cells (Auto) Urine Bacteria (Auto) Urine Crystals Small Round Cells Urine Casts Urine Yeast-like Cells Acetone Level NEGATIVE 09/16/19 09/16/19 09/16/19 17:20 17:20 17:20 WBC RBC Hgb Hct MCV MCH MCHC RDW Std Deviation Plt Count MPV Immature Gran % (Auto) Neut % (Auto) Lymph % (Auto) [place] % (Auto) Eos % (Auto) Baso % (Auto) Immature Gran # (Auto) Neut # (Auto) Lymph # (Auto) [place] # (Auto) Eos # (Auto) Baso # (Auto) PT 12.8 INR 0.95 PTT (Actin FS) 40.1 Sodium Potassium Chloride Carbon Dioxide Anion Gap BUN Creatinine Estimated GFR/1.73 m2 BUN/Creatinine Ratio Glucose Calculated Osmolality Calcium Magnesium Total Bilirubin AST ALT Alkaline Phosphatase Creatine Kinase Troponin T High Sens 26 H Total Protein Albumin Globulin Albumin/Globulin Ratio Plasma Lactate 1.6 Urine Source Urine Color Urine Turbidity Urine pH Ur Specific [place] Urine Protein Ur Glucose (Stick) Ur Ketones (Stick) Urine Blood Urine Nitrite Urine Bilirubin Urobilinogen Dipstick Urine Leukocytes Urine WBC (Auto) Urine RBC (Auto) U Epithel Cells (Auto) Urine Bacteria (Auto) Urine Crystals Small Round Cells Urine Casts Urine Yeast-like Cells Acetone Level 09/16/19 09/16/19 20:08 20:45 WBC RBC Hgb Hct MCV MCH MCHC RDW Std Deviation Plt Count MPV Immature Gran % (Auto) Neut % (Auto) Lymph % (Auto) [place] % (Auto) Eos % (Auto) Baso % (Auto) Immature Gran # (Auto) Neut # (Auto) Lymph # (Auto) [place] # (Auto) Eos # (Auto) Baso # (Auto) PT INR PTT (Actin FS) Sodium Potassium Chloride Carbon Dioxide Anion Gap BUN Creatinine Estimated GFR/1.73 m2 BUN/Creatinine Ratio Glucose Calculated Osmolality Calcium Magnesium Total Bilirubin AST ALT Alkaline Phosphatase Creatine Kinase Troponin T High Sens Total Protein Albumin Globulin Albumin/Globulin Ratio Plasma Lactate 1.2 Urine Source CATH Urine Color ORANGE Urine Turbidity TURBID Urine pH 5.5 Ur Specific [place] 1.014 Urine Protein 50 A Ur Glucose (Stick) NEGATIVE Ur Ketones (Stick) NEGATIVE Urine Blood NEGATIVE Urine Nitrite NEGATIVE Urine Bilirubin NEGATIVE Urobilinogen Dipstick NORMAL Urine Leukocytes MODERATE A Urine WBC (Auto) TNTC A Urine RBC (Auto) TNTC A U Epithel Cells (Auto) >10 A Urine Bacteria (Auto) 2+ Urine Crystals CA OXALATE PRESENT Small Round Cells NONE SEEN Urine Casts NONE SEEN Urine Yeast-like Cells NONE SEEN Acetone Level Orders Category Date Time Status Cardiac Monitoring DIRECTED Care 09/16/19 16:56 Active IV Insertion ORDERED Care 09/16/19 16:56 Completed Notify MD of + Sepsis Screen NOW Care 09/16/19 16:56 Active Notify Physician As Ordered Care 09/16/19 16:56 Active Saline Loc NOW Care 09/16/19 16:48 Active CHEST-1 VIEW [RAD] Stat Exams 09/16/19 16:56 Completed ACETONE SERUM [CHEM] Stat Lab 09/16/19 17:20 Completed BLOOD CULTURE [BLDCUL] Stat Lab 02/17/20 17:20 Ordered CBC WITH DIFF [HEME] Stat Lab 09/16/19 17:20 Completed CK PROFILE [SP CHEM] Stat Lab 09/16/19 17:20 Completed COMPREHENSIVE METABOLIC PANEL [CHEM] Stat Lab 09/16/19 17:20 Completed LACTATE, PLASMA [CHEM] Lab 09/16/19 17:20 Completed LACTATE, PLASMA [CHEM] Lab 09/16/19 20:45 Completed LACTATE, PLASMA [CHEM] Lab 09/16/19 23:00 Uncollected MAGNESIUM [CHEM] Stat Lab 09/16/19 17:20 Completed PROTIME WITH INR [COAG] Stat Lab 09/16/19 17:20 Completed PTT [COAG] Stat Lab 09/16/19 17:20 Completed ROUTINE CULTURE [RM] Routine Lab 09/16/19 20:05 Received TROPONIN T HIGH SENSITIVITY Stat Lab 09/16/19 17:20 Completed URINALYSIS W/POSS RFLX CULT [URINALYSIS] Stat Lab 09/16/19 20:08 Completed URINE CULTURE [RM] Routine Lab 09/16/19 20:08 Received URINE MANUAL MICROSCOPIC [URINALYSIS] Stat Lab 09/16/19 20:08 Completed 0.9% Sodium Chloride Inj [Ns] 1,000 ml Med 09/16/19 16:50 Discontinued IV 999 mls/hr Calcium Gluconate 1 gm Med 09/16/19 22:08 Ordered 0.9% Sodium Chloride Inj [Ns] 50 ml IV NOW Hydromorphone [Dilaudid] Med 09/16/19 22:07 Once 1 mg IV NOW ONE Ondansetron Odt [Zofran Odt] Med 09/16/19 16:50 Discontinued 4 mg PO NOW ONE Promethazine [Phenergan] Med 09/16/19 22:07 Once 12.5 mg IV NOW ONE Sodium Chloride 0.9% Med 09/16/19 22:07 Once 10 ml INJ NOW ONE Sodium Polystyrene [Kayexalate] Med 09/16/19 22:07 Once 30 gm PO NOW ONE Oxygen Device Stat Oth 09/16/19 16:56 Completed EKG [EKG] Stat Ther 09/16/19 16:49 Ordered Result Diagrams: 09/16/19 17:20 09/16/19 17:20 - REASSESSMENT Reassessment #1 Time Reassessed: 22:10 Status: unchanged (Patient continues to have nausea and vomiting.) - CONSULTS/PCP/HOSPITALIST Notification #1 *Consult/PCP/Hospitalist*: Dr. Cespedes Time Discussed: 22:29 Consult Disposition: Admit - CHANGE OF SHIFT REPORT (ED Provider) 2 Report Given and Care Transferred to:: Assumed care of this patient at shift aaron nge from Dr. Higgins. Items Pending: Labs, Other (dispo) <Bibi Thompson - Last Filed: 09/16/19 22:30> Departure <Trever Higgins - Last Filed: 09/16/19 18:39> - Departure Date of Disposition Decision: 09/16/19 Time of Disposition Decision: 22:29 Certified Medical Emergency: Emergent - Critical Care Note This patient required my direct & personal management of CC.: No <Bibi Thompson - Last Filed: 09/16/19 22:30> - Departure DIAGNOSIS: Hyperkalemia, Nausea & vomiting Disposition: ADMITTED INPATIENT 09 Condition: Stable Referrals and Follow-Ups: None,PCP [Primary Care Provider] - Attestation - Physician/ HANG Attestation The physician spent face to face time with patient:: Yes Advanced Practice Provider documentation review:: Supervising physician onsite and consulted in the evaluation and care of this patient. The physician did have a face to face encounter with the patient. <Trever Higgins - Last Filed: 09/16/19 18:39> - Physician/ HANG Attestation Patient care was provided by Advanced Practice Provider:: No The physician spent face to face time with patient:: Yes Advanced Practice Provider documentation review:: Supervising physician onsite and consulted in the evaluation and care of this patient. The physician did have a face to face encounter with the patient. <Bibi Thompson - Last Filed: 09/16/19 22:30> This chart was documented by the indicated scribe, (Shoshana Prather Scribe) and accurately reflects the services I performed and decisions made by me, Natalie Higgins MD, as attested by the provider's signature.
[2019-09-16 19:47] LABS: AGAP 17; ALB/GLOB RATIO 1.2; ALKALINE PHOSPHATASE 262 U/L (32-104); BUN 54 mg/dL (8-22); CALCIUM 13.7 mg/dL (8.8-10.2); CHLORIDE 100 mmol/L (98-107); COSMO 271; CREATININE 3.3 mg/dL (0.5-0.9); ESTIMATED GFR 14; GLUCOSE 89 mg/dL (70-104); GOT 29 U/L (10-30); GPT 41 U/L (10-36); POTASSIUM 6.7 mmol/L (3.5-5.1); SODIUM 128 mmol/L (136-145); TCO2 11 mmol/L (25-35); TOTAL BILIRUBIN 0.25 mg/dL (0.20-1.00); TOTAL PROTEIN 7.4 g/dL (6.3-8.3)
[2019-09-16 19:48] LABS: ACETONE SERUM NEGATIVE (NEGATIVE)
[2019-09-16 20:31] LABS: URINE SOURCE CATH
[2019-09-16 20:35] LABS: BILIRUBIN URINE NEGATIVE (NEGATIVE); BLOOD URINE NEGATIVE (NEGATIVE); COLOR ORANGE; GLUCOSE URINE NEGATIVE (NEGATIVE); KETONE URINE NEGATIVE (NEGATIVE); LEUKOCYTES URINE MODERATE (NEGATIVE); NITRITE URINE NEGATIVE (NEGATIVE); PH URINE 5.5; PROTEIN URINE 50 mg/dL (NEGATIVE); SP GRAVITY URINE 1.014; TURBIDITY URINE TURBID (CLEAR); UROBILINOGEN URINE NORMAL (NORMAL)
[2019-09-16 20:47] LABS: UR EPITHELIAL CELLS >10 /HPF (<10); URINE BACTERIA 2+ /HPF; URINE RBC TNTC /HPF (<10); URINE WBC TNTC /HPF (<10)
[2019-09-16 20:58] LABS: URINE CASTS NONE SEEN; URINE CRYSTALS CA OXALATE PRESENT; URINE YEAST NONE SEEN
[2019-09-16 20:59] LABS: URINE SMALL ROUND CELLS NONE SEEN
[2019-09-16] MEDS ORDERED: PHENERGAN IV ONE (22:07)
[2019-09-16] MEDS ORDERED: SODIUM CHLORIDE 0.9% INJ ONE (22:07)
[2019-09-16] MEDS ORDERED: DILAUDID IV ONE (22:07)
[2019-09-16] MEDS ORDERED: KAYEXALATE PO ONE (22:07)
[2019-09-16] MEDS ORDERED: CALCIUM GLUCONATE 1 GM in NS 50 ML IV ONE (22:08)
[2019-09-16] MEDS ORDERED: HUMULIN R IV ONE ×2 (22:28→23:18)
[2019-09-16] MEDS ORDERED: D50W 500 ML IV SCH (22:30)
[2019-09-16] MEDS ORDERED: LASIX IV ONE (23:18)
[2019-09-16] MEDS ORDERED: D50W SYRINGE IV ONE (23:18)
[2019-09-17 00:58] LABS: RETIC% 0.69 % (0.8-2.1); RETIC-HE 28.4 PG (28.2-36.6)
[2019-09-17] MEDS ORDERED: SODIUM CHLORIDE 0.9% INJ PRN (01:06)
[2019-09-17] MEDS ORDERED: TYLENOL PO PRN (01:06)
[2019-09-17] MEDS ORDERED: PHENERGAN IV PRN (01:06)
[2019-09-17] MEDS: SODIUM BICARBONATE 8.4% 100 MEQ in D5W 1,000 ML IV SCH ×4 (02:27→21:35)
[2019-09-17] MEDS: HEPARIN SUBQ SCH ×2 (02:27→14:44)
[2019-09-17 02:52] LABS: CREATININE 3.2 mg/dL (0.5-0.9); POTASSIUM 5.7 mmol/L (3.5-5.1)
[2019-09-17 05:27] LABS: ALLEN TEST YES; BLOOD TYPE ARTERIAL; HCO3-(ACT) 15.6 mmoll (20.0-26.0); PCO2(98.6) 27 mmHg (35-45); PO2(98.6) 105 mmHg (60-100); SAMPLE BLOOD; pH(98.6) 7.29 (7.35-7.45)
[2019-09-17 05:29] LABS: MODALITY ROOM AIR
--- NOTE | 2019-09-17 05:57 | HISTORY AND PHYSICAL ---
REASON FOR ADMISSION: Intractable nausea and vomiting for the last 3 days. HISTORY OF PRESENT ILLNESS: Ms. Thao Thompson is an unfortunate 64-year-old white female with a history of colon cancer who underwent a bowel resection secondary to a fistula in March of last year. She was then continued on TPN which has been since discontinued in mid July of this year. She states that her oral intake has unmet the target levels of 1500 calories a day. She only eats just below 1000 calories a day. She states she has been getting weak for the last couple of weeks, but things have compounded with her having intractable nausea and vomiting for the last 3 days. Oddly enough, she denies any abdominal pain, fever or chills or genitourinary complaints. She does currently have an ileostomy and a urostomy. She says that she is not having to frequently empty her ileostomy bag or urostomy bag. No change in the color of her urine. She admits to having chronic dyspnea and weakness for several months. No PND or orthopnea. No cough. No chest pain per se. No focal neurological complaints. REVIEW OF SYSTEMS: Somewhat limited due to the fact that the patient was partially drowsy from recently receiving Phenergan and Dilaudid. ALLERGIES: Penicillin, Demerol, and adhesives. She is also allergic to Maxipime and minocycline. HOME MEDICATIONS: 1. Fluconazole 20 mg daily. 2. Jerome 10 q.6 p.r.n. 3. Zofran q.4h p.r.n. 4. Septra 1 b.i.d. PAST SURGICAL HISTORY: Colon resection, ileostomy, colostomy, urostomy, and hysterectomy. PAST MEDICAL HISTORY: Cauda equina syndrome. Infected cyst of the sacral area. Enterocutaneous fistula. Stage 3 kidney disease. SOCIAL HISTORY: Does not smoke, drink, or use illicit drugs. She is actually wheelchair bound for now. LABORATORY: White count 76024, hemoglobin and hematocrit 12 and 38, and platelets 384,000, and 85% neutrophils. PTT is normal. Sodium 128, potassium 6.7, BUN 54, and creatinine 3.3. Last creatinine was 1.9. Last BUN was 38. This was on 09/12. Calcium 13.7 up from 8.7 two weeks ago. Magnesium 2.3. AST 29, ALT 41, alkaline phosphatase 262, and albumin is 4. Urine protein 50 epithelial cells, greater than 10 and 2+ bacteria. Too numerous to count WBCs and RBCs. All oxalate crystals present. Chest film with no acute pathology noted. PHYSICAL EXAMINATION: VITAL SIGNS: Blood pressure is 83/54, heart rate 120, respiratory rate 20, and temperature 98.6 degrees. She is 99% on room air. GENERAL: She is a middle-aged woman who is chronically ill. She is alert and oriented to person, place, and time, but a little drowsy. HEENT: Head is normocephalic, atraumatic. Eyes: BRITTANY. EOMI. She is anicteric. Not pale. ENT exam shows moderate xerostomia. Two shallow ulcers on the right lateral border of tongue. No cyanosis. NECK: Supple. No JVD or carotid bruit. No thyromegaly. The patient has decreased skin turgor. CHEST: Clear to auscultation with good air entry both lung dickens. Patient has a PermCath right pectoral area. No surrounding erythema or exudation noted. CARDIOVASCULAR: First and second heart sounds heard. No gallops or rubs. Regular. ABDOMEN: The patient has midline scar in the abdomen. Keep dressing on the left lower quadrant area where her colostomy needs to be. The patient has a functional ileostomy which is oozing around the site of the bag dark greenish stool, and just inferior to that urostomy with clear jose urine. Bowel sounds surprisingly slightly hyperactive, but no tenderness elicited. Abdomen is soft. RECTAL: Exam deferred. EXTREMITIES: Patient has decreased distal pulse volumes, symmetrical, and regular. No edema, clubbing, or peripheral cyanosis. NEUROLOGIC: No gross focal deficits appreciated. SKIN: I did not examine the sacral area because the patient was very uncomfortable, but overall there is no overt breakdown elsewhere. MUSCULOSKELETAL: Patient has mild to moderate sarcopenia noted. ASSESSMENT: 1. Acute kidney injury. 2. Hypercalcemia, etiology yet to be determined. Could be related to immobilization or metastatic disease. 3. Hyperkalemia secondary to SRINATH. 4. Hypotension secondary to dehydration from decreased intravascular volume. PLAN: The patient is not meeting her nutritional needs. We will consult dietitian for further input. In the interim, our primary goal now is to correct all electrolyte derangements. We will involve IV fluids to restore intravascular volume. However, potassium will be corrected. Potassium which I believe is due to acute on chronic kidney injury from poor intravascular volume, will be corrected with the usual regimen of Kayexalate, insulin, glucose, and bicarb drip. Hypercalcemia also occurred with fluids, and will be given a small dose of Lasix to encourage further loss. Vitamin D levels intact. PTH and phosphorus have been ordered. Because of concern of the patient's nutritional status, I have ordered a bunch of vitamin and trace elements to be followed. CT abdomen and pelvis was also ordered to ensure patient does not have any evidence of partial small-bowel obstruction. If need be, general surgery could be consulted. Otherwise, patient to be treated symptomatically for nausea and pain. cc: MD Ayan Linares MD MTDD
[2019-09-17 06:42] LABS: CALCIUM 14.1 mg/dL (8.8-10.2)
--- NOTE | 2019-09-17 07:44 | EKG Report ---
Test Performed on : 09/17/2019 00:14:30 AM Test Reason : hyperkalemia Blood Pressure : / mmHG Vent. Rate : 099 BPM Atrial Rate : 099 BPM P-R Int : 184 ms QRS Dur : 114 ms QT Int : 330 ms P-R-T Axes : 077 025 061 degrees QTc Int : 423 ms Normal sinus rhythm. Low voltage QRS Borderline ECG When compared with ECG of 20-AUG-2019 07:32, No significant change was found Confirmed by Enedina Perrin MD ([id number]) on 09/18/2019 12:59:55 PM
[2019-09-17] MEDS: DILAUDID IV PRN (07:53)
[2019-09-17] MEDS ORDERED: BLISTEX MEDICATED BERRY LIP BALM TOP PRN (07:55)
[2019-09-17] MEDS: NORCO-10 PO PRN ×2 (08:13→21:36)
[2019-09-17 08:38] LABS: BASO# 0.01 X1000 (0.0-0.2); BASO% 0.1 % (0.0-0.8); EOS# 0.09 X1000 (0.0-0.7); EOS% 1.2 % (0.0-10.0); HEMATOCRIT 31.6 % (37.0-47.0); HEMOGLOBIN 9.9 g/dL (12.0-16.0); LYMPH% 17.4 % (20.5-51.1); MCHC 31.3 g/dL (33-37); MCV 86.3 FL (81-99); MONO# 0.76 X1000 (0.11-0.59); MONO% 10.2 % (1.7-9.3); MPV 9.9 FL (7.4-10.4); NEUT# 5.32 X1000 (1.4-6.5); NEUT% 71.1 % (42.2-75.2); PLT 310 X1000 (130-400); RBC 3.66 XMIL (4.2-5.4); RDW 16.9 % (11.5-14.5); WBC 7.48 X1000 (4.8-10.8)
--- NOTE | 2019-09-17 08:49 | PROGRESS NOTE ---
DATE: 09/17/2019 SUBJECTIVE: The patient is complaining of pain. She has not been eating or drinking properly at home. She came in dehydrated and also acidotic. Her bicarbonate level was 11 upon admission, it is a little bit better at 15. She is hypercalcemic. She has an acute on chronic kidney disease. Her blood pressure is borderline low. As per the patient, the wound on her abdomen has been having some secretions and does not smell good. Also, the wound on her sacral area was doing fine and suddenly started to have some discharge. I checked both, probably the wound at the level of the abdomen is infected, but I see some erythematosus changes around it. I think this is chronic also. I will ask Infectious Disease Department and Surgery Department to evaluate this patient. Also, I will get the russian history professor to evaluate this patient due to her acute on chronic kidney disease, acidosis, hypercalcemia, and hyperkalemia. PHYSICAL EXAMINATION: Vital Signs: Temperature 97.6 degrees, pulse 90, respiratory rate 20, blood pressure 90/54, and oxygen saturation 100% on room air. HEENT: Head normocephalic. No trauma. PERRLA. Neck: Supple. No JVD. No masses. Central trachea. Chest: Clear to auscultation. No wheezing. No rales. Abdomen: Soft. Generalized tenderness to palpation. She has multiple abdominal wounds especially in the middle of the abdomen with some secretion. She has a right ileostomy and also right urostomy and left colostomy. Neurological: The patient is awake and alert. She is oriented x3. She has chronic lower extremity weakness. LABORATORY: Pending CBC. Sodium 134, potassium 5.7, chloride 106, bicarbonate 15, BUN 51, creatinine 3.2, glucose 54, and calcium 14.1. ASSESSMENT AND PLAN: 1. Acute kidney injury on chronic kidney disease. This patient has been getting fluids. Kidney function is about the same with low urine output. I will get the russian history professor to evaluate this patient. Continue with same management for now. 2. Hypercalcemia. Actually, she has lab work from 09/12/2019 that showed an increased calcium level at 12.2. I am not quite sure if this is nutritional disease due to severe dehydration, immobilization or metastatic disease, etiology yet to be determined. 3. Hypercalcemia secondary to acute kidney injury. This is getting better. She received already some calcium and treatment for this. 4. Hypotension secondary to dehydration. She is still intravascularly depleted. She is getting some fluid. She is acidotic. 5. Metabolic acidosis, probably due to acute kidney injury. Continue with IV fluids. She is getting bicarbonate. I will continue with that. 6. Rectal cancer, treated with radiation in the past. 7. Lower extremity weakness, probably due to spinal radiation. This is chronic. 8. Recent Escherichia coli urinary tract infection during previous hospitalization. 9. Possible abdominal wall infection and sacral wound infection. cc: Willis Ledezma MD
[2019-09-17 08:59] LABS: MAGNESIUM 1.9 mg/dL (1.5-2.7)
[2019-09-17] MEDS ORDERED: DIFLUCAN PO SCH (09:00)
[2019-09-17 09:12] LABS: ALBUMIN 3.3 g/dL (3.5-5.0); POTASSIUM 5.1 mmol/L (3.5-5.1); TOTAL BILIRUBIN 0.2 mg/dL (0.20-1.00); TOTAL PROTEIN 6.7 g/dL (6.3-8.3)
[2019-09-17 09:56] LABS: FERRITIN 1840 ng/mL (13-150)
--- NOTE | 2019-09-17 11:08 | Diag Imaging Result Doc PS360 ---
EXAM: CT ABD/PELVIS W/ORAL CONT ONLY 09/17/2019 HISTORY: persistent vomiting TECHNIQUE: This exam was performed using automated exposure control, adjustment of mA or kV according to patient size, and/or use of iterative reconstruction technique. COMMENT: There are dependent changes in both lower lobes posterior costophrenic sulci which were also present at the time the previous study of 08/22/2019. The pleural fluid collections which were present previously are no longer present. There is oral contrast in the stomach and small bowel. There is no evidence of cholelithiasis. Both renal collecting systems are slightly distended. There is an ileal loop conduit in the right lower quadrant. There is an apparent small umbilical hernia. There is no evidence of bowel obstruction. There is an ileostomy just above the ileal loop conduit. There has been hysterectomy. There has been internal fixation of the right hip. There is gas adjacent to the medial gluteal muscle group on the right. There is an apparent fistula extending from this location to the midline posterior and inferior to the sacrum. This was also apparent at the time the previous study. This may communicate with what appears to be a rectal and possibly vaginal stump. There is soft tissue density material anterior to the sacrum similar in appearance to the previous study. There is marked sclerosis of the sacrum which may be due to postirradiation change and/or metastatic disease. The regional skeleton is stable in appearance compared to the previous study. IMPRESSION: No evidence of bowel obstruction. Electronically signed by Tylor Agudelo 09/17/2019 11:05 AM
--- NOTE | 2019-09-17 12:28 | CONSULTATION ---
DATE OF CONSULTATION: 09/17/2019 HISTORY OF PRESENT ILLNESS: I am seeing the patient for Dr. Crocker. Ms. Thao Thompson is a 64- year-old, white female, who has a history of rectal cancer and radiation. This has been complicated by injury to her bladder and also multiple bowel fistulas, requiring difficult surgery. She now has an end ileostomy on the right, a urostomy also on the right. She has a mucous fistula on the left, a midline incision which is draining some fluid. She was readmitted yesterday with dehydration. She has had history of home TPN, which has been stopped recently, and she has not been able to a maintain her calories or her hydration by mouth. She was only hospitalized 2 weeks ago, and is readmitted. We were asked to evaluate her because of her midline incision and also a sacral wound which recently reopened. MEDICATIONS: Fluconazole, [place], Zofran, Septra. ALLERGIES: Penicillin, Demerol, adhesives. PAST SURGICAL HISTORY: As described above. She has also had a hysterectomy. PAST MEDICAL HISTORY: She has cauda equina syndrome, she has an open wound sacral area, history of enterocutaneous fistula, stage 3 kidney disease. SOCIAL HISTORY: She does not smoke. She is wheelchair bound. FAMILY HISTORY: Reviewed, but noncontributory. PHYSICAL EXAMINATION: General: Ms. Thompson is awake and cooperative. HEENT: She has no jaundice. No oral lesions. No cervical or supraclavicular lymphadenopathy. Heart: Regular rate. Lungs: Clear to auscultation and percussion bilaterally. Abdomen: She has a midline incision. There is an opening of this incision that is draining some thin, brown fluid, but there is no anterior abdominal wall cellulitis. She has an end colostomy and urostomy on the right, mucous fistula on the left which is dressed. Skin: She has a wound involving her lower back midline that appears to be clean, but it is open. There is some granulation tissue involving it. She also has a protection pad near her anus as she has a history of vaginal reconstruction. Extremities: She has palpable femoral pulses. No significant peripheral edema. Neurological: She is wheelchair-bound because of weakness involving her legs. LABORATORY DATA: Her white blood cell count is normal, hematocrit is 32%. BUN and creatinine are improved at 52 and 3.0. She might have a urinary tract infection. PLAN: Enterostomal therapist will be consulted, and also our wound care nurse for local wound care of her wounds. She is being rehydrated. There has been a problem maintaining home TPN. She does not seem to eat enough calories, and vomits when she tries to eat too much. I think all of her wound care should be local, and there are no plans for any surgery. cc: Helena Gregg MD
[2019-09-17 15:55] LABS: UR CREAT RANDOM 76.6 mg/dL (11-20); UR PROT RANDOM 46.4 mg/dL
[2019-09-17] MEDS: MERREM 1 GM in NS 50 ML IV SCH (16:13)
[2019-09-17] MEDS: ZYVOX 600 MG/D5W 600 MG/300 ML IVPB IV SCH (16:35)
[2019-09-17] MEDS ORDERED: CALMOSEPTINE OINTMENT TOP PRN (16:41)
--- NOTE | 2019-09-17 17:54 | PROVIDER PROGRESS NOTE ---
Progress Note Chief complaint: I have been vomiting for 3 days. HPI: Mrs. Thompson is a 64-year-old white female with a past medical history of colon cancer 25 years ago that she received high dose radiation therapy for. She has had multiple complications with fistulas and most recently underwent a bowel resection secondary to an iliac fistula in March 2019. She was discharged with TPN at that time and did well with it. Medicare no longer covered TPN and she has not been able to receive it for financial reasons. In July this year she was hospitalized for dehydration and N/V with a stable Creatinine of 1.0. She had labs drawn on 09/12 that revealed a Creatinine of 1.9. She has had a 3 day history of intractable n/v with little to no intake that is well under 1000 calories/day. She reports very little output in her urostomy and ileostomy bag. Her presenting Creatinine now is 3.3. She denies chest pain, shortness of breath, abdominal pain, fever or chills, and dizziness. She does have a decreased appetite, n/v, general malaise, and decreased output. Past medical history: colon rectal cancer with radiation therapy,cauda equina syndrome, infected cyst of the sacral area, enterocutaneous fistulas, Chronic n/v Past surgical history: colon resection, ileostomy, colostomy, urostomy, hysterectomy, vaginal reconstruction Social history: she lives with her at home. She denies alcohol, tobacco, or illicit drug use. Family history: her father had lung cancer. Allergies: penicillin, Demerol, Maxipime, minocycline, and adhesives. Home medications: fluconazole, hydrocodone 10, ondansetron, Sentra-ds Review of systems: 14 point review system complete. All pertinent positives listed above in the HPI. Physical exam: temperature 97.6, pulse 90, respirations 20, blood pressure 90/54, 02 sat 100% on room air. General: chronically ill White female lying in bed in no acute distress. HEENT: normocephalic, atraumatic, pupils equal and reactive, conjunctiva pale, mucous membranes dry. Skin: warm. Multiple abdominal wounds with purulent discharge. Old colostomy area covered with a mepilex. Sacral wound with a dressing in place noted Neck: supple, no evidence of JVD. Cardiovascular: S1S2, regular rate and rhythm. Systolic murmur. Respiratory: lungs clear with equal air entry anteriorly Abdomen: soft, tender to excoriated areas, nondistended. Bowel sounds present. Ilieostomy noted. : not inspected, urostomy noted. Extremities: no clubbing or cyanosis. Generalized edema non pitting to BUE and BLE. Neurological: alert and oriented to person place and time. Labs: WBC 7.48, hemoglobin 9.9, hematocrit 31.6, platelet count 310, sodium 136, potassium 5.1, chloride 103, carbon dioxide 17, BUN 52, creatinine 3.0, albumin 3.3. Intake 150, output 500. Imaging: chest x-ray impression no evidence of acute pathology. Assessment and plan: Acute kidney injury. Likely ischemic acute tubular necrosis related to dehydrati on and hypotension. Could also be from septra taken at home. It has been stopped. We will check urine studies. She is receiving IVF. Continue strict I/O monitoring. Renal imaging ordered. Blood pressure. Stable for now. Fluid volume. Contracted. She is receiving IVF. Metabolic acidosis with respiratory compensation. Likely related to GI loss. Sodium Bicarbonate in place. Hypercalcemia. Likely due to immobility and dehydration. Will observe. Nutrition. We will defer to primary. Ambulation. She will eventually need PT. Medication review. Was on septra at home.
--- NOTE | 2019-09-17 18:41 | INFECTIOUS DISEASE PROGRESS NO ---
DATE: 09/17/2019 PRESENT ILLNESS: Ms. Thompson is back again after having a previous hospitalization with infected sacral and abdominal wounds and a urinary tract infection, which continue to be a problem for her. She came in again this time due to nausea and vomiting with malnutrition and dehydration. She was taking Septra at home, and has now sustained an acute kidney injury. MEDICATIONS: She has been on fluconazole 200 mg by mouth daily, which we will stop today. At home she was taking Septra DS 1 by mouth every 12 hours. PHYSICAL EXAMINATION: Vital Signs: Temperature is 97.6 degrees, pulse rate 88, respiratory rate 20, blood pressure 90/47, her O2 saturation is 100% on room air. General: This is a chronically ill-appearing, middle-aged female. She is lying in bed, currently in no acute distress. HEENT: Atraumatic, normocephalic. Oral mucous membranes are pink and moist. Conjunctivae are pink. Neck: Supple. Trachea is midline. Cardiovascular: Heart rate and rhythm are regular. Normal sinus rhythm on the monitor. Respiratory: Lung sounds are bilaterally clear to auscultation. No work of breathing is noted. Abdomen: Soft, and tender to palpation. There is a urostomy and ileostomy in place as well as a nonfunctioning colostomy with a dressing over top of that. Her mid abdominal wound is erythematous with several streaks of red throughout her abdomen and raw areas of open wounds between the 3 ostomy areas. Neurologic: She is awake, alert, oriented, able to move around in the bed with assistance for movement of her lower extremities. Integumentary: Skin is generally warm and dry. There is a sacral wound, which is deep and has an erythematous wound bed and bloody drainage noted. There is an erythematous, fungal dermatitis noted under her breasts and to the bilateral groin areas and upper thighs. There is a Groshong in place to that right chest site that is covered with a Biopatch, but no obvious edema, erythema or drainage. LABORATORY AND X-RAY: Today her white count is 7.48, hemoglobin 9.9, platelet count 310,000. ABG shows a pH of 7.29, pCO2 of 27, PO2 105 on room air. Her creatinine is 3 with a GFR of 16, total bilirubin is 0.20 AST 24, ALT 31, alkaline phosphatase 195. Yesterday on admission her urine showed WBCs too numerous to count with a 2+ urine bacteria. Her urine, abdominal wounds and blood are all pending and I have just recently obtained a sacral wound culture which is pending. On admission her chest x-ray showed no acute pathology. The EKG shows normal sinus rhythm on the unconfirmed report and abdomen and pelvis CT shows no evidence of bowel obstruction. ASSESSMENT AND PLAN: Ms. Thompson has wounds to her sacrum, abdomen and a possible urinary tract infection. She has previously grown multiple bacteria to these sites including Acinetobacter, Staph hemolyticus and micrococcus species. For this hospitalization, we will start broad-spectrum coverage using Zyvox 600 mg IV every 12 hours and meropenem 1 g IV every 12 hours as a renally modified dose, until the cultures can be obtained. Also, we will discontinue the fluconazole which she was taking at home with no significant improvement. Instead, we will provide micafungin 100 mg IV daily for the fungal dermatitis under her breasts and to the groin and abdominal areas. These plans have been discussed with and recommended by Dr. Mitchell. COMORBIDITIES: For Ms. Thompson include radiation to the pelvic area for rectal cancer that resulted in multiple surgical procedures and infections. She also has chronic nausea and vomiting with difficulty in upkeep of nutrition and hydration, which has resulted in an acute kidney injury. Dictated by GEN Bergeron for Pardeep Mitchell MD cc: Pardeep Mitchell MD [facility]ENTERStanley
[2019-09-17] MEDS: MYCAMINE 100 MG in NS 100 ML IV SCH (18:57)
[2019-09-17] MEDS: ZOFRAN IV PRN (19:06)
[2019-09-18] MEDS: ZYVOX 600 MG/D5W 600 MG/300 ML IVPB IV SCH ×2 (04:25→15:00)
[2019-09-18] MEDS: MERREM 1 GM in NS 50 ML IV SCH ×2 (04:25→14:25)
[2019-09-18 08:01] LABS: HEMATOCRIT 27.3 % (37.0-47.0); HEMOGLOBIN 8.8 g/dL (12.0-16.0); LYMPH# 0.94 X1000 (1.2-3.4); LYMPH% 18.9 % (20.5-51.1); MCH 27.2 PG (27-31); MCHC 32.2 g/dL (33-37); MCV 84.5 FL (81-99); MONO# 0.51 X1000 (0.11-0.59); MONO% 10.2 % (1.7-9.3); MPV 9.5 FL (7.4-10.4); NEUT# 3.43 X1000 (1.4-6.5); NEUT% 68.9 % (42.2-75.2); PLT 211 X1000 (130-400); RBC 3.23 XMIL (4.2-5.4); RDW 16.2 % (11.5-14.5); WBC 4.98 X1000 (4.8-10.8)
[2019-09-18 08:05] LABS: ALBUMIN 2.9 g/dL (3.5-5.0); CALCIUM 11.3 mg/dL (8.8-10.2); CREATININE 2.1 mg/dL (0.5-0.9); PHOSPHORUS 3.6 mg/dL (2.7-4.5); POTASSIUM 3.9 mmol/L (3.5-5.1)
[2019-09-18] MEDS: HEPARIN SUBQ SCH ×2 (09:14→20:11)
[2019-09-18] MEDS: NORCO-10 PO PRN ×2 (09:58→18:47)
[2019-09-18] MEDS ORDERED: NS 1,000 ML IV SCH (10:45)
[2019-09-18] MEDS: NS 1,000 ML IV SCH ×2 (10:57→20:11)
[2019-09-18] MEDS: ZOFRAN IV PRN ×2 (11:19→18:47)
--- NOTE | 2019-09-18 14:05 | PROGRESS NOTE ---
DATE: 09/18/2019 SUBJECTIVE: The patient seems to be feeling a little bit better today. She is still having problem swallowing. I will request a swallow evaluation to see how she does. If she is not able to swallow, probably I will need to put this patient on TPN to help with the nutrition. Numbers are getting better. We will continue with same management. OBJECTIVE: Vital Signs: Temperature 98 degrees, pulse 94, respiratory rate 20, blood pressure 92/53, oxygen saturation 99 on room air. HEENT: Head normocephalic, no trauma. PERRLA. Neck: Supple. No JVD. No masses. Central trachea. Chest: Clear to auscultation. No wheezing. No rales. Abdomen: Soft. Some generalized tenderness to palpation. She has multiple abdominal wounds, especially in the middle of the abdomen with some secretion. She has a right ileostomy and also right urostomy and left colostomy. Neurological: The patient is awake. She is alert. Skin: On her back she has a wound in that is all the way down to probably the bone. It measures between 3 and 4 cm of diameter. Extremities: She has chronic lower extremity weakness. LABORATORY: WBC 4.9, hemoglobin 8.8, hematocrit 27.3, platelets 211,000. Sodium 137, potassium 3.9, chloride 88, bicarbonate 27, BUN 37, creatinine 2.1, glucose 96, calcium 11.3, phosphorus 3.6, magnesium 1.6, albumin 2.9. ASSESSMENT AND PLAN: 1. Acute kidney injury on chronic kidney disease, continue with IV fluids. Kidney function getting better. Nephrology Department on board. 2. Hypercalcemia. This is getting better probably due to immobilization and severe dehydration. 3. Dehydration, seems to be better. 4. Hyperkalemia, resolved. 5. Metabolic acidosis, likely due to acute kidney injury/dehydration. Continue with same treatment. This has resolved. 6. Rectal cancer, treated with radiation in the past. 7. 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 8. Recent Escherichia coli urinary tract infection during previous hospitalization aware. 9. We have a positive urine culture that showed gram-positive cocci, Infectious Disease Department on board. 10. Sacral ulcer, wound care on board. Surgery department already evaluated this patient. 11. Nutritional status. I will request swallow evaluation to see the patient to see if she is going to be able to swallow by herself. If not, likely will need to put this patient on TPN. cc: Willis Ledezma MD
--- NOTE | 2019-09-18 16:36 | INFECTIOUS DISEASE PROGRESS NO ---
DATE: 09/18/2019 PRESENT ILLNESS: The patient is admitted to the hospital with multiple infections involving her pelvis due to her having had previous radiation therapy. Also today the patient noticed that she has developed a rash on both hands. MEDICATIONS: The patient is receiving micafungin, meropenem and Zyvox. PHYSICAL EXAMINATION: Vital Signs: Temperature is 98 degrees, pulse 94, respirations 20, blood pressure is 92/53. General: This is an ill-appearing middle-aged female. She is in no acute distress. She did tell me that she does not have any appetite, however. Head/eyes/ears/nose/throat: No drainage noted from the nose or ears. She does not have any white coating on her tongue. Tongue is moist. Neck: No pain with movement. Lungs: Clear to auscultation. Cardiovascular: Regular heart rate. Abdomen: Soft and nontender. On the left side the patient has a colostomy, but it is not draining anything. On the right side there is an ileostomy and a urostomy both of which are draining. Integument: The patient has reddish, slightly papular rash on both hands. Neurologic: The patient is alert. She can move her extremities although she is weak in her legs. There is no tremor. LABORATORY AND RADIOLOGY: There is no new radiographic study for today. The patient's CBC shows a white count of 4980, hemoglobin 8.8, and platelet count 211,000 creatinine is 2.1. GFR is 24. The patient's urine and abdominal wounds are growing gram-positive cocci. ASSESSMENT AND PLAN: The patient has multiple infections as described above. I plan on continuing micafungin, meropenem and Zyvox. The patient appears to have developed a rash on both of her hands. I have ordered for her Lotrisone cream to put on both hands every 12 hours. The exact cause of the rash is uncertain to me at this time. COMORBIDITIES: The patient had extensive radiation to the pelvis to treat rectal cancer and has resulted in multiple infections and surgical procedures. cc: Pardeep Mitchell MD
[2019-09-18] MEDS: LOTRIMIN 1% CREAM TOP SCH ×2 (17:23→20:15)
[2019-09-18] MEDS: MYCAMINE 100 MG in NS 100 ML IV SCH (17:24)
--- NOTE | 2019-09-18 21:42 | PROVIDER PROGRESS NOTE ---
Progress Note Subjective: Voices tolerating clear liquids without nausea and vomiting. Objective: temperature 97.6, pulse 84, respirations 20, blood pressure 104/46, 02 sat 99% on room air. General: chronically ill White female lying in bed in no acute distress. HEENT: normocephalic, atraumatic, pupils equal and reactive, conjunctiva pale, mucous membranes dry. Skin: warm. Multiple abdominal wounds with purulent discharge. Old colostomy area covered with a mepilex. Sacral wound with a dressing in place noted Neck: supple, 6cm JVD. Cardiovascular: S1S2, regular rate and rhythm. Systolic murmur. Respiratory: lungs clear with equal air entry anteriorly Abdomen: soft, tender to excoriated areas, nondistended. Bowel sounds present. Ilieostomy noted. : not inspected, urostomy noted. Increased output. Extremities: no clubbing or cyanosis. Generalized edema non pitting to BUE and BLE. Neurological: alert and oriented to person place and time. Labs: Wbc 4.98, hemoglobin 8.8, hematocrit 27.3, platelet count 211, sodium 127, potassium 3.9, chloride 88, carbon dioxide 27, BUN 37, creatinine 2.1, calcium 11.3, Albumin 2.9, intake 2650, output 2125. Impression: Acute kidney injury. Likely ischemic acute tubular necrosis related to dehydration, hypotension, Septra DS use. Creatinine and BUN improving. Urine output improved. No change in plan of care. Blood pressure. Stable for now. Fluid volume. Euvolemic. Acid base balance. Stable. Hypercalcemia. Likely due to immobility and dehydration. Improving.We will continue to observe. Nutrition. We will defer to primary. Ambulation. She will eventually need PT. Medication review. Micafungin started. Sodium bicarbonate stopped.
[2019-09-19] MEDS: MERREM 1 GM in NS 50 ML IV SCH ×3 (03:23→22:53)
[2019-09-19] MEDS: ZYVOX 600 MG/D5W 600 MG/300 ML IVPB IV SCH (04:24)
[2019-09-19] MEDS: NS 1,000 ML IV SCH ×2 (06:19→22:52)
[2019-09-19 08:45] LABS: EOS# 0.24 X1000 (0.0-0.7); EOS% 5.4 % (0.0-10.0); HEMATOCRIT 27.2 % (37.0-47.0); HEMOGLOBIN 8.4 g/dL (12.0-16.0); IMM GRAN# 0.02 X1000 (0.0-0.04); IMM GRAN% 0.4 % (0.0-0.5); LYMPH# 0.48 X1000 (1.2-3.4); LYMPH% 10.7 % (20.5-51.1); MCH 27.1 PG (27-31); MCHC 30.9 g/dL (33-37); MCV 87.7 FL (81-99); MONO# 0.49 X1000 (0.11-0.59); MONO% 10.9 % (1.7-9.3); MPV 10.1 FL (7.4-10.4); NEUT# 3.25 X1000 (1.4-6.5); NEUT% 72.6 % (42.2-75.2); PLT 179 X1000 (130-400); RDW 16.4 % (11.5-14.5); WBC 4.48 X1000 (4.8-10.8)
[2019-09-19] MEDS: LOTRIMIN 1% CREAM TOP SCH ×2 (08:56→20:15)
[2019-09-19] MEDS: HEPARIN SUBQ SCH ×2 (08:56→20:14)
[2019-09-19] MEDS: NORCO-10 PO PRN ×2 (08:56→16:41)
[2019-09-19 09:15] LABS: ALBUMIN 2.3 g/dL (3.5-5.0); CALCIUM 10.7 mg/dL (8.8-10.2); CREATININE 1.5 mg/dL (0.5-0.9); PHOSPHORUS 3.2 mg/dL (2.7-4.5)
--- NOTE | 2019-09-19 13:45 | PROVIDER PROGRESS NOTE ---
Progress Note Subjective: Voices one episode of nausea that was relieved with zofran. Tolerating clear liquids and hoping to have her diet increased today. Denies any other uremic complaints. Objective: temperature zero, pulse 82, respirations 14, blood pressure 105/48, 02 sat 99% on room air. General: chronically ill White female lying in bed in no acute distress. HEENT: normocephalic, atraumatic, pupils equal and reactive, conjunctiva pale, mucous membranes dry. Skin: warm. Multiple abdominal wounds with purulent discharge. Old colostomy area covered with a mepilex. Sacral wound with a dressing in place noted Neck: supple, no JVD. Cardiovascular: S1S2, regular rate and rhythm. Soft Systolic murmur. Respiratory: lungs clear with equal air entry anteriorly Abdomen: soft, tender to excoriated areas, nondistended. Bowel sounds present. Ilieostomy noted. : not inspected, urostomy noted. Extremities: no clubbing or cyanosis. Generalized edema non pitting to BLE. Neurological: alert and oriented to person place and time. Labs: Wbc 4.48, hemoglobin 8.4, hematocrit 27.2, platelet count 179, sodium 137, potassium 4.0, chloride 103, carbon dioxide 26, BUN 22, Creatinine 1.5, intake 2110, output 2500. Impression: Acute kidney injury. Likely ischemic acute tubular necrosis related to dehydration, hypotension, Septra DS use. Creatinine and BUN continue to improve. Urine output is excellent. At this time we will sign off. We are available at any time. Blood pressure. Stable. Fluid volume. Euvolemic. Acid base balance. Stable. Nutrition. We will defer to primary. Ambulation. She will need PT. Defer to primary when they feel it is appropriate. Medication review. No changes.
--- NOTE | 2019-09-19 15:11 | PROGRESS NOTE ---
DATE: 09/19/2019 SUBJECTIVE: The patient is feeling better today. The swallow evaluation team checked the patient and they have recommended to put this patient on a soft diet. We will try that first to see how she does. Her kidney function is getting better. Her calcium level is trending down nicely. Electrolytes are improving. OBJECTIVE: Vital Signs: Temperature 98 degrees, pulse 91, respiratory rate 14, blood pressure 117/48, oxygen saturation 98 on room air. HEENT: Head normocephalic. No trauma. PERRLA. Neck: Supple. No JVD. No masses. Central trachea. Chest: Clear to auscultation. No wheezing. No rales. Abdomen: Soft. Some generalized tenderness to palpation. She has multiple abdominal wounds, especially in the middle of the abdomen, with some secretion but is getting better. She has a right ileostomy, also right urostomy, and left colostomy. Neurological Examination: Awake. She is alert. She is not able to move too much her lower extremities and this is chronic, apparently due to radiation. Skin: On her back, she has a wound that is all the way down to the bone. It measures about 3 to 4 cm in diameter. I do not see any strong secretion from that area and seems to be okay. Laboratory: WBC 4.4, hemoglobin 8.4, hematocrit 27.2, platelets 179,000. Sodium 137, potassium 4, chloride 103, bicarbonate 26, BUN 22, creatinine 1.5, glucose 74, calcium 10.7, phosphorus 3.2, albumin 2.3. ASSESSMENT AND PLAN: 1. Acute kidney injury on chronic kidney disease. Continue intravenous fluids. Kidney function is getting much better. Nephrology on board. 2. Hypercalcemia. Continue with intravenous fluids. This is better. 3. Dehydration, resolved. 4. Hyperkalemia, resolved. 5. Metabolic encephalopathy, likely due to acute kidney injury, dehydration, resolved. 6. Rectal cancer, treated with radiation in the past. 7. 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 She has not been walking for a very long time. She is basically bedbound. I will ask physical therapy to start doing some range of motion in bed probably. 8. Recent history of Escherichia coli urinary tract infection during previous hospitalization. Aware. 9. We have a positive culture that showed Enterococcus faecalis urinary tract infection and abdominal wound infection. Also, we have a gram-positive cocci at the level of the wound on her back. Infectious disease department on board. 10. Nutritional status. Swallow evaluation checked this patient and they state that she will probably tolerate a soft diet so we will start with this to see how she does. cc: Willis Ledezma MD
[2019-09-19] MEDS: MARINOL PO SCH (20:14)
[2019-09-19] MEDS: MYCAMINE 100 MG in NS 100 ML IV SCH (23:31)
[2019-09-20] MEDS: NORCO-10 PO PRN ×3 (00:40→20:18)
[2019-09-20] MEDS: MERREM 1 GM in NS 50 ML IV SCH (06:04)
[2019-09-20 08:28] LABS: CALCIUM 9.6 mg/dL (8.8-10.2); CREATININE 1.4 mg/dL (0.5-0.9); POTASSIUM 3.8 mmol/L (3.5-5.1)
[2019-09-20 08:33] LABS: ALBUMIN 2.4 g/dL (3.5-5.0); CALCIUM 9.4 mg/dL (8.8-10.2); CREATININE 1.4 mg/dL (0.5-0.9); POTASSIUM 3.9 mmol/L (3.5-5.1)
[2019-09-20] MEDS: HEPARIN SUBQ SCH ×2 (09:33→20:18)
[2019-09-20] MEDS: MARINOL PO SCH ×2 (09:33→20:47)
[2019-09-20] MEDS: LOTRISONE CREAM TOP SCH ×2 (10:10→20:21)
[2019-09-20] MEDS: CUBICIN 500 MG in NS 100 ML IV SCH (10:11)
[2019-09-20] MEDS: NS 1,000 ML IV SCH ×4 (10:11→20:54)
--- NOTE | 2019-09-20 13:45 | PROGRESS NOTE ---
DATE: 09/20/2019 SUBJECTIVE: The patient is feeling better. She seems to be tolerating a little bit p.o. We will continue with same management for now. We have a new positive culture from the wound that showed enterococcal faecalis. Dr. Mitchell has placed this patient on daptomycin today. Let us see how she does. OBJECTIVE: Vital Signs: Temperature 98.1 degrees, pulse 71, respiratory rate 14, blood pressure 107/51, oxygen saturation 100% on room air. HEENT: Head normocephalic. No trauma. PERRLA. Neck: Supple. No JVD. No masses. Central trachea. Chest: Clear to auscultation. No wheezing. No rales. Abdomen: Soft. Some generalized tenderness to palpation. She has multiple abdominal wounds, especially in the middle of the abdomen with some secretion, but it is getting better. She has a right ileostomy and also right urostomy and left colostomy. Neurological: The patient is awake, alert. She does have lower extremity weakness, but this is chronic. Skin: She has a sacral wound. It is infected with enterococcal faecalis. LABORATORY DATA: Sodium 138, potassium 3.8, chloride 107, bicarbonate 22, BUN 17, creatinine 1.4, glucose 79, calcium 9.6, albumin 2.4. ASSESSMENT AND PLAN: 1. Acute kidney injury on chronic kidney disease. I will continue with the IV fluids. This seems to be her baseline and since she is eating, I will decrease the rate from 100 mL/hour to 50 mL/hour and observe. 2. Hypercalcemia, resolved. 3. Dehydration, resolved. 4. Hyperkalemia, resolved. 5. Metabolic encephalopathy, resolved. 6. Rectal cancer, treated with radiation in the past, aware. 7. 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 As per the patient, she has been 25 years bed-bound. Continue physical therapy. 8. Recent history of Escherichia coli urinary tract infection during previous hospitalization. 9. Urine culture showed enterococcal faecalis. Abdominal wound showed enterococcal faecalis as well as the one on her back, the sacral wound. She has been placed on daptomycin. I will wait for the final recommendations of Dr. Mitchell. Probably this patient needs to spend the weekend here. Probably, she can be discharged either Monday or Monday to see how she does. 10. Nutritional status. She seems to be tolerating p.o. some, so we will monitor. cc: Willis Ledezma MD
--- NOTE | 2019-09-20 15:41 | INFECTIOUS DISEASE PROGRESS NO ---
DATE: 09/20/2019 HISTORY OF PRESENT ILLNESS: The patient is admitted to the hospital with multiple infections involving her pelvis and they were caused by the patient having radiation to her pelvis years ago to treat rectal cancer. Also, the patient has a rash on both hands and wrists. MEDICATIONS: The patient currently has been receiving micafungin, meropenem, and Zyvox. PHYSICAL EXAMINATION: Vital Signs: Temperature is 99.1 degrees, pulse 78, respirations 14, blood pressure is 107/49. General: This is an ill-appearing middle-aged female. She is in no acute distress. She told me today she started eating a little bit more. Head/eyes/ears/nose/throat: She can hear my spoken words and see near objects. She does not have any white coating on her tongue. Neck: No pain with movement. Lungs: Clear to auscultation. Cardiovascular: Heart rate is regular. Abdomen And Pelvis: Soft and nontender. On the left side the patient has a colostomy, but it is not draining anything. On the right side, there is an ileostomy and a urostomy, both of which are draining. Also she has a midline incision which also is draining purulent fluid. Extremities: The patient has a light red rash involving both hands and wrists. Neurologic: The patient is alert. She can move her extremities although she is very weak in her legs. The patient does not have a tremor. LABS AND RADIOLOGY: The patient's creatinine today is 1.4. GFR is 30. The patient's cultures from the urine, abdomen, and buttock area are each growing Enterococcus faecalis. Blood cultures are negative at 48 hours. ASSESSMENT AND PLAN: Patient has multiple infections as described above. I discontinued her current antibiotics, namely micafungin, meropenem and Zyvox, and instead I have put the patient on daptomycin. Some of the side effects of the antibiotic including rash, diarrhea, and muscle toxicity have been explained to the patient, who agrees to treatment. I am not using vancomycin in the patient because she already has some renal insufficiency. As regarding the rash on her hands and wrists, I have switched the patient from Lotrimin to Lotrisone cream. COMORBIDITIES: The patient had extensive radiation to the pelvis to treat rectal cancer and this has resulted in multiple infections and surgical procedures. cc: Pardeep Mitchell MD
[2019-09-20] MEDS: DILAUDID IV PRN (16:54)
[2019-09-21] MEDS: DILAUDID IV PRN (02:36)
[2019-09-21 07:54] LABS: ALBUMIN 2.5 g/dL (3.5-5.0); CREATININE 1.3 mg/dL (0.5-0.9); PHOSPHORUS 3.3 mg/dL (2.7-4.5); POTASSIUM 3.8 mmol/L (3.5-5.1)
[2019-09-21] MEDS: CUBICIN 500 MG in NS 100 ML IV SCH (09:43)
[2019-09-21] MEDS: HEPARIN SUBQ SCH ×2 (09:43→21:41)
[2019-09-21] MEDS: NORCO-10 PO PRN ×2 (09:49→21:41)
[2019-09-21] MEDS: MARINOL PO SCH ×2 (09:53→21:41)
[2019-09-21] MEDS: LOTRISONE CREAM TOP SCH ×2 (09:56→21:44)
--- NOTE | 2019-09-21 13:29 | PROGRESS NOTE ---
DATE: 09/21/2019 SUBJECTIVE: The patient is feeling better. She seems to be tolerating p.o. better as well. I will continue with antibiotics for her multiple infections. I will discuss the case with Dr. Mitchell tomorrow to see if she can go home at some point with IV or p.o. treatment. OBJECTIVE: Vital Signs: Temperature 97.8 degrees, pulse 77, respiratory rate 18, blood pressure 111/46, oxygen saturation 100% on room air. HEENT: Head normocephalic, no trauma, PERRLA. Neck: Supple. No JVD. No masses. Central trachea. Chest: Clear to auscultation. No wheezing. No rales. Abdomen: Soft, generalized tenderness to palpation. She has multiple abdominal wounds, especially in the midline of the abdomen. She has a right ileostomy and also right urostomy and left colostomy. Neurological: Patient is awake she is alert. She does have chronic lower extremity weakness. Skin: She has as a sacral wound. LABORATORY: Sodium 137, potassium 3.8, chloride 108, bicarbonate 20, BUN 13, creatinine 1.3, glucose 89, calcium 9, phosphorus 3.3, albumin 2.5. ASSESSMENT AND PLAN: 1. Acute kidney injury on chronic kidney disease, resolved. This is her baseline. 2. Hypercalcemia, resolved. 3. Dehydration, resolved. 4. Hyperkalemia, resolved. 5. Metabolic encephalopathy, resolved. 6. Rectal cancer, treated with radiation in the past, aware. 7. 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 As per the patient she has been around 25 year bed-bound. Continue physical therapy. 8. Recent history of Escherichia coli during previous hospitalization, aware. 9. Multiple infections with enterococcal faecalis in the urine, abdomen and sacral wound, treated with daptomycin per Infectious Disease Department. We will monitor. cc: Willis Ledezma MD
[2019-09-21] MEDS: NS 1,000 ML IV SCH (16:05)
[2019-09-22] MEDS: NS 1,000 ML IV SCH ×3 (04:02→21:44)
[2019-09-22 08:17] LABS: ALBUMIN 2.3 g/dL (3.5-5.0); CALCIUM 9.1 mg/dL (8.8-10.2); CREATININE 1.2 mg/dL (0.5-0.9); PHOSPHORUS 2.6 mg/dL (2.7-4.5); POTASSIUM 3.9 mmol/L (3.5-5.1)
[2019-09-22] MEDS: LOTRISONE CREAM TOP SCH ×2 (09:16→20:39)
[2019-09-22] MEDS: CUBICIN 500 MG in NS 100 ML IV SCH (09:16)
[2019-09-22] MEDS: MARINOL PO SCH ×2 (09:16→20:39)
[2019-09-22] MEDS: HEPARIN SUBQ SCH ×2 (09:16→20:37)
--- NOTE | 2019-09-22 11:46 | PROGRESS NOTE ---
DATE: 09/22/2019 SUBJECTIVE: The patient is feeling better. It looks like she is tolerating p.o. Continue with antibiotics. OBJECTIVE: Vital Signs: Temperature 98.6 degrees, pulse 87, respiratory rate 18, blood pressure 123/53, oxygen saturation 97% on room air. HEENT: Head normocephalic. No trauma. PERRLA. Neck: Supple. No JVD. No masses. Central trachea. Chest: Clear to auscultation. No wheezing. No rales. Abdomen: Soft. Generalized tenderness to palpation. She has multiple abdominal wounds, especially in the midline of the abdomen. She has a right ileostomy and right urostomy, and left colostomy. Neurological Examination: The patient is awake and alert. She is oriented. She does have chronic lower extremity weakness, apparently from spinal radiation. Laboratory: Sodium 137, potassium 3.9, chloride 109, bicarbonate 19, BUN 13, creatinine 1.2, glucose 84, calcium 9.1, phosphorus 2.6, albumin 2.3. ASSESSMENT AND PLAN: 1. Acute kidney injury on chronic kidney disease, resolved. 2. Multiple infections with Enterococcus faecalis in the urine, abdomen, and sacral wound, treated with daptomycin per infectious disease department. We will monitor this patient closely and I will wait for the final recommendations. 3. Recent history of Escherichia coli urinary tract infection during previous hospitalization. 4. 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 Apparently, she has been basically bedbound for about 25 years. 5. Rectal cancer, treated with radiation in the past. Aware. 6. Hypercalcemia, resolved. 7. Dehydration, resolved. 8. Hyperkalemia, resolved. 9. Metabolic encephalopathy, resolved. 10. Disposition. I will discuss the case with the infectious disease doctor tomorrow to see if this patient can be discharged home at some point. She is doing much better and she seems to be tolerating oral intake. cc: Willis Ledezma MD
[2019-09-22] MEDS: NORCO-10 PO PRN (20:39)
[2019-09-23] MEDS: NS 1,000 ML IV SCH ×2 (00:22→18:19)
[2019-09-23 07:30] LABS: HEMATOCRIT 26.6 % (37.0-47.0); HEMOGLOBIN 8.4 g/dL (12.0-16.0); MCH 28.1 PG (27-31); MCHC 31.6 g/dL (33-37); MPV 9.1 FL (7.4-10.4); RBC 2.99 XMIL (4.2-5.4); RDW 15.7 % (11.5-14.5); WBC 5.91 X1000 (4.8-10.8)
[2019-09-23 07:47] LABS: CALCIUM 9.1 mg/dL (8.8-10.2); CREATININE 1.2 mg/dL (0.5-0.9)
[2019-09-23] MEDS: MARINOL PO SCH ×2 (09:28→22:24)
[2019-09-23] MEDS: HEPARIN SUBQ SCH ×2 (09:28→22:24)
[2019-09-23] MEDS: CUBICIN 500 MG in NS 100 ML IV SCH (09:28)
[2019-09-23] MEDS: NORCO-10 PO PRN ×2 (09:29→17:36)
[2019-09-23] MEDS: LOTRISONE CREAM TOP SCH ×2 (09:32→22:26)
--- NOTE | 2019-09-23 10:29 | PROGRESS NOTE ---
DATE: 09/23/2019 SUBJECTIVE: The patient is feeling better. Continue with IV antibiotics. She is tolerating p.o. OBJECTIVE: Vital Signs: Temperature 98.3 degrees, pulse 71, respiratory rate 19, blood pressure 120/54, oxygen saturation 100% on room air. HEENT: Head normocephalic. No trauma. PERRLA. Neck: Supple. No JVD. No masses. Central trachea. Chest: Clear to auscultation. No wheezing. No rales. Abdomen: Soft. Generalized tenderness to palpation but better. She has multiple abdominal wounds especially in the middle of the abdomen. She also has a right ileostomy and right urostomy and left colostomy. On her back, she has a sacral wound as well that measures about 3 to 4 cm in diameter with possible deep tissue exposure/bone. Neurological: Patient is awake and alert. She is oriented. She has chronic lower extremity weakness apparently from spinal radiation. LABORATORY DATA: WBC 5.9, hemoglobin 8.4, hematocrit 26.6, platelets 174,000. Sodium 142, potassium 4, chloride 111, bicarbonate 19, BUN 12, creatinine 1.2, glucose 81, calcium 9.1. ASSESSMENT AND PLAN: 1. Acute kidney injury on chronic kidney disease, resolved. 2. Multiple infections with Enterococcus faecalis in the urine, abdomen and sacral wound, treated with daptomycin per Infectious Disease Department. We will continue with same management for now. The plan is to send this patient either home or rehab center, but I am not quite sure if she is able to afford these. Case has been discussed with the case technician. 3. Recent history of Escherichia coli urinary tract infection during previous hospitalization. Aware. 4. 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 Continue physical therapy. Basically, she has been bed-bound for about 25 years. 5. Rectal cancer, treated with radiation in the past. Aware. 6. Hypercalcemia, resolved. 7. Dehydration, resolved. 8. Hyperkalemia, resolved. 9. Metabolic encephalopathy, resolved. 10. Disposition. Case has been discussed with the Infectious Disease nurse practitioner. We will continue with same management for now. We will see if she can afford to go home and get the treatment at home. Also, I discussed with the patient the possibility of sending her to a rehab center. risk compliance manager has been notified. cc: Willis Ledezma MD
[2019-09-24] MEDS: NORCO-10 PO PRN ×3 (04:38→23:00)
[2019-09-24] MEDS: CUBICIN 500 MG in NS 100 ML IV SCH (10:00)
[2019-09-24] MEDS: NS 1,000 ML IV SCH ×2 (10:01)
[2019-09-24] MEDS: HEPARIN SUBQ SCH ×2 (10:02→23:02)
[2019-09-24] MEDS: MARINOL PO SCH ×2 (10:02→23:00)
[2019-09-24] MEDS: LOTRISONE CREAM TOP SCH ×2 (10:06→23:01)
--- NOTE | 2019-09-24 16:28 | PROGRESS NOTE ---
DATE: 09/24/2019 SUBJECTIVE: No acute events overnight. OBJECTIVE: Vital Signs: Temperature 98 degrees, pulse 72, respiratory rate 21, blood pressure 108/57. Oxygen saturation 98% on room air. HEENT: Head normocephalic. No trauma. PERRLA. Neck: Supple. No JVD. No masses. Central trachea. Chest: Clear to auscultation. No wheezing. No rales. Abdomen: Soft, generalized tenderness to palpation but better. She has multiple wounds, especially in the midline of the abdomen. She also has a right ileostomy and right urostomy on the left and left colostomy. Back: She has a sacral wound as well that probably is about 3 to 4 cm in diameter, it is deep. Neurological: Patient is awake, alert. She has chronic lower extremity weakness apparently due to spinal radiation. LABORATORY: No lab work done today. ASSESSMENT AND PLAN: 1. Acute kidney injury on chronic kidney disease, resolved. 2. Multiple infections with enterococcal faecalis in the urine, abdomen and sacral wound, treated with daptomycin per Infectious Disease Department. We will continue with same management for now. The plan is to send this patient either home with home with IV antibiotics or rehab center to complete treatment, but I am not quite sure if she is able to afford the treatment, the case has been discussed with the correctional counselor/case manager yesterday. 3. Recent history of Escherichia coli urinary tract infection during previous hospitalization. Aware. 4. 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 5. Rectal cancer, treated with radiation in the past. Aware. 6. Hypercalcemia resolved. 7. Dehydration resolved. 8. Hyperkalemia resolved. 9. Metabolic encephalopathy, resolved. 10. Nutritional status. This patient was not able to tolerate p.o. but now she seems to be doing better. 11. Disposition. Case has been discussed with the correctional counselor/case manager, we will see if she can afford to go home with medications or if she can go to a rehab center so she can complete the treatment. We will monitor for now. cc: Willis Ledezma MD
--- NOTE | 2019-09-24 17:09 | INFECTIOUS DISEASE PROGRESS NO ---
DATE: 09/24/2019 PRESENT ILLNESS: Ms. Thompson has an Enterococcal urinary tract infection as well as abdominal and sacral infections which have also grown Enterococcus. She did have a rash to her hands and wrists, which have mostly cleared up. MEDICATIONS: She is receiving daptomycin 500 mg IV every 24 hours and Lotrisone cream topically to her hands twice a day. PHYSICAL EXAMINATION: Vital Signs: Temperature is 98 degrees, pulse rate 72, respiratory rate 21, blood pressure 108/57, O2 saturation 98% on room air. General: This is a chronically ill- appearing, middle-aged female. She is sitting up in bed, currently in no acute distress. HEENT: Atraumatic, normocephalic. Oral mucous membranes are pink and moist. Conjunctivae are pale. Neck: Supple. Trachea is midline. Cardiovascular: Heart rate and rhythm are regular. Normal sinus rhythm on the monitor. Respiratory: Lung sounds are bilaterally clear to auscultation. No work of breathing is noted. Abdomen: Soft and tender to palpation. There is a nonfunctioning colostomy on the left and an ileostomy and urostomy on the right as well as the midline abdominal incision with some mild erythema and purulent drainage. The rash to her hands and wrists has improved significantly, with only some mild, dry skin noted. Neurologic: She is awake, alert, oriented, and very weak to her lower extremities. LABORATORY AND X-RAY: None available today. Yesterday, her white count was 5.91, hemoglobin 8.4, platelet count 174,000. Creatinine 1.2. GFR 45. Her buttock wound, abdominal wound and urine culture have all grown Enterococcal faecalis. No imaging reports today. ASSESSMENT AND PLAN: Ms. Thompson seems to be improving after receiving treatment for multiple infections including abdominal and sacral wounds and a urinary tract infection. She is currently receiving daptomycin, which she seems to be tolerating well. We will go ahead and order a creatine kinase in the morning. At this point, we are trying to see if there is any way possible for her to get her infusions at home. The restrepo from [employer] was too high, so medical social worker is attempting to get her assistance with antibiotics at home from [facility]. Hopefully, this will work out, but if not, I am not sure what else we can do except consider the possibility of rehab with daptomycin for 3 weeks. The patient is hesitant to go rehab and would prefer to go home. COMORBIDITIES: Comorbidities for Mr. Thompson include extensive radiation for rectal cancer which has caused multiple infections with subsequent, multiple surgical procedures. Dictated by GEN Bergeron for Alan Ham MD cc: Alan Ham MD, Pardeep Mitchell MD MTDD
[2019-09-25] MEDS: NS 1,000 ML IV SCH (06:55)
[2019-09-25] MEDS: NORCO-10 PO PRN (06:56)
[2019-09-25] MEDS: CUBICIN 500 MG in NS 100 ML IV SCH (09:29)
[2019-09-25] MEDS: LOTRISONE CREAM TOP SCH (09:29)
[2019-09-25] MEDS: MARINOL PO SCH (09:29)
[2019-09-25] MEDS: HEPARIN SUBQ SCH (09:29)
[2019-09-25 12:31] VITALS: BP 123/48
--- NOTE | 2019-09-26 08:13 | DISCHARGE SUMMARY ---
ADMISSION DATE: 09/16/2019 DISCHARGE DATE: 09/25/2019 DISCHARGE DIAGNOSES: 1. Multiple infections with enterococcal faecalis in the urine, abdomen and sacral wound. 2. Acute kidney injury on chronic kidney disease, resolved. 3. 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 4. Rectal cancer. 5. Hypercalcemia, resolved. 6. Dehydration, resolved. 7. Hyperkalemia, resolved. 8. Metabolic encephalopathy, resolved. 9. Generalized weakness. PROCEDURES PERFORMED: 1. Chest x-ray dated 09/16/2019 impression: No evidence of acute pathology. 2. Abdomen and pelvis CT scan dated 09/17/2019 impression: No evidence of bowel obstruction. CONSULTATIONS: 1. Surgery Department, Dr. Gregg. 2. Nephrology Department, Dr. Peraza. 3. Infectious Disease Department, Dr. Mitchell. 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 She was then continued with TPN which has been since discontinued in mid July of this year. She states that her oral intake was bad, and she has been getting weaker for the past 2 weeks prior to admission. She was admitted on 09/16/2019, but she denied any abdominal pain, fever, chills, genitourinary complaints. She does have ileostomy, urostomy and colostomy. She states she is not having to frequently empty her ileostomy bag or urostomy bag. No change in the color of the urine, though. She admits to having chronic dyspnea and weakness for several months. The initial lab work showed an acute on chronic kidney disease with a creatinine of 3.3, now down to 1.2. Also, she was acidotic and placed initially on bicarbonate. Her bicarbonate level was 11 upon admission. We did a culture that showed enterococcal faecalis in the urine, abdominal wall, and also on her back at the level of the ulcer. We started treating this patient with daptomycin, which we will continue to complete 21 days. She will be discharged home. We did a swallow evaluation and she passed. She has been eating fine, no issues. Laboratory basically normalized for her, so she will be discharged today to follow up by her primary care doctor, Surgery Department and also follow-up by Infectious Disease Department. She needs to complete treatment with daptomycin for 3 weeks at home. PHYSICAL EXAMINATION: Vital Signs: Temperature 98.1 degrees, pulse 69, respiratory rate 16, blood pressure 123/48, oxygen saturation 100% on room air. HEENT: Head normocephalic, no trauma. PERRLA. Neck: Neck is supple. No JVD. No masses. Central trachea. Chest: Clear to auscultation. No wheezing. No rales. Abdomen: Soft. Generalized tenderness to palpation, but better. She has multiple wounds, especially midline of the abdomen with this small secretion. She also has a right ileostomy and right urostomy and left colostomy. Back: She has a sacral wound as well that is probably around 3 to 4 cm in diameter, but looks fine, is deep though. Neurological examination: The patient is awake, alert. She is oriented. She does have chronic lower extremity weakness due to spinal radiation apparently. LABORATORY: From yesterday, WBC 5.9, hemoglobin 8.4, hematocrit 26.6, platelets 174. Sodium 142, potassium 4, chloride 111, bicarbonate 18. BUN 12, creatinine 1.2, glucose 81, calcium 9.1. DISCHARGE MEDICATIONS: 1. Daptomycin 500 mg IV daily to complete 21 days. 2. Clotrimazole betamethasone cream on top twice a day. 3. Marinol 2.5 mg p.o. b.i.d. 4. [place] 10 one tablet p.o. q. 6 hours as needed. 5. Zofran 4 mg p.o. q. 4 hours as needed as well. PLAN: She will be discharged with home health. TIME SPENT: Time discharging this patient and setting up everything with the executive secretary social welfare, infusion center, and talking to the patient about 35 minutes. cc: Willis Ledezma MD
== END 2019-09-25 15:30 | disposition home health service (06) | DRG 682 ==
LOC: ED 15:46 → 3N 23:54 → SUATTDRO 23:54
PROVIDERS: ATTEND Internal Medicine